=== PATIENT | female | born 1940 | race Caucasian/White ===

== ENCOUNTER 2016-12-14 18:16 | Inpatient (IN) | payer MEDICARE, MEDICAID ==
[~2016-12-14] VITALS: Ht 162.6 cm; Wt 110.4 kg
[~2016-12-14 18:16] MED LIST: ACET325 PO; ALDA50TA2 PO; AMLO5 PO; ASPI81TA82 PO; CYAN100017 PO; DIOV320T PO; DUONI NEB; FURO20 PO; PLAV75TA PO; PRED20 PO; RANI150 PO; SITA100 PO; VENL75 PO; ZOCO80TA PO; [UNRECOGNIZED DRUG - CODE] TOP
[2016-12-14 18:23] VITALS: PULSE 109; RESP 16; TEMP 98.8; O2SAT 86
[2016-12-14 18:38] VITALS: BP 137/74; PULSE 109; RESP 18; TEMP 98.8; O2SAT 90
[2016-12-14] MEDS ORDERED: VENL75TA PO (18:55)
[2016-12-14] MEDS ORDERED: AMLO10 PO (18:55)
[2016-12-14] MEDS ORDERED: ASPI81CH CHEW (18:55)
[2016-12-14] MEDS ORDERED: METO5TAB3 PO (18:55)
[2016-12-14] MEDS ORDERED: CYAN1TAB24 (18:55)
[2016-12-14] MEDS ORDERED: SIMV80TA PO (18:55)
[2016-12-14] MEDS ORDERED: PLAV75TA29 PO (18:55)
[2016-12-14] MEDS ORDERED: FURO1TAB60 PO (18:55)
[2016-12-14] MEDS ORDERED: MICRO K PO (18:55)
[2016-12-14] MEDS ORDERED: O2 (18:55)
[2016-12-14] MEDS ORDERED: ZANT150T2 PO (18:55)
[2016-12-14] MEDS ORDERED: SITA1TAB2 PO (18:55)
[2016-12-14] MEDS ORDERED: GLIP10TA6 PO (18:55)
[2016-12-14 19:01] LABS: AUTOMATED NEUTROPHIL # 6.9 TH/MM3 (1.8-7.7); BASOPHIL % 0.3 % (0.0-2.0); EOSINOPHIL # 0.4 TH/MM3 (0-0.4); EOSINOPHIL % 4.5 % (0.0-4.0); HEMATOCRIT 38.3 % (35.0-46.0); LYMPH % 10.7 % (9.0-44.0); LYMPHOCYTE # 0.9 TH/MM3 (1.0-4.8); MEAN CELL VOLUME 76.6 FL (80.0-100.0); MEAN CORPUSCULAR HEMOGLOBIN 24.5 PG (27.0-34.0); MEAN CORPUSCULAR HGB CONC 31.9 % (32.0-36.0); MONO % 4.7 % (0.0-8.0); NEUT % 79.8 % (16.0-70.0); PLATELET COUNT 211 TH/MM3 (150-450); RED BLOOD COUNT 4.99 MIL/MM3 (4.00-5.30); RED CELL DISTRIBUTION WIDTH 16.9 % (11.6-17.2); WHITE BLOOD COUNT 8.6 TH/MM3 (4.0-11.0)
[2016-12-14 19:10] LABS: HEMO FLAGS AUTO DIFF
[2016-12-14 19:25] LABS: ALKALINE PHOSPHATASE 93 U/L (45-117); ALT (GPT) 21 U/L (10-53); ANION GAP 7 MEQ/L (5-15); AST (GOT) 25 U/L (15-37); BICARBONATE 42.1 MEQ/L (21.0-32.0); BLOOD UREA NITROGEN 47 MG/DL (7-18); CHLORIDE 89 MEQ/L (98-107); GLOMERULAR FILTRATION RATE 34 ML/MIN (>89); SODIUM (NA) 138 MEQ/L (136-145); TOTAL BILIRUBIN ADULT 0.3 MG/DL (0.2-1.0)
[2016-12-14 19:26] LABS: POTASSIUM 2.7 MEQ/L (3.5-5.1)
--- NOTE | 2016-12-14 19:32 | PD ---
HPI Chief Complaint: Abnormal Results Time Seen by Provider: 19:22 Travel History International Travel<30 days: No Contact w/Intl Traveler<30days: No Traveled to known affect area: No History of Present Illness HPI 75-year-old female presents to the emergency department by private transportation in the Care of her health child day care center worker, Julio César Rowland, for evaluation of hypokalemia. According to the patient and to Ms Rowland patient was noted to have low potassium and her doctor's office on Sunday and a repeat potassium was performed today and [facility] to [facility] Patient sent to the emergency department for potassium replacement. The patient is under the care of primary provider Dr. Gardner, oxygen tank filler , and chili pepper grinder Dr. Flores. Patient has history of hypertension dyslipidemia diabetes CHF lymphedema chronic renal failure and COPD on continuous supplemental oxygen 2 L/m nasal cannula. Patient since October has been on high dose Lasix 80 mg daily and metolazone 5 mg daily as well as potassium 10 mEq daily since October when she was identified to have an exacerbation of volume overload. Patient has reportedly lost 20 pounds from October until now as well as is being managed to a lymphedema clinic with wrapping of the lower extremities. Patient has not been having any episodes of exacerbation of dyspnea or CHF. Patient has some small episodes of exacerbation of COPD that are managed symptomatically and have not been causing her any issues. Because of patient's low potassium as of yesterday her potassium dose was decreased to 40 mg of Lasix daily and her potassium is increased to 30 mEq daily. Patient's last creatinine was 1.3 on 11/23/16 according to health child day care center worker but does not know the results of the last 2 days renal function. The patient denies any fever or chills, nausea or vomiting, palpitations or shortness of breath, orthopnea or PND. Patient always has some mild dyspnea on exertion. There is been no increased no extremity edema or pain. Patient's had no chest pain or pleuritic chest pain. Patient's had no diarrheal illness. Patient's had good urine output. Blood sugars have been well controlled and at the maximum has been in the 200 range. Patient denies any other concerns or complaints. PFSH Past Medical History Narrative Medical Plavix/aspirin therapy, depression, CAD, intermittent atrial fibrillation, CHF, hypertension, dyslipidemia, diabetes, asthma/COPD, CVA, cataract surgery, dental extraction; no tobacco use, occasional alcohol use; nursing notes reviewed Hx Anticoagulant Therapy: Yes (PLAVIX AND BABY ASA) Asthma: Yes Autoimmune Disease: No Blood Disorders: No Depression: Yes Heart Rhythm Problems: No Cancer: No Cardiovascular Problems: Yes (HTN, CAD, CHOL) High Cholesterol: Yes Chest Pain: No Congestive Heart Failure: Yes Cerebrovascular Accident: Yes (CVA) Coronary Artery Disease: Yes Diabetes: Yes Patient Takes Glucophage: Yes Diminished Hearing: No Endocrine: Yes Gastrointestinal Disorders: Yes GERD: Yes Genitourinary: No Hypertension: Yes Immune Disorder: No Implanted Vascular Access Dvce: Yes Musculoskeletal: No Neurologic: No Psychiatric: No Reproductive: No Respiratory: Yes (RESPIRATORY FAILURE, ASTHMA, COPD) Sleep Apnea: No Thyroid Disease: No Triglycerides - High: Yes Tetanus Vaccination: < 5 Years ?: Not Past Surgical History Abdominal Surgery: No AICD: No Arteriovenous Shunt: No Cardiac Surgery: No Ear Surgery: No Endocrine Surgery: No Eye Surgery: Yes (CATARACTS BILATERAL ) Genitourinary Surgery: No Gynecologic Surgery: No Hysterectomy: No Insulin Pump: No Joint Replacement: No Neurologic Surgery: No Oral Surgery: Yes (TEETH EXTRACTIONS) Pacemaker: No Thoracic Surgery: No Other Surgery: Yes Social History Alcohol Use: Yes (ONE DRINK PER MONTH) Tobacco Use: No Substance Use: No Allergies-Medications (Allergen,Severity, Reaction): Coded Allergies: No Known Allergies (Verified , 12/14/16) Reported Meds & Prescriptions Reported Meds & Active Scripts Active Reported [O2] 2 Liter [Micro K] 10 Meq PO TID Plavix (Clopidogrel Bisulfate) 75 Mg Tab 75 Mg PO DAILY B12 (Cyanocobalamin) 1,000 Mcg Tab Lasix (Furosemide) 40 Mg Tab 40 Mg PO DAILY Januvia (Sitagliptin Phosphate) 100 Mg Tab 100 Mg PO DAILY Metolazone 5 Mg Tab 5 Mg PO DAILY Simvastatin 80 Mg Tab 80 Mg PO DAILY Aspirin 81 Mg Chew 81 Mg CHEW DAILY Effexor (Venlafaxine HCl) 75 Mg Tab 75 Mg PO DAILY Glipizide 10 Mg Tab 10 Mg PO DAILY Take 30 minutes before a meal Zantac (Ranitidine HCl) 150 Mg Tab 150 Mg PO DAILY Norvasc (Amlodipine Besylate) 10 Mg Tab 10 Mg PO DAILY Review of Systems Except as stated in HPI: all other systems reviewed are Neg General / Constitutional: No: Fever, Chills HENT: No: Congestion Cardiovascular: No: Chest Pain or Discomfort, Palpitations, Diaphoresis, Syncope, Edema Respiratory: No: Cough, Shortness of Breath, Wheezing, Orthopnea, Pleuritic Pain Gastrointestinal: No: Nausea, Vomiting, Diarrhea, Abdominal Pain Genitourinary: No: Dysuria, Decreased Urinary Output Musculoskeletal: No: Myalgias, Arthralgias Skin: No Rash Neurologic: No: Weakness, Dizziness Psychiatric: No: Anxiety Endocrine: No: Polyuria Hematologic/Lymphatic: No: Lymph Node Enlargement Physical Exam Narrative GENERAL: Well-developed well-nourished elderly obese female in no acute distress no respiratory distress resting supine with 2 L/m NC O2sat 93% SKIN: Warm and dry. HEAD: Normocephalic. EYES: No scleral icterus. No injection or drainage. NECK: Supple, trachea midline. No JVD or lymphadenopathy. CARDIOVASCULAR: Irregular rate and rhythm without murmurs, gallops, or rubs. RESPIRATORY: Breath sounds equal bilaterally. No accessory muscle use. GASTROINTESTINAL: Abdomen soft, non-tender, nondistended. MUSCULOSKELETAL: No cyanosis, or edema. BL LE lymphedema bandaging. BACK: Nontender without obvious deformity. No CVA tenderness. Data Data Last Documented VS Vital Signs Date Time Temp Pulse Resp B/P Pulse Ox O2 Delivery O2 Flow Rate FiO2 12/14/16 22:26 92 18 133/63 93 Nasal Cannula 2 12/14/16 18:38 98.8 Orders Complete Blood Count With Diff (12/14/16 18:48) Comprehensive Metabolic Panel (12/14/16 18:48) Potassium Chloride (Kcl) (12/14/16 19:45) Potassium Chlor 10 Meq Premix (Kcl 10 Me (12/14/16 19:45) Electrocardiogram (12/14/16 ) Magnesium (Mg) (12/14/16 18:53) Potassium, Serum (K) (12/14/16 21:37) Place In Observation (12/14/16 ) Code Status (12/14/16 22:41) Vital Signs (Adult) Q4H (12/14/16 22:41) Activity Oob Ad Maggi (12/14/16 22:41) Office Copy Selector / Telemetry .CONTINUOUS (12/14/16 22:41) Diet Renal (12/15/16 Breakfast) Sodium Chloride 0.9% Flush (Ns Flush) (12/14/16 22:45) Sodium Chloride 0.9% Flush (Ns Flush) (12/15/16 09:00) Ondansetron Inj (Zofran Inj) (12/14/16 22:45) Basic Metabolic Panel (Bmp) (12/15/16 06:00) Complete Blood Count With Diff (12/15/16 06:00) Heparin Inj (Heparin Inj) (12/14/16 22:45) Naloxone Inj (Narcan Inj) (12/14/16 22:45) Docusate Sodium-Senna (Ynes-Colace) (12/15/16 09:00) Magnesium Hydroxide Liq (Milk Of Magnesi (12/14/16 22:45) Sennosides (Senokot) (12/14/16 22:45) Bisacodyl Supp (Dulcolax Supp) (12/14/16 22:45) Lactulose Liq (Lactulose Liq) (12/14/16 22:45) Labs Laboratory Tests Test 12/14/16 12/14/16 18:53 22:00 White Blood Count 8.6 TH/MM3 Red Blood Count 4.99 MIL/MM3 Hemoglobin 12.2 GM/DL Hematocrit 38.3 % Mean Corpuscular Volume 76.6 FL Mean Corpuscular Hemoglobin 24.5 PG Mean Corpuscular Hemoglobin 31.9 % Concent Red Cell Distribution Width 16.9 % Platelet Count 211 TH/MM3 Mean Platelet Volume 8.1 FL Neutrophils (%) (Auto) 79.8 % Lymphocytes (%) (Auto) 10.7 % Monocytes (%) (Auto) 4.7 % Eosinophils (%) (Auto) 4.5 % Basophils (%) (Auto) 0.3 % Neutrophils # (Auto) 6.9 TH/MM3 Lymphocytes # (Auto) 0.9 TH/MM3 Monocytes # (Auto) 0.4 TH/MM3 Eosinophils # (Auto) 0.4 TH/MM3 Basophils # (Auto) 0.0 TH/MM3 CBC Comment AUTO DIFF Differential Comment AUTO DIFF CONFIRMED Sodium Level 138 MEQ/L Potassium Level 2.7 MEQ/L 2.8 MEQ/L Chloride Level 89 MEQ/L Carbon Dioxide Level 42.1 MEQ/L Anion Gap 7 MEQ/L Blood Urea Nitrogen 47 MG/DL Creatinine 1.50 MG/DL Estimat Glomerular Filtration 34 ML/MIN Rate Random Glucose 194 MG/DL Calcium Level 9.2 MG/DL Magnesium Level 1.7 MG/DL Total Bilirubin 0.3 MG/DL Aspartate Amino Transf 25 U/L (AST/SGOT) Alanine Aminotransferase 21 U/L (ALT/SGPT) Alkaline Phosphatase 93 U/L Total Protein 7.6 GM/DL Albumin 2.9 GM/DL MDM Medical Decision Making Medical Screen Exam Complete: Yes Emergency Medical Condition: Yes Medical Record Reviewed: Yes Interpretation(s) EKG: Atrial fibrillation with controlled ventricular rate of 93 left axis deviation no acute ST elevation or acute injury pattern change noted Vital Signs Date Time Temp Pulse Resp B/P Pulse Ox O2 Delivery O2 Flow Rate FiO2 12/14/16 18:38 98.8 109 18 137/74 90 12/14/16 18:35 16 86 Nasal Cannula 2 12/14/16 18:23 98.8 109 16 86 Nasal Cannula 2 CBC & BMP Diagram 12/14/16 18:53 Differential Diagnosis Electrolyte disturbance, hypokalemia, renal insufficiency, arrhythmia Narrative Course Patient placed on manager cardiac, continued on supplemental nasal cannula oxygen, IV access obtained, specimens collected and sent for resulting It is 7:30 PM and patient's potassium has been resulted as 2.7 Patient administered oral potassium and x 1 dose iv KCL patient resting comfortably --waiting on repeat potassium level repeat K:2.8; plan obs for correction of hypokalemia Physician Communication Physician Communication call placed to service --discussed with Danitza CENTENO--OBS Diagnosis Primary Impression: Hypokalemia Additional Impressions: History of COPD H/O CHF Atrial fibrillation Qualified Code: I48.0 - Paroxysmal atrial fibrillation H/O renal impairment Admitting Information Admitting Physician Requests: Observation Chacha Diallo MD Dec 14, 2016 19:32
[2016-12-14] MEDS ORDERED: POTASSIUM CHLORIDE 20 MEQ CONTROLLED RELEASE TAB PO ONE (19:45)
[2016-12-14] MEDS ORDERED: POTASSIUM CHLOR 10 MEQ PREMIX 100 ML IV ONE (19:45)
[2016-12-14 19:50] LABS: SCAN/DIFF AUTO DIFF CONFIRMED
[2016-12-14 20:00] LABS: MAGNESIUM 1.7 MG/DL (1.5-2.5)
[2016-12-14 21:04] VITALS: BP 124/70; PULSE 93; RESP 18; O2SAT 93
[2016-12-14 22:26] VITALS: BP 133/63; PULSE 92; RESP 18; O2SAT 93
[2016-12-14] MEDS ORDERED: ONDANSETRON HCL 4 MG/2 ML VIAL IVP PRN (22:45)
[2016-12-14] MEDS ORDERED: NALOXONE HCL 0.4 MG/ML AMP IV PRN (22:45)
[2016-12-14] MEDS ORDERED: SODIUM CHLORIDE 0.9% FLUSH 10 ML FLUSH IV FLUSH PRN (22:45)
[2016-12-14] MEDS ORDERED: SENNOSIDES 8.6 MG TAB PO PRN (22:45)
[2016-12-14] MEDS ORDERED: BISACODYL 10 MG SUPP RECTAL PRN (22:45)
[2016-12-14] MEDS ORDERED: MAGNESIUM HYDROXIDE SUSP 30 ML CUP PO PRN (22:45)
[2016-12-14] MEDS ORDERED: SODIUM CHLORIDE 0.9% FLUSH 10 ML FLUSH IVF PRN (22:45)
[2016-12-14] MEDS ORDERED: POTASSIUM CHLORIDE 10 MEQ CONTROLLED RELEASE TAB PO ONE (22:45)
[2016-12-14] MEDS ORDERED: LACTULOSE SYRUP 20 GM/30 ML CUP PO PRN (22:45)
[2016-12-14 22:49] VITALS: O2SAT 94
[2016-12-14] MEDS ORDERED: DEXTROSE 50% IN WATER 50 ML VIAL(D50) IV PRN (23:00)
[2016-12-14] MEDS ORDERED: GLUCAGON 1 MG/ML VIAL OTHER PRN (23:00)
[2016-12-14] MEDS ORDERED: PILL SPLITTER OTHER PRN (23:00)
[2016-12-14] MEDS: HEPARIN SODIUM - SQ 10,000 UNITS/ML VIAL SQ SCH (23:21)
[2016-12-14] MEDS: NS + KCL 20 MEQ INJ 1,000 ML IV SCH (23:21)
[2016-12-14 23:44] VITALS: BP 137/72; PULSE 90; RESP 18; O2SAT 94
[2016-12-15] VITALS (14 sets, daily range): BP systolic 145–190; BP diastolic 65–92; PULSE 63–101; RESP 17–20; TEMP 97–98; O2SAT 81–99
[2016-12-15] MEDS: INSULIN ASPART SUPPLEMENTAL SCALE SQ SCH ×4 (05:59→20:30)
[2016-12-15 06:35] LABS: AUTOMATED NEUTROPHIL # 5.8 TH/MM3 (1.8-7.7); BASOPHIL % 0.4 % (0.0-2.0); EOSINOPHIL # 0.4 TH/MM3 (0-0.4); EOSINOPHIL % 5.4 % (0.0-4.0); HEMATOCRIT 35.5 % (35.0-46.0); HEMO FLAGS DIFF FINAL; LYMPH % 14.2 % (9.0-44.0); LYMPHOCYTE # 1.1 TH/MM3 (1.0-4.8); MEAN CELL VOLUME 77.2 FL (80.0-100.0); MEAN CORPUSCULAR HEMOGLOBIN 25.1 PG (27.0-34.0); MEAN CORPUSCULAR HGB CONC 32.5 % (32.0-36.0); MONO % 5.3 % (0.0-8.0); NEUT % 74.7 % (16.0-70.0); PLATELET COUNT 198 TH/MM3 (150-450); WHITE BLOOD COUNT 7.7 TH/MM3 (4.0-11.0)
[2016-12-15 07:00] LABS: BICARBONATE 42.7 MEQ/L (21.0-32.0)
[2016-12-15 07:03] LABS: POTASSIUM 2.5 MEQ/L (3.5-5.1)
[2016-12-15] MEDS: DOCUSATE SODIUM 50 MG/SENNA 8.6 MG TAB PO SCH ×2 (08:23→20:28)
[2016-12-15] MEDS: CLOPIDOGREL 75 MG TAB PO SCH (08:23)
[2016-12-15] MEDS: ASPIRIN 81 MG CHEW TAB CHEW SCH (08:23)
[2016-12-15] MEDS: VENLAFAXINE HCL XR 75 MG CAP PO SCH (08:23)
[2016-12-15] MEDS: ATORVASTATIN 40 MG TAB PO SCH (08:23)
[2016-12-15] MEDS: HEPARIN SODIUM - SQ 10,000 UNITS/ML VIAL SQ SCH ×2 (08:35→23:25)
[2016-12-15] MEDS: FAMOTIDINE 20 MG TAB PO SCH ×2 (08:35→20:28)
[2016-12-15] MEDS ORDERED: POTASSIUM CHLORIDE 10 MEQ CONTROLLED RELEASE TAB PO ONE (09:00)
[2016-12-15] MEDS ORDERED: SODIUM CHLORIDE 0.9% FLUSH 10 ML FLUSH IV FLUSH SCH (09:00)
[2016-12-15] MEDS: SODIUM CHLORIDE 0.9% FLUSH 10 ML FLUSH IV FLUSH SCH ×2 (09:00→20:29)
--- NOTE | 2016-12-15 12:33 | PD.CONS ---
HPI Service Nephrology Consult Requested By Dr. Edgar Reason for Consult Hypokalemia Primary Care Physician Yoni Gardner MD History of Present Illness Patient is 75-year-old white female with history of diabetes, lymphedema, congestive heart failure, atrial fibrillation, on Lasix 80 mg daily and metolazone 5 mg daily with potassium supplementation she came in with increased weakness and found to have potassium 2.8 this gradually declined to 2.7 and then 2.5, magnesium was 1.7, she has metabolic alkalosis is feeling weak tired and lethargic inability to walk, she did got replacement of potassium supplementation. 80 mEq of potassium was given orally. Review of Systems Constitutional: COMPLAINS OF: Fatigue Respiratory: COMPLAINS OF: Shortness of breath Cardiovascular: COMPLAINS OF: Lower Extremity Edema Musculoskeletal: COMPLAINS OF: Joint Swelling Neurologic: COMPLAINS OF: Abnormal gait Psychiatric: COMPLAINS OF: Depression Past Family Social History Allergies: Coded Allergies: No Known Allergies (Verified , 12/14/16) Past Medical History depression CAD CKD follows with Dr. Gomez intermittent atrial fibrillation CHF hypertension, dyslipidemia diabetes asthma/COPD CVA, Past Surgical History Cataract surgery Dental extraction Reported Medications Reported Meds & Active Scripts Active Reported [O2] 2 Liter [Micro K] 10 Meq PO TID Plavix (Clopidogrel Bisulfate) 75 Mg Tab 75 Mg PO DAILY B12 (Cyanocobalamin) 1,000 Mcg Tab Lasix (Furosemide) 40 Mg Tab 40 Mg PO DAILY Januvia (Sitagliptin Phosphate) 100 Mg Tab 100 Mg PO DAILY Metolazone 5 Mg Tab 5 Mg PO DAILY Simvastatin 80 Mg Tab 80 Mg PO DAILY Aspirin 81 Mg Chew 81 Mg CHEW DAILY Effexor (Venlafaxine HCl) 75 Mg Tab 75 Mg PO DAILY Glipizide 10 Mg Tab 10 Mg PO DAILY Take 30 minutes before a meal Zantac (Ranitidine HCl) 150 Mg Tab 150 Mg PO DAILY Norvasc (Amlodipine Besylate) 10 Mg Tab 10 Mg PO DAILY Active Ordered Medications Current Medications Medications (Trade) Dose Ordered Sig/Jovon Route Start Time Stop Time Status Last Admin (NS Flush) 2 ml UNSCH PRN IV FLUSH 12/14/16 22:45 (NS Flush) 2 ml BID IV FLUSH 12/15/16 09:00 (Zofran Inj) 4 mg Q6H PRN IVP 12/14/16 22:45 (Heparin Inj) 5,000 units Q12H SQ 12/14/16 23:00 12/15/16 08:35 (Narcan Inj) 0.4 mg UNSCH PRN IV 12/14/16 22:45 (Ynes-Colace) 1 tab BID PO 12/15/16 09:00 12/15/16 08:23 (Milk Of Magnesia Liq) 30 ml Q12H PRN PO 12/14/16 22:45 (Senokot) 17.2 mg Q12H PRN PO 12/14/16 22:45 (Dulcolax Supp) 10 mg DAILY PRN RECTAL 12/14/16 22:45 Lactulose 30 ml 30 ml DAILY PRN PO 12/14/16 22:45 (NS + KCl 20 Meq Inj) 1,000 ml @ 42 mls/hr [id number] IV 12/14/16 22:45 12/14/16 23:21 (Norvasc) 10 mg DAILY PO 12/15/16 09:00 12/15/16 08:23 (Aspirin Chew) 81 mg DAILY CHEW 12/15/16 09:00 12/15/16 08:23 (Plavix) 75 mg DAILY PO 12/15/16 09:00 12/15/16 08:23 (Lipitor) 40 mg DAILY PO 12/15/16 09:00 12/15/16 08:23 (Effexor Xr) 75 mg DAILY PO 12/15/16 09:00 12/15/16 08:23 (Pepcid) 10 mg BID PO 12/15/16 09:00 12/15/16 08:35 (D50w (Vial) Inj) 50 ml UNSCH PRN IV 12/14/16 23:00 (Glucagon Inj) 1 mg UNSCH PRN OTHER 12/14/16 23:00 (Pill Splitter) 1 ea UNSCH PRN OTHER 12/14/16 23:00 Family History Noncontributory Social History Takes one drink a month Physical Exam Vital Signs Vital Signs Date Time Temp Pulse Resp B/P Pulse Ox O2 Delivery O2 Flow Rate FiO2 12/15/16 09:07 97.9 95 19 183/78 92 12/15/16 04:00 97.7 101 20 190/92 95 12/15/16 03:38 92 12/15/16 00:13 92 18 94 Nasal Cannula 2 12/15/16 00:00 97.4 95 20 162/80 92 12/14/16 23:44 90 18 137/72 94 Nasal Cannula 2 12/14/16 22:49 94 Nasal Cannula 2.00 12/14/16 22:26 92 18 133/63 93 Nasal Cannula 2 12/14/16 21:04 93 18 124/70 93 Nasal Cannula 2 12/14/16 20:25 102 18 94 Nasal Cannula 2 12/14/16 18:38 98.8 109 18 137/74 90 12/14/16 18:35 16 86 Nasal Cannula 2 12/14/16 18:23 98.8 109 16 86 Nasal Cannula 2 Physical Exam GENERAL: Well-nourished, well-developed patient. SKIN: Warm and dry. HEAD: Normocephalic. EYES: No scleral icterus. No injection or drainage. NECK: Supple, trachea midline. No JVD or lymphadenopathy. CARDIOVASCULAR: Irregular RESPIRATORY: Breath sounds equal bilaterally. No accessory muscle use. GASTROINTESTINAL: Abdomen soft, non-tender, nondistended. EXTREMITIES: No cyanosis, 1+/ 2 + edema. Wears stockings NEUROLOGICAL: Awake, alert, and oriented x 3. Non-focal. Laboratory Laboratory Tests Test 12/14/16 12/14/16 12/15/16 18:53 22:00 05:40 White Blood Count 8.6 7.7 Red Blood Count 4.99 4.60 Hemoglobin 12.2 11.5 Hematocrit 38.3 35.5 Mean Corpuscular Volume 76.6 77.2 Mean Corpuscular Hemoglobin 24.5 25.1 Mean Corpuscular Hemoglobin 31.9 32.5 Concent Red Cell Distribution Width 16.9 17.0 Platelet Count 211 198 Mean Platelet Volume 8.1 8.2 Neutrophils (%) (Auto) 79.8 74.7 Lymphocytes (%) (Auto) 10.7 14.2 Monocytes (%) (Auto) 4.7 5.3 Eosinophils (%) (Auto) 4.5 5.4 Basophils (%) (Auto) 0.3 0.4 Neutrophils # (Auto) 6.9 5.8 Lymphocytes # (Auto) 0.9 1.1 Monocytes # (Auto) 0.4 0.4 Eosinophils # (Auto) 0.4 0.4 Basophils # (Auto) 0.0 0.0 CBC Comment AUTO DIFF DIFF FINAL Differential Comment AUTO DIFF CONFIRMED Sodium Level 138 140 Potassium Level 2.7 2.8 2.5 Chloride Level 89 91 Carbon Dioxide Level 42.1 42.7 Anion Gap 7 6 Blood Urea Nitrogen 47 42 Creatinine 1.50 1.30 Estimat Glomerular Filtration 34 40 Rate Random Glucose 194 149 Calcium Level 9.2 9.1 Magnesium Level 1.7 Total Bilirubin 0.3 Aspartate Amino Transf 25 (AST/SGOT) Alanine Aminotransferase 21 (ALT/SGPT) Alkaline Phosphatase 93 Total Protein 7.6 Albumin 2.9 Result Diagram: 12/15/1653912/15/16539 Assessment and Plan Problem List: (1) Renal failure Plan: Patient will benefit from IV fluid and hydration I will increase the rate to 2 83 cc an hour with potassium replacement and recheck potassium Resume diuretic, once volume repletion is completed Lasix and restarted at 40 mg from tomorrow Continue to hold metolazone She came discharge from nephrology point of view once potassium is replaced and can be followed by Dr. Gomez (2) Hypokalemia Plan: I will replace magnesium as less than 2 And continue with potassium replacement (3) Atrial fibrillation Plan: Takes Plavix and aspirin (4) Diabetes mellitus Plan: Continue to monitor (5) Alkalemia Plan: Due to volume contraction From overdiuresis Problem Qualifiers (1) Renal failure: (2) Atrial fibrillation: Qualified Code: I48.0 - Paroxysmal atrial fibrillation (3) Diabetes mellitus: Bree Christy MD Dec 15, 2016 12:33
[2016-12-15] MEDS ORDERED: MAGNESIUM SULFATE 1 GM PREMIX 100 ML IV ONE (13:00)
[2016-12-15 16:54] LABS: BLOOD GAS BASE EXCESS 15.7 mmol/L (-2-2); BLOOD GAS CARBOXYHEMOGLOBIN 1.6 % (0-4); BLOOD GAS HCO3 42 mmol/L (22-26); BLOOD GAS METHEMOGLOBIN 1.5 % (0-2); BLOOD GAS O2 HGB SATURATION 95 % (90-100); BLOOD GAS OXYGEN CONTENT 16.2 Vol % (12.0-20.0); BLOOD GAS PCO2 81 mmHg (38-42); BLOOD GAS PO2 116 mmHg (61-120); CRITICAL VALUE YES; LITER FLOW 15 L/M; OXYGEN DEVICE NRB
[2016-12-15 16:55] LABS: DRAW SITE LT RADIAL; NUMBER OF ARTERIAL PUNCTURES 1; STAT YES; ULNAR PULSE PRESENT
--- NOTE | 2016-12-15 17:17 | RADRPT ---
EXAM DATE/TIME: 12/15/2016 17:03 [place] COMPARISON: CHEST SINGLE AP, September 15, 2015, 3:19. INDICATIONS : Shortness of breath. MEDICAL HISTORY : Cardiovascular disease. Hypertension. Renal failure, chronic SURGICAL HISTORY : None. ENCOUNTER: Initial ACUITY: 1 day PAIN SCORE: 0/10 LOCATION: Bilateral chest FINDINGS: There is slight cardiomegaly and perivascular pulmonary edema. Focal consolidation is not seen. CONCLUSION: Slight CHF. Abel oSto MD on December 15, 2016 at 17:15 Board Certified Radiologist. This report was verified electronically.
--- NOTE | 2016-12-15 17:31 | MH ---
cc: BLAIR VILLA MD DATE OF ADMISSION 12/14/2016 CHIEF COMPLAINT Abnormal lab. HISTORY OF PRESENT ILLNESS This is a 75-year female with past medical and surgical history significant for depression, coronary artery disease, intermittent atrial fibrillation, congestive heart failure, hypertension, dyslipidemia, diabetes, asthma, COPD, CVA, cataract surgery, dental extraction, history of respiratory failure, asthma, COPD, history of hypertriglyceridemia, cataract bilateral surgery in the past and teeth extraction who came to the ER at [facility] via private transportation in the care of health personal care aid, Ms. Julio César Rowland, for evaluation of hypokalemia according to the patient and Edda Kashif. The patient was noted to have a low potassium in the doctor's Office on Sunday and a repeated potassium was performed today and was 2.3 at [facility]. The patient was sent to the emergency department for potassium replacement. The patient is under the care of primary care, Dr. Gardner, and also conduit installer, Dr. Gomez, and finisher special stocks, Dr. Nation. The patient has a history of hypertension and dyslipidemia, diabetes mellitus, congestive heart failure, lymphedema, chronic renal failure and COPD. Continue supplement of oxy 2 liters via nasal cannula. The patient has been on high dose of Lasix and metolazone 5 mg as well as potassium 10 mEq daily. The patient was identified having exacerbation of volume overload. The patient has reportedly lost 20 pounds from October until now, has been managed at lymphedema clinic with wrapping of the lower extremities. The patient has not been having any episode of exacerbation of dyspnea or CHF. The patient had small episode of exacerbation of COPD that was managed medically and has not been causing her any issue. Because of the patient's low potassium as of yesterday potassium dose was decreased to 40 mg of Lasix daily and her potassium is increased to 30 mEq daily. The patient's last creatinine was 1.3 on 11/23/2016 according the health care provider/advocate, but does not know the results of the last two days. RENAL FUNCTION - The patient denies any fever or chills, nausea, vomiting, palpitation or shortness of breath, orthopnea, PND. The patient always has some mild dyspnea on exertion. There has been no increased orthopnea and PND. The patient always has some mild dyspnea on exertion. There has been no increase in the extremity edema. The patient denies any chest pain. Denies any diarrheal illness. The patient has difficulty in speaking, has no teeth. Sugar has been well-controlled, has been in the range within 200. Other than that, nothing significant PAST MEDICAL HISTORY/PAST SURGICAL HISTORY As dictated above. SOCIAL HISTORY She drinks once a month. denies any smoking or drug abuse. Lives at home alone. FAMILY HISTORY Nothing significant. ALLERGIES NO KNOWN DRUG ALLERGIES. MEDICATIONS 1. Plavix 75 mg p.o. daily, 2. B12 1000 mcg p.o. daily. 3. Lasix 40 mg p.o. daily. 4. Januvia 100 mg p.o. daily. 5. Metolazone 5 mg p.o. daily. 6. Simvastatin 80 mg p.o. daily. 7. Aspirin 81 mg p.o. daily 8. Zyprexa 75 mg p.o. daily. 9. Glipizide 10 mg p.o. daily. 10. Zantac 150 mg p.o. daily. 11. Norvasc 10 mg p.o. daily. REVIEW OF SYSTEMS All review of systems negative except for leg edema, feeling weak and tired. PHYSICAL EXAMINATION GENERAL: This is a 75-year old female laying on the bed not in acute distress. VITAL SIGNS: Temperature 97.9, heart rate 63, respiration 19, blood pressure 156/81, O2 saturation 99% 2 liters nasal cannula. HEENT: Normocephalic, atraumatic. EOMI. PERRL. Oral mucosa moist. NECK: Supple. No visible thyromegaly or neck mass. Trachea central. CVS: Regular rate and rhythm. LUNGS: Respirations clear to auscultation bilaterally. ABDOMEN: Soft, nontender. Bowel sounds audible. EXTREMITIES: +3 pitting edema in bilateral lower extremities. No joint swelling. NEUROLOGIC: Awake and alert, oriented x3 has difficulty speaking. Moving all extremities. SKIN: Warm and dry. PSYCHIATRIC: The patient is cooperative, mood and affect are normal. LABORATORY DATA CBC is totally unremarkable except for hemoglobin of 11.5 low, hematocrit was normal 35.5, MCV 77.2 low, MCH is 25.1 low, neutrophils 74.7 high. BMP totally unremarkable except for potassium 2.5 low, creatinine was 1.5, now it is 1.3. LFTs are normal. Albumin low 2.9, glucose 149 high, creatinine was 1.5, decreased down to 1.3, GFR was 34 now it is 40. ASSESSMENT/PLAN 1. This is 75-year female who came to the ER diagnosed with a severe hypokalemia. Nephrology consulted. Potassium replacement done. Dr. Christy has seen the patient. She is getting IV replacement potassium. Going start Lasix 40 mg from tomorrow. Continue to hold metolazone. Magnesium level is 1.7. Getting a magnesium replacement too. 2. Atrial fibrillation. Continue home medication, on aspirin and Plavix. 3. Diabetes mellitus ADA diet. NovoLog low-dose sliding scale. Check blood sugars a.c. and hs. Monitor blood sugar. 4. Hyperlipidemia. Continue simvastatin 80 mg p.o. daily. 5. Depression. Continue with Effexor 75 mg p.o. daily. 6. Gastroesophageal reflux disease. Protonix 40 mg p.o. daily. 7. GI prophylaxis. Pepcid 10 mg twice a day p.o. 8. DVT prophylaxis heparin 5000 units subcutaneous twice a day. 9. GI prophylaxis. Pepcid 10 mg twice a day. We are going to manage the patient on a daily basis and make recommendations on a daily basis. Blair Villa MD EA/ /4:52 PM /5:13 PM
[2016-12-15] MEDS: RESP: ALBUTEROL 2.5 MG/IPRATROPIUM 0.5 MG NEB (SCH) NEB (19:51)
[2016-12-15] MEDS ORDERED: RESP: ALBUTEROL 2.5 MG/IPRATROPIUM 0.5 MG NEB (SCH) NEB (20:00)
[2016-12-15] MEDS: NS + KCL 20 MEQ INJ 1,000 ML IV SCH (20:28)
[2016-12-15] MEDS: methylPREDNISolone SOD SUCC 40 MG/1 ML VIAL IV PUSH SCH (20:29)
[2016-12-15] MEDS: BUDESONIDE-FORMOTEROL 160/4.5 MCG INHALER INH SCH (20:29)
[2016-12-15] MEDS ORDERED: diphenhydrAMINE HCL 50 MG/ML VIAL ONE (21:59)
[2016-12-15] MEDS ORDERED: diphenhydrAMINE HCL 50 MG/ML VIAL IV ONE (22:30)
[2016-12-16] VITALS (25 sets, daily range): BP systolic 149–183; BP diastolic 69–100; PULSE 84–104; RESP 17–41; TEMP 97.8–98.7; O2SAT 81–100
[2016-12-16] MEDS: NS + KCL 20 MEQ INJ 1,000 ML IV SCH (05:34)
[2016-12-16 06:03] LABS: BASOPHIL % 0.2 % (0.0-2.0); EOSINOPHIL % 0.1 % (0.0-4.0); HEMATOCRIT 38.2 % (35.0-46.0); HEMO FLAGS DIFF FINAL; LYMPH % 5.9 % (9.0-44.0); LYMPHOCYTE # 0.6 TH/MM3 (1.0-4.8); MEAN CELL VOLUME 77.4 FL (80.0-100.0); MEAN CORPUSCULAR HEMOGLOBIN 25.3 PG (27.0-34.0); MEAN CORPUSCULAR HGB CONC 32.7 % (32.0-36.0); MONO % 1.1 % (0.0-8.0); NEUT % 92.7 % (16.0-70.0); PLATELET COUNT 222 TH/MM3 (150-450); RED BLOOD COUNT 4.94 MIL/MM3 (4.00-5.30); RED CELL DISTRIBUTION WIDTH 17.1 % (11.6-17.2); WHITE BLOOD COUNT 9.7 TH/MM3 (4.0-11.0)
[2016-12-16 06:08] LABS: CHLORIDE 94 MEQ/L (98-107); POTASSIUM 3.4 MEQ/L (3.5-5.1); SODIUM (NA) 139 MEQ/L (136-145)
[2016-12-16 06:14] LABS: ANION GAP 5 MEQ/L (5-15); BICARBONATE 40.4 MEQ/L (21.0-32.0)
[2016-12-16 06:25] LABS: ALKALINE PHOSPHATASE 94 U/L (45-117); ALT (GPT) 20 U/L (10-53); AST (GOT) 26 U/L (15-37); BLOOD UREA NITROGEN 31 MG/DL (7-18); GLOMERULAR FILTRATION RATE 49 ML/MIN (>89); TOTAL BILIRUBIN ADULT 0.4 MG/DL (0.2-1.0)
[2016-12-16 06:31] LABS: BLOOD GAS CARBOXYHEMOGLOBIN 1.8 % (0-4); BLOOD GAS HCO3 42 mmol/L (22-26); BLOOD GAS METHEMOGLOBIN 1.3 % (0-2); BLOOD GAS O2 HGB SATURATION 84 % (90-100); BLOOD GAS OXYGEN CONTENT 15.3 Vol % (12.0-20.0); BLOOD GAS PCO2 67 mmHg (38-42); BLOOD GAS PO2 53 mmHg (61-120)
[2016-12-16 06:33] LABS: CRITICAL VALUE YES; LITER FLOW 40 L/M; OXYGEN DEVICE HIGH FLOW NASAL CANN
[2016-12-16 06:34] LABS: DRAW SITE RT RADIAL; FIO2 60 %; NUMBER OF ARTERIAL PUNCTURES 1; STAT NO; ULNAR PULSE PRESENT
[2016-12-16] MEDS: RESP: ALBUTEROL 2.5 MG/IPRATROPIUM 0.5 MG NEB (SCH) NEB ×4 (07:33→19:47)
[2016-12-16] MEDS: INSULIN ASPART SUPPLEMENTAL SCALE SQ SCH ×3 (08:40→21:00)
[2016-12-16] MEDS: methylPREDNISolone SOD SUCC 40 MG/1 ML VIAL IV PUSH SCH ×2 (08:45→21:08)
[2016-12-16] MEDS: CLOPIDOGREL 75 MG TAB PO SCH (08:46)
[2016-12-16] MEDS: ASPIRIN 81 MG CHEW TAB CHEW SCH (08:46)
[2016-12-16] MEDS: VENLAFAXINE HCL XR 75 MG CAP PO SCH (08:46)
[2016-12-16] MEDS: SODIUM CHLORIDE 0.9% FLUSH 10 ML FLUSH IV FLUSH SCH ×2 (08:47→21:00)
[2016-12-16] MEDS: ATORVASTATIN 40 MG TAB PO SCH (08:47)
[2016-12-16] MEDS: FAMOTIDINE 20 MG TAB PO SCH ×2 (08:47→21:07)
--- NOTE | 2016-12-16 08:51 | HHI.PR ---
Vitals/Results Intake & Output 12/15/16 12/15/16 12/16/16 15:00 23:00 07:00 Intake Total 1310 ml 340 ml Output Total 1200 ml 1550 ml Balance 110 ml -1210 ml Intake Oral 1110 ml IV Total 200 ml 340 ml Output Urine Total 1200 ml 1550 ml # Voids 4 # Bowel Movements 1 Vital Signs Vital Signs Date Time Temp Pulse Resp B/P Pulse Ox O2 Delivery O2 Flow Rate FiO2 12/16/16 07:37 90 High Flow Nasal Cannula 40.00 70 12/16/16 04:00 98.1 104 19 159/74 91 12/16/16 04:00 104 12/16/16 00:10 92 High Flow Nasal Cannula 30.00 60 12/16/16 00:00 84 12/16/16 00:00 97.8 84 17 156/70 95 12/15/16 22:35 92 High Flow Nasal Cannula 30.00 55 12/15/16 21:35 92 Nasal Cannula 6.00 12/15/16 20:00 86 12/15/16 20:00 98.0 86 17 145/70 94 12/15/16 19:50 93 40 12/15/16 17:25 91 40 12/15/16 16:48 97.0 91 20 152/65 12/15/16 16:43 95 Non-Rebreather 15.00 12/15/16 16:40 81 Nasal Cannula 2.00 12/15/16 13:06 97.9 63 19 156/81 99 12/15/16 09:07 97.9 95 19 183/78 92 CBC/BMP: 12/16/16 0538 12/16/16 0538 Lab Results Laboratory Tests Test 12/15/16 12/15/16 12/16/16 12/16/16 16:48 22:37 05:38 06:22 Blood Gas Puncture Site LT RADIAL RT RADIAL Blood Gas Patient Temperature 37.0 37.0 Blood Gas HCO3 42 mmol/L 42 mmol/L Blood Gas Base Excess 15.7 mmol/L 16.0 mmol/L Blood Gas Oxygen Saturation 95 % 84 % Arterial Blood pH 7.34 7.41 Arterial Blood Partial 81 mmHg 67 mmHg Pressure CO2 Arterial Blood Partial 116 mmHg 53 mmHg Pressure O2 Arterial Blood Oxygen Content 16.2 Vol % 15.3 Vol % Arterial Blood 1.6 % 1.8 % Carboxyhemoglobin Arterial Blood Methemoglobin 1.5 % 1.3 % Blood Gas Hemoglobin 12.0 G/DL 13.0 G/DL Oxygen Delivery Device NRB HIGH FLOW NASAL AGNES Blood Gas Liter Flow 15 L/M 40 L/M Potassium Level 3.5 MEQ/L 3.4 MEQ/L White Blood Count 9.7 TH/MM3 Red Blood Count 4.94 MIL/MM3 Hemoglobin 12.5 GM/DL Hematocrit 38.2 % Mean Corpuscular Volume 77.4 FL Mean Corpuscular Hemoglobin 25.3 PG Mean Corpuscular Hemoglobin 32.7 % Concent Red Cell Distribution Width 17.1 % Platelet Count 222 TH/MM3 Mean Platelet Volume 8.0 FL Neutrophils (%) (Auto) 92.7 % Lymphocytes (%) (Auto) 5.9 % Monocytes (%) (Auto) 1.1 % Eosinophils (%) (Auto) 0.1 % Basophils (%) (Auto) 0.2 % Neutrophils # (Auto) 9.0 TH/MM3 Lymphocytes # (Auto) 0.6 TH/MM3 Monocytes # (Auto) 0.1 TH/MM3 Eosinophils # (Auto) 0.0 TH/MM3 Basophils # (Auto) 0.0 TH/MM3 CBC Comment DIFF FINAL Differential Comment Sodium Level 139 MEQ/L Chloride Level 94 MEQ/L Carbon Dioxide Level 40.4 MEQ/L Anion Gap 5 MEQ/L Blood Urea Nitrogen 31 MG/DL Creatinine 1.10 MG/DL Estimat Glomerular Filtration 49 ML/MIN Rate Random Glucose 251 MG/DL Calcium Level 9.2 MG/DL Total Bilirubin 0.4 MG/DL Aspartate Amino Transf 26 U/L (AST/SGOT) Alanine Aminotransferase 20 U/L (ALT/SGPT) Alkaline Phosphatase 94 U/L Total Protein 7.3 GM/DL Albumin 2.7 GM/DL Blood Gas Inspired Oxygen 60 % Assessment/Plan Assessment/Plan ASSESSMENT/PLAN 1. This is 75-year female who came to the ER diagnosed with a severe hypokalemia. Nephrology input noted. Potassium replacement done. She is getting IV replacement potassium. better.. Going start Lasix 40 mg from tomorrow. Continue to hold metolazone. Magnesium level is 1.7. Getting a magnesium replacement too. 2. Atrial fibrillation. Continue home medication, on aspirin and Plavix. 3. Diabetes mellitus ADA 1800 calories diet. NovoLog low-dose sliding scale. Check blood sugars a.c. and hs. Monitor blood sugar. 4. Hyperlipidemia. Continue simvastatin 80 mg p.o. daily. 5. Depression. Continue with Effexor 75 mg p.o. daily. 6. Gastroesophageal reflux disease. Protonix 40 mg p.o. daily. 7. DVT prophylaxis heparin 5000 units subcutaneous twice a day. 8. GI prophylaxis. Pepcid 10 mg twice a day. 9. Hypoxic respiratory failure on BIPAP at night Pulmonary following input noted We are going to manage the patient on a daily basis and make recommendations on a daily basis. Discussed Condition with: Patient Rafa Edgar MD Dec 16, 2016 08:51
[2016-12-16] MEDS: BUDESONIDE-FORMOTEROL 160/4.5 MCG INHALER INH SCH ×2 (08:53→21:00)
[2016-12-16] MEDS: DOCUSATE SODIUM 50 MG/SENNA 8.6 MG TAB PO SCH ×2 (09:00→21:08)
--- NOTE | 2016-12-16 11:02 | EKG ---
Date Performed: 12/14/2016 Time Performed: 19:56:49 PTAGE: 75 years EKG: ATRIAL FIBRILLATION MARKED LEFT AXIS DEVIATION PATTERN CONSISTENT WITH PULMONARY DISEASE MO DERATE INTRAVENTRICULAR CONDUCTION DELAY MINIMAL VOLTAGE CRITERIA FOR LVH, CONSIDER NORMAL VARIANT NO NSPECIFIC ST & T-WAVE ABNORMALITY ABNORMAL ECG PREVIOUS TRACING : 09/11/2015 12.32 DOCTOR: Foster Ratliff Interpretating Date/Time 12/16/2016 10:55:55
[2016-12-16] MEDS: HEPARIN SODIUM - SQ 10,000 UNITS/ML VIAL SQ SCH ×2 (12:03→23:00)
[2016-12-16] MEDS: cloNIDine HCL 0.1 MG TAB PO PRN ×2 (12:09→16:51)
--- NOTE | 2016-12-16 16:50 | MB ---
cc: ZABRINA GERBER DATE OF CONSULTATION 12/16/16 REASON FOR CONSULTATION Respiratory failure. HISTORY OF PRESENT ILLNESS Mrs. Michaels is a 75-year-old female with known history of COPD, congestive heart failure, diabetes mellitus, hypertension, admitted with severe hypokalemia. The patient did have severe hypoxemia as well as hypercarbia. She has been seen and followed by Dr. Nation in the past. The patient had declined C-PAP or BiPap therapy in an attempt to correct her hypoxemia and hypoventilation. She declined intubation, mechanical ventilation as well. She is lethargic but arousable. Has no fever or chills or cough. No expectoration. No hemoptysis. PAST MEDICAL HISTORY Her past medical history is that of COPD, coronary artery disease, atrial fibrillation, congestive heart failure, hypertension, hyperlipidemia, diabetes mellitus, previous cataract surgery. SOCIAL HISTORY Remote smoking history, does not smoke at present. Does not drink any alcohol. Does not use drugs. FAMILY HISTORY Noncontributory. REVIEW OF SYSTEMS 12-point review of systems as per HPI and past history, otherwise, negative. MEDICATIONS Medications at home include: 1. Plavix. 2. Lasix. 3. Januvia. 4. Metolazone. 5. Simvastatin. 6. Zyprexa. 7. Glipizide. 8. Zantac. 9. Norvasc. PHYSICAL EXAMINATION GENERAL: On exam the patient is lethargic but arousable. VITAL SIGNS: Temperature 98, pulse __, respirations 18, blood pressure 180/86, oxygen saturation 85% on oxygen via nasal cannula. HEENT: Exam unremarkable. Eyes without icterus. NECK: Without adenopathy, thyroid enlargement. Central trachea. CHEST: Few scattered rhonchi at bases. CARDIAC: Exam PMI distant. S1-S2 audible. No murmur or rub. ABDOMEN: Lax, audible bowel sounds. EXTREMITIES: 1+ edema. LABORATORY DATA White count 9.7, hemoglobin 12.5, platelets 222,000, sodium 139, potassium corrected now at 3.4, BUN 31, creatinine 1.1. ABG today pH 7.4, pCO2 67, pO2 53 on high-flow O2 via nasal cannula. IMPRESSION 1. Hypoxic hypercarbic respiratory failure. 2. COPD by history. 3. Morbid obesity, question obesity hypoventilation versus obstructive sleep apnea. 4. Diabetes mellitus. 5. Hypertension. 6. CHF. 7. Atrial fibrillation. 8. Mild renal insufficiency. PLAN The patient had declined intubation, mechanical ventilation or even BiPap therapy. Oxygen therapy will be administered via high-flow nasal cannula. Bronchodilator therapy will be maintained. The patient's chest x-ray upon presentation with mild CHF. Her prognosis is obviously poor with her multiple medical problems. I have spoken with her in detail about the need to utilize either BiPap therapy which she again absolutely declined, intubation and mechanical ventilation she absolutely refuses as well. I do thank you for asking me to partake in Mrs. Michaels's care. Zabrina Gerber MD WWW/EO /2:50 PM /4:32 PM
--- NOTE | 2016-12-16 18:45 | HHI.NPPN ---
Subjective History of Present Illness 75-year-old with the hypokalemia and renal insufficiency on diuretic Additional Remarks Transferred to ICU due to desaturate refuses Bipap / paroxysmal atrial fibrillation Review of Systems General Constitutional: Fatigue Objective Data Data 12/15/16 12/16/16 18:59 06:59 Intake Total 870 ml 780 ml Output Total 2750 ml Balance 870 ml -1970 ml Intake Oral 870 ml 240 ml IV Total 540 ml Output Urine Total 2750 ml # Voids 4 # Bowel Movements 1 Vital Signs Date Time Temp Pulse Resp B/P Pulse Ox O2 Delivery O2 Flow Rate FiO2 12/16/16 16:00 90 12/16/16 16:00 90 28 173/76 90 12/16/16 15:00 94 23 157/76 88 12/16/16 14:00 98 12/16/16 14:00 98 30 173/84 89 12/16/16 13:00 92 17 152/75 91 12/16/16 12:00 98.7 98 27 183/86 90 12/16/16 12:00 98 12/16/16 11:00 96 20 172/80 90 12/16/16 10:00 98 12/16/16 10:00 98 26 155/100 90 12/16/16 09:00 102 35 178/92 94 12/16/16 09:00 102 12/16/16 08:13 98 24 168/78 94 12/16/16 08:04 96 21 179/89 97 12/16/16 08:00 98 12/16/16 08:00 98 23 182/72 100 12/16/16 07:45 98 27 170/89 98 12/16/16 07:37 90 High Flow Nasal Cannula 40.00 70 12/16/16 07:00 104 23 174/73 91 12/16/16 04:00 98.1 104 19 159/74 91 12/16/16 04:00 104 12/16/16 00:10 92 High Flow Nasal Cannula 30.00 60 12/16/16 00:00 84 12/16/16 00:00 97.8 84 17 156/70 95 12/15/16 22:35 92 High Flow Nasal Cannula 30.00 55 12/15/16 21:35 92 Nasal Cannula 6.00 12/15/16 20:00 86 12/15/16 20:00 98.0 86 17 145/70 94 12/15/16 19:50 93 40 -: 12/16/16 0538 12/16/16 0538 Physical Exam General Appearance: Well Developed Eyes Eye Exam: Pupils Equal Neck Neck Exam: Neck Supple Pulmonary Resp Exam: Clear Bilaterally Cardiology CV Exam: Arrhythmia Gastrointestinal/Abdomen GI Exam: Soft, Non-Tender Extremeties Extremities Exam: Moderate Edema Assessment/Plan Problem List: (1) Renal failure Plan: Patient is feeling better creatinine declined and Lasix and resume today as short of breath potassium is being replaced orally and with IV fluid cut IVF to 42 cc/hr can be followed by Dr. Gomez (2) Hypokalemia Plan: I will replace magnesium as less than 2 And continue with potassium replacement (3) Atrial fibrillation Plan: Takes Plavix and aspirin (4) Diabetes mellitus Plan: Continue to monitor (5) Alkalemia Plan: Due to volume contraction From overdiuresis \Improved Problem Qualifiers (1) Renal failure: (2) Atrial fibrillation: Qualified Code: I48.0 - Paroxysmal atrial fibrillation (3) Diabetes mellitus: Bree Christy MD Dec 16, 2016 18:45
[2016-12-16] MEDS ORDERED: FUROSEMIDE 40 MG/4 ML VIAL IV PUSH ONE (19:00)
[2016-12-16] MEDS: POTASSIUM CHLORIDE 10 MEQ CONTROLLED RELEASE TAB PO SCH (21:08)
[2016-12-17] VITALS (24 sets, daily range): BP systolic 144–169; BP diastolic 67–110; PULSE 86–100; RESP 17–28; TEMP 97.8–98.3; O2SAT 84–97
[2016-12-17 06:34] LABS: AUTOMATED NEUTROPHIL # 13.9 TH/MM3 (1.8-7.7); BASOPHIL % 0.1 % (0.0-2.0); EOSINOPHIL # 0.1 TH/MM3 (0-0.4); EOSINOPHIL % 0.7 % (0.0-4.0); HEMATOCRIT 43.3 % (35.0-46.0); LYMPH % 4.1 % (9.0-44.0); LYMPHOCYTE # 0.6 TH/MM3 (1.0-4.8); MEAN CELL VOLUME 78.9 FL (80.0-100.0); MEAN CORPUSCULAR HEMOGLOBIN 24.1 PG (27.0-34.0); MEAN CORPUSCULAR HGB CONC 30.6 % (32.0-36.0); MONO % 1.7 % (0.0-8.0); NEUT % 93.4 % (16.0-70.0); PLATELET COUNT 246 TH/MM3 (150-450); RED BLOOD COUNT 5.49 MIL/MM3 (4.00-5.30); RED CELL DISTRIBUTION WIDTH 17.4 % (11.6-17.2); WHITE BLOOD COUNT 14.9 TH/MM3 (4.0-11.0)
[2016-12-17 06:40] LABS: HEMO FLAGS AUTO DIFF
[2016-12-17 06:42] LABS: CHLORIDE 93 MEQ/L (98-107); POTASSIUM 3.5 MEQ/L (3.5-5.1); SODIUM (NA) 139 MEQ/L (136-145)
[2016-12-17 06:47] LABS: ANION GAP 3 MEQ/L (5-15); BICARBONATE 43.3 MEQ/L (21.0-32.0); BLOOD UREA NITROGEN 34 MG/DL (7-18)
[2016-12-17 06:50] LABS: ALT (GPT) 21 U/L (10-53); AST (GOT) 20 U/L (15-37); GLOMERULAR FILTRATION RATE 49 ML/MIN (>89)
[2016-12-17 06:51] LABS: TOTAL BILIRUBIN ADULT 0.4 MG/DL (0.2-1.0)
[2016-12-17 06:53] LABS: ALKALINE PHOSPHATASE 99 U/L (45-117)
[2016-12-17 07:26] LABS: SCAN/DIFF AUTO DIFF CONFIRMED
[2016-12-17] MEDS: RESP: ALBUTEROL 2.5 MG/IPRATROPIUM 0.5 MG NEB (SCH) NEB ×4 (07:30→19:31)
[2016-12-17] MEDS: POTASSIUM CHLORIDE 10 MEQ CONTROLLED RELEASE TAB PO SCH ×2 (08:16→20:57)
[2016-12-17] MEDS: ASPIRIN 81 MG CHEW TAB CHEW SCH (08:16)
[2016-12-17] MEDS: FAMOTIDINE 20 MG TAB PO SCH ×2 (08:16→20:57)
[2016-12-17] MEDS: DOCUSATE SODIUM 50 MG/SENNA 8.6 MG TAB PO SCH ×2 (08:16→20:57)
[2016-12-17] MEDS: ATORVASTATIN 40 MG TAB PO SCH (08:17)
[2016-12-17] MEDS: CLOPIDOGREL 75 MG TAB PO SCH (08:17)
[2016-12-17] MEDS: FUROSEMIDE 40 MG/4 ML VIAL IV PUSH SCH (08:17)
[2016-12-17] MEDS: methylPREDNISolone SOD SUCC 40 MG/1 ML VIAL IV PUSH SCH ×2 (08:17→20:56)
[2016-12-17] MEDS: VENLAFAXINE HCL XR 75 MG CAP PO SCH (08:17)
[2016-12-17] MEDS: INSULIN ASPART SUPPLEMENTAL SCALE SQ SCH ×4 (08:30→20:54)
[2016-12-17] MEDS: SODIUM CHLORIDE 0.9% FLUSH 10 ML FLUSH IV FLUSH SCH ×2 (08:37→20:47)
[2016-12-17] MEDS: BUDESONIDE-FORMOTEROL 160/4.5 MCG INHALER INH SCH ×2 (09:00→21:33)
--- NOTE | 2016-12-17 09:40 | HHI.PR ---
Subjective History of Present Illness Patient have SOB and refusing BIPAP d/w RN JEET at bed side. Review of Systems Constitutional Constitutional: Fatigue, Weakness Pulmonary Respiratory: Coughing, Shortness of Breath, Wheezing Vitals/Results Intake & Output 12/16/16 12/16/16 12/17/16 15:00 23:00 07:00 Intake Total 939 ml 340 ml 325 ml Output Total 350 ml 775 ml 1350 ml Balance 589 ml -435 ml -1025 ml Intake Oral 600 ml IV Total 339 ml 340 ml 325 ml Output Urine Total 350 ml 775 ml 1350 ml # Bowel Movements 1 1 Vital Signs Vital Signs Date Time Temp Pulse Resp B/P Pulse Ox O2 Delivery O2 Flow Rate FiO2 12/17/16 07:30 96 High Flow Nasal Cannula 40.00 70 12/17/16 06:00 92 25 159/73 97 12/17/16 05:00 100 28 164/81 84 12/17/16 04:00 98.0 92 17 151/74 85 12/17/16 04:00 92 12/17/16 03:00 92 18 144/67 88 12/17/16 02:00 100 21 155/88 12/17/16 01:00 96 25 158/71 89 12/17/16 00:00 98.1 90 17 149/78 93 12/17/16 00:00 90 12/17/16 00:00 96 27 92 12/16/16 23:00 88 20 156/82 89 12/16/16 22:00 100 31 156/78 81 12/16/16 21:00 96 32 151/69 87 12/16/16 20:00 97.8 96 27 149/77 90 12/16/16 20:00 96 12/16/16 19:50 93 High Flow Nasal Cannula 40.00 70 12/16/16 19:00 94 23 152/72 89 12/16/16 18:00 96 41 179/78 91 12/16/16 17:00 92 19 177/72 91 12/16/16 16:00 90 12/16/16 16:00 98.2 90 28 173/76 90 12/16/16 15:00 94 23 157/76 88 12/16/16 14:00 98 12/16/16 14:00 98 30 173/84 89 12/16/16 13:00 92 17 152/75 91 12/16/16 12:00 98.7 98 27 183/86 90 12/16/16 12:00 98 12/16/16 11:00 96 20 172/80 90 12/16/16 10:00 98 12/16/16 10:00 98 26 155/100 90 CBC/BMP: 12/17/16 0541 12/17/16 0541 Lab Results Laboratory Tests Test 12/17/16 05:41 White Blood Count 14.9 TH/MM3 Red Blood Count 5.49 MIL/MM3 Hemoglobin 13.3 GM/DL Hematocrit 43.3 % Mean Corpuscular Volume 78.9 FL Mean Corpuscular Hemoglobin 24.1 PG Mean Corpuscular Hemoglobin 30.6 % Concent Red Cell Distribution Width 17.4 % Platelet Count 246 TH/MM3 Mean Platelet Volume 8.3 FL Neutrophils (%) (Auto) 93.4 % Lymphocytes (%) (Auto) 4.1 % Monocytes (%) (Auto) 1.7 % Eosinophils (%) (Auto) 0.7 % Basophils (%) (Auto) 0.1 % Neutrophils # (Auto) 13.9 TH/MM3 Lymphocytes # (Auto) 0.6 TH/MM3 Monocytes # (Auto) 0.3 TH/MM3 Eosinophils # (Auto) 0.1 TH/MM3 Basophils # (Auto) 0.0 TH/MM3 CBC Comment AUTO DIFF Differential Comment AUTO DIFF CONFIRMED Sodium Level 139 MEQ/L Potassium Level 3.5 MEQ/L Chloride Level 93 MEQ/L Carbon Dioxide Level 43.3 MEQ/L Anion Gap 3 MEQ/L Blood Urea Nitrogen 34 MG/DL Creatinine 1.10 MG/DL Estimat Glomerular Filtration 49 ML/MIN Rate Random Glucose 229 MG/DL Calcium Level 9.4 MG/DL Total Bilirubin 0.4 MG/DL Aspartate Amino Transf 20 U/L (AST/SGOT) Alanine Aminotransferase 21 U/L (ALT/SGPT) Alkaline Phosphatase 99 U/L Total Protein 8.0 GM/DL Albumin 3.1 GM/DL Physical Exam General General Appearance: Well Developed Eyes Eye Exam: Pupils Equal, Sclera White, Extraocular Movement Intact Neck Neck Exam: Neck Supple Pulmonary Resp Exam: Decreased Bases, Diminished Breath Sounds Resp Remarks mild wheezing Cardiology CV Exam: Arrhythmia Gastrointestinal/Abdomen GI Exam: Soft, Non-Tender, Bowel Sounds Present Musculoskeletal MS Exam: Normal Tone Integumentary Skin Exam: Warm, Dry Extremeties Extremities Exam: Moderate Edema Neurologic Neuro Exam: Alert, Awake, Oriented, Moving All Extremities VTE Prophylaxis VTE Prophylaxis Meds: Heparin PUD Prophylasis PUD Prophylaxis: Protonix Assessment/Plan Assessment/Plan ASSESSMENT/PLAN 1. This is 75-year female who came to the ER diagnosed with a severe hypokalemia. Nephrology input noted. Potassium replacement done. She is getting IV replacement potassium. resolved... on Lasix 40 mg daily. Continue to hold metolazone. Magnesium level is 1.7. Getting a magnesium replacement too. 2. Atrial fibrillation. Continue home medication, on aspirin and Plavix. 3. Diabetes mellitus ADA 1800 calories diet. NovoLog low-dose sliding scale. Check blood sugars a.c. and hs. Monitor blood sugar. 4. Hyperlipidemia. Continue simvastatin 80 mg p.o. daily. 5. Depression. Continue with Effexor 75 mg p.o. daily. 6. Gastroesophageal reflux disease. Protonix 40 mg p.o. daily. 7. DVT prophylaxis heparin 5000 units subcutaneous twice a day. 8. GI prophylaxis. Pepcid 10 mg twice a day. 9. Hypoxic respiratory failure refused BIPAP at night Pulmonary following input noted We are going to manage the patient on a daily basis and make recommendations on a daily basis. Check CBC with diff CMP in AM. Discussed Condition with: Patient Rafa Edgar MD Dec 17, 2016 09:40
[2016-12-17] MEDS: HEPARIN SODIUM - SQ 10,000 UNITS/ML VIAL SQ SCH (12:04)
--- NOTE | 2016-12-17 13:32 | HHI.PR ---
Subjective Remarks alert less sob on o2 via NC Objective Vital Signs Date Time Temp Pulse Resp B/P Pulse Ox O2 Delivery O2 Flow Rate FiO2 12/17/16 11:13 88 High Flow Nasal Cannula 40.00 60 12/17/16 07:30 96 High Flow Nasal Cannula 40.00 70 12/17/16 06:00 92 25 159/73 97 12/17/16 05:00 100 28 164/81 84 12/17/16 04:00 98.0 92 17 151/74 85 12/17/16 04:00 92 12/17/16 03:00 92 18 144/67 88 12/17/16 02:00 100 21 155/88 12/17/16 01:00 96 25 158/71 89 12/17/16 00:00 98.1 90 17 149/78 93 12/17/16 00:00 90 12/17/16 00:00 96 27 92 12/16/16 23:00 88 20 156/82 89 12/16/16 22:00 100 31 156/78 81 12/16/16 21:00 96 32 151/69 87 12/16/16 20:00 97.8 96 27 149/77 90 12/16/16 20:00 96 12/16/16 19:50 93 High Flow Nasal Cannula 40.00 70 12/16/16 19:00 94 23 152/72 89 12/16/16 18:00 96 41 179/78 91 12/16/16 17:00 92 19 177/72 91 12/16/16 16:00 90 12/16/16 16:00 98.2 90 28 173/76 90 12/16/16 15:00 94 23 157/76 88 12/16/16 14:00 98 12/16/16 14:00 98 30 173/84 89 I/O 12/16/16 12/16/16 12/16/16 12/17/16 12/17/16 12/17/16 06:59 14:59 22:59 06:59 14:59 22:59 Intake Total 340 ml 939 ml 340 ml 325 ml Output Total 1550 ml 350 ml 775 ml 1350 ml Balance -1210 ml 589 ml -435 ml -1025 ml Intake Oral 600 ml IV Total 340 ml 339 ml 340 ml 325 ml Output Urine Total 1550 ml 350 ml 775 ml 1350 ml # Bowel Movements 1 1 Result Diagram: 12/17/16 0541 12/17/16 0541 Objective Remarks GENERAL: SKIN: Warm and dry. HEAD: Atraumatic. Normocephalic. EYES: Pupils equal and round. No scleral icterus. No injection or drainage. ENT: No nasal bleeding or discharge. Mucous membranes pink and moist. NECK: Trachea midline. No JVD. CARDIOVASCULAR: Regular rate and rhythm. RESPIRATORY: No accessory muscle use. Clear to auscultation. Breath sounds equal bilaterally. GASTROINTESTINAL: Abdomen soft, non-tender, nondistended. Hepatic and splenic margins not palpable. MUSCULOSKELETAL: Extremities without clubbing, cyanosis, + edema. No obvious deformities. NEUROLOGICAL: Awake and alert. No obvious cranial nerve deficits. Motor grossly within normal limits. Five out of 5 muscle strength in the arms and legs. Normal speech. PSYCHIATRIC: Appropriate mood and affect; insight and judgment normal. Assessment and Plan Assessment and Plan ASS: RESPIRATORY FAILURE COPD CHF DM MORBID OBESITY PLAN O2 NEEDED BRONCHODILATORS DECLINES BIPAP , NO INTUBATION OR VENT SUPPORT PROGNOSIS [POOR Zabrina Gerber MD Dec 17, 2016 13:32
[2016-12-17] MEDS: NS + KCL 20 MEQ INJ 1,000 ML IV SCH (16:30)
[2016-12-17] MEDS: cloNIDine HCL 0.1 MG TAB PO PRN (17:23)
--- NOTE | 2016-12-17 18:01 | HHI.NPPN ---
Subjective History of Present Illness 75-year-old with the hypokalemia and renal insufficiency on diuretic Additional Remarks hx of paroxysmal atrial fibrillation Review of Systems General Constitutional: Fatigue Objective Data Data 12/16/16 12/17/16 19:00 07:00 Intake Total 939 ml 665 ml Output Total 350 ml 2125 ml Balance 589 ml -1460 ml Intake Oral 600 ml IV Total 339 ml 665 ml Output Urine Total 350 ml 2125 ml # Bowel Movements 1 1 Vital Signs Date Time Temp Pulse Resp B/P Pulse Ox O2 Delivery O2 Flow Rate FiO2 12/17/16 16:28 98.3 90 23 169/80 91 12/17/16 15:02 96 Aerosol Mask 40.00 65 12/17/16 12:00 97.8 86 20 157/82 91 12/17/16 11:13 88 High Flow Nasal Cannula 40.00 60 12/17/16 08:00 98.0 92 22 169/77 94 12/17/16 07:30 96 High Flow Nasal Cannula 40.00 70 12/17/16 06:00 92 25 159/73 97 12/17/16 05:00 100 28 164/81 84 12/17/16 04:00 98.0 92 17 151/74 85 12/17/16 04:00 92 12/17/16 03:00 92 18 144/67 88 12/17/16 02:00 100 21 155/88 12/17/16 01:00 96 25 158/71 89 12/17/16 00:00 98.1 90 17 149/78 93 12/17/16 00:00 90 12/17/16 00:00 96 27 92 12/16/16 23:00 88 20 156/82 89 12/16/16 22:00 100 31 156/78 81 12/16/16 21:00 96 32 151/69 87 12/16/16 20:00 97.8 96 27 149/77 90 12/16/16 20:00 96 12/16/16 19:50 93 High Flow Nasal Cannula 40.00 70 12/16/16 19:00 94 23 152/72 89 12/16/16 18:00 96 41 179/78 91 -: 12/17/16 0541 12/17/16 0541 Physical Exam General Appearance: Well Developed Eyes Eye Exam: Pupils Equal Neck Neck Exam: Neck Supple Pulmonary Resp Exam: Clear Bilaterally Cardiology CV Exam: Arrhythmia Gastrointestinal/Abdomen GI Exam: Soft, Non-Tender Extremeties Extremities Exam: Moderate Edema Assessment/Plan Problem List: (1) Renal failure Plan: Patient is feeling better creatinine stable and Lasix resumed ABG COPD with CO2 retention can be followed by Dr. Gomez (2) Hypokalemia Plan: I will replace magnesium as less than 2 And continue with potassium replacement (3) Atrial fibrillation Plan: Takes Plavix and aspirin (4) Diabetes mellitus Plan: Continue to monitor (5) Alkalemia Plan: Due to volume contraction From overdiuresis \Improved Problem Qualifiers (1) Renal failure: (2) Atrial fibrillation: Qualified Code: I48.0 - Paroxysmal atrial fibrillation (3) Diabetes mellitus: Bree Christy MD Dec 17, 2016 18:01
[2016-12-18] VITALS (31 sets, daily range): BP systolic 126–190; BP diastolic 74–103; PULSE 84–114; RESP 17–37; TEMP 98.2–98.8; O2SAT 70–93
[2016-12-18] MEDS: HEPARIN SODIUM - SQ 10,000 UNITS/ML VIAL SQ SCH ×3 (00:37→23:13)
[2016-12-18] MEDS: cloNIDine HCL 0.1 MG TAB PO PRN ×3 (01:05→23:13)
[2016-12-18 05:28] LABS: AUTOMATED NEUTROPHIL # 8.6 TH/MM3 (1.8-7.7); BASOPHIL % 0.1 % (0.0-2.0); EOSINOPHIL % 0.1 % (0.0-4.0); HEMATOCRIT 36.3 % (35.0-46.0); LYMPHOCYTE # 0.9 TH/MM3 (1.0-4.8); MEAN CELL VOLUME 77.5 FL (80.0-100.0); MEAN CORPUSCULAR HEMOGLOBIN 24.9 PG (27.0-34.0); MEAN CORPUSCULAR HGB CONC 32.1 % (32.0-36.0); MONO % 4.3 % (0.0-8.0); NEUT % 86.5 % (16.0-70.0); PLATELET COUNT 233 TH/MM3 (150-450); RED BLOOD COUNT 4.69 MIL/MM3 (4.00-5.30); WHITE BLOOD COUNT 9.9 TH/MM3 (4.0-11.0)
[2016-12-18 05:39] LABS: CHLORIDE 94 MEQ/L (98-107); POTASSIUM 3.7 MEQ/L (3.5-5.1); SODIUM (NA) 140 MEQ/L (136-145)
[2016-12-18 05:42] LABS: ANION GAP 4 MEQ/L (5-15); BICARBONATE 41.7 MEQ/L (21.0-32.0); BLOOD UREA NITROGEN 29 MG/DL (7-18)
[2016-12-18 05:45] LABS: ALT (GPT) 18 U/L (10-53)
[2016-12-18 05:46] LABS: AST (GOT) 15 U/L (15-37); GLOMERULAR FILTRATION RATE 61 ML/MIN (>89)
[2016-12-18 05:47] LABS: TOTAL BILIRUBIN ADULT 0.5 MG/DL (0.2-1.0)
[2016-12-18 05:48] LABS: ALKALINE PHOSPHATASE 83 U/L (45-117)
[2016-12-18] MEDS: INSULIN ASPART SUPPLEMENTAL SCALE SQ SCH ×4 (06:27→20:25)
[2016-12-18 06:32] LABS: HEMO FLAGS AUTO DIFF
[2016-12-18 07:28] LABS: SCAN/DIFF AUTO DIFF CONFIRMED
[2016-12-18] MEDS: RESP: ALBUTEROL 2.5 MG/IPRATROPIUM 0.5 MG NEB (SCH) NEB ×4 (07:34→20:19)
[2016-12-18] MEDS: SODIUM CHLORIDE 0.9% FLUSH 10 ML FLUSH IV FLUSH SCH ×2 (08:14→19:37)
[2016-12-18] MEDS: methylPREDNISolone SOD SUCC 40 MG/1 ML VIAL IV PUSH SCH ×2 (08:14→20:23)
[2016-12-18] MEDS: ASPIRIN 81 MG CHEW TAB CHEW SCH (08:14)
[2016-12-18] MEDS: FAMOTIDINE 20 MG TAB PO SCH ×2 (08:15→19:38)
[2016-12-18] MEDS: ATORVASTATIN 40 MG TAB PO SCH (08:15)
[2016-12-18] MEDS: POTASSIUM CHLORIDE 10 MEQ CONTROLLED RELEASE TAB PO SCH ×2 (08:15→19:35)
[2016-12-18] MEDS: VENLAFAXINE HCL XR 75 MG CAP PO SCH (08:15)
[2016-12-18] MEDS: FUROSEMIDE 40 MG/4 ML VIAL IV PUSH SCH (08:16)
[2016-12-18] MEDS: CLOPIDOGREL 75 MG TAB PO SCH (08:16)
[2016-12-18] MEDS: DOCUSATE SODIUM 50 MG/SENNA 8.6 MG TAB PO SCH ×2 (08:18→19:37)
--- NOTE | 2016-12-18 08:36 | PQ ---
Physician Query Response Document PATIENT: NORMA MIRZA : 1940 ADMIT DATE: 12/17/2016 9:40 AM DISCH DATE: RESPONDING PROVIDER #: EAhmed QUERY TEXT: Kidney Failure Acuity Kidney Failure is documented in the Medical Record. Please specify the acuity Such as: -- Acute -- Chronic -- Acute on chronic -- Other, please specify THE FOLLOWING CRITERIA FROM THE [facility] OUTLINE THE STAGES OF THE CHRONIC KIDNEY D ISEASE: CKD STAGE 1 (GFR >90) CKD STAGE 2 (GFR 60-89) CKD STAGE 3 (GFR 30-59) CKD STAGE 4 (GFR 15-29) CKD STAGE 5 (GFR <15) ESRD (NEED FOR DIALYSIS) Unable to determine (*please explain) Other (*please specify) The patient's Clinical Indicators include: PER NEPHROLOGY RENAL FAILURE CKD Query created by: Susan Christian on 12/18/2016 8:15 AM RESPONSE TEXT: Stage 3 CKD acute on chronic. Electronically signed by: Rafa Edgar MD 12/18/2016 8:32 AM
--- NOTE | 2016-12-18 14:25 | HHI.PR ---
Subjective Remarks alert less sob on o2 via NC Objective Vital Signs Date Time Temp Pulse Resp B/P Pulse Ox O2 Delivery O2 Flow Rate FiO2 12/18/16 12:00 90 Nasal Cannula 75 12/18/16 12:00 96 12/18/16 11:00 98.4 96 24 145/75 86 12/18/16 10:00 92 23 151/80 91 12/18/16 09:00 94 28 126/82 91 12/18/16 08:13 108 34 161/88 12/18/16 08:00 88 Nasal Cannula 70 12/18/16 08:00 110 37 184/103 70 12/18/16 08:00 114 12/18/16 07:37 91 High Flow Nasal Cannula 40.00 75 12/18/16 07:00 98.8 88 29 145/85 91 12/18/16 06:00 86 23 166/83 91 12/18/16 05:00 86 29 158/81 93 12/18/16 04:25 94 Nasal Cannula 75 12/18/16 04:10 87 Nasal Cannula 80 12/18/16 04:00 88 12/18/16 04:00 98.8 86 24 142/85 88 12/18/16 03:01 96 26 176/86 91 12/18/16 02:00 94 22 164/85 92 12/18/16 01:01 100 24 180/81 91 12/18/16 00:15 87 High Flow Nasal Cannula 40.00 75 12/18/16 00:15 87 Nasal Cannula 75 12/18/16 00:00 96 12/18/16 00:00 98.4 96 24 165/84 90 12/17/16 23:01 96 25 161/88 89 12/17/16 23:00 96 24 168/110 89 12/17/16 22:00 90 24 162/74 92 12/17/16 21:05 92 23 158/85 95 12/17/16 20:00 98.0 94 24 152/79 92 12/17/16 20:00 88 Nasal Cannula 70 12/17/16 20:00 92 12/17/16 19:31 92 High Flow Nasal Cannula 40.00 70 12/17/16 19:00 92 25 157/78 90 12/17/16 16:28 98.3 90 23 169/80 91 12/17/16 16:00 92 12/17/16 15:02 96 Aerosol Mask 40.00 65 I/O 12/17/16 12/17/16 12/17/16 12/18/16 12/18/16 12/18/16 06:59 14:59 22:59 06:59 14:59 22:59 Intake Total 325 ml 680 ml 600 ml 100 ml 1201 ml Output Total 1350 ml 1000 ml 500 ml 550 ml 1501 ml Balance -1025 ml -320 ml 100 ml -450 ml -300 ml Intake Oral 240 ml 400 ml 100 ml 560 ml IV Total 325 ml 440 ml 200 ml 641 ml Output Urine Total 1350 ml 1000 ml 500 ml 550 ml 1500 ml Stool Total 1 ml # Bowel Movements 1 0 0 0 Result Diagram: 12/18/1645412/18/16454 Objective Remarks GENERAL: SKIN: Warm and dry. HEAD: Atraumatic. Normocephalic. EYES: Pupils equal and round. No scleral icterus. No injection or drainage. ENT: No nasal bleeding or discharge. Mucous membranes pink and moist. NECK: Trachea midline. No JVD. CARDIOVASCULAR: Regular rate and rhythm. RESPIRATORY: No accessory muscle use. Clear to auscultation. Breath sounds equal bilaterally. GASTROINTESTINAL: Abdomen soft, non-tender, nondistended. Hepatic and splenic margins not palpable. MUSCULOSKELETAL: Extremities without clubbing, cyanosis, + edema. No obvious deformities. NEUROLOGICAL: Awake and alert. No obvious cranial nerve deficits. Motor grossly within normal limits. Five out of 5 muscle strength in the arms and legs. Normal speech. PSYCHIATRIC: Appropriate mood and affect; insight and judgment normal. Assessment and Plan Assessment and Plan ASS: RESPIRATORY FAILURE COPD CHF DM MORBID OBESITY PLAN O2 NEEDED BRONCHODILATORS DECLINES BIPAP , NO INTUBATION OR VENT SUPPORT PROGNOSIS [POOR Zabrina Gerber MD Dec 18, 2016 14:24
[2016-12-18] MEDS: MAGNESIUM SULFATE 1 GM PREMIX 100 ML IV SCH ×2 (16:08→17:00)
[2016-12-18] MEDS: NS + KCL 20 MEQ INJ 1,000 ML IV SCH (16:13)
[2016-12-18] MEDS: BUDESONIDE-FORMOTEROL 160/4.5 MCG INHALER INH SCH ×2 (19:35→19:36)
[2016-12-19] VITALS (29 sets, daily range): BP systolic 137–186; BP diastolic 66–100; PULSE 71–92; RESP 15–31; TEMP 98.2–98.6; O2SAT 80–94
[2016-12-19] MEDS: cloNIDine HCL 0.1 MG TAB PO PRN (05:09)
--- NOTE | 2016-12-19 06:41 | RADRPT ---
EXAM DATE/TIME: 12/19/2016 06:12 [facility] COMPARISON: CHEST SINGLE AP, December 15, 2016, 17:03. INDICATIONS : Shortness of breath MEDICAL HISTORY : Hypertension. Cardiovascular disease. Renal failure, chronic. SURGICAL HISTORY : None. ENCOUNTER: Subsequent ACUITY: 4 - 6 days PAIN SCORE: Non-responsive. LOCATION: Bilateral chest FINDINGS: There is hypoaeration both lung nieves. There are bilateral pulmonary infiltrates without significant change compared to the prior exam. The heart size appears to be enlarged but stable. The findings mckeon ggest pulmonary edema. The bony structures are stable. CONCLUSION: No significant interval change compared to the prior exam. Jean-Paul Chavez MD on December 19, 2016 at 6:39 Board Certified Radiologist. This report was verified electronically.
[2016-12-19] MEDS: INSULIN ASPART SUPPLEMENTAL SCALE SQ SCH ×4 (06:48→20:54)
--- NOTE | 2016-12-19 07:41 | MB ---
cc: ELISSA NATION DATE OF CONSULTATION 12/15/2016 REASON FOR CONSULTATION Respiratory failure. HISTORY OF PRESENT ILLNESS This is a 75-year-old white female who was previously known to me with a longstanding history of COPD, sleep apnea, diabetes, asthma and chronic bronchitis as well as atrial fibrillation and CHF. She was admitted with complaints of shortness of breath, fatigue and low potassium. The patient apparently has been receiving treatment for congestive heart failure and chronic kidney disease and has been on home oxygen at 2 liters by nasal cannula. She has been on Lasix and Zaroxolyn as an outpatient and apparently her potassium level was under 3 and had to come in for potassium replacement as well as respiratory care. Upon arrival in the hospital the patient was hypoxic and had to be placed on a BiPap mask. She was also hypercapnic and now her saturations have improved after being on the BiPAP. She was also given IV Solu-Medrol and nebulized DuoNeb solution and seems to be doing a little better. The patient had no fevers or chills, no hemoptysis but has had significant leg swelling and complaints of shortness of breath and orthopnea. PAST HISTORY 1. History of hypertension. 2. History of coronary artery disease. 3. History of atrial fibrillation. 4. Dyslipidemia. 5. Diabetes mellitus type 2. 6. COPD. 7. Asthma as well as CVA. 8. She has had previous pneumonia and respiratory failure. 9. History of cataract surgery with lens implants. HABITS The patient has no significant history of smoking. She drinks alcohol occasionally. FAMILY HISTORY Noncontributory. MEDICATIONS Med list includes - 1. Januvia 100 mg a day. 2. Lasix 40 mg daily. 3. Plavix 75 mg a day. 4. Metolazone 5 mg daily. 5. Aspirin one daily. 6. Simvastatin 80 mg a day. 7. Glipizide 10 mg daily. 8. Zyprexa 75 mg a day. 9. Norvasc 10 mg a day. SYSTEMS REVIEW The patient is unable to provide significant details and seems quite lethargic and on BiPap. ALLERGIES None listed. PHYSICAL EXAMINATION GENERAL: A moderately obese elderly lady on BiPap. She is awake and responds to questions. There is mild peripheral cyanosis. VITAL SIGNS: Blood pressure 155/80, pulse 70, respirations 22, temperature 97.5. HEENT: Head normocephalic. Pupils reactive. Sclerae were injected. Throat was injected. NECK: Supple with mild venous distension. No thyromegaly. CHEST: Distant breath sounds with occasional wheezes throughout both lung nieves. Diminished breath sounds at the bases. HEART SOUNDS: Irregular. S1-S2. No murmur. ABDOMEN: Obese, protuberant. No masses, no organomegaly. EXTREMITIES: Edema 2+ with diminished pulses. NEUROLOGIC: Reflexes are 1+ with no gross motor deficits. Cranial nerves grossly intact. RECTAL: Exam is deferred. SKIN: No lesions. IMPRESSION 1. Acute on chronic respiratory failure. 2. Hypokalemia. 3. CHF with atrial fibrillation. 4. Diabetes mellitus type 2. 5. Depression and anxiety. 6. Hypertension. PLAN 1. The patient has been placed on BiPap 12/5 and 40% FIO2, nebulized DuoNeb solution added and Lasix 40 mg IV daily, Solu-Medrol 40 mg b.i.d. and the patient will be placed on heparin prophylaxis 5000 units q. 12. 2. Sputum will be sent for Gram stain and culture. 3. Symbicort 160/4.5 two puffs twice daily will be added as well. 4. I will repeat a chest x-ray on Sunday. I will follow the case with you Dr. Rafa Edgar. Thank you for this consultation. Elissa Nation MD JVD/JAYDE /7:50 PM /7:31 AM
--- NOTE | 2016-12-19 07:56 | HHI.PR ---
Subjective History of Present Illness Patient have SOB and using BIPAP d/w RN JEET at bed side. Review of Systems Constitutional Constitutional: Fatigue, Weakness Pulmonary Respiratory: Coughing, Shortness of Breath, Wheezing Vitals/Results Intake & Output 12/18/16 12/18/16 12/19/16 15:00 23:00 07:00 Intake Total 1201 ml 900 ml 150 ml Output Total 1501 ml 750 ml 950 ml Balance -300 ml 150 ml -800 ml Intake Oral 560 ml 400 ml 150 ml IV Total 641 ml 500 ml 0 ml Output Urine Total 1500 ml 750 ml 950 ml Stool Total 1 ml # Bowel Movements 0 0 Vital Signs Vital Signs Date Time Temp Pulse Resp B/P Pulse Ox O2 Delivery O2 Flow Rate FiO2 12/19/16 06:00 82 18 159/66 90 12/19/16 05:06 88 22 178/86 91 12/19/16 05:00 84 28 186/95 93 12/19/16 04:01 94 Bi-Pap 50 12/19/16 04:00 88 12/19/16 04:00 98.3 90 18 159/94 94 12/19/16 03:40 91 Bi-Pap 55 12/19/16 03:40 93 50 12/19/16 03:09 90 Nasal Cannula 75 12/19/16 03:00 92 24 167/84 91 12/19/16 02:30 Nasal Cannula 75 12/19/16 02:30 93 High Flow Nasal Cannula 40.00 75 12/19/16 02:00 90 16 175/96 91 12/19/16 01:00 90 16 181/100 92 12/19/16 00:35 92 60 12/19/16 00:20 92 12/19/16 00:00 98.6 88 17 181/95 92 12/19/16 00:00 92 Bi-Pap 60 12/18/16 23:12 88 26 190/99 90 12/18/16 22:13 86 27 170/85 90 12/18/16 22:05 89 60 12/18/16 22:05 87 Bi-Pap 60 12/18/16 21:50 93 50 12/18/16 21:45 89 Bi-Pap 50 12/18/16 21:24 84 23 167/84 91 12/18/16 20:36 88 24 167/86 90 12/18/16 20:19 91 High Flow Nasal Cannula 40.00 75 12/18/16 20:00 86 12/18/16 20:00 90 Nasal Cannula 75 12/18/16 20:00 98.4 86 19 171/85 92 12/18/16 19:00 84 17 157/74 91 12/18/16 18:15 92 26 155/80 91 12/18/16 18:11 92 24 172/88 91 12/18/16 16:00 89 Nasal Cannula 75 12/18/16 16:00 91 12/18/16 15:58 92 High Flow Nasal Cannula 40.00 75 12/18/16 15:00 98.2 98 22 158/90 85 12/18/16 12:02 91 High Flow Nasal Cannula 40.00 75 12/18/16 12:00 90 Nasal Cannula 75 12/18/16 12:00 96 12/18/16 11:00 98.4 96 24 145/75 86 12/18/16 10:00 92 23 151/80 91 12/18/16 09:00 94 28 126/82 91 12/18/16 08:13 108 34 161/88 12/18/16 08:00 88 Nasal Cannula 70 12/18/16 08:00 110 37 184/103 70 12/18/16 08:00 114 CBC/BMP: 12/18/16 0455 12/18/16 0455 Lab Results Laboratory Tests Test 12/19/16 04:15 Magnesium Level 1.9 MG/DL Physical Exam General General Appearance: Well Developed Eyes Eye Exam: Sclera White, Extraocular Movement Intact Neck Neck Exam: Neck Supple, Trachea Midline Pulmonary Resp Exam: Decreased Bases, Diminished Breath Sounds Resp Remarks mild wheezing Cardiology CV Exam: Arrhythmia Gastrointestinal/Abdomen GI Exam: Soft, Non-Tender, Bowel Sounds Present Musculoskeletal MS Exam: Normal Tone Integumentary Skin Exam: Warm, Dry Extremeties Extremities Exam: Moderate Edema Neurologic Neuro Exam: Alert, Awake, Oriented, Moving All Extremities VTE Prophylaxis VTE Prophylaxis Meds: Heparin PUD Prophylasis PUD Prophylaxis: Protonix Assessment/Plan Assessment/Plan ASSESSMENT/PLAN 1. This is 75-year female who came to the ER diagnosed with a severe hypokalemia. Nephrology input noted. Potassium replacement done. She is getting IV replacement potassium. resolved... on Lasix 40 mg daily. Continue to hold metolazone. Magnesium level is 1.5 after replacement it was 1.9 2. Atrial fibrillation. Continue home medication, on aspirin and Plavix. 3. Diabetes mellitus ADA 1800 calories diet. NovoLog low-dose sliding scale. Check blood sugars a.c. and hs. Monitor blood sugar. 4. Hyperlipidemia. Continue simvastatin 80 mg p.o. daily. 5. Depression. Continue with Effexor 75 mg p.o. daily. 6. Gastroesophageal reflux disease. Protonix 40 mg p.o. daily. 7. DVT prophylaxis heparin 5000 units subcutaneous twice a day. 8. GI prophylaxis. Pepcid 10 mg twice a day. 9. Hypoxic respiratory failure refused BIPAP at night Pulmonary following input noted We are going to manage the patient on a daily basis and make recommendations on a daily basis. Check CBC with diff CMP in AM. Discussed Condition with: Patient Rafa Edgar MD Dec 19, 2016 07:56
[2016-12-19] MEDS: VENLAFAXINE HCL XR 75 MG CAP PO SCH (08:10)
[2016-12-19] MEDS: ASPIRIN 81 MG CHEW TAB CHEW SCH (08:10)
[2016-12-19] MEDS: CLOPIDOGREL 75 MG TAB PO SCH (08:10)
[2016-12-19] MEDS: POTASSIUM CHLORIDE 10 MEQ CONTROLLED RELEASE TAB PO SCH ×2 (08:10→20:47)
[2016-12-19] MEDS: FAMOTIDINE 20 MG TAB PO SCH ×2 (08:10→20:47)
[2016-12-19] MEDS: DOCUSATE SODIUM 50 MG/SENNA 8.6 MG TAB PO SCH ×2 (08:10→20:47)
[2016-12-19] MEDS: ATORVASTATIN 40 MG TAB PO SCH (08:10)
[2016-12-19] MEDS: SODIUM CHLORIDE 0.9% FLUSH 10 ML FLUSH IV FLUSH SCH ×2 (08:11→20:47)
[2016-12-19] MEDS: methylPREDNISolone SOD SUCC 40 MG/1 ML VIAL IV PUSH SCH ×2 (08:11→20:47)
[2016-12-19] MEDS: FUROSEMIDE 40 MG/4 ML VIAL IV PUSH SCH (08:11)
[2016-12-19] MEDS: RESP: ALBUTEROL 2.5 MG/IPRATROPIUM 0.5 MG NEB (SCH) NEB ×4 (08:30→19:56)
[2016-12-19] MEDS: HEPARIN SODIUM - SQ 10,000 UNITS/ML VIAL SQ SCH (11:38)
--- NOTE | 2016-12-19 15:02 | HHI.NPPN ---
Subjective History of Present Illness 75-year-old with the hypokalemia and renal insufficiency on diuretic Additional Remarks Patient is alert, seen in AM, mild SOB, feeling better. Review of Systems General Constitutional: Fatigue Objective Data Data 12/18/16 12/19/16 19:00 07:00 Intake Total 1201 ml 1050 ml Output Total 1501 ml 1700 ml Balance -300 ml -650 ml Intake Oral 560 ml 550 ml IV Total 641 ml 500 ml Output Urine Total 1500 ml 1700 ml Stool Total 1 ml # Bowel Movements 0 Vital Signs Date Time Temp Pulse Resp B/P Pulse Ox O2 Delivery O2 Flow Rate FiO2 12/19/16 12:00 92 25 80 12/19/16 12:00 92 12/19/16 12:00 90 Nasal Cannula 75 12/19/16 11:00 98.3 92 17 169/92 87 12/19/16 11:00 92 12/19/16 08:35 93 High Flow Nasal Cannula 40.00 75 12/19/16 08:00 91 Nasal Cannula 75 12/19/16 08:00 90 12/19/16 07:00 98.6 78 15 169/89 88 12/19/16 06:00 82 18 159/66 90 12/19/16 05:06 88 22 178/86 91 12/19/16 05:00 84 28 186/95 93 12/19/16 04:01 94 Bi-Pap 50 12/19/16 04:00 88 12/19/16 04:00 98.3 90 18 159/94 94 12/19/16 03:40 91 Bi-Pap 55 12/19/16 03:40 93 50 12/19/16 03:09 90 Nasal Cannula 75 12/19/16 03:00 92 24 167/84 91 12/19/16 02:30 Nasal Cannula 75 12/19/16 02:30 93 High Flow Nasal Cannula 40.00 75 12/19/16 02:00 90 16 175/96 91 12/19/16 01:00 90 16 181/100 92 12/19/16 00:35 92 60 12/19/16 00:20 92 12/19/16 00:00 98.6 88 17 181/95 92 12/19/16 00:00 92 Bi-Pap 60 12/18/16 23:12 88 26 190/99 90 12/18/16 22:13 86 27 170/85 90 12/18/16 22:05 89 60 12/18/16 22:05 87 Bi-Pap 60 12/18/16 21:50 93 50 12/18/16 21:45 89 Bi-Pap 50 12/18/16 21:24 84 23 167/84 91 12/18/16 20:36 88 24 167/86 90 12/18/16 20:19 91 High Flow Nasal Cannula 40.00 75 12/18/16 20:00 86 12/18/16 20:00 90 Nasal Cannula 75 12/18/16 20:00 98.4 86 19 171/85 92 12/18/16 19:00 84 17 157/74 91 12/18/16 18:15 92 26 155/80 91 12/18/16 18:11 92 24 172/88 91 12/18/16 16:00 89 Nasal Cannula 75 12/18/16 16:00 91 12/18/16 15:58 92 High Flow Nasal Cannula 40.00 75 -: 12/18/16 0455 12/18/16 0455 Physical Exam General Appearance: No Acute Distress, Comfortable Eyes Eye Exam: Pupils Equal, Sclera White, Extraocular Movement Intact Neck Neck Exam: Neck Supple, Trachea Midline Pulmonary Resp Exam: No Distress, Rhonchi, Decreased Bases, Diminished Breath Sounds Cardiology CV Exam: Arrhythmia Gastrointestinal/Abdomen GI Exam: Soft, Non-Tender, Bowel Sounds Present Musculoskeletal MS Exam: Normal Tone Integumentary Skin Exam: Warm, Dry Extremeties Extremities Exam: Moderate Edema, Pitting Edema Neurologic Neuro Exam: Alert, Awake, Oriented, Moving All Extremities PUD Prophylasis PUD Prophylaxis: Protonix Assessment/Plan Problem List: (1) Renal failure Plan: Creatinine was 0.9 yesterday. Urine out put is good and edema is better. Continue same Lasix. (2) Hypokalemia Plan: I will replace magnesium as less than 2 And continue with potassium replacement (3) Atrial fibrillation Plan: Takes Plavix and aspirin (4) Diabetes mellitus Plan: Continue to monitor (5) Alkalemia Plan: Due to volume contraction From overdiuresis \Improved Problem Qualifiers (1) Renal failure: (2) Atrial fibrillation: Qualified Code: I48.0 - Paroxysmal atrial fibrillation (3) Diabetes mellitus: Nilson Gomez MD Dec 19, 2016 15:02
--- NOTE | 2016-12-19 19:08 | HHI.PR ---
Subjective Remarks Has some SOB . Confusion. was on N/C 4 L. Used Bipap last nite. Objective Vital Signs Date Time Temp Pulse Resp B/P Pulse Ox O2 Delivery O2 Flow Rate FiO2 12/19/16 12:00 92 25 80 12/19/16 12:00 92 12/19/16 12:00 90 Nasal Cannula 75 12/19/16 11:00 98.3 92 17 169/92 87 12/19/16 11:00 92 12/19/16 08:35 93 High Flow Nasal Cannula 40.00 75 12/19/16 08:00 91 Nasal Cannula 75 12/19/16 08:00 90 12/19/16 07:00 98.6 78 15 169/89 88 12/19/16 06:00 82 18 159/66 90 12/19/16 05:06 88 22 178/86 91 12/19/16 05:00 84 28 186/95 93 12/19/16 04:01 94 Bi-Pap 50 12/19/16 04:00 88 12/19/16 04:00 98.3 90 18 159/94 94 12/19/16 03:40 91 Bi-Pap 55 12/19/16 03:40 93 50 12/19/16 03:09 90 Nasal Cannula 75 12/19/16 03:00 92 24 167/84 91 12/19/16 02:30 Nasal Cannula 75 12/19/16 02:30 93 High Flow Nasal Cannula 40.00 75 12/19/16 02:00 90 16 175/96 91 12/19/16 01:00 90 16 181/100 92 12/19/16 00:35 92 60 12/19/16 00:20 92 12/19/16 00:00 98.6 88 17 181/95 92 12/19/16 00:00 92 Bi-Pap 60 12/18/16 23:12 88 26 190/99 90 12/18/16 22:13 86 27 170/85 90 12/18/16 22:05 89 60 12/18/16 22:05 87 Bi-Pap 60 12/18/16 21:50 93 50 12/18/16 21:45 89 Bi-Pap 50 12/18/16 21:24 84 23 167/84 91 12/18/16 20:36 88 24 167/86 90 12/18/16 20:19 91 High Flow Nasal Cannula 40.00 75 12/18/16 20:00 86 12/18/16 20:00 90 Nasal Cannula 75 12/18/16 20:00 98.4 86 19 171/85 92 I/O 12/18/16 12/18/16 12/18/16 12/19/16 12/19/16 12/19/16 07:00 15:00 23:00 07:00 15:00 23:00 Intake Total 100 ml 1201 ml 900 ml 150 ml Output Total 550 ml 1501 ml 750 ml 950 ml Balance -450 ml -300 ml 150 ml -800 ml Intake Oral 100 ml 560 ml 400 ml 150 ml IV Total 641 ml 500 ml 0 ml Output Urine Total 550 ml 1500 ml 750 ml 950 ml Stool Total 1 ml # Bowel Movements 0 0 0 Result Diagram: 12/18/1645412/18/16454 Objective Remarks GENERAL: A moderately obese elderly lady on BiPap. She is awake and responds to questions. There is mild peripheral cyanosis. HEENT: Head normocephalic. Pupils reactive. Sclerae were injected. Throat was injected. NECK: Supple with mild venous distension. No thyromegaly. CHEST: Distant breath sounds with occasional wheezes throughout both lung nieves. Basal crackles. Diminished breath sounds at the bases. HEART SOUNDS: Irregular. S1-S2. No murmur. ABDOMEN: Obese, protuberant. No masses, no organomegaly. EXTREMITIES: Edema 2+ with diminished pulses. NEUROLOGIC: Reflexes are 1+ with no gross motor deficits. Cranial nerves grossly intact. RECTAL: Exam is deferred. SKIN: No lesions. Assessment and Plan Assessment and Plan IMPRESSION 1. Acute on chronic respiratory failure. 2. Hypokalemia. 3. CHF with atrial fibrillation. 4. Diabetes mellitus type 2. 5. Depression and anxiety. 6. Hypertension. Plan : 1. Place on BiPAP 12/5, FIo2 50 % tonite 2. Continue Nebs qid Duoneb 3. Continue diuretic daily. 4. Solumedrol 40 mg bid 5. IS at bedside q3h 6. Add antibiotics, Zithromax 500 mg po daily Alvaro Nation MD Dec 19, 2016 19:08
[2016-12-19] MEDS: BUDESONIDE-FORMOTEROL 160/4.5 MCG INHALER INH SCH ×2 (20:46→20:56)
[2016-12-20] VITALS (35 sets, daily range): BP systolic 119–191; BP diastolic 65–95; PULSE 71–96; RESP 13–35; TEMP 97.9–98.7; O2SAT 90–96
[2016-12-20] MEDS: HEPARIN SODIUM - SQ 10,000 UNITS/ML VIAL SQ SCH ×3 (00:54→23:18)
[2016-12-20] MEDS: cloNIDine HCL 0.1 MG TAB PO PRN (01:29)
[2016-12-20 05:09] LABS: AUTOMATED NEUTROPHIL # 7.3 TH/MM3 (1.8-7.7); BASOPHIL % 0.1 % (0.0-2.0); EOSINOPHIL % 0.1 % (0.0-4.0); HEMATOCRIT 37.1 % (35.0-46.0); HEMO FLAGS DIFF FINAL; LYMPH % 9.6 % (9.0-44.0); LYMPHOCYTE # 0.8 TH/MM3 (1.0-4.8); MEAN CELL VOLUME 78.5 FL (80.0-100.0); MEAN CORPUSCULAR HEMOGLOBIN 25.1 PG (27.0-34.0); MONO % 2.6 % (0.0-8.0); NEUT % 87.6 % (16.0-70.0); PLATELET COUNT 241 TH/MM3 (150-450); RED BLOOD COUNT 4.73 MIL/MM3 (4.00-5.30); RED CELL DISTRIBUTION WIDTH 17.2 % (11.6-17.2); WHITE BLOOD COUNT 8.3 TH/MM3 (4.0-11.0)
[2016-12-20 05:18] LABS: CHLORIDE 97 MEQ/L (98-107); POTASSIUM 4.1 MEQ/L (3.5-5.1); SODIUM (NA) 142 MEQ/L (136-145)
[2016-12-20 06:05] LABS: ALKALINE PHOSPHATASE 77 U/L (45-117); ALT (GPT) 19 U/L (10-53); ANION GAP 2 MEQ/L (5-15); AST (GOT) 10 U/L (15-37); BICARBONATE 43.4 MEQ/L (21.0-32.0); BLOOD UREA NITROGEN 32 MG/DL (7-18); GLOMERULAR FILTRATION RATE 55 ML/MIN (>89); TOTAL BILIRUBIN ADULT 0.3 MG/DL (0.2-1.0)
--- NOTE | 2016-12-20 08:16 | HHI.PR ---
Subjective History of Present Illness Patient have SOB and using BIPAP d/w RN Ella at bed side. using BIPAP at night. Review of Systems Constitutional Constitutional: Fatigue, Weakness Pulmonary Respiratory: Coughing, Shortness of Breath, Wheezing Vitals/Results Intake & Output 12/19/16 12/19/16 12/20/16 15:00 23:00 07:00 Intake Total 360 ml 400 ml 100 ml Output Total 550 ml 500 ml 1000 ml Balance -190 ml -100 ml -900 ml Intake Oral 360 ml 400 ml 100 ml IV Total 0 ml 0 ml Output Urine Total 550 ml 500 ml 1000 ml # Bowel Movements 1 0 0 Vital Signs Vital Signs Date Time Temp Pulse Resp B/P Pulse Ox O2 Delivery O2 Flow Rate FiO2 12/20/16 07:01 74 20 162/82 96 12/20/16 06:20 92 High Flow Nasal Cannula 40.00 75 12/20/16 06:20 93 Nasal Cannula 75 12/20/16 06:01 74 13 164/94 94 12/20/16 05:20 95 50 12/20/16 05:01 74 18 164/73 93 12/20/16 05:00 95 Bi-Pap 50 12/20/16 04:05 92 55 12/20/16 04:01 98.5 76 15 157/79 91 12/20/16 04:00 74 12/20/16 04:00 92 Bi-Pap 55 12/20/16 03:01 80 16 157/79 93 12/20/16 02:20 92 55 12/20/16 02:20 87 Bi-Pap 55 12/20/16 02:00 84 12/20/16 02:00 84 18 165/73 92 12/20/16 01:15 88 Nasal Cannula 75 12/20/16 01:15 90 High Flow Nasal Cannula 40.00 75 12/20/16 01:00 94 21 186/94 92 12/20/16 00:00 90 Bi-Pap 55 12/20/16 00:00 98.3 92 31 180/87 91 12/20/16 00:00 90 12/19/16 23:00 90 24 167/77 93 12/19/16 22:42 87 Bi-Pap 55 12/19/16 22:01 90 50 12/19/16 22:00 91 Bi-Pap 50 12/19/16 22:00 84 25 150/77 91 12/19/16 21:00 84 26 137/69 90 12/19/16 20:30 71 12/19/16 20:00 93 Nasal Cannula 75 12/19/16 20:00 78 12/19/16 20:00 78 20 94 12/19/16 19:56 93 High Flow Nasal Cannula 40.00 75 12/19/16 19:23 98.2 84 25 137/76 93 12/19/16 19:00 90 24 92 12/19/16 18:00 80 12/19/16 18:00 80 21 142/77 90 12/19/16 16:00 86 12/19/16 16:00 89 Nasal Cannula 75 12/19/16 16:00 86 31 147/86 86 12/19/16 15:00 86 19 91 12/19/16 15:00 86 12/19/16 12:00 92 25 80 12/19/16 12:00 92 12/19/16 12:00 90 Nasal Cannula 75 12/19/16 11:00 98.3 92 17 169/92 87 12/19/16 11:00 92 12/19/16 08:35 93 High Flow Nasal Cannula 40.00 75 CBC/BMP: 12/20/16 0430 12/20/16 0430 Lab Results Laboratory Tests Test 12/20/16 04:30 White Blood Count 8.3 TH/MM3 Red Blood Count 4.73 MIL/MM3 Hemoglobin 11.9 GM/DL Hematocrit 37.1 % Mean Corpuscular Volume 78.5 FL Mean Corpuscular Hemoglobin 25.1 PG Mean Corpuscular Hemoglobin 32.0 % Concent Red Cell Distribution Width 17.2 % Platelet Count 241 TH/MM3 Mean Platelet Volume 8.6 FL Neutrophils (%) (Auto) 87.6 % Lymphocytes (%) (Auto) 9.6 % Monocytes (%) (Auto) 2.6 % Eosinophils (%) (Auto) 0.1 % Basophils (%) (Auto) 0.1 % Neutrophils # (Auto) 7.3 TH/MM3 Lymphocytes # (Auto) 0.8 TH/MM3 Monocytes # (Auto) 0.2 TH/MM3 Eosinophils # (Auto) 0.0 TH/MM3 Basophils # (Auto) 0.0 TH/MM3 CBC Comment DIFF FINAL Differential Comment Sodium Level 142 MEQ/L Potassium Level 4.1 MEQ/L Chloride Level 97 MEQ/L Carbon Dioxide Level 43.4 MEQ/L Anion Gap 2 MEQ/L Blood Urea Nitrogen 32 MG/DL Creatinine 0.98 MG/DL Estimat Glomerular Filtration 55 ML/MIN Rate Random Glucose 289 MG/DL Calcium Level 8.4 MG/DL Total Bilirubin 0.3 MG/DL Aspartate Amino Transf 10 U/L (AST/SGOT) Alanine Aminotransferase 19 U/L (ALT/SGPT) Alkaline Phosphatase 77 U/L Total Protein 6.6 GM/DL Albumin 2.5 GM/DL Physical Exam General General Appearance: No Acute Distress, Comfortable Eyes Eye Exam: Pupils Equal, Sclera White, Extraocular Movement Intact Neck Neck Exam: Neck Supple, Trachea Midline Pulmonary Resp Exam: No Distress, Rhonchi, Decreased Bases, Diminished Breath Sounds Resp Remarks mild wheezing Cardiology CV Exam: Arrhythmia Gastrointestinal/Abdomen GI Exam: Soft, Non-Tender, Bowel Sounds Present Musculoskeletal MS Exam: Normal Tone Integumentary Skin Exam: Warm, Dry Extremeties Extremities Exam: Moderate Edema, Pitting Edema Neurologic Neuro Exam: Alert, Awake, Oriented, Moving All Extremities VTE Prophylaxis VTE Prophylaxis Meds: Heparin PUD Prophylasis PUD Prophylaxis: Protonix Assessment/Plan Assessment/Plan ASSESSMENT/PLAN 1. This is 75-year female who came to the ER diagnosed with a severe hypokalemia. Nephrology input noted. Potassium replacement done. She is getting IV replacement potassium. resolved... on Lasix 40 mg daily. Continue to hold metolazone. Magnesium level is 1.5 after replacement it was 1.9 2. Atrial fibrillation. Continue home medication, on aspirin and Plavix. 3. Diabetes mellitus ADA 1800 calories diet. NovoLog high-dose sliding scale. Check blood sugars a.c. and hs. Monitor blood sugar. start Levemir 10 units subcut HS. 4. Hyperlipidemia. Continue simvastatin 80 mg p.o. daily. 5. Depression. Continue with Effexor 75 mg p.o. daily. 6. Gastroesophageal reflux disease. Protonix 40 mg p.o. daily. 7. DVT prophylaxis heparin 5000 units subcutaneous twice a day. 8. GI prophylaxis. Pepcid 10 mg twice a day. 9. Hypoxic respiratory failure refused BIPAP at night Pulmonary following input noted We are going to manage the patient on a daily basis and make recommendations on a daily basis. Check CBC with diff CMP in AM. Discussed Condition with: Patient Rafa Edgar MD Dec 20, 2016 08:16
[2016-12-20] MEDS ORDERED: GLUCAGON 1 MG/ML VIAL OTHER PRN (08:30)
[2016-12-20] MEDS ORDERED: DEXTROSE 50% IN WATER 50 ML VIAL(D50) IV PRN (08:30)
[2016-12-20] MEDS ORDERED: AZITHROMYCIN 250 MG TAB PO SCH (09:00)
[2016-12-20] MEDS: POTASSIUM CHLORIDE 10 MEQ CONTROLLED RELEASE TAB PO SCH ×2 (09:18→20:05)
[2016-12-20] MEDS: CLOPIDOGREL 75 MG TAB PO SCH (09:18)
[2016-12-20] MEDS: SODIUM CHLORIDE 0.9% FLUSH 10 ML FLUSH IV FLUSH SCH ×2 (09:18→20:04)
[2016-12-20] MEDS: BUDESONIDE-FORMOTEROL 160/4.5 MCG INHALER INH SCH ×2 (09:18→20:04)
[2016-12-20] MEDS: ATORVASTATIN 40 MG TAB PO SCH (09:18)
[2016-12-20] MEDS: ASPIRIN 81 MG CHEW TAB CHEW SCH (09:19)
[2016-12-20] MEDS: methylPREDNISolone SOD SUCC 40 MG/1 ML VIAL IV PUSH SCH (09:19)
[2016-12-20] MEDS: FAMOTIDINE 20 MG TAB PO SCH ×2 (09:19→20:05)
[2016-12-20] MEDS: FUROSEMIDE 40 MG/4 ML VIAL IV PUSH SCH (09:20)
[2016-12-20] MEDS: DOCUSATE SODIUM 50 MG/SENNA 8.6 MG TAB PO SCH ×2 (09:20→20:05)
[2016-12-20] MEDS: AZITHROMYCIN 250 MG TAB PO SCH (09:20)
[2016-12-20] MEDS: VENLAFAXINE HCL XR 75 MG CAP PO SCH (09:20)
[2016-12-20] MEDS: INSULIN ASPART SUPPLEMENTAL SCALE SQ SCH ×3 (12:47→20:09)
--- NOTE | 2016-12-20 16:08 | HHI.NPPN ---
Subjective History of Present Illness 75-year-old with the hypokalemia and renal insufficiency on diuretic Additional Remarks Patient is alert, seen in AM, off and on has SOB, now with nasal cannula. Review of Systems General Constitutional: Fatigue Objective Data Data 12/19/16 12/20/16 19:00 07:00 Intake Total 360 ml 500 ml Output Total 550 ml 1500 ml Balance -190 ml -1000 ml Intake Oral 360 ml 500 ml IV Total 0 ml 0 ml Output Urine Total 550 ml 1500 ml # Bowel Movements 1 0 Vital Signs Date Time Temp Pulse Resp B/P Pulse Ox O2 Delivery O2 Flow Rate FiO2 12/20/16 14:01 84 20 127/67 95 12/20/16 13:01 96 23 119/92 92 12/20/16 12:13 93 Nasal Cannula 75 12/20/16 12:01 97.9 88 19 90 12/20/16 11:01 78 21 146/70 94 12/20/16 10:01 76 25 149/76 91 12/20/16 09:01 84 35 170/82 91 12/20/16 08:01 98.7 74 23 158/88 95 12/20/16 08:00 94 High Flow Nasal Cannula 40.00 75 12/20/16 08:00 93 Nasal Cannula 75 12/20/16 07:01 74 20 162/82 96 12/20/16 06:20 92 High Flow Nasal Cannula 40.00 75 12/20/16 06:20 93 Nasal Cannula 75 12/20/16 06:01 74 13 164/94 94 12/20/16 05:20 95 50 12/20/16 05:01 74 18 164/73 93 12/20/16 05:00 95 Bi-Pap 50 12/20/16 04:05 92 55 12/20/16 04:01 98.5 76 15 157/79 91 12/20/16 04:00 74 12/20/16 04:00 92 Bi-Pap 55 12/20/16 03:01 80 16 157/79 93 12/20/16 02:20 92 55 12/20/16 02:20 87 Bi-Pap 55 12/20/16 02:00 84 12/20/16 02:00 84 18 165/73 92 12/20/16 01:15 88 Nasal Cannula 75 12/20/16 01:15 90 High Flow Nasal Cannula 40.00 75 12/20/16 01:00 94 21 186/94 92 12/20/16 00:00 90 Bi-Pap 55 12/20/16 00:00 98.3 92 31 180/87 91 12/20/16 00:00 90 12/19/16 23:00 90 24 167/77 93 12/19/16 22:42 87 Bi-Pap 55 12/19/16 22:01 90 50 12/19/16 22:00 91 Bi-Pap 50 12/19/16 22:00 84 25 150/77 91 12/19/16 21:00 84 26 137/69 90 12/19/16 20:30 71 12/19/16 20:00 93 Nasal Cannula 75 12/19/16 20:00 78 12/19/16 20:00 78 20 94 12/19/16 19:56 93 High Flow Nasal Cannula 40.00 75 12/19/16 19:23 98.2 84 25 137/76 93 12/19/16 19:00 90 24 92 12/19/16 18:00 80 12/19/16 18:00 80 21 142/77 90 -: 12/20/16 0430 12/20/16 0430 Physical Exam General Appearance: No Acute Distress, Comfortable Eyes Eye Exam: Pupils Equal, Sclera White, Extraocular Movement Intact Neck Neck Exam: Neck Supple, Trachea Midline Pulmonary Resp Exam: No Distress, Rhonchi, Decreased Bases, Diminished Breath Sounds Cardiology CV Exam: Arrhythmia Gastrointestinal/Abdomen GI Exam: Soft, Non-Tender, Bowel Sounds Present Musculoskeletal MS Exam: Normal Tone Integumentary Skin Exam: Warm, Dry Extremeties Extremities Exam: Moderate Edema, Pitting Edema Neurologic Neuro Exam: Alert, Awake, Oriented, Moving All Extremities PUD Prophylasis PUD Prophylaxis: Protonix Assessment/Plan Problem List: (1) Renal failure Plan: Creatinine remain stable. Urine out put is good and edema is better. Continue same Lasix, 40 mg daily. Edema is improving. Hco3 increasing due to COPD and diuretics. (2) Hypokalemia Plan: I will replace magnesium as less than 2 And continue with potassium replacement (3) Atrial fibrillation Plan: Takes Plavix and aspirin (4) Diabetes mellitus Plan: Continue to monitor (5) Alkalemia Plan: Due to volume contraction From overdiuresis \Improved Problem Qualifiers (1) Renal failure: Qualified Code: N18.3 - Stage 3 chronic kidney disease (2) Atrial fibrillation: Qualified Code: I48.0 - Paroxysmal atrial fibrillation (3) Diabetes mellitus: Nilson Gomez MD Dec 20, 2016 16:08
--- NOTE | 2016-12-20 17:44 | HHI.PR ---
Subjective Remarks Feels better .. Confusion. On High Flow O2 at 60 % Used Bipap last nite. Good output. Objective Vital Signs Date Time Temp Pulse Resp B/P Pulse Ox O2 Delivery O2 Flow Rate FiO2 12/20/16 14:01 84 20 127/67 95 12/20/16 13:01 96 23 119/92 92 12/20/16 12:13 93 Nasal Cannula 75 12/20/16 12:01 97.9 88 19 90 12/20/16 11:01 78 21 146/70 94 12/20/16 10:01 76 25 149/76 91 12/20/16 09:01 84 35 170/82 91 12/20/16 08:01 98.7 74 23 158/88 95 12/20/16 08:00 94 High Flow Nasal Cannula 40.00 75 12/20/16 08:00 93 Nasal Cannula 75 12/20/16 07:01 74 20 162/82 96 12/20/16 06:20 92 High Flow Nasal Cannula 40.00 75 12/20/16 06:20 93 Nasal Cannula 75 12/20/16 06:01 74 13 164/94 94 12/20/16 05:20 95 50 12/20/16 05:01 74 18 164/73 93 12/20/16 05:00 95 Bi-Pap 50 12/20/16 04:05 92 55 12/20/16 04:01 98.5 76 15 157/79 91 12/20/16 04:00 74 12/20/16 04:00 92 Bi-Pap 55 12/20/16 03:01 80 16 157/79 93 12/20/16 02:20 92 55 12/20/16 02:20 87 Bi-Pap 55 12/20/16 02:00 84 12/20/16 02:00 84 18 165/73 92 12/20/16 01:15 88 Nasal Cannula 75 12/20/16 01:15 90 High Flow Nasal Cannula 40.00 75 12/20/16 01:00 94 21 186/94 92 12/20/16 00:00 90 Bi-Pap 55 12/20/16 00:00 98.3 92 31 180/87 91 12/20/16 00:00 90 12/19/16 23:00 90 24 167/77 93 12/19/16 22:42 87 Bi-Pap 55 12/19/16 22:01 90 50 12/19/16 22:00 91 Bi-Pap 50 12/19/16 22:00 84 25 150/77 91 12/19/16 21:00 84 26 137/69 90 12/19/16 20:30 71 12/19/16 20:00 93 Nasal Cannula 75 12/19/16 20:00 78 12/19/16 20:00 78 20 94 12/19/16 19:56 93 High Flow Nasal Cannula 40.00 75 12/19/16 19:23 98.2 84 25 137/76 93 12/19/16 19:00 90 24 92 12/19/16 18:00 80 12/19/16 18:00 80 21 142/77 90 I/O 12/19/16 12/19/16 12/19/16 12/20/16 12/20/16 12/20/16 07:00 15:00 23:00 07:00 15:00 23:00 Intake Total 150 ml 360 ml 400 ml 100 ml 600 ml Output Total 950 ml 550 ml 500 ml 1000 ml 1550 ml Balance -800 ml -190 ml -100 ml -900 ml -950 ml Intake Oral 150 ml 360 ml 400 ml 100 ml 600 ml IV Total 0 ml 0 ml 0 ml Output Urine Total 950 ml 550 ml 500 ml 1000 ml 1550 ml # Bowel Movements 0 1 0 0 1 Result Diagram: 12/20/1642912/20/16429 Objective Remarks GENERAL: A moderately obese elderly lady on O2 N/C . She is awake and responds to questions. There is mild peripheral cyanosis. HEENT: Head normocephalic. Pupils reactive. Sclerae were injected. Throat was injected. NECK: Supple with mild venous distension. No thyromegaly. CHEST: Distant breath sounds with occasional wheezes throughout both lung nieves. Basal crackles. Diminished breath sounds at the bases. HEART SOUNDS: Irregular. S1-S2. No murmur. ABDOMEN: Obese, protuberant. No masses, no organomegaly. EXTREMITIES: Edema 1+ with diminished pulses. NEUROLOGIC: Reflexes are 1+ with no gross motor deficits. Cranial nerves grossly intact. RECTAL: Exam is deferred. SKIN: No lesions. Assessment and Plan Assessment and Plan IMPRESSION 1. Acute on chronic respiratory failure. 2. Hypokalemia. 3. CHF with atrial fibrillation. 4. Diabetes mellitus type 2. 5. Depression and anxiety. 6. Hypertension. Plan : 1. Place on BiPAP 12/, FIo2 50 % at HS. 2. Continue Nebs qid Duoneb 3. Continue diuretic daily. 4. D/C Solumedrol 5. IS at bedside q3h 6. Zithromax 500 mg po daily X5 7. O 2 to N/C high flow and wean to keep sat >90 Alvaro Nation MD Dec 20, 2016 17:44
[2016-12-20] MEDS: predniSONE 10 MG TAB PO SCH (20:04)
[2016-12-20] MEDS: INSULIN DETEMIR 100 UNITS/ML VIAL SQ SCH (20:09)
[2016-12-21] VITALS (34 sets, daily range): BP systolic 135–198; BP diastolic 67–103; PULSE 62–92; RESP 15–25; TEMP 97.8–98.5; O2SAT 90–97
[2016-12-21] MEDS: cloNIDine HCL 0.1 MG TAB PO PRN (02:10)
--- NOTE | 2016-12-21 04:24 | RADRPT ---
EXAM DATE/TIME: 12/21/2016 03:48 [place] COMPARISON: CHEST SINGLE AP, December 19, 2016, 6:12. INDICATIONS : Shortness of breath MEDICAL HISTORY : Hypertension. Cardiovascular disease. Renal failure, chronic SURGICAL HISTORY : None. ENCOUNTER: Subsequent ACUITY: 1 week PAIN SCORE: Non-responsive. LOCATION: Bilateral chest FINDINGS: There is improved aeration of the lung nieves compared to the prior study. The heart size is enlarged but stable. There appears to be an infiltrate in the left lung base. There is no evidence of pneumot horax. No definite pleural effusions. The bony structures are stable. CONCLUSION: 1. Mild Improved aeration of the lungs compared to the prior exam. 2. Left lower lung infiltrate. Jean-Paul Chavez MD on December 21, 2016 at 4:21 Board Certified Radiologist. This report was verified electronically.
[2016-12-21 05:18] LABS: AUTOMATED NEUTROPHIL # 7.1 TH/MM3 (1.8-7.7); BASOPHIL % 0.1 % (0.0-2.0); EOSINOPHIL % 0.3 % (0.0-4.0); HEMATOCRIT 37.2 % (35.0-46.0); HEMO FLAGS DIFF FINAL; LYMPH % 11.2 % (9.0-44.0); LYMPHOCYTE # 0.9 TH/MM3 (1.0-4.8); MEAN CELL VOLUME 78.3 FL (80.0-100.0); MEAN CORPUSCULAR HEMOGLOBIN 25.4 PG (27.0-34.0); MEAN CORPUSCULAR HGB CONC 32.5 % (32.0-36.0); NEUT % 83.4 % (16.0-70.0); PLATELET COUNT 220 TH/MM3 (150-450); RED BLOOD COUNT 4.75 MIL/MM3 (4.00-5.30); RED CELL DISTRIBUTION WIDTH 16.6 % (11.6-17.2); WHITE BLOOD COUNT 8.4 TH/MM3 (4.0-11.0)
[2016-12-21 05:27] LABS: CHLORIDE 96 MEQ/L (98-107); POTASSIUM 4.3 MEQ/L (3.5-5.1); SODIUM (NA) 138 MEQ/L (136-145)
[2016-12-21 05:32] LABS: ANION GAP 1 MEQ/L (5-15); BLOOD UREA NITROGEN 35 MG/DL (7-18)
[2016-12-21 05:35] LABS: ALT (GPT) 18 U/L (10-53); AST (GOT) 18 U/L (15-37); GLOMERULAR FILTRATION RATE 49 ML/MIN (>89)
[2016-12-21 05:37] LABS: TOTAL BILIRUBIN ADULT 0.3 MG/DL (0.2-1.0)
[2016-12-21 05:38] LABS: ALKALINE PHOSPHATASE 71 U/L (45-117)
[2016-12-21] MEDS: INSULIN ASPART SUPPLEMENTAL SCALE SQ SCH ×4 (06:38→23:40)
--- NOTE | 2016-12-21 07:57 | HHI.PR ---
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 using BIPAP at night. on PO Steroids now. Review of Systems Constitutional Constitutional: Fatigue, Weakness Pulmonary Respiratory: Coughing, Shortness of Breath, Wheezing Vitals/Results Intake & Output 12/20/16 12/20/16 12/21/16 14:59 22:59 06:59 Intake Total 600 ml 600 ml 120 ml Output Total 1550 ml 700 ml 1000 ml Balance -950 ml -100 ml -880 ml Intake Oral 600 ml 600 ml 120 ml IV Total 0 ml Output Urine Total 1550 ml 700 ml 1000 ml # Bowel Movements 1 0 0 Vital Signs Vital Signs Date Time Temp Pulse Resp B/P Pulse Ox O2 Delivery O2 Flow Rate FiO2 12/21/16 07:40 93 High Flow Nasal Cannula 40.00 65 12/21/16 06:01 82 16 169/95 93 12/21/16 05:13 74 24 164/73 96 12/21/16 04:15 93 50 12/21/16 04:01 98.2 74 15 152/90 92 12/21/16 04:00 74 12/21/16 04:00 94 Nasal Cannula 65 12/21/16 03:01 84 18 178/90 92 12/21/16 02:04 86 17 189/99 94 12/21/16 01:45 93 50 12/21/16 01:07 80 19 182/88 95 12/21/16 00:01 98.4 77 18 177/93 93 12/21/16 00:00 95 Nasal Cannula 65 12/21/16 00:00 78 12/20/16 23:20 93 50 12/20/16 22:01 78 20 167/95 94 12/20/16 21:01 80 18 191/84 92 12/20/16 20:01 98.1 86 23 148/70 92 12/20/16 20:00 92 High Flow Nasal Cannula 40.00 65 12/20/16 20:00 88 12/20/16 20:00 93 Nasal Cannula 65 12/20/16 19:20 88 25 125/65 96 12/20/16 18:01 92 21 162/83 90 12/20/16 17:01 82 22 167/81 94 12/20/16 16:01 98.1 86 28 165/83 92 12/20/16 16:00 86 12/20/16 16:00 95 Nasal Cannula 65 12/20/16 15:01 84 23 144/70 93 12/20/16 14:15 95 High Flow Nasal Cannula 40.00 65 12/20/16 14:01 84 20 127/67 95 12/20/16 13:01 96 23 119/92 92 12/20/16 12:13 93 Nasal Cannula 75 12/20/16 12:01 97.9 88 19 90 12/20/16 12:00 94 12/20/16 11:01 78 21 146/70 94 12/20/16 10:01 76 25 149/76 91 12/20/16 09:01 84 35 170/82 91 12/20/16 08:01 98.7 74 23 158/88 95 12/20/16 08:00 94 High Flow Nasal Cannula 40.00 75 12/20/16 08:00 71 12/20/16 08:00 93 Nasal Cannula 75 CBC/BMP: 12/21/16 0425 12/21/16 0425 Lab Results Laboratory Tests Test 12/21/16 04:25 White Blood Count 8.4 TH/MM3 Red Blood Count 4.75 MIL/MM3 Hemoglobin 12.1 GM/DL Hematocrit 37.2 % Mean Corpuscular Volume 78.3 FL Mean Corpuscular Hemoglobin 25.4 PG Mean Corpuscular Hemoglobin 32.5 % Concent Red Cell Distribution Width 16.6 % Platelet Count 220 TH/MM3 Mean Platelet Volume 8.4 FL Neutrophils (%) (Auto) 83.4 % Lymphocytes (%) (Auto) 11.2 % Monocytes (%) (Auto) 5.0 % Eosinophils (%) (Auto) 0.3 % Basophils (%) (Auto) 0.1 % Neutrophils # (Auto) 7.1 TH/MM3 Lymphocytes # (Auto) 0.9 TH/MM3 Monocytes # (Auto) 0.4 TH/MM3 Eosinophils # (Auto) 0.0 TH/MM3 Basophils # (Auto) 0.0 TH/MM3 CBC Comment DIFF FINAL Differential Comment Sodium Level 138 MEQ/L Potassium Level 4.3 MEQ/L Chloride Level 96 MEQ/L Carbon Dioxide Level 41.0 MEQ/L Anion Gap 1 MEQ/L Blood Urea Nitrogen 35 MG/DL Creatinine 1.10 MG/DL Estimat Glomerular Filtration 49 ML/MIN Rate Random Glucose 213 MG/DL Calcium Level 8.3 MG/DL Total Bilirubin 0.3 MG/DL Aspartate Amino Transf 18 U/L (AST/SGOT) Alanine Aminotransferase 18 U/L (ALT/SGPT) Alkaline Phosphatase 71 U/L Total Protein 6.5 GM/DL Albumin 2.4 GM/DL Physical Exam General General Appearance: Well Developed, Well Nourished, Comfortable Eyes Eye Exam: Pupils Equal, Sclera White, Extraocular Movement Intact Neck Neck Exam: Neck Supple, Trachea Midline Pulmonary Resp Exam: No Distress, Rhonchi, Decreased Bases, Diminished Breath Sounds Resp Remarks mild wheezing Cardiology CV Exam: Arrhythmia Gastrointestinal/Abdomen GI Exam: Soft, Non-Tender, Bowel Sounds Present Musculoskeletal MS Exam: Normal Tone Integumentary Skin Exam: Warm, Dry Extremeties Extremities Exam: Moderate Edema, Pitting Edema Neurologic Neuro Exam: Alert, Awake, Oriented, Moving All Extremities VTE Prophylaxis VTE Prophylaxis Meds: Heparin PUD Prophylasis PUD Prophylaxis: Protonix Assessment/Plan Assessment/Plan ASSESSMENT/PLAN 1. This is 75-year female who came to the ER diagnosed with a severe hypokalemia. Nephrology input noted. Potassium replacement done. . resolved... on Lasix 40 mg daily. Continue to hold metolazone. Magnesium level is 1.5 after replacement it was 1.9 2. Atrial fibrillation. Continue home medication, on aspirin and Plavix. 3. Diabetes mellitus ADA 1800 calories diet. NovoLog high-dose sliding scale. Check blood sugars a.c. and hs. Monitor blood sugar. start Levemir 10 units subcut HS. 4. Hyperlipidemia. Continue simvastatin 80 mg p.o. daily. 5. Depression. Continue with Effexor 75 mg p.o. daily. 6. Gastroesophageal reflux disease. Protonix 40 mg p.o. daily. 7. DVT prophylaxis heparin 5000 units subcutaneous twice a day. 8. GI prophylaxis. Pepcid 10 mg twice a day. 9. Hypoxic respiratory failure refused BIPAP at night Pulmonary following input noted We are going to manage the patient on a daily basis and make recommendations on a daily basis. Check CBC with diff CMP in AM. Discussed Condition with: Patient Rafa Edgar MD Dec 21, 2016 07:57
[2016-12-21] MEDS: predniSONE 10 MG TAB PO SCH ×2 (09:17→20:23)
[2016-12-21] MEDS: FUROSEMIDE 40 MG/4 ML VIAL IV PUSH SCH (09:17)
[2016-12-21] MEDS: SODIUM CHLORIDE 0.9% FLUSH 10 ML FLUSH IV FLUSH SCH ×2 (09:17→20:26)
[2016-12-21] MEDS: ASPIRIN 81 MG CHEW TAB CHEW SCH (09:17)
[2016-12-21] MEDS: AZITHROMYCIN 250 MG TAB PO SCH (09:18)
[2016-12-21] MEDS: FAMOTIDINE 20 MG TAB PO SCH ×2 (09:18→20:23)
[2016-12-21] MEDS: POTASSIUM CHLORIDE 10 MEQ CONTROLLED RELEASE TAB PO SCH ×2 (09:18→20:22)
[2016-12-21] MEDS: DOCUSATE SODIUM 50 MG/SENNA 8.6 MG TAB PO SCH ×2 (09:18→20:24)
[2016-12-21] MEDS: VENLAFAXINE HCL XR 75 MG CAP PO SCH (09:19)
[2016-12-21] MEDS: CLOPIDOGREL 75 MG TAB PO SCH (09:19)
[2016-12-21] MEDS: ATORVASTATIN 40 MG TAB PO SCH (09:19)
[2016-12-21] MEDS: BUDESONIDE-FORMOTEROL 160/4.5 MCG INHALER INH SCH ×2 (09:20→20:22)
--- NOTE | 2016-12-21 12:19 | HHI.NPPN ---
Subjective History of Present Illness 75-year-old with the hypokalemia and renal insufficiency on diuretic Additional Remarks Patient is alert, sitting on chair, feeling better. Review of Systems General Constitutional: Fatigue Objective Data Data 12/20/16 12/21/16 19:00 07:00 Intake Total 600 ml 720 ml Output Total 1550 ml 1700 ml Balance -950 ml -980 ml Intake Oral 600 ml 720 ml IV Total 0 ml Output Urine Total 1550 ml 1700 ml # Bowel Movements 1 0 Vital Signs Date Time Temp Pulse Resp B/P Pulse Ox O2 Delivery O2 Flow Rate FiO2 12/21/16 07:40 93 High Flow Nasal Cannula 40.00 65 12/21/16 06:01 82 16 169/95 93 12/21/16 05:13 74 24 164/73 96 12/21/16 04:15 93 50 12/21/16 04:01 98.2 74 15 152/90 92 12/21/16 04:00 74 12/21/16 04:00 94 Nasal Cannula 65 12/21/16 03:01 84 18 178/90 92 12/21/16 02:04 86 17 189/99 94 12/21/16 01:45 93 50 12/21/16 01:07 80 19 182/88 95 12/21/16 00:01 98.4 77 18 177/93 93 12/21/16 00:00 95 Nasal Cannula 65 12/21/16 00:00 78 12/20/16 23:20 93 50 12/20/16 22:01 78 20 167/95 94 12/20/16 21:01 80 18 191/84 92 12/20/16 20:01 98.1 86 23 148/70 92 12/20/16 20:00 92 High Flow Nasal Cannula 40.00 65 12/20/16 20:00 88 12/20/16 20:00 93 Nasal Cannula 65 12/20/16 19:20 88 25 125/65 96 12/20/16 18:01 92 21 162/83 90 12/20/16 17:01 82 22 167/81 94 12/20/16 16:01 98.1 86 28 165/83 92 12/20/16 16:00 86 12/20/16 16:00 95 Nasal Cannula 65 12/20/16 15:01 84 23 144/70 93 7/19/17 14:15 95 High Flow Nasal Cannula 40.00 65 12/20/16 14:01 84 20 127/67 95 12/20/16 13:01 96 23 119/92 92 -: 12/21/16 0425 12/21/16 0425 Physical Exam General Appearance: Well Developed, Well Nourished, Comfortable Eyes Eye Exam: Pupils Equal, Sclera White, Extraocular Movement Intact Neck Neck Exam: Neck Supple, Trachea Midline Pulmonary Resp Exam: No Distress, Rhonchi, Decreased Bases, Diminished Breath Sounds Cardiology CV Exam: Arrhythmia Gastrointestinal/Abdomen GI Exam: Soft, Non-Tender, Bowel Sounds Present Musculoskeletal MS Exam: Normal Tone Integumentary Skin Exam: Warm, Dry Extremeties Extremities Exam: Moderate Edema, Pitting Edema Neurologic Neuro Exam: Alert, Awake, Oriented, Moving All Extremities PUD Prophylasis PUD Prophylaxis: Protonix Assessment/Plan Problem List: (1) Renal failure Plan: Creatinine is now 1.1, close to her baseline. Urine out put is good and edema is better. Hco3 increasing due to COPD and diuretics. Continue same Lasix, 40 mg daily. (2) Hypokalemia Plan: I will replace magnesium as less than 2 And continue with potassium replacement (3) Atrial fibrillation Plan: Takes Plavix and aspirin (4) Diabetes mellitus Plan: Continue to monitor (5) Alkalemia Plan: Due to volume contraction From overdiuresis \Improved Problem Qualifiers (1) Renal failure: Qualified Code: N18.3 - Stage 3 chronic kidney disease (2) Atrial fibrillation: Qualified Code: I48.0 - Paroxysmal atrial fibrillation (3) Diabetes mellitus: Nilson Gomez MD Dec 21, 2016 12:19
[2016-12-21] MEDS: HEPARIN SODIUM - SQ 10,000 UNITS/ML VIAL SQ SCH ×2 (12:26→23:06)
--- NOTE | 2016-12-21 17:19 | HHI.PR ---
Subjective Remarks Feels better. Breathing better.. On High Flow O2 at 60 % Used Bipap last nite. Good output. Objective Vital Signs Date Time Temp Pulse Resp B/P Pulse Ox O2 Delivery O2 Flow Rate FiO2 12/21/16 15:01 76 18 135/77 95 12/21/16 14:01 86 20 147/76 96 12/21/16 13:01 98.5 90 22 147/76 90 12/21/16 12:01 70 18 158/69 94 12/21/16 12:00 95 Nasal Cannula 65 12/21/16 11:01 70 19 150/68 94 12/21/16 10:01 70 24 136/67 97 12/21/16 09:01 74 22 141/92 92 12/21/16 08:01 97.9 62 18 152/78 95 12/21/16 08:00 95 Nasal Cannula 65 12/21/16 07:40 93 High Flow Nasal Cannula 40.00 65 12/21/16 07:01 72 18 92 12/21/16 06:01 82 16 169/95 93 12/21/16 05:13 74 24 164/73 96 12/21/16 04:15 93 50 12/21/16 04:01 98.2 74 15 152/90 92 12/21/16 04:00 74 12/21/16 04:00 94 Nasal Cannula 65 12/21/16 03:01 84 18 178/90 92 12/21/16 02:04 86 17 189/99 94 12/21/16 01:45 93 50 12/21/16 01:07 80 19 182/88 95 12/21/16 00:01 98.4 77 18 177/93 93 12/21/16 00:00 95 Nasal Cannula 65 12/21/16 00:00 78 12/20/16 23:20 93 50 12/20/16 22:01 78 20 167/95 94 12/20/16 21:01 80 18 191/84 92 12/20/16 20:01 98.1 86 23 148/70 92 12/20/16 20:00 92 High Flow Nasal Cannula 40.00 65 12/20/16 20:00 88 12/20/16 20:00 93 Nasal Cannula 65 12/20/16 19:20 88 25 125/65 96 12/20/16 18:01 92 21 162/83 90 I/O 12/20/16 12/20/16 12/20/16 12/21/16 12/21/16 12/21/16 07:00 15:00 23:00 07:00 15:00 23:00 Intake Total 100 ml 600 ml 600 ml 120 ml 600 ml Output Total 1000 ml 1550 ml 700 ml 1000 ml 1125 ml Balance -900 ml -950 ml -100 ml -880 ml -525 ml Intake Oral 100 ml 600 ml 600 ml 120 ml 600 ml IV Total 0 ml Output Urine Total 1000 ml 1550 ml 700 ml 1000 ml 1125 ml # Bowel Movements 0 1 0 0 1 Result Diagram: 12/21/1642412/21/16424 Objective Remarks GENERAL: A moderately obese elderly lady . She is awake and responds to questions. There is no cyanosis. HEENT: Head normocephalic. Pupils reactive. Sclerae were clear. Throat was clear. NECK: Supple with mild venous distension. No thyromegaly. CHEST: Distant breath sounds with occasional wheezes throughout both lung nieves. Few Basal crackles. Diminished breath sounds at the bases. HEART SOUNDS: Irregular. S1-S2. No murmur. ABDOMEN: Obese, protuberant. No masses, no organomegaly. EXTREMITIES: Edema 1+ with diminished pulses. NEUROLOGIC: Reflexes are 1+ with no gross motor deficits. RECTAL: Exam is deferred. SKIN: No lesions. Assessment and Plan Assessment and Plan IMPRESSION 1. Acute on chronic respiratory failure. 2. Hypokalemia. 3. CHF with atrial fibrillation. 4. Diabetes mellitus type 2. 5. Depression and anxiety. 6. Hypertension. Plan : 1. Place on BiPAP 12/5, FIo2 40 % at HS. 2. Continue Nebs qid Duoneb 3. Add PO lasix 40 mg daily 4. D/C IV Lasix 5. IS at bedside q3h 6. Zithromax 500 mg po daily X5 7. O 2 to N/C high flow and wean to keep sat >90 Alvaro Nation MD Dec 21, 2016 17:19
[2016-12-21] MEDS: INSULIN DETEMIR 100 UNITS/ML VIAL SQ SCH (20:22)
[2016-12-22] VITALS (40 sets, daily range): BP systolic 118–189; BP diastolic 58–93; PULSE 70–102; RESP 15–36; TEMP 97.7–98.7; O2SAT 87–97
[2016-12-22] MEDS: cloNIDine HCL 0.1 MG TAB PO PRN ×2 (05:05→23:13)
[2016-12-22 05:07] LABS: HEMATOCRIT 38.5 % (35.0-46.0); MEAN CELL VOLUME 78.1 FL (80.0-100.0); MEAN CORPUSCULAR HEMOGLOBIN 25.1 PG (27.0-34.0); MEAN CORPUSCULAR HGB CONC 32.1 % (32.0-36.0); PLATELET COUNT 230 TH/MM3 (150-450); RED BLOOD COUNT 4.93 MIL/MM3 (4.00-5.30)
[2016-12-22 05:12] LABS: HEMO FLAGS AUTO DIFF
[2016-12-22 05:19] LABS: CHLORIDE 98 MEQ/L (98-107); POTASSIUM 4.1 MEQ/L (3.5-5.1); SODIUM (NA) 140 MEQ/L (136-145)
[2016-12-22 05:23] LABS: ANION GAP 2 MEQ/L (5-15); BICARBONATE 40.2 MEQ/L (21.0-32.0); BLOOD UREA NITROGEN 34 MG/DL (7-18)
[2016-12-22 05:26] LABS: ALT (GPT) 21 U/L (10-53); AST (GOT) 12 U/L (15-37)
[2016-12-22 05:27] LABS: GLOMERULAR FILTRATION RATE 49 ML/MIN (>89)
[2016-12-22 05:28] LABS: BASOPHILS 1 % (0-2); EOSINOPHILS 1 % (0-4); NEUTROPHIL # MANUAL DIFF 6.5 TH/MM3 (1.8-7.7); PLATELET ESTIMATE SMEAR NORMAL (NORMAL); PLATELET MORPHOLOGY NORMAL (NORMAL); POLYS (SEG NEUTROPHILS) 72 % (16-70); SCAN/DIFF FINAL DIFF MANUAL; TOTAL BILIRUBIN ADULT 0.3 MG/DL (0.2-1.0); WBC DIFF SAMPLE 100
[2016-12-22 05:29] LABS: ALKALINE PHOSPHATASE 73 U/L (45-117)
[2016-12-22] MEDS: INSULIN ASPART SUPPLEMENTAL SCALE SQ SCH ×4 (06:46→21:11)
--- NOTE | 2016-12-22 08:35 | HHI.PR ---
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 using BIPAP at night. Review of Systems Constitutional Constitutional: Fatigue, Weakness Pulmonary Respiratory: Coughing, Shortness of Breath, Wheezing Vitals/Results Intake & Output 12/21/16 12/21/16 12/22/16 14:59 22:59 06:59 Intake Total 600 ml 300 ml 200 ml Output Total 1125 ml 600 ml 700 ml Balance -525 ml -300 ml -500 ml Intake Oral 600 ml 300 ml 200 ml Output Urine Total 1125 ml 600 ml 700 ml # Bowel Movements 1 Vital Signs Vital Signs Date Time Temp Pulse Resp B/P Pulse Ox O2 Delivery O2 Flow Rate FiO2 12/22/16 06:25 93 Nasal Cannula 35 12/22/16 06:01 70 15 162/78 94 12/22/16 05:15 92 Nasal Cannula 45 12/22/16 05:01 82 18 177/80 91 12/22/16 04:15 92 40 12/22/16 04:01 98.7 70 15 152/66 91 12/22/16 04:00 74 12/22/16 04:00 91 Bi-Pap 40 12/22/16 03:01 82 16 159/83 94 12/22/16 02:01 86 17 182/76 96 12/22/16 01:20 96 40 12/22/16 01:13 96 Bi-Pap 40 12/22/16 01:01 80 17 189/93 97 12/22/16 00:01 97.7 82 15 161/81 96 12/22/16 00:01 82 12/21/16 23:40 95 45 12/21/16 23:40 96 Bi-Pap 45 12/21/16 23:05 84 12/21/16 23:05 84 17 198/98 96 12/21/16 22:01 76 12/21/16 22:01 76 15 178/98 95 12/21/16 21:01 78 12/21/16 21:01 78 18 177/89 97 12/21/16 20:01 97.8 90 19 142/82 95 12/21/16 20:01 90 12/21/16 19:55 95 High Flow Nasal Cannula 40.00 65 12/21/16 19:45 95 Nasal Cannula 60 12/21/16 19:01 92 19 164/103 97 12/21/16 18:01 80 22 151/87 97 12/21/16 17:01 97.9 86 23 149/85 96 12/21/16 16:01 80 25 145/82 96 12/21/16 16:00 72 12/21/16 16:00 96 Nasal Cannula 65 12/21/16 15:01 76 18 135/77 95 12/21/16 14:01 86 20 147/76 96 12/21/16 13:01 98.5 90 22 147/76 90 12/21/16 12:01 70 18 158/69 94 12/21/16 12:00 80 12/21/16 12:00 95 Nasal Cannula 65 12/21/16 11:01 70 19 150/68 94 12/21/16 10:01 70 24 136/67 97 12/21/16 09:01 74 22 141/92 92 CBC/BMP: 12/22/16 0440 12/22/16 0440 Lab Results Laboratory Tests Test 12/22/16 04:40 White Blood Count 9.0 TH/MM3 Red Blood Count 4.93 MIL/MM3 Hemoglobin 12.4 GM/DL Hematocrit 38.5 % Mean Corpuscular Volume 78.1 FL Mean Corpuscular Hemoglobin 25.1 PG Mean Corpuscular Hemoglobin 32.1 % Concent Red Cell Distribution Width 17.0 % Platelet Count 230 TH/MM3 Mean Platelet Volume 8.1 FL Neutrophils (%) (Auto) % CBC Comment AUTO DIFF Differential Total Cells 100 Counted Neutrophils % (Manual) 72 % Lymphocytes % 20 % Monocytes % 6 % Eosinophils % 1 % Basophils % 1 % Neutrophils # (Manual) 6.5 TH/MM3 Differential Comment FINAL DIFF MANUAL Platelet Estimate NORMAL Platelet Morphology Comment NORMAL Sodium Level 140 MEQ/L Potassium Level 4.1 MEQ/L Chloride Level 98 MEQ/L Carbon Dioxide Level 40.2 MEQ/L Anion Gap 2 MEQ/L Blood Urea Nitrogen 34 MG/DL Creatinine 1.10 MG/DL Estimat Glomerular Filtration 49 ML/MIN Rate Random Glucose 221 MG/DL Calcium Level 8.2 MG/DL Total Bilirubin 0.3 MG/DL Aspartate Amino Transf 12 U/L (AST/SGOT) Alanine Aminotransferase 21 U/L (ALT/SGPT) Alkaline Phosphatase 73 U/L Total Protein 6.4 GM/DL Albumin 2.6 GM/DL Physical Exam General General Appearance: Well Developed, Well Nourished, Comfortable Eyes Eye Exam: Pupils Equal, Sclera White, Extraocular Movement Intact Neck Neck Exam: Neck Supple, Trachea Midline Pulmonary Resp Exam: No Distress, Rhonchi, Decreased Bases, Diminished Breath Sounds Resp Remarks mild wheezing Cardiology CV Exam: Arrhythmia Gastrointestinal/Abdomen GI Exam: Soft, Non-Tender, Bowel Sounds Present Musculoskeletal MS Exam: Normal Tone Integumentary Skin Exam: Warm, Dry Extremeties Extremities Exam: Moderate Edema, Pitting Edema Neurologic Neuro Exam: Alert, Awake, Oriented, Moving All Extremities VTE Prophylaxis VTE Prophylaxis Meds: Heparin PUD Prophylasis PUD Prophylaxis: Protonix Assessment/Plan Assessment/Plan ASSESSMENT/PLAN This is 75-year female who came to the ER diagnosed with a 1. Severe hypokalemia. Nephrology input noted. Potassium replacement done. . resolved... on Lasix 40 mg daily. Continue to hold metolazone. Magnesium level was 1.5 after replacement it was 1.9 2. Atrial fibrillation. Continue home medication, on aspirin and Plavix. 3. Diabetes mellitus ADA 1800 calories diet. NovoLog high-dose sliding scale. Check blood sugars a.c. and hs. Monitor blood sugar. blood sugar still high Increase Levemir to 20 units daily 4. Hyperlipidemia. Continue simvastatin 80 mg p.o. daily. 5. Depression. Continue with Effexor 75 mg p.o. daily. 6. Gastroesophageal reflux disease. Protonix 40 mg p.o. daily. 7. DVT prophylaxis heparin 5000 units subcutaneous twice a day. 8. GI prophylaxis. Pepcid 10 mg twice a day. 9. Hypoxic respiratory failure refused BIPAP at night Pulmonary following input noted We are going to manage the patient on a daily basis and make recommendations on a daily basis. Check CBC with diff CMP in AM. Discussed Condition with: Patient Rafa Edgar MD Dec 22, 2016 08:35
[2016-12-22] MEDS: ASPIRIN 81 MG CHEW TAB CHEW SCH (08:48)
[2016-12-22] MEDS: BUDESONIDE-FORMOTEROL 160/4.5 MCG INHALER INH SCH ×2 (08:48→21:09)
[2016-12-22] MEDS: SODIUM CHLORIDE 0.9% FLUSH 10 ML FLUSH IV FLUSH SCH ×2 (08:48→21:20)
[2016-12-22] MEDS: AZITHROMYCIN 250 MG TAB PO SCH (08:49)
[2016-12-22] MEDS: ATORVASTATIN 40 MG TAB PO SCH (08:49)
[2016-12-22] MEDS: FAMOTIDINE 20 MG TAB PO SCH ×2 (08:49→21:00)
[2016-12-22] MEDS: DOCUSATE SODIUM 50 MG/SENNA 8.6 MG TAB PO SCH ×2 (08:49→21:00)
[2016-12-22] MEDS: FUROSEMIDE 40 MG TAB PO SCH (08:49)
[2016-12-22] MEDS: VENLAFAXINE HCL XR 75 MG CAP PO SCH (08:50)
[2016-12-22] MEDS: POTASSIUM CHLORIDE 10 MEQ CONTROLLED RELEASE TAB PO SCH ×2 (08:50→21:09)
[2016-12-22] MEDS: CLOPIDOGREL 75 MG TAB PO SCH (08:50)
[2016-12-22] MEDS: predniSONE 10 MG TAB PO SCH (08:50)
[2016-12-22] MEDS ORDERED: POTASSIUM CHLORIDE 20 MEQ CONTROLLED RELEASE TAB PO SCH (09:00)
--- NOTE | 2016-12-22 10:57 | HHI.NPPN ---
Subjective History of Present Illness 75-year-old with the hypokalemia and renal insufficiency on diuretic Additional Remarks Patient is alert, breathing is better, still with nasal cannula. Review of Systems General Constitutional: Fatigue Objective Data Data 12/21/16 12/22/16 18:59 06:59 Intake Total 600 ml 500 ml Output Total 1125 ml 1300 ml Balance -525 ml -800 ml Intake Oral 600 ml 500 ml Output Urine Total 1125 ml 1300 ml # Bowel Movements 1 Vital Signs Date Time Temp Pulse Resp B/P Pulse Ox O2 Delivery O2 Flow Rate FiO2 12/22/16 08:00 90 High Flow Nasal Cannula 30.00 40 12/22/16 07:45 93 High Flow Nasal Cannula 35.00 45 12/22/16 06:25 93 Nasal Cannula 35 12/22/16 06:01 70 15 162/78 94 12/22/16 05:15 92 Nasal Cannula 45 12/22/16 05:01 82 18 177/80 91 12/22/16 04:15 92 40 12/22/16 04:01 98.7 70 15 152/66 91 12/22/16 04:00 74 12/22/16 04:00 91 Bi-Pap 40 12/22/16 03:01 82 16 159/83 94 12/22/16 02:01 86 17 182/76 96 12/22/16 01:20 96 40 12/22/16 01:13 96 Bi-Pap 40 12/22/16 01:01 80 17 189/93 97 12/22/16 00:01 97.7 82 15 161/81 96 12/22/16 00:01 82 12/21/16 23:40 95 45 12/21/16 23:40 96 Bi-Pap 45 12/21/16 23:05 84 12/21/16 23:05 84 17 198/98 96 12/21/16 22:01 76 12/21/16 22:01 76 15 178/98 95 12/21/16 21:01 78 12/21/16 21:01 78 18 177/89 97 12/21/16 20:01 97.8 90 19 142/82 95 12/21/16 20:01 90 12/21/16 19:55 95 High Flow Nasal Cannula 40.00 65 12/21/16 19:45 95 Nasal Cannula 60 12/21/16 19:01 92 19 164/103 97 12/21/16 18:01 80 22 151/87 97 12/21/16 17:01 97.9 86 23 149/85 96 12/21/16 16:01 80 25 145/82 96 12/21/16 16:00 72 12/21/16 16:00 96 Nasal Cannula 65 12/21/16 15:01 76 18 135/77 95 12/21/16 14:01 86 20 147/76 96 12/21/16 13:01 98.5 90 22 147/76 90 12/21/16 12:01 70 18 158/69 94 12/21/16 12:00 80 12/21/16 12:00 95 Nasal Cannula 65 12/21/16 11:01 70 19 150/68 94 -: 12/22/16 0440 12/22/16 0440 Physical Exam General Appearance: Well Developed, Well Nourished, Comfortable Eyes Eye Exam: Pupils Equal, Sclera White, Extraocular Movement Intact Neck Neck Exam: Neck Supple, Trachea Midline Pulmonary Resp Exam: No Distress, Rhonchi, Decreased Bases, Diminished Breath Sounds Cardiology CV Exam: Arrhythmia Gastrointestinal/Abdomen GI Exam: Soft, Non-Tender, Bowel Sounds Present Musculoskeletal MS Exam: Normal Tone Integumentary Skin Exam: Warm, Dry Extremeties Extremities Exam: Moderate Edema, Pitting Edema Neurologic Neuro Exam: Alert, Awake, Oriented, Moving All Extremities PUD Prophylasis PUD Prophylaxis: Protonix Assessment/Plan Problem List: (1) Renal failure Plan: Creatinine is now 1.1, close to her baseline. Urine out put is good and edema is better. Hco3 increasing due to COPD and diuretics. Lasix changed to PO. The edema is better. (2) Hypokalemia Plan: I will replace magnesium as less than 2 And continue with potassium replacement (3) Atrial fibrillation Plan: Takes Plavix and aspirin (4) Diabetes mellitus Plan: Continue to monitor (5) Alkalemia Plan: Due to volume contraction From overdiuresis \Improved Problem Qualifiers (1) Renal failure: Qualified Code: N18.3 - Stage 3 chronic kidney disease (2) Atrial fibrillation: Qualified Code: I48.0 - Paroxysmal atrial fibrillation (3) Diabetes mellitus: Nilson Gomez MD Dec 22, 2016 10:57
[2016-12-22] MEDS: HEPARIN SODIUM - SQ 10,000 UNITS/ML VIAL SQ SCH ×2 (11:36→22:08)
--- NOTE | 2016-12-22 17:55 | HHI.PR ---
Subjective Remarks Feels better. Breathing better.. On O2 at 4L Used Bipap last nite. Good output.On PO lasix Objective Vital Signs Date Time Temp Pulse Resp B/P Pulse Ox O2 Delivery O2 Flow Rate FiO2 12/22/16 16:00 92 Nasal Cannula 6.00 12/22/16 15:01 80 21 139/68 92 12/22/16 14:01 82 21 138/71 93 12/22/16 14:00 82 12/22/16 13:30 91 Nasal Cannula 6.00 12/22/16 13:15 92 Nasal Cannula 6.00 12/22/16 13:01 84 23 118/60 90 12/22/16 12:33 102 29 128/63 90 12/22/16 12:01 98.5 102 27 139/58 87 12/22/16 12:00 92 Nasal Cannula 40 12/22/16 12:00 102 12/22/16 11:01 78 20 135/59 88 12/22/16 10:01 76 21 136/62 90 12/22/16 10:00 76 12/22/16 09:01 80 23 155/64 91 12/22/16 08:01 98.3 72 18 156/67 89 12/22/16 08:00 73 12/22/16 08:00 90 High Flow Nasal Cannula 30.00 40 12/22/16 08:00 91 Nasal Cannula 40 12/22/16 07:45 93 High Flow Nasal Cannula 35.00 45 12/22/16 07:01 76 34 163/88 88 12/22/16 06:25 93 Nasal Cannula 35 12/22/16 06:01 70 15 162/78 94 12/22/16 05:15 92 Nasal Cannula 45 12/22/16 05:01 82 18 177/80 91 12/22/16 04:15 92 40 12/22/16 04:01 98.7 70 15 152/66 91 12/22/16 04:00 74 12/22/16 04:00 91 Bi-Pap 40 12/22/16 03:01 82 16 159/83 94 12/22/16 02:01 86 17 182/76 96 12/22/16 01:20 96 40 12/22/16 01:13 96 Bi-Pap 40 12/22/16 01:01 80 17 189/93 97 12/22/16 00:01 97.7 82 15 161/81 96 12/22/16 00:01 82 12/21/16 23:40 95 45 12/21/16 23:40 96 Bi-Pap 45 12/21/16 23:05 84 12/21/16 23:05 84 17 198/98 96 12/21/16 22:01 76 12/21/16 22:01 76 15 178/98 95 12/21/16 21:01 78 12/21/16 21:01 78 18 177/89 97 12/21/16 20:01 97.8 90 19 142/82 95 12/21/16 20:01 90 12/21/16 19:55 95 High Flow Nasal Cannula 40.00 65 12/21/16 19:45 95 Nasal Cannula 60 12/21/16 19:01 92 19 164/103 97 12/21/16 18:01 80 22 151/87 97 I/O 12/21/16 12/21/16 12/21/16 12/22/16 12/22/16 12/22/16 06:59 14:59 22:59 06:59 14:59 22:59 Intake Total 120 ml 600 ml 300 ml 200 ml 480 ml Output Total 1000 ml 1125 ml 600 ml 700 ml Balance -880 ml -525 ml -300 ml -500 ml 480 ml Intake Oral 120 ml 600 ml 300 ml 200 ml 480 ml Output Urine Total 1000 ml 1125 ml 600 ml 700 ml # Voids 2 # Bowel Movements 0 1 0 Result Diagram: 12/22/1643912/22/16439 Objective Remarks GENERAL: A moderately obese elderly lady . She is awake and responds to questions. There is no cyanosis. 1 + edema of legs. HEENT: Head normocephalic. Pupils reactive. Sclerae were clear. Throat was clear. NECK: Supple with mild venous distension. No thyromegaly. CHEST: Distant breath sounds with occasional wheezes throughout both lung nieves. Few Basal crackles. Diminished breath sounds at the bases. HEART SOUNDS: Irregular. S1-S2. No murmur. ABDOMEN: Obese, protuberant. No masses, no organomegaly. EXTREMITIES: Edema 1+ with diminished pulses. NEUROLOGIC: Reflexes are 1+ with no gross motor deficits. RECTAL: Exam is deferred. SKIN: No lesions. Assessment and Plan Assessment and Plan IMPRESSION 1. Acute on chronic respiratory failure. 2. Hypokalemia. 3. CHF with atrial fibrillation. 4. Diabetes mellitus type 2. 5. Depression and anxiety. 6. Hypertension. Plan : 1. Place on BiPAP 12/, FIo2 40 % at HS. 2. Continue Nebs qid Duoneb 3. Add PO lasix 40 mg daily 4. OK to tele transfer 5. IS at bedside q3h 6. Zithromax 500 mg po daily X5 7. O 2 to N/C 5 L and wean. 8. Prednisone 10 mg daily Alvaro Nation MD Dec 22, 2016 17:55
[2016-12-22] MEDS ORDERED: INSULIN DETEMIR 100 UNITS/ML VIAL SQ SCH (21:00)
[2016-12-23] VITALS (34 sets, daily range): BP systolic 134–190; BP diastolic 62–90; PULSE 60–92; RESP 15–35; TEMP 96.9–98.4; O2SAT 90–95
[2016-12-23 05:45] LABS: AUTOMATED NEUTROPHIL # 6.1 TH/MM3 (1.8-7.7); BASOPHIL % 0.2 % (0.0-2.0); EOSINOPHIL # 0.1 TH/MM3 (0-0.4); EOSINOPHIL % 1.4 % (0.0-4.0); HEMATOCRIT 40.6 % (35.0-46.0); LYMPH % 17.5 % (9.0-44.0); LYMPHOCYTE # 1.4 TH/MM3 (1.0-4.8); MEAN CELL VOLUME 77.9 FL (80.0-100.0); MEAN CORPUSCULAR HEMOGLOBIN 24.6 PG (27.0-34.0); MEAN CORPUSCULAR HGB CONC 31.6 % (32.0-36.0); MONO % 6.5 % (0.0-8.0); NEUT % 74.4 % (16.0-70.0); PLATELET COUNT 232 TH/MM3 (150-450); RED BLOOD COUNT 5.21 MIL/MM3 (4.00-5.30); RED CELL DISTRIBUTION WIDTH 17.2 % (11.6-17.2); WHITE BLOOD COUNT 8.1 TH/MM3 (4.0-11.0)
[2016-12-23 05:51] LABS: HEMO FLAGS AUTO DIFF
[2016-12-23 05:59] LABS: CHLORIDE 100 MEQ/L (98-107); POTASSIUM 3.8 MEQ/L (3.5-5.1); SODIUM (NA) 142 MEQ/L (136-145)
[2016-12-23 06:06] LABS: ANION GAP 3 MEQ/L (5-15); BICARBONATE 38.7 MEQ/L (21.0-32.0); BLOOD UREA NITROGEN 32 MG/DL (7-18); OVALOCYTES 1+ (NORMAL); PLATELET ESTIMATE SMEAR NORMAL (NORMAL); PLATELET MORPHOLOGY NORMAL (NORMAL); SCAN/DIFF AUTO DIFF CONFIRMED
[2016-12-23 06:09] LABS: ALT (GPT) 23 U/L (10-53); AST (GOT) 17 U/L (15-37); GLOMERULAR FILTRATION RATE 55 ML/MIN (>89)
[2016-12-23 06:10] LABS: TOTAL BILIRUBIN ADULT 0.3 MG/DL (0.2-1.0)
[2016-12-23 06:12] LABS: ALKALINE PHOSPHATASE 76 U/L (45-117)
[2016-12-23] MEDS: INSULIN ASPART SUPPLEMENTAL SCALE SQ SCH ×4 (07:00→20:03)
[2016-12-23] MEDS: AZITHROMYCIN 250 MG TAB PO SCH (08:06)
[2016-12-23] MEDS: VENLAFAXINE HCL XR 75 MG CAP PO SCH (08:06)
[2016-12-23] MEDS: ATORVASTATIN 40 MG TAB PO SCH (08:06)
[2016-12-23] MEDS: DOCUSATE SODIUM 50 MG/SENNA 8.6 MG TAB PO SCH ×2 (08:06→19:59)
[2016-12-23] MEDS: predniSONE 10 MG TAB PO SCH (08:06)
[2016-12-23] MEDS: SODIUM CHLORIDE 0.9% FLUSH 10 ML FLUSH IV FLUSH SCH ×2 (08:06→19:59)
[2016-12-23] MEDS: FUROSEMIDE 40 MG TAB PO SCH (08:06)
[2016-12-23] MEDS: BUDESONIDE-FORMOTEROL 160/4.5 MCG INHALER INH SCH ×2 (08:07→19:59)
[2016-12-23] MEDS: CLOPIDOGREL 75 MG TAB PO SCH (08:07)
[2016-12-23] MEDS: ASPIRIN 81 MG CHEW TAB CHEW SCH (08:07)
[2016-12-23] MEDS: POTASSIUM CHLORIDE 10 MEQ CONTROLLED RELEASE TAB PO SCH ×2 (08:07→19:59)
[2016-12-23] MEDS: FAMOTIDINE 20 MG TAB PO SCH ×2 (08:07→19:59)
--- NOTE | 2016-12-23 09:24 | HHI.PR ---
Subjective History of Present Illness Patient have SOB and refusing BIPAP d/w [employer] saeed catheter out have urinary incontinence. still hypoxic. Review of Systems Constitutional Constitutional: Fatigue, Weakness Pulmonary Respiratory: Coughing, Shortness of Breath, Wheezing Vitals/Results Intake & Output 12/22/16 12/22/16 12/23/16 15:00 23:00 07:00 Intake Total 480 ml 240 ml 0 ml Balance 480 ml 240 ml 0 ml Intake Oral 480 ml 240 ml 0 ml # Voids 2 7 0 # Bowel Movements 0 0 Vital Signs Vital Signs Date Time Temp Pulse Resp B/P Pulse Ox O2 Delivery O2 Flow Rate FiO2 12/23/16 08:55 92 Nasal Cannula 4.00 12/23/16 08:13 94 Nasal Cannula 5.00 Humidified 12/23/16 08:04 98.3 90 35 190/82 92 12/23/16 07:01 86 22 161/78 95 12/23/16 06:01 80 16 158/71 91 12/23/16 06:00 92 Nasal Cannula 4.50 Humidified 12/23/16 06:00 60 12/23/16 05:01 82 17 172/74 92 12/23/16 04:01 98.2 82 17 163/82 93 12/23/16 04:00 84 12/23/16 04:00 92 Nasal Cannula 4.50 Humidified 12/23/16 03:01 88 18 185/79 91 12/23/16 03:00 92 Nasal Cannula 4.50 Humidified 12/23/16 02:01 82 19 153/67 91 12/23/16 02:00 80 12/23/16 02:00 90 Nasal Cannula 4.50 Humidified 12/23/16 01:30 90 Nasal Cannula 4.50 Humidified 12/23/16 01:01 78 17 161/80 91 12/23/16 01:00 89 12/23/16 00:01 96.9 84 23 160/68 92 12/23/16 00:00 84 12/22/16 23:35 95 35 12/22/16 23:35 94 Bi-Pap 35 12/22/16 23:01 86 20 185/74 92 12/22/16 22:01 86 21 170/69 91 12/22/16 22:00 88 12/22/16 21:01 78 20 156/75 96 12/22/16 20:01 98.4 76 19 137/67 93 12/22/16 20:00 74 12/22/16 20:00 93 Nasal Cannula 4.00 Humidified 12/22/16 19:55 93 Nasal Cannula 6.00 12/22/16 19:24 82 18 133/78 93 12/22/16 19:01 84 20 119/65 93 12/22/16 18:00 90 12/22/16 18:00 90 36 166/73 94 12/22/16 17:01 76 22 167/84 93 12/22/16 16:01 74 20 150/77 92 12/22/16 16:00 98.7 76 22 89 12/22/16 16:00 93 Nasal Cannula 6.00 12/22/16 16:00 92 Nasal Cannula 6.00 12/22/16 16:00 76 12/22/16 15:01 80 21 139/68 92 12/22/16 14:01 82 21 138/71 93 12/22/16 14:00 82 12/22/16 13:30 91 Nasal Cannula 6.00 12/22/16 13:15 92 Nasal Cannula 6.00 12/22/16 13:01 84 23 118/60 90 12/22/16 12:33 102 29 128/63 90 12/22/16 12:01 98.5 102 27 139/58 87 12/22/16 12:00 92 Nasal Cannula 40 12/22/16 12:00 102 12/22/16 11:01 78 20 135/59 88 12/22/16 10:01 76 21 136/62 90 12/22/16 10:00 76 CBC/BMP: 12/23/16 0519 12/23/16 0519 Lab Results Laboratory Tests Test 12/23/16 05:19 White Blood Count 8.1 TH/MM3 Red Blood Count 5.21 MIL/MM3 Hemoglobin 12.8 GM/DL Hematocrit 40.6 % Mean Corpuscular Volume 77.9 FL Mean Corpuscular Hemoglobin 24.6 PG Mean Corpuscular Hemoglobin 31.6 % Concent Red Cell Distribution Width 17.2 % Platelet Count 232 TH/MM3 Mean Platelet Volume 8.1 FL Neutrophils (%) (Auto) 74.4 % Lymphocytes (%) (Auto) 17.5 % Monocytes (%) (Auto) 6.5 % Eosinophils (%) (Auto) 1.4 % Basophils (%) (Auto) 0.2 % Neutrophils # (Auto) 6.1 TH/MM3 Lymphocytes # (Auto) 1.4 TH/MM3 Monocytes # (Auto) 0.5 TH/MM3 Eosinophils # (Auto) 0.1 TH/MM3 Basophils # (Auto) 0.0 TH/MM3 CBC Comment AUTO DIFF Differential Comment AUTO DIFF CONFIRMED Platelet Estimate NORMAL Platelet Morphology Comment NORMAL Ovalocytes 1+ Sodium Level 142 MEQ/L Potassium Level 3.8 MEQ/L Chloride Level 100 MEQ/L Carbon Dioxide Level 38.7 MEQ/L Anion Gap 3 MEQ/L Blood Urea Nitrogen 32 MG/DL Creatinine 0.99 MG/DL Estimat Glomerular Filtration 55 ML/MIN Rate Random Glucose 182 MG/DL Calcium Level 8.3 MG/DL Total Bilirubin 0.3 MG/DL Aspartate Amino Transf 17 U/L (AST/SGOT) Alanine Aminotransferase 23 U/L (ALT/SGPT) Alkaline Phosphatase 76 U/L Total Protein 6.6 GM/DL Albumin 2.7 GM/DL Physical Exam General General Appearance: Well Developed, Well Nourished, Comfortable Eyes Eye Exam: Pupils Equal, Sclera White, Extraocular Movement Intact Neck Neck Exam: Neck Supple, Trachea Midline Pulmonary Resp Exam: No Distress, Rhonchi, Decreased Bases, Diminished Breath Sounds Resp Remarks mild wheezing Cardiology CV Exam: Arrhythmia Gastrointestinal/Abdomen GI Exam: Soft, Non-Tender, Bowel Sounds Present Musculoskeletal MS Exam: Normal Tone Integumentary Skin Exam: Warm, Dry Extremeties Extremities Exam: Moderate Edema, Pitting Edema Neurologic Neuro Exam: Alert, Awake, Oriented, Moving All Extremities VTE Prophylaxis VTE Prophylaxis Meds: Heparin PUD Prophylasis PUD Prophylaxis: Protonix Assessment/Plan Assessment/Plan ASSESSMENT/PLAN This is 75-year female who came to the ER diagnosed with a 1. Severe hypokalemia. Nephrology input noted. Potassium replacement done. . resolved... on Lasix 40 mg daily. Continue to hold metolazone. Magnesium level was 1.5 after replacement it was 1.9 2. Atrial fibrillation. Continue home medication, on aspirin and Plavix. 3. Diabetes mellitus ADA 1800 calories diet. NovoLog high-dose sliding scale. Check blood sugars a.c. and hs. Monitor blood sugar. blood sugar still high Increase Levemir to 25 units daily 4. Hyperlipidemia. Continue simvastatin 80 mg p.o. daily. 5. Depression. Continue with Effexor 75 mg p.o. daily. 6. Gastroesophageal reflux disease. Protonix 40 mg p.o. daily. 7. DVT prophylaxis heparin 5000 units subcutaneous twice a day. 8. GI prophylaxis. Pepcid 10 mg twice a day. 9. Hypoxic respiratory failure refused BIPAP at night Pulmonary following input noted We are going to manage the patient on a daily basis and make recommendations on a daily basis. Check CBC with diff CMP in AM. Discussed Condition with: Patient Rafa Edgar MD Dec 23, 2016 09:24
[2016-12-23] MEDS: HEPARIN SODIUM - SQ 10,000 UNITS/ML VIAL SQ SCH ×2 (12:09→22:28)
--- NOTE | 2016-12-23 14:51 | HHI.NPPN ---
Subjective History of Present Illness 75-year-old with the hypokalemia and renal insufficiency on diuretic Additional Remarks Patient is alert, feeling better, mild SOB. Review of Systems General Constitutional: Fatigue Objective Data Data 12/22/16 12/23/16 18:59 06:59 Intake Total 720 ml 0 ml Balance 720 ml 0 ml Intake Oral 720 ml 0 ml # Voids 4 5 # Bowel Movements 0 0 Vital Signs Date Time Temp Pulse Resp B/P Pulse Ox O2 Delivery O2 Flow Rate FiO2 12/23/16 11:01 80 21 159/68 92 12/23/16 10:01 78 20 159/75 91 12/23/16 10:00 94 Nasal Cannula 4.00 Humidified 12/23/16 10:00 78 12/23/16 09:01 84 23 146/67 91 12/23/16 08:55 92 Nasal Cannula 4.00 12/23/16 08:13 94 Nasal Cannula 5.00 Humidified 12/23/16 08:04 98.3 90 35 190/82 92 12/23/16 08:00 82 12/23/16 07:01 86 22 161/78 95 12/23/16 06:01 80 16 158/71 91 12/23/16 06:00 92 Nasal Cannula 4.50 Humidified 12/23/16 06:00 60 12/23/16 05:01 82 17 172/74 92 12/23/16 04:01 98.2 82 17 163/82 93 12/23/16 04:00 84 12/23/16 04:00 92 Nasal Cannula 4.50 Humidified 12/23/16 03:01 88 18 185/79 91 12/23/16 03:00 92 Nasal Cannula 4.50 Humidified 12/23/16 02:01 82 19 153/67 91 12/23/16 02:00 80 12/23/16 02:00 90 Nasal Cannula 4.50 Humidified 12/23/16 01:30 90 Nasal Cannula 4.50 Humidified 12/23/16 01:01 78 17 161/80 91 12/23/16 01:00 89 12/23/16 00:01 96.9 84 23 160/68 92 12/23/16 00:00 84 12/22/16 23:35 95 35 12/22/16 23:35 94 Bi-Pap 35 12/22/16 23:01 86 20 185/74 92 12/22/16 22:01 86 21 170/69 91 12/22/16 22:00 88 12/22/16 21:01 78 20 156/75 96 12/22/16 20:01 98.4 76 19 137/67 93 12/22/16 20:00 74 12/22/16 20:00 93 Nasal Cannula 4.00 Humidified 12/22/16 19:55 93 Nasal Cannula 6.00 12/22/16 19:24 82 18 133/78 93 12/22/16 19:01 84 20 119/65 93 12/22/16 18:00 90 12/22/16 18:00 90 36 166/73 94 12/22/16 17:01 76 22 167/84 93 12/22/16 16:01 74 20 150/77 92 12/22/16 16:00 98.7 76 22 89 12/22/16 16:00 93 Nasal Cannula 6.00 12/22/16 16:00 92 Nasal Cannula 6.00 12/22/16 16:00 76 12/22/16 15:01 80 21 139/68 92 -: 12/23/16 0519 12/23/16 0519 Physical Exam General Appearance: Well Developed, Well Nourished, Comfortable Eyes Eye Exam: Pupils Equal, Sclera White, Extraocular Movement Intact Neck Neck Exam: Neck Supple, Trachea Midline Pulmonary Resp Exam: No Distress, Rhonchi, Decreased Bases, Diminished Breath Sounds Cardiology CV Exam: Arrhythmia Gastrointestinal/Abdomen GI Exam: Soft, Non-Tender, Bowel Sounds Present Musculoskeletal MS Exam: Normal Tone Integumentary Skin Exam: Warm, Dry Extremeties Extremities Exam: Moderate Edema, Pitting Edema Neurologic Neuro Exam: Alert, Awake, Oriented, Moving All Extremities PUD Prophylasis PUD Prophylaxis: Protonix Assessment/Plan Problem List: (1) Renal failure Plan: Creatinine is stable, close to her baseline. Urine out put is good and edema is better. Hco3 increasing due to COPD and diuretics. Lasix changed to PO. The edema is better. Continue same diuretic. (2) Hypokalemia Plan: I will replace magnesium as less than 2 And continue with potassium replacement (3) Atrial fibrillation Plan: Takes Plavix and aspirin (4) Diabetes mellitus Plan: Continue to monitor (5) Alkalemia Plan: Due to volume contraction From overdiuresis \Improved Problem Qualifiers (1) Renal failure: Qualified Code: N18.3 - Stage 3 chronic kidney disease (2) Atrial fibrillation: Qualified Code: I48.0 - Paroxysmal atrial fibrillation (3) Diabetes mellitus: Nilson Gomez MD Dec 23, 2016 14:50
[2016-12-23] MEDS: cloNIDine HCL 0.1 MG TAB PO PRN (18:43)
[2016-12-23] MEDS: INSULIN DETEMIR 100 UNITS/ML VIAL SQ SCH (20:02)
[2016-12-24] VITALS (30 sets, daily range): BP systolic 107–179; BP diastolic 56–99; PULSE 62–90; RESP 15–38; TEMP 97–98.2; O2SAT 88–95
[2016-12-24] MEDS: cloNIDine HCL 0.1 MG TAB PO PRN (00:04)
[2016-12-24 05:40] LABS: AUTOMATED NEUTROPHIL # 6.3 TH/MM3 (1.8-7.7); BASOPHIL % 0.2 % (0.0-2.0); EOSINOPHIL # 0.1 TH/MM3 (0-0.4); EOSINOPHIL % 1.8 % (0.0-4.0); HEMATOCRIT 40.3 % (35.0-46.0); LYMPH % 16.1 % (9.0-44.0); LYMPHOCYTE # 1.3 TH/MM3 (1.0-4.8); MEAN CELL VOLUME 78.3 FL (80.0-100.0); MEAN CORPUSCULAR HEMOGLOBIN 24.9 PG (27.0-34.0); MEAN CORPUSCULAR HGB CONC 31.8 % (32.0-36.0); MONO % 5.8 % (0.0-8.0); NEUT % 76.1 % (16.0-70.0); PLATELET COUNT 224 TH/MM3 (150-450); RED BLOOD COUNT 5.14 MIL/MM3 (4.00-5.30); RED CELL DISTRIBUTION WIDTH 17.5 % (11.6-17.2); WHITE BLOOD COUNT 8.2 TH/MM3 (4.0-11.0)
[2016-12-24 05:44] LABS: HEMO FLAGS AUTO DIFF
[2016-12-24 05:51] LABS: CHLORIDE 101 MEQ/L (98-107); POTASSIUM 4.1 MEQ/L (3.5-5.1); SODIUM (NA) 141 MEQ/L (136-145)
[2016-12-24 05:54] LABS: ANION GAP 3 MEQ/L (5-15); BICARBONATE 37.4 MEQ/L (21.0-32.0); BLOOD UREA NITROGEN 31 MG/DL (7-18)
[2016-12-24 05:57] LABS: ALT (GPT) 22 U/L (10-53); AST (GOT) 16 U/L (15-37); GLOMERULAR FILTRATION RATE 60 ML/MIN (>89)
[2016-12-24 05:59] LABS: OVALOCYTES 1+ (NORMAL); PLATELET ESTIMATE SMEAR NORMAL (NORMAL); PLATELET MORPHOLOGY NORMAL (NORMAL); SCAN/DIFF AUTO DIFF CONFIRMED; TOTAL BILIRUBIN ADULT 0.2 MG/DL (0.2-1.0)
[2016-12-24 06:00] LABS: ALKALINE PHOSPHATASE 74 U/L (45-117)
[2016-12-24] MEDS: INSULIN ASPART SUPPLEMENTAL SCALE SQ SCH ×4 (06:50→21:33)
[2016-12-24] MEDS: SODIUM CHLORIDE 0.9% FLUSH 10 ML FLUSH IV FLUSH SCH ×2 (08:48→21:25)
[2016-12-24] MEDS: ATORVASTATIN 40 MG TAB PO SCH (08:49)
[2016-12-24] MEDS: ASPIRIN 81 MG CHEW TAB CHEW SCH (08:49)
[2016-12-24] MEDS: POTASSIUM CHLORIDE 10 MEQ CONTROLLED RELEASE TAB PO SCH ×2 (08:49→21:23)
[2016-12-24] MEDS: AZITHROMYCIN 250 MG TAB PO SCH (08:49)
[2016-12-24] MEDS: BUDESONIDE-FORMOTEROL 160/4.5 MCG INHALER INH SCH ×2 (08:49→21:00)
[2016-12-24] MEDS: predniSONE 10 MG TAB PO SCH (08:49)
[2016-12-24] MEDS: DOCUSATE SODIUM 50 MG/SENNA 8.6 MG TAB PO SCH ×2 (08:49→21:23)
[2016-12-24] MEDS: CLOPIDOGREL 75 MG TAB PO SCH (08:49)
[2016-12-24] MEDS: FUROSEMIDE 40 MG TAB PO SCH (08:49)
[2016-12-24] MEDS: VENLAFAXINE HCL XR 75 MG CAP PO SCH (08:49)
[2016-12-24] MEDS: FAMOTIDINE 20 MG TAB PO SCH ×2 (08:50→21:23)
--- NOTE | 2016-12-24 10:46 | HHI.PR ---
Subjective History of Present Illness Patient SOB much better on 2 Liter oxygen by nasal cannula. 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 Review of Systems Constitutional Constitutional: Fatigue, Weakness Pulmonary Respiratory: Coughing, Shortness of Breath, Wheezing Vitals/Results Intake & Output 12/23/16 12/23/16 12/24/16 15:00 23:00 07:00 Intake Total 360 ml 480 ml 360 ml Balance 360 ml 480 ml 360 ml Intake Oral 360 ml 480 ml 360 ml # Voids 3 3 4 # Bowel Movements 1 Vital Signs Vital Signs Date Time Temp Pulse Resp B/P Pulse Ox O2 Delivery O2 Flow Rate FiO2 12/24/16 08:47 94 Nasal Cannula 4.00 12/24/16 08:01 98.2 82 29 178/77 94 12/24/16 08:00 94 Nasal Cannula Humidified 12/24/16 07:01 66 20 146/67 94 12/24/16 06:01 76 20 165/68 93 12/24/16 06:00 76 12/24/16 05:01 76 23 152/71 94 12/24/16 04:01 97.4 62 16 141/80 94 12/24/16 04:00 62 12/24/16 04:00 94 Nasal Cannula Humidified 12/24/16 03:01 74 21 156/86 88 12/24/16 02:01 66 12/24/16 02:01 66 20 146/79 91 12/24/16 01:01 66 12/24/16 01:01 66 15 170/95 95 12/24/16 00:01 74 12/24/16 00:01 97.5 74 19 174/80 95 12/24/16 00:00 95 Nasal Cannula Humidified 12/23/16 23:01 70 12/23/16 23:01 70 15 147/62 94 12/23/16 22:01 76 12/23/16 22:01 76 18 160/81 94 12/23/16 21:01 84 29 150/72 92 12/23/16 21:01 84 12/23/16 20:15 95 Nasal Cannula 4.00 12/23/16 20:01 97.5 76 20 134/68 94 12/23/16 20:01 76 12/23/16 20:00 94 Nasal Cannula Humidified 12/23/16 18:01 90 24 184/89 93 12/23/16 18:00 90 24 184/89 93 12/23/16 18:00 92 12/23/16 17:01 82 20 175/83 92 12/23/16 16:00 92 Nasal Cannula 4.00 Humidified 12/23/16 16:00 86 12/23/16 16:00 98.2 86 22 166/90 91 12/23/16 15:00 78 25 145/65 92 12/23/16 14:01 84 34 165/69 90 12/23/16 14:00 80 12/23/16 13:01 80 21 136/72 92 12/23/16 12:01 98.4 84 21 160/72 92 12/23/16 12:00 80 12/23/16 12:00 93 Nasal Cannula 4.00 Humidified 12/23/16 11:01 80 21 159/68 92 CBC/BMP: 12/24/16 0521 12/24/16 0521 Lab Results Laboratory Tests Test 12/24/16 05:21 White Blood Count 8.2 TH/MM3 Red Blood Count 5.14 MIL/MM3 Hemoglobin 12.8 GM/DL Hematocrit 40.3 % Mean Corpuscular Volume 78.3 FL Mean Corpuscular Hemoglobin 24.9 PG Mean Corpuscular Hemoglobin 31.8 % Concent Red Cell Distribution Width 17.5 % Platelet Count 224 TH/MM3 Mean Platelet Volume 8.1 FL Neutrophils (%) (Auto) 76.1 % Lymphocytes (%) (Auto) 16.1 % Monocytes (%) (Auto) 5.8 % Eosinophils (%) (Auto) 1.8 % Basophils (%) (Auto) 0.2 % Neutrophils # (Auto) 6.3 TH/MM3 Lymphocytes # (Auto) 1.3 TH/MM3 Monocytes # (Auto) 0.5 TH/MM3 Eosinophils # (Auto) 0.1 TH/MM3 Basophils # (Auto) 0.0 TH/MM3 CBC Comment AUTO DIFF Differential Comment AUTO DIFF CONFIRMED Platelet Estimate NORMAL Platelet Morphology Comment NORMAL Ovalocytes 1+ Sodium Level 141 MEQ/L Potassium Level 4.1 MEQ/L Chloride Level 101 MEQ/L Carbon Dioxide Level 37.4 MEQ/L Anion Gap 3 MEQ/L Blood Urea Nitrogen 31 MG/DL Creatinine 0.91 MG/DL Estimat Glomerular Filtration 60 ML/MIN Rate Random Glucose 145 MG/DL Calcium Level 8.6 MG/DL Total Bilirubin 0.2 MG/DL Aspartate Amino Transf 16 U/L (AST/SGOT) Alanine Aminotransferase 22 U/L (ALT/SGPT) Alkaline Phosphatase 74 U/L Total Protein 6.3 GM/DL Albumin 2.6 GM/DL Physical Exam General General Appearance: Well Developed, Well Nourished, Comfortable Eyes Eye Exam: Pupils Equal, Sclera White, Extraocular Movement Intact Neck Neck Exam: Neck Supple, Trachea Midline Pulmonary Resp Exam: No Distress, Rhonchi, Decreased Bases, Diminished Breath Sounds Resp Remarks mild wheezing Cardiology CV Exam: Arrhythmia Gastrointestinal/Abdomen GI Exam: Soft, Non-Tender, Bowel Sounds Present Musculoskeletal MS Exam: Normal Tone Integumentary Skin Exam: Warm, Dry Extremeties Extremities Exam: Moderate Edema, Pitting Edema Neurologic Neuro Exam: Alert, Awake, Oriented, Moving All Extremities VTE Prophylaxis VTE Prophylaxis Meds: Heparin PUD Prophylasis PUD Prophylaxis: Protonix Assessment/Plan Assessment/Plan ASSESSMENT/PLAN This is 75-year female who came to the ER diagnosed with a 1. Severe hypokalemia. Nephrology input noted. Potassium replacement done. . resolved... on Lasix 40 mg daily. Continue to hold metolazone. Magnesium level was 1.5 after replacement it was 1.9 2. Atrial fibrillation. Continue home medication, on aspirin and Plavix. 3. Diabetes mellitus ADA 1800 calories diet. NovoLog high-dose sliding scale. Check blood sugars a.c. and hs. Monitor blood sugar. blood sugar still high Increase Levemir to 25 units daily 4. Hyperlipidemia. Continue simvastatin 80 mg p.o. daily. 5. Depression. Continue with Effexor 75 mg p.o. daily. 6. Gastroesophageal reflux disease. Protonix 40 mg p.o. daily. 7. DVT prophylaxis heparin 5000 units subcutaneous twice a day. 8. GI prophylaxis. Pepcid 10 mg twice a day. 9. Hypoxic respiratory failure refused BIPAP at night Pulmonary following input noted ok to Discharge to SNF today if ok with Pulmonary. f/u with PCP/ Pulmonary 1 week. Discussed Condition with: Patient Rafa Edgar MD Dec 24, 2016 10:46
[2016-12-24] MEDS ORDERED: SYMB160A INH (11:41)
[2016-12-24] MEDS ORDERED: PRED10 PO (11:41)
[2016-12-24] MEDS ORDERED: AZIT250T3 PO (11:41)
[2016-12-24] MEDS: HEPARIN SODIUM - SQ 10,000 UNITS/ML VIAL SQ SCH ×2 (12:15→23:50)
[2016-12-24] MEDS: INSULIN DETEMIR 100 UNITS/ML VIAL SQ SCH (21:32)
[2016-12-25] VITALS: BP 155/91; PULSE 80; RESP 20; TEMP 96; O2SAT 97
[2016-12-25 04:00] VITALS: BP 104/57; PULSE 67; RESP 20; TEMP 97.5; O2SAT 98
[2016-12-25] MEDS: INSULIN ASPART SUPPLEMENTAL SCALE SQ SCH (07:00)
[2016-12-25 08:00] VITALS: BP 184/85; PULSE 65; RESP 19; TEMP 98.5; O2SAT 95
[2016-12-25] MEDS: ATORVASTATIN 40 MG TAB PO SCH (08:14)
[2016-12-25] MEDS: predniSONE 10 MG TAB PO SCH (08:14)
[2016-12-25] MEDS: FAMOTIDINE 20 MG TAB PO SCH (08:14)
[2016-12-25] MEDS: ASPIRIN 81 MG CHEW TAB CHEW SCH (08:14)
[2016-12-25] MEDS: VENLAFAXINE HCL XR 75 MG CAP PO SCH (08:14)
[2016-12-25 08:15] VITALS: PULSE 83
[2016-12-25] MEDS: DOCUSATE SODIUM 50 MG/SENNA 8.6 MG TAB PO SCH (08:15)
[2016-12-25] MEDS: POTASSIUM CHLORIDE 10 MEQ CONTROLLED RELEASE TAB PO SCH (08:15)
[2016-12-25] MEDS: CLOPIDOGREL 75 MG TAB PO SCH (08:15)
[2016-12-25] MEDS: FUROSEMIDE 40 MG TAB PO SCH (08:15)
[2016-12-25] MEDS: BUDESONIDE-FORMOTEROL 160/4.5 MCG INHALER INH SCH (08:16)
[2016-12-25] MEDS: SODIUM CHLORIDE 0.9% FLUSH 10 ML FLUSH IV FLUSH SCH (08:16)
--- NOTE | 2016-12-25 08:27 | HHI.PR ---
Subjective History of Present Illness Patient SOB much better on 2 Liter oxygen by nasal cannula. 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 Review of Systems Constitutional Constitutional: Fatigue, Weakness Pulmonary Respiratory: Coughing, Shortness of Breath, Wheezing Vitals/Results Intake & Output 12/24/16 12/24/16 12/25/16 14:59 22:59 06:59 Intake Total 720 ml 480 ml Balance 720 ml 480 ml Intake Oral 720 ml 480 ml # Voids 4 0 1 # Bowel Movements 1 0 Vital Signs Vital Signs Date Time Temp Pulse Resp B/P Pulse Ox O2 Delivery O2 Flow Rate FiO2 12/25/16 04:00 97.5 67 20 104/57 98 12/25/16 00:00 96.0 80 20 155/91 97 12/24/16 20:05 94 Nasal Cannula 4.00 12/24/16 20:00 97.0 86 20 179/84 93 12/24/16 20:00 Nasal Cannula 3.00 12/24/16 18:00 82 12/24/16 18:00 82 38 137/56 90 12/24/16 17:01 78 17 148/99 93 12/24/16 16:30 80 20 150/79 92 12/24/16 16:01 97.9 74 18 151/87 93 12/24/16 16:00 82 12/24/16 16:00 94 Nasal Cannula 3.00 Humidified 12/24/16 15:01 72 19 143/81 92 12/24/16 14:01 80 20 151/70 90 12/24/16 14:00 82 12/24/16 13:01 72 21 107/65 92 12/24/16 12:01 98.1 90 18 150/86 91 12/24/16 12:00 80 12/24/16 12:00 94 Nasal Cannula 3.00 Humidified 12/24/16 11:01 72 15 155/81 91 12/24/16 10:01 66 18 136/60 90 12/24/16 10:00 64 12/24/16 09:00 84 26 166/80 92 12/24/16 08:47 94 Nasal Cannula 4.00 CBC/BMP: 12/24/16 0521 12/24/16 0521 Physical Exam General General Appearance: Well Developed, Well Nourished, Comfortable Eyes Eye Exam: Pupils Equal, Sclera White, Extraocular Movement Intact Neck Neck Exam: Neck Supple, Trachea Midline Pulmonary Resp Exam: No Distress, Rhonchi, Decreased Bases, Diminished Breath Sounds Resp Remarks mild wheezing Cardiology CV Exam: Arrhythmia Gastrointestinal/Abdomen GI Exam: Soft, Non-Tender, Bowel Sounds Present Musculoskeletal MS Exam: Normal Tone Integumentary Skin Exam: Warm, Dry Extremeties Extremities Exam: Moderate Edema, Pitting Edema Neurologic Neuro Exam: Alert, Awake, Oriented, Moving All Extremities VTE Prophylaxis VTE Prophylaxis Meds: Heparin PUD Prophylasis PUD Prophylaxis: Protonix Assessment/Plan Assessment/Plan ASSESSMENT/PLAN This is 75-year female who came to the ER diagnosed with a 1. Severe hypokalemia. Nephrology input noted. Potassium replacement done. . resolved... on Lasix 40 mg daily. Continue to hold metolazone. Magnesium level was 1.5 after replacement it was 1.9 2. Atrial fibrillation. Continue home medication, on aspirin and Plavix. 3. Diabetes mellitus ADA 1800 calories diet. NovoLog high-dose sliding scale. Check blood sugars a.c. and hs. Monitor blood sugar. blood sugar still high Increase Levemir to 25 units daily 4. Hyperlipidemia. Continue simvastatin 80 mg p.o. daily. 5. Depression. Continue with Effexor 75 mg p.o. daily. 6. Gastroesophageal reflux disease. Protonix 40 mg p.o. daily. 7. DVT prophylaxis heparin 5000 units subcutaneous twice a day. 8. GI prophylaxis. Pepcid 10 mg twice a day. 9. Hypoxic respiratory failure refused BIPAP at night Pulmonary following input noted ok to Discharge to SNF today pulmonary ok for discharge. f/u with PCP/ Pulmonary 1 week. Discussed Condition with: Patient Rafa Edgar MD Dec 25, 2016 08:27
--- NOTE | 2016-12-25 09:14 | RADRPT ---
EXAM DATE/TIME: 12/25/2016 08:47 [facility] COMPARISON: CHEST SINGLE AP, December 21, 2016, 3:48. INDICATIONS : Short of breath MEDICAL HISTORY : Hypertension. Cardiovascular disease. Renal failure, chronic. SURGICAL HISTORY : None. ENCOUNTER: Subsequent ACUITY: 2 weeks PAIN SCORE: 0/10 LOCATION: Bilateral chest FINDINGS: The lungs are under aerated with moderate elevation of the right hemidiaphragm. Minimal bibasilar pa renchymal changes are noted. The heart is enlarged. Mild interstitial edema is present. CONCLUSION: Underated with probable mild congestive failure. Ad Banks MD FACR on December 25, 2016 at 9:12 Board Certified Radiologist. This report was verified electronically.
[2016-12-25 10:00] VITALS: O2SAT 93
== END 2016-12-25 11:25 | DRG 189 ==
LOC: PHED 18:16 → PHEDA 22:47 → PH3B 12-15 → PHICU 12-15 17:18 → OBSVTOIN 12-17 09:40 → PH3A 12-24 18:49
PROVIDERS: ADMIT Family Medicine; ATTEND Family Medicine
PROC: 5A09357 Assistance with Respiratory Ventilation, Less than 24 Consecutive Hours, Continuous Positive Airway Pressure (ICD-10-PCS; principal; 2016-12-15)
PROC: 5A09557 Assistance with Respiratory Ventilation, Greater than 96 Consecutive Hours, Continuous Positive Airway Pressure (ICD-10-PCS; 2016-12-18)
DX: J96.21 Acute and chronic respiratory failure with hypoxia (principal); E11.22 Type 2 diabetes mellitus with diabetic chronic kidney disease; E87.4 Mixed disorder of acid-base balance; E87.3 Alkalosis; I13.0 Hypertensive heart and chronic kidney disease with heart failure and stage 1 through stage 4 chronic kidney disease, or unspecified chronic kidney disease; I50.9 Heart failure, unspecified; Z68.41 Body mass index [BMI] 40.0-44.9, adult; J96.22 Acute and chronic respiratory failure with hypercapnia; E87.6 Hypokalemia; E66.01 Morbid (severe) obesity due to excess calories; E78.5 Hyperlipidemia, unspecified; I25.10 Atherosclerotic heart disease of native coronary artery without angina pectoris; I48.0 Paroxysmal atrial fibrillation; K21.9 Gastro-esophageal reflux disease without esophagitis; I89.0 Lymphedema, not elsewhere classified; J44.9 Chronic obstructive pulmonary disease, unspecified; T50.2X5A Adverse effect of carbonic-anhydrase inhibitors, benzothiadiazides and other diuretics, initial encounter; N18.3 Chronic kidney disease, stage 3 (moderate); G47.33 Obstructive sleep apnea (adult) (pediatric); F41.9 Anxiety disorder, unspecified; R32 Unspecified urinary incontinence; F32.9 Major depressive disorder, single episode, unspecified; Z79.84 Long term (current) use of oral hypoglycemic drugs; Z86.73 Personal history of transient ischemic attack (TIA), and cerebral infarction without residual deficits; Z87.891 Personal history of nicotine dependence; Z99.81 Dependence on supplemental oxygen
CPT/HCPCS: 36600; 71010; 80048; 80053; 82805; 82948; 83735; 84132; 85007; 85025; 85027; 93005; 94002; 94003; 94640; 94664; J1200; J1644; J1815; J1940; J2920; J3475; J3480; J7512

== ENCOUNTER 2017-01-26 17:21 | Inpatient (IN) | payer MEDICARE, MEDICAID ==
[~2017-01-26] VITALS: Ht 162.6 cm; Wt 110.4 kg
[2017-01-26] VITALS (10 sets, daily range): BP systolic 103–176; BP diastolic 62–86; PULSE 69–96; RESP 15–24; TEMP 98.2–98.4; O2SAT 89–97
[~2017-01-26 17:21] MED LIST changes: -ACET325 PO; -ALDA50TA2 PO; +AMLO10 PO; -AMLO5 PO; +ASPI81CH CHEW; -ASPI81TA82 PO; +AZIT250T3 PO; -CYAN100017 PO; +CYAN1TAB24; -DIOV320T PO; -DUONI NEB; +FURO1TAB60 PO; -FURO20 PO; +GLIP10TA6 PO; +METO5TAB3 PO; +MICRO K PO; +O2; -PLAV75TA PO; +PLAV75TA29 PO; +PRED10 PO; -PRED20 PO; -RANI150 PO; +SIMV80TA PO; -SITA100 PO; +SITA1TAB2 PO; +SYMB160A INH; -VENL75 PO; +VENL75TA PO; +ZANT150T2 PO; -ZOCO80TA PO; -[UNRECOGNIZED DRUG - CODE] TOP
[2017-01-26 17:44] LABS: BLOOD GAS BASE EXCESS 16.6 mmol/L (-2-2); BLOOD GAS CARBOXYHEMOGLOBIN 1.5 % (0-4); BLOOD GAS HCO3 44 mmol/L (22-26); BLOOD GAS METHEMOGLOBIN 0.8 % (0-2); BLOOD GAS O2 HGB SATURATION 93 % (90-100); BLOOD GAS OXYGEN CONTENT 18.1 Vol % (12.0-20.0); BLOOD GAS PCO2 107 mmHg (38-42); BLOOD GAS PO2 87 mmHG (61-120); BLOOD GAS TOTAL HGB 13.8 G/DL (12.0-16.0); TEMP CORR TO 98.6
[2017-01-26 17:45] LABS: CRITICAL VALUE YES; DRAW SITE RT RADIAL; FIO2 100 %; LITER FLOW 15 L/M; NUMBER OF ARTERIAL PUNCTURES 1; OXYGEN DEVICE NRB MASK; STAT YES; ULNAR PULSE PRESENT
[2017-01-26] MEDS ORDERED: FUROSEMIDE 100 MG/10 ML VIAL IVP ONE (17:45)
[2017-01-26] MEDS ORDERED: SODIUM CHLORIDE 0.9% FLUSH 10 ML FLUSH IVF PRN (17:45)
--- NOTE | 2017-01-26 18:21 | RADRPT ---
EXAM DATE/TIME: 01/26/2017 17:50 [facility] COMPARISON: No previous studies available for comparison. INDICATIONS : Shortness of breath. MEDICAL HISTORY : Hypertension. Cardiovascular disease. Renal failure, chronic. SURGICAL HISTORY : None. ENCOUNTER: Initial ACUITY: 4 - 6 days PAIN SCORE: Non-responsive. LOCATION: Bilateral chest FINDINGS: Lung volumes are small and there is mild bibasilar atelectasis. No large effusion seen. No pneumothor ax. Mild cardiomegaly is stable. CONCLUSION: Mild bibasilar atelectasis and mild compensated cardiomegaly. Stephan Jeffries MD on January 26, 2017 at 18:19 Board Certified Radiologist. This report was verified electronically.
[2017-01-26 18:27] LABS: BACTERIA, URINE MANY /hpf; BLOOD, URINE TRACE (NEG); COMMENT (UR) CULTURE INDICATED; CULTURE IF INDICATED CULTURE INDICATED; GLUCOSE,URINE NEG (NEG); HYALINE CAST, URINE 2 /lpf (RARE); KETONE, URINE NEG (NEG); NITRITE,URINE NEG (NEG); PH, URINE 5.5 (5.0-8.5); SQUAMOUS EPITHELIAL CELL URINE <1 /hpf (0-5); URINE COLOR LIGHT-YELLOW (YELLW/STRAW)
[2017-01-26 18:33] LABS: AUTOMATED NEUTROPHIL # 9.9 TH/MM3 (1.8-7.7); EOSINOPHIL % 0.1 % (0.0-4.0); HEMATOCRIT 42.5 % (35.0-46.0); HEMO FLAGS DIFF FINAL; LYMPH % 7.9 % (9.0-44.0); LYMPHOCYTE # 0.9 TH/MM3 (1.0-4.8); MEAN CELL VOLUME 83.2 FL (80.0-100.0); MEAN CORPUSCULAR HEMOGLOBIN 26.2 PG (27.0-34.0); MEAN CORPUSCULAR HGB CONC 31.5 % (32.0-36.0); MONO % 3.2 % (0.0-8.0); NEUT % 88.8 % (16.0-70.0); PLATELET COUNT 212 TH/MM3 (150-450); RED BLOOD COUNT 5.11 MIL/MM3 (4.00-5.30); WHITE BLOOD COUNT 11.1 TH/MM3 (4.0-11.0)
[2017-01-26 18:36] LABS: PROTHROMBIN TIME - PATIENT 10.5 SEC (9.8-11.6)
[2017-01-26 18:41] LABS: CREATINE KINASE 105 U/L (26-192)
--- NOTE | 2017-01-26 18:44 | PD ---
HPI Chief Complaint: Respiratory Distress Time Seen by Provider: 17:36 Travel History International Travel<30 days: No Contact w/Intl Traveler<30days: No Traveled to known affect area: No History of Present Illness HPI 76-year-old female came to the emergency room brought by EMS with history of respiratory distress. Patient is a [facility] resident with history of COPD and CHF. When EMS arrived patient was saturating 75% on room air. She normally requires 2 L of oxygen via nasal cannula. She appeared tired and lethargic. They could hear wheeze and started her on albuterol 2. After putting her on nonrebreather oxygen saturation went up to 93%. Patient upon arrival was awake but in moderate distress. [facility] Past Medical History Narrative Medical List of her past medical, surgical, social and family history reviewed from the nursing note. Hx Anticoagulant Therapy: Yes (PLAVIX AND BABY ASA) Asthma: Yes Autoimmune Disease: No Blood Disorders: No Depression: Yes Heart Rhythm Problems: No Cancer: No Cardiovascular Problems: Yes (HTN, CAD, CHOL) High Cholesterol: Yes Chest Pain: No Congestive Heart Failure: Yes COPD: Yes Cerebrovascular Accident: Yes (CVA) Coronary Artery Disease: Yes Diabetes: Yes Diminished Hearing: No Endocrine: Yes Gastrointestinal Disorders: Yes GERD: Yes Genitourinary: No Hypertension: Yes Immune Disorder: No Implanted Vascular Access Dvce: Yes Musculoskeletal: No Neurologic: Yes (CVA) Psychiatric: No Reproductive: No Respiratory: Yes (RESPIRATORY FAILURE, ASTHMA, COPD) Sleep Apnea: No Thyroid Disease: No Triglycerides - High: Yes ?: Unknown Past Surgical History Abdominal Surgery: No AICD: No Arteriovenous Shunt: No Cardiac Surgery: No Ear Surgery: No Endocrine Surgery: No Eye Surgery: Yes (CATARACTS BILATERAL ) Genitourinary Surgery: No Gynecologic Surgery: No Hysterectomy: No Insulin Pump: No Joint Replacement: No Neurologic Surgery: No Oral Surgery: Yes (TEETH EXTRACTIONS) Pacemaker: No Thoracic Surgery: No Other Surgery: Yes Social History Alcohol Use: Yes (ONE DRINK PER MONTH) Tobacco Use: No Substance Use: No Allergies-Medications (Allergen,Severity, Reaction): Coded Allergies: No Known Allergies (Verified , 12/14/16) Comments No known drug allergies. Reported Meds & Prescriptions Reported Meds & Active Scripts Active Prednisone 10 Mg Tab 10 Mg PO DAILY Symbicort Inh (Budesonide/Formoterol Fumarate) 160-4.5 Mcg/Act Aero 1 Puff INH Q12HR Reported Potassium Chloride ER (Potassium Chloride) 20 Meq Tab 20 Meq PO Q6HR Humalog Inj (Insulin Human Lispro) 1,000 Unit/10 Ml Vial 2-12 Units SQ ACHS Max dose at bedtime:( )units; sugars < 70,(0)units; sugars 150-199,(2)units; sugars 200-249,(4)units; sugars 250-299,(7)units; sugars 300-349,(10)units; sugars more than 349,(12)units. Duoneb (Ipratropium-Albuterol Neb) 0.5-2.5 Mg/3 Ml Neb 1 Nebule INH Q6HR NEB Metoprolol Tartrate 50 Mg Tab 50 Mg PO BID Tradjenta (Linagliptin) 5 Mg Tab 5 Mg PO DAILY [O2] 2 Liter Plavix (Clopidogrel Bisulfate) 75 Mg Tab 75 Mg PO DAILY B12 (Cyanocobalamin) 1,000 Mcg Tab Lasix (Furosemide) 40 Mg Tab 40 Mg PO DAILY Januvia (Sitagliptin Phosphate) 100 Mg Tab 100 Mg PO DAILY Metolazone 5 Mg Tab 5 Mg PO DAILY Simvastatin 80 Mg Tab 80 Mg PO DAILY Aspirin 81 Mg Chew 81 Mg CHEW DAILY Effexor (Venlafaxine HCl) 75 Mg Tab 75 Mg PO DAILY Glipizide 10 Mg Tab 10 Mg PO DAILY Take 30 minutes before a meal Zantac (Ranitidine HCl) 150 Mg Tab 75 Mg PO DAILY Norvasc (Amlodipine Besylate) 10 Mg Tab 10 Mg PO DAILY Narrative Medication List of her home medications reviewed from the nursing note. Review of Systems Except as stated in HPI: all other systems reviewed are Neg Physical Exam Narrative GENERAL: Awake, morbidly obese, moderate distress SKIN: Focused skin assessment warm/dry. HEAD: Atraumatic. Normocephalic. EYES: Pupils equal and round. No scleral icterus. No injection or drainage. ENT: No nasal bleeding or discharge. Mucous membranes pink and moist. NECK: Trachea midline. No JVD. CARDIOVASCULAR: Regular rate and rhythm. No murmur appreciated. RESPIRATORY: Moderate respiratory distress, decreased air entry, end expiratory wheeze GASTROINTESTINAL: Abdomen soft, non-tender, nondistended. Hepatic and splenic margins not palpable. MUSCULOSKELETAL: No obvious deformities. No clubbing. No cyanosis. Bilateral pedal edema NEUROLOGICAL: Awake and alert. No obvious cranial nerve deficits. Motor grossly within normal limits. Normal speech. PSYCHIATRIC: Appropriate mood and affect; insight and judgment normal. Data Data Last Documented VS Vital Signs Date Time Temp Pulse Resp B/P (MAP) Pulse Ox O2 Delivery O2 Flow Rate FiO2 01/26/17 18:30 79 18 103/62 (76) 92 BiPAP 40 01/26/17 17:50 98.2 01/26/17 17:50 15.00 Orders Orders Complete Blood Count With Diff (01/26/17 17:36) Basic Metabolic Panel (Bmp) (01/26/17 17:36) B-Type Natriuretic Peptide (01/26/17 17:36) Prothrombin Time / Inr (Pt) (01/26/17 17:36) Magnesium (Mg) (01/26/17 17:36) Ckmb (Isoenzyme) Profile (01/26/17 17:36) Troponin I (01/26/17 17:36) Arterial Blood Gas (Abg) (01/26/17 17:36) Urinalysis - C+S If Indicated (01/26/17 17:36) Blood Culture (01/26/17 17:36) Iv Access Insert/Monitor (01/26/17 17:36) Electrocardiogram (01/26/17 17:36) Ecg Monitoring (01/26/17 17:36) Oximetry (01/26/17 17:36) Oxygen Administration (01/26/17 17:36) Chest, Single Ap (01/26/17 17:36) Sodium Chloride 0.9% Flush (Ns Flush) (01/26/17 17:45) Furosemide Inj (Lasix Inj) (01/26/17 17:45) Urinary Catheter Insert/Apply (01/26/17 17:36) Lactic Acid (01/26/17 17:36) Resp Bipap / Cpap Non Invas Vt (01/26/17 ) Arterial Blood Gas (Abg) (01/26/17 ) Urine Culture (01/26/17 17:55) CKMB (01/26/17 17:55) CKMB% (01/26/17 17:55) Ceftriaxone Inj (Rocephin Inj) (01/26/17 18:45) Admit Order (Ed Use Only) (01/26/17 19:01) Labs Laboratory Tests Test 01/26/17 17:29 01/26/17 17:55 01/26/17 18:55 Blood Gas Puncture Site RT RADIAL RT RADIAL Blood Gas Patient Temperature 98.6 98.6 Blood Gas HCO3 44 mmol/L 42 mmol/L Blood Gas Base Excess 16.6 mmol/L 15.4 mmol/L Blood Gas Oxygen Saturation 93 % 83 % Arterial Blood pH 7.24 7.33 Arterial Blood Partial Pressure CO2 107 mmHg 82 mmHg Arterial Blood Partial Pressure O2 87 mmHG 53 mmHG Arterial Blood Oxygen Content 18.1 Vol % 15.1 Vol % Arterial Blood Carboxyhemoglobin 1.5 % 1.7 % Arterial Blood Methemoglobin 0.8 % 0.7 % Blood Gas Hemoglobin 13.8 G/DL 13.0 G/DL Oxygen Delivery Device NRB MASK BIPAP Blood Gas Liter Flow 15 L/M Blood Gas Inspired Oxygen 100 % 40 % White Blood Count 11.1 TH/MM3 Red Blood Count 5.11 MIL/MM3 Hemoglobin 13.4 GM/DL Hematocrit 42.5 % Mean Corpuscular Volume 83.2 FL Mean Corpuscular Hemoglobin 26.2 PG Mean Corpuscular Hemoglobin Concent 31.5 % Red Cell Distribution Width 19.0 % Platelet Count 212 TH/MM3 Mean Platelet Volume 8.5 FL Neutrophils (%) (Auto) 88.8 % Lymphocytes (%) (Auto) 7.9 % Monocytes (%) (Auto) 3.2 % Eosinophils (%) (Auto) 0.1 % Basophils (%) (Auto) 0.0 % Neutrophils # (Auto) 9.9 TH/MM3 Lymphocytes # (Auto) 0.9 TH/MM3 Monocytes # (Auto) 0.4 TH/MM3 Eosinophils # (Auto) 0.0 TH/MM3 Basophils # (Auto) 0.0 TH/MM3 CBC Comment DIFF FINAL Differential Comment Prothrombin Time 10.5 SEC Prothromb Time International Ratio 1.0 RATIO Urine Color LIGHT-YELLOW Urine Turbidity HAZY Urine pH 5.5 Urine Specific [place] 1.011 Urine Protein 100 mg/dL Urine Glucose (UA) NEG mg/dL Urine Ketones NEG mg/dL Urine Occult Blood TRACE Urine Nitrite NEG Urine Bilirubin NEG Urine Urobilinogen LESS THAN 2.0 MG/DL Urine Leukocyte Esterase LARGE Urine RBC 10 /hpf Urine WBC 75 /hpf Urine WBC Clumps FEW Urine Squamous Epithelial Cells <1 /hpf Urine Amorphous Sediment OCC Urine Bacteria MANY /hpf Urine Hyaline Casts 2 /lpf Microscopic Urinalysis Comment CULTURE INDICATED Blood Urea Nitrogen 35 MG/DL Creatinine 1.45 MG/DL Random Glucose 135 MG/DL Calcium Level 8.5 MG/DL Magnesium Level 1.9 MG/DL Sodium Level 139 MEQ/L Potassium Level 3.9 MEQ/L Chloride Level 92 MEQ/L Carbon Dioxide Level 40.1 MEQ/L Anion Gap 7 MEQ/L Estimat Glomerular Filtration Rate 35 ML/MIN Lactic Acid Level 0.6 mmol/L Phosphorus Level 3.6 MG/DL Total Creatine Kinase 105 U/L Creatine Kinase MB 15.1 NG/ML Troponin I 0.20 NG/ML B-Type Natriuretic Peptide 222 PG/ML Blood Gas Ventilator Setting 8 Medical Decision Making Medical Screen Exam Complete: Yes Emergency Medical Condition: Yes Medical Record Reviewed: Yes Interpretation(s) Twelve-lead EKG was reviewed by me. Normal sinus rhythm, left axis deviation, poor R-wave progression, nonspecific ST-T wave changes. Heart rate of 87 bpm. Differential Diagnosis COPD exacerbation, CHF, pneumonia, pleural effusion Narrative Course 7 PM case was discussed with Dr. Rogers given the fact that patient has significant respiratory acidosis. I started her on a BiPAP and repeat blood gas is pending. Critical Care Narrative Aggregate critical care time was 30 minutes. Time to perform other separately billable procedures was not included in the critical care time. My time did not include minutes spent treating any other patients simultaneously or on activities that did not directly contribute to the patient's treatment. The services I provided to this patient were to treat and/or prevent clinically significant deterioration that could result in: Respiratory distress, respiratory acidosis I provided critical care services requiring my management, as noted below: Chart data review, documentation time, medication orders and management, vital sign assessments/reviewing monitor data, ordering and reviewing lab tests, ordering and interpreting/reviewing x-rays and diagnostic studies, care of the patient and discussion of the patient with the admitting physicians. Procedures EKG Prior to Arrival: No Physician Communication Physician Communication Dr. Rogers Diagnosis Primary Impression: Respiratory distress Additional Impressions: Respiratory acidosis Acute exacerbation of chronic obstructive pulmonary disease (COPD) Admitting Information Admitting Physician Requests: Admit Valeria Thurston MD Jan 26, 2017 18:44
[2017-01-26] MEDS ORDERED: cefTRIAXone INJ 1,000 MG in SODIUM CHLORIDE 0.9% INJ 100 ML IV ONE (18:45)
[2017-01-26 18:53] LABS: CKMB 15.1 NG/ML (0.5-3.6)
[2017-01-26 18:55] LABS: ANION GAP 7 MEQ/L (5-15); BICARBONATE 40.1 MEQ/L (21.0-32.0); BLOOD UREA NITROGEN 35 MG/DL (7-18); CHLORIDE 92 MEQ/L (98-107); GLOMERULAR FILTRATION RATE 35 ML/MIN (>89); MAGNESIUM 1.9 MG/DL (1.5-2.5); POTASSIUM 3.9 MEQ/L (3.5-5.1); SODIUM (NA) 139 MEQ/L (136-145)
[2017-01-26 19:07] LABS: BLOOD GAS BASE EXCESS 15.4 mmol/L (-2-2); BLOOD GAS CARBOXYHEMOGLOBIN 1.7 % (0-4); BLOOD GAS HCO3 42 mmol/L (22-26); BLOOD GAS METHEMOGLOBIN 0.7 % (0-2); BLOOD GAS O2 HGB SATURATION 83 % (90-100); BLOOD GAS OXYGEN CONTENT 15.1 Vol % (12.0-20.0); BLOOD GAS PCO2 82 mmHg (38-42); BLOOD GAS PO2 53 mmHG (61-120); CRITICAL VALUE YES; OXYGEN DEVICE BIPAP; TEMP CORR TO 98.6
[2017-01-26 19:08] LABS: DRAW SITE RT RADIAL; FIO2 40 %; NUMBER OF ARTERIAL PUNCTURES 1; STAT YES; ULNAR PULSE PRESENT; VENT SETTINGS 16/+8/
[2017-01-26] MEDS ORDERED: TRAD5TAB PO (19:40)
[2017-01-26] MEDS ORDERED: METO50TA PO (19:40)
[2017-01-26] MEDS ORDERED: HUMALOG SQ (19:40)
[2017-01-26] MEDS ORDERED: POTA-163 PO (19:40)
[2017-01-26] MEDS ORDERED: IPRASOL INH (19:40)
[2017-01-26] MEDS ORDERED: ACETAMINOPHEN 325 MG TAB PO PRN (20:30)
[2017-01-26] MEDS ORDERED: MISCELLANEOUS NURSING INFORMATION XX SCH (20:30)
[2017-01-26] MEDS ORDERED: ZOLPIDEM TARTRATE 5 MG TAB PO PRN (20:30)
[2017-01-26] MEDS ORDERED: LACTULOSE SYRUP 20 GM/30 ML CUP PO PRN (20:30)
[2017-01-26] MEDS ORDERED: SENNOSIDES 8.6 MG TAB PO PRN (20:30)
[2017-01-26] MEDS ORDERED: MAGNESIUM HYDROXIDE SUSP 30 ML CUP PO PRN (20:30)
[2017-01-26] MEDS ORDERED: ONDANSETRON HCL 4 MG/2 ML VIAL IV PRN (20:30)
[2017-01-26] MEDS ORDERED: CHLORHEXIDINE GLUCONATE 2 % 1 PACK (2 CLOTHS) TOP PRN (20:30)
[2017-01-26] MEDS ORDERED: GLUCAGON 1 MG/ML VIAL OTHER PRN (20:30)
[2017-01-26] MEDS ORDERED: DEXTROSE 50% IN WATER 50 ML VIAL(D50) IV PRN (20:30)
[2017-01-26] MEDS ORDERED: MORPHINE SULFATE 4 MG/ML INJ IV PRN (20:30)
[2017-01-26] MEDS ORDERED: SODIUM CHLORIDE 0.9% FLUSH 10 ML FLUSH PRN (20:30)
[2017-01-26] MEDS ORDERED: BISACODYL 10 MG SUPP RECTAL PRN (20:30)
[2017-01-26] MEDS ORDERED: MAGNESIUM SULFATE INJ 4 GM in SODIUM CHLORIDE 0.9% INJ 92 ML IV PRN (20:45)
[2017-01-26] MEDS ORDERED: SODIUM PHOSPHATE INJ 30 MMOL in SODIUM CHLOR 0.9% 250 ML INJ 240 ML IV PRN (20:45)
[2017-01-26] MEDS ORDERED: POTASSIUM PHOSPHATE MONOBASIC 500 MG TAB PO PRN (20:45)
[2017-01-26] MEDS ORDERED: MAGNESIUM SULFATE INJ 2 GM in SODIUM CHLORIDE 0.9% INJ 96 ML IV PRN (20:45)
[2017-01-26] MEDS ORDERED: MAGNESIUM OXIDE 400 MG TAB PO PRN (20:45)
[2017-01-26] MEDS ORDERED: POTASSIUM PHOSPHATE MONOBASIC 500 MG TAB PO/TUBE PRN (20:45)
[2017-01-26] MEDS ORDERED: POTASSIUM PHOSPHATE INJ 30 MMOL in SODIUM CHLOR 0.9% 250 ML INJ 250 ML IV PRN (20:45)
[2017-01-26] MEDS ORDERED: POTASSIUM CHLORIDE 25 MEQ EFFERVESCENT TAB PO PRN (20:45)
[2017-01-26] MEDS ORDERED: POTASSIUM CHLOR 40 MEQ PREMIX 100 ML IV PRN ×2 (20:45)
[2017-01-26] MEDS ORDERED: POTASSIUM CHLOR 20 MEQ PREMIX 100 ML IV PRN (20:45)
[2017-01-26] MEDS: METOPROLOL TARTRATE 50 MG TAB PO SCH (21:00)
[2017-01-26] MEDS: DOCUSATE SODIUM 50 MG/SENNA 8.6 MG TAB PO SCH (21:00)
--- NOTE | 2017-01-26 21:41 | HHI.HP ---
HPI Service Critical Care Medicine Primary Care Physician Ryan Agudelo MD Admission Diagnosis respiratory distress, respiratory acidosis, acute COPD exacerbation Diagnosis: Travel History International Travel<30 Days: No Contact w/Intl Traveler <30 Da: No Traveled to Known Affected Are: No History of Present Illness 76-year-old female presents being brought by EMS with history of respiratory distress. Patient is a [facility] resident with history of COPD and CHF. When EMS arrived patient was saturating 75% on room air. She normally requires 2 L of oxygen via nasal cannula. She appeared tired and lethargic. They could hear wheeze and started her on albuterol 2. After putting her on nonrebreather oxygen saturation went up to 93%. In the emergency department she was placed on the BiPAP machine with improvement of her symptoms and ABG. She is now admitted to ICU as a COPD exacerbation. Review of Systems ROS Unable to obtain patient is on facemask BiPAP Past Family Social History Allergies: Coded Allergies: No Known Allergies (Verified , 12/14/16) Past Medical History Depressions Coronary artery disease Paroxysmal atrial fibrillation Congestive heart failure Hypertension Dyslipidemia Diabetes mellitus Asthma COPD History of CVA Respiratory failure Past Surgical History Dental extractions Cataract surgery Reported Medications Reported Meds & Active Scripts Active Prednisone 10 Mg Tab 10 Mg PO DAILY Symbicort Inh (Budesonide/Formoterol Fumarate) 160-4.5 Mcg/Act Aero 1 Puff INH Q12HR Reported Potassium Chloride ER (Potassium Chloride) 20 Meq Tab 20 Meq PO Q6HR Humalog Inj (Insulin Human Lispro) 1,000 Unit/10 Ml Vial 2-12 Units SQ ACHS Max dose at bedtime:( )units; sugars < 70,(0)units; sugars 150-199,(2)units; sugars 200-249,(4)units; sugars 250-299,(7)units; sugars 300-349,(10)units; sugars more than 349,(12)units. Duoneb (Ipratropium-Albuterol Neb) 0.5-2.5 Mg/3 Ml Neb 1 Nebule INH Q6HR NEB Metoprolol Tartrate 50 Mg Tab 50 Mg PO BID Tradjenta (Linagliptin) 5 Mg Tab 5 Mg PO DAILY [O2] 2 Liter Plavix (Clopidogrel Bisulfate) 75 Mg Tab 75 Mg PO DAILY B12 (Cyanocobalamin) 1,000 Mcg Tab Lasix (Furosemide) 40 Mg Tab 40 Mg PO DAILY Januvia (Sitagliptin Phosphate) 100 Mg Tab 100 Mg PO DAILY Metolazone 5 Mg Tab 5 Mg PO DAILY Simvastatin 80 Mg Tab 80 Mg PO DAILY Aspirin 81 Mg Chew 81 Mg CHEW DAILY Effexor (Venlafaxine HCl) 75 Mg Tab 75 Mg PO DAILY Glipizide 10 Mg Tab 10 Mg PO DAILY Take 30 minutes before a meal Zantac (Ranitidine HCl) 150 Mg Tab 75 Mg PO DAILY Norvasc (Amlodipine Besylate) 10 Mg Tab 10 Mg PO DAILY Active Ordered Medications Current Medications Medications (Trade) Dose Ordered Sig/Jovon Route PRN Reason Start Time Stop Time Status Last Admin Dose Admin Amlodipine Besylate (Norvasc) 10 mg DAILY PO 01/27/17 09:00 Aspirin (Aspirin Chew) 81 mg DAILY CHEW 01/27/17 09:00 Budesonide/ Formoterol Fumarate (Symbicort 160-4.5 Inh) 1 puff Q12HR INH 01/26/17 21:00 Clopidogrel Bisulfate (Plavix) 75 mg DAILY PO 01/27/17 09:00 Furosemide (Lasix) 40 mg DAILY PO 01/27/17 09:00 Glipizide (Glucotrol) 10 mg DAILY PO 01/27/17 09:00 Metolazone (Zaroxolyn) 5 mg DAILY PO 01/27/17 09:00 Metoprolol Tartrate (Lopressor) 50 mg BID PO 01/26/17 21:00 Potassium Chloride (KCl) 20 meq Q6HR PO 01/27/17 00:00 Sitagliptin Phosphate (Januvia) 100 mg DAILY PO 01/27/17 09:00 Patient Own Medication PT OWN MED: Linaglip... DAILY PO 01/27/17 09:00 Future Hold Famotidine (Pepcid) 20 mg DAILY PO 01/27/17 09:00 Pravastatin Sodium (Pravachol) 80 mg DAILY PO 01/27/17 09:00 Venlafaxine HCl (Effexor Xr) 75 mg DAILY PO 01/27/17 09:00 Methylprednisolone Sodium Succinate (SoluMEDROL INJ) 40 mg Q8HR IV PUSH 01/26/17 22:00 Dextrose (D50w (Vial) Inj) 50 ml UNSCH PRN IV HYPOGLYCEMIA-SEE COMMENTS 01/26/17 20:30 Glucagon (Glucagon Inj) 1 mg UNSCH PRN OTHER HYPOGLYCEMIA-SEE COMMENTS 01/26/17 20:30 Insulin Aspart (NovoLOG SUPPLEMENTAL SCALE) 1 ACHS SLIDING SCALE SQ 01/26/17 21:00 Piperacillin Sod/ Tazobactam Sod 50 ml @ 200 mls/hr Q6H IV 01/26/17 23:00 Azithromycin 500 mg/Sodium Chloride 250 ml @ 250 mls/hr Q24H IV 01/26/17 22:00 Sodium Chloride (NS Flush) 2 ml UNSCH PRN .XX FLUSH AFTER USING IV ACCESS 01/26/17 20:30 Sodium Chloride (NS Flush) 2 ml BID .XX 01/26/17 21:00 Acetaminophen (Tylenol) 650 mg Q6H PRN PO PAIN 1-10 AND/OR FEVER >101F 01/26/17 20:30 Morphine Sulfate (Morphine Inj) 2 mg Q2H PRN IV PAIN SCALE 6 TO 10 01/26/17 20:30 Ondansetron HCl (Zofran Inj) 4 mg Q6H PRN IV NAUSEA OR VOMITING 01/26/17 20:30 Zolpidem Tartrate (Ambien) 5 mg HS PRN PO INSOMNIA 01/26/17 20:30 Heparin Sodium (Porcine) (Heparin Inj) 5,000 units Q8HR SQ 01/26/17 22:00 Miscellaneous Information 1 Q361D XX 01/26/17 20:30 Chlorhexidine Gluconate (Chlorhexidine 2% Cloth) 3 pack Taper DAILY@04 TOP 01/27/17 04:00 01/23/18 03:59 Chlorhexidine Gluconate (Chlorhexidine 2% Cloth) 3 pack UNSCH PRN TOP HYGIENIC CARE 01/26/17 20:30 Senna/Docusate Sodium (Ynes-Colace) 1 tab BID PO 01/26/17 21:00 Magnesium Hydroxide (Milk Of Magnesia Liq) 30 ml Q12H PRN PO MILD - MODERATE CONSTIPATION 01/26/17 20:30 Sennosides (Senokot) 17.2 mg Q12H PRN PO MODERATE - SEVERE CONSTIPATION 01/26/17 20:30 Bisacodyl (Dulcolax Supp) 10 mg DAILY PRN RECTAL SEVERE CONSITIPATION 01/26/17 20:30 Lactulose (Lactulose Liq) 30 ml DAILY PRN PO SEVERE CONSITIPATION 01/26/17 20:30 Potassium Chloride 100 ml @ 50 mls/hr Q2H PRN IV For Potassium 2.8 - 3.2 mEq/L 01/26/17 20:45 Potassium Chloride 100 ml @ 50 mls/hr Q2H PRN IV For Potassium 2.8 - 3.2 mEq/L 01/26/17 20:45 Potassium Bicarb/ Potassium Chloride (K-Lyte Cl Eff) 50 meq UNSCH PRN PO For Potassium 3.3 - 3.5 mEq/L 01/26/17 20:45 Potassium Chloride 100 ml @ 25 mls/hr UNSCH PRN IV For Potassium 3.3 - 3.5 mEq/L 01/26/17 20:45 Potassium Chloride 100 ml @ 50 mls/hr Q2H PRN IV For Potassium 3.3 - 3.5 mEq/L 01/26/17 20:45 Magnesium Sulfate 4 gm/Sodium Chloride 100 ml @ 50 mls/hr UNSCH PRN IV For Magnesium 0.9 - 1.1 mg/dL 01/26/17 20:45 Magnesium Oxide (Mag-Ox) 800 mg UNSCH PRN PO For Magnesium 1.2 - 1.6 mg/dL 01/26/17 20:45 Magnesium Sulfate 2 gm/Sodium Chloride 100 ml @ 50 mls/hr UNSCH PRN IV For Magnesium 1.2 - 1.6 mg/dL 01/26/17 20:45 Potassium Phosphate (K-Phos) 2,000 mg Q4H PRN PO For Phosphorus < 2.5 mg/dL 01/26/17 20:45 Sodium Phosphate 30 mmol/Sodium Chloride 250 ml @ 42 mls/hr UNSCH PRN IV For Phosphorus < 2.5 mg/dL 01/26/17 20:45 Potassium Phosphate (K-Phos) 2,000 mg UNSCH PRN PO/TUBE SEE LABEL COMMENTS 01/26/17 20:45 Potassium Phosphate 30 mmol/ Sodium Chloride 260 ml @ 42 mls/hr UNSCH PRN IV SEE LABEL COMMENTS 01/26/17 20:45 Family History No family history of early coronary artery disease or malignancy Social History She used to drink one or 2 drinks per months denies any smoking or illicit drug abuse Physical Exam Vital Signs Vital Signs Date Time Temp Pulse Resp B/P (MAP) Pulse Ox O2 Delivery O2 Flow Rate FiO2 01/26/17 19:55 90 18 136/63 (87) 97 BiPAP 50 01/26/17 19:20 94 50 01/26/17 18:30 79 18 103/62 (76) 92 BiPAP 40 01/26/17 17:55 94 40 01/26/17 17:50 98.2 94 18 143/63 (89) 93 BiPAP 40 01/26/17 17:50 94 BiPAP 01/26/17 17:50 94 BiPAP 01/26/17 17:50 94 15 98 Non-Rebreather 15.00 01/26/17 17:32 94 15 143/63 (89) 96 Physical Exam GENERAL: Elderly, obese female on facemask BiPAP in moderate distress SKIN: Warm and dry. HEAD: Normocephalic. EYES: No scleral icterus. No injection or drainage. NECK: Supple, trachea midline. No JVD or lymphadenopathy. CARDIOVASCULAR: Regular rate and rhythm without murmurs, gallops, or rubs. RESPIRATORY: Breath sounds equal bilaterally. No accessory muscle use. GASTROINTESTINAL: Abdomen soft, non-tender, nondistended. MUSCULOSKELETAL: No cyanosis, or edema. BACK: Nontender without obvious deformity. NEURO EXAM: GCS: M6 Vt E3 Mental Status: The patient is lethargic however arousable, on facemask BiPAP Cranial Nerves: Pupils are round, reactive to light. Reflexes: Biceps, patellar, and Achilles are 2/4 bilaterally. No clonus. Motor: Good muscle tone. Strength is 5/5 bilaterally. Laboratory Laboratory Tests Test 01/26/17 17:29 01/26/17 17:55 01/26/17 18:55 Blood Gas Puncture Site RT RADIAL RT RADIAL Blood Gas Patient Temperature 98.6 98.6 Blood Gas HCO3 44 42 Blood Gas Base Excess 16.6 15.4 Blood Gas Oxygen Saturation 93 83 Arterial Blood pH 7.24 7.33 Arterial Blood Partial Pressure CO2 107 82 Arterial Blood Partial Pressure O2 87 53 Arterial Blood Oxygen Content 18.1 15.1 Arterial Blood Carboxyhemoglobin 1.5 1.7 Arterial Blood Methemoglobin 0.8 0.7 Blood Gas Hemoglobin 13.8 13.0 Oxygen Delivery Device NRB MASK BIPAP Blood Gas Liter Flow 15 Blood Gas Inspired Oxygen 100 40 White Blood Count 11.1 Red Blood Count 5.11 Hemoglobin 13.4 Hematocrit 42.5 Mean Corpuscular Volume 83.2 Mean Corpuscular Hemoglobin 26.2 Mean Corpuscular Hemoglobin Concent 31.5 Red Cell Distribution Width 19.0 Platelet Count 212 Mean Platelet Volume 8.5 Neutrophils (%) (Auto) 88.8 Lymphocytes (%) (Auto) 7.9 Monocytes (%) (Auto) 3.2 Eosinophils (%) (Auto) 0.1 Basophils (%) (Auto) 0.0 Neutrophils # (Auto) 9.9 Lymphocytes # (Auto) 0.9 Monocytes # (Auto) 0.4 Eosinophils # (Auto) 0.0 Basophils # (Auto) 0.0 CBC Comment DIFF FINAL Differential Comment Prothrombin Time 10.5 Prothromb Time International Ratio 1.0 Urine Color LIGHT-YELLOW Urine Turbidity HAZY Urine pH 5.5 Urine Specific [place] 1.011 Urine Protein 100 Urine Glucose (UA) NEG Urine Ketones NEG Urine Occult Blood TRACE Urine Nitrite NEG Urine Bilirubin NEG Urine Urobilinogen LESS THAN 2.0 Urine Leukocyte Esterase LARGE Urine RBC 10 Urine WBC 75 Urine WBC Clumps FEW Urine Squamous Epithelial Cells <1 Urine Amorphous Sediment OCC Urine Bacteria MANY Urine Hyaline Casts 2 Microscopic Urinalysis Comment CULTURE INDICATED Blood Urea Nitrogen 35 Creatinine 1.45 Random Glucose 135 Calcium Level 8.5 Magnesium Level 1.9 Sodium Level 139 Potassium Level 3.9 Chloride Level 92 Carbon Dioxide Level 40.1 Anion Gap 7 Estimat Glomerular Filtration Rate 35 Lactic Acid Level 0.6 Phosphorus Level 3.6 Total Creatine Kinase 105 Creatine Kinase MB 15.1 Troponin I 0.20 B-Type Natriuretic Peptide 222 Blood Gas Ventilator Setting 16/+8/ Date/Time Source Procedure Growth Status 01/26/17 18:00 Blood Peripheral Aerobic Blood Culture Pending Received 01/26/17 18:00 Blood Peripheral Anaerobic Blood Culture Pending Received 01/26/17 17:55 Urine Clean Catch Urine Culture Pending Received Result Diagram: 01/26/17 1755 01/26/17 175 Imaging Last 24 hours Impressions Chest X-Ray 01/26/17 1736 Signed Impressions: Service Date/Time: Thursday, January 26, 2017 17:50 - CONCLUSION: Mild bibasilar atelectasis and mild compensated cardiomegaly. MD Jan Bar VTE Risk Assessment Caprini VTE Risk Assessment: Mod/High Risk (score >= 2) Caprini Risk Assessment Model Point Value = 1 Point Value = 2 Point Value = 3 Point Value = 5 Age 41-60 Minor surgery BMI > 25 kg/m2 Swollen legs Varicose veins or History of unexplained or recurrent spontaneous Oral contraceptives or hormone replacement Sepsis (< 1 month) Serious lung disease, including pneumonia (< 1 month) Abnormal pulmonary function Acute myocardial infarction Congestive heart failure (< 1 month) History of inflammatory bowel disease Medical patient at bed rest Age 61-74 Arthroscopic surgery Major open surgery (> 45 min) Laparoscopic surgery (> 45 min) Malignancy Confined to bed (> 72 hours) Immobilizing plaster cast Central venous access Age >= 75 History of VTE Family history of VTE Factor V Leiden Prothrombin [id number] Lupus anticoagulant Anticardiolipin antibodies Elevated serum homocysteine Heparin-induced thrombocytopenia Other congenital or acquired thrombophilia Stroke (< 1 month) Elective arthroplasty Hip, pelvis, or leg fracture Acute spinal cord injury (< 1 month) Prophylaxis Regimen Total Risk Factor Score Risk Level Prophylaxis Regimen 0-1 Low Early ambulation 2 Moderate Order ONE of the following: *Sequential Compression Device (SCD) *Heparin 5000 units SQ BID 3-4 Higher Order ONE of the following medications: *Heparin 5000 units SQ TID *Enoxaparin/Lovenox 40 mg SQ daily (WT < 150 kg, CrCl > 30 mL/min) *Enoxaparin/Lovenox 30 mg SQ daily (WT < 150 kg, CrCl > 10-29 mL/min) *Enoxaparin/Lovenox 30 mg SQ BID (WT < 150 kg, CrCl > 30 mL/min) AND/OR *Sequential Compression Device (SCD) 5 or more Highest Order ONE of the following medications: *Heparin 5000 units SQ TID (Preferred with Epidurals) *Enoxaparin/Lovenox 40 mg SQ daily (WT < 150 kg, CrCl > 30 mL/min) *Enoxaparin/Lovenox 30 mg SQ daily (WT < 150 kg, CrCl > 10-29 mL/min) *Enoxaparin/Lovenox 30 mg SQ BID (WT < 150 kg, CrCl > 30 mL/min) AND *Sequential Compression Device (SCD) Assessment and Plan Assessment and Plan Respiratory failure - COPD exacerbation - IV steroid - Face mask BiPAP - DuoNeb scheduled and when necessary - Empiric antibiotics - Pulmonary consult was transferred out of the unit - Repeat CXR and ABG a.m. CHF - Questionable exacerbation - Continue gentle diuresis Depressions -Venlafaxine Coronary artery disease - Aspirin - Plavix - Atorvastatin Paroxysmal atrial fibrillation - Metoprolol Hypertension - Metoprolol - Norvasc Dyslipidemia - Atorvastatin Diabetes mellitus - Glipizide - Januvia - Insulin sliding scale Asthma - DuoNeb - Due to an outside DVT GI prophylaxis - Teds SCDs - Subcutaneous heparin - Omeprazole Critical Care: The total critical care time was 35 minutes. Time to perform other separately billable procedures was not included in the critical care time. Abdulkadir Rogers MD Jan 26, 2017 9:40 pm
[2017-01-26] MEDS ORDERED: RESP: ALBUTEROL 2.5 MG/IPRATROPIUM 0.5 MG NEB (PRN) NEB (23:15)
[2017-01-26] MEDS: RESP: ALBUTEROL 2.5 MG/IPRATROPIUM 0.5 MG NEB (SCH) NEB (23:15)
[2017-01-27] VITALS (19 sets, daily range): BP systolic 143–184; BP diastolic 65–81; PULSE 70–90; RESP 21–37; TEMP 97.7–99.1; O2SAT 81–99
[2017-01-27] MEDS: AZITHROMYCIN INJ 500 MG in SODIUM CHLOR 0.9% 250 ML INJ 250 ML IV SCH ×2 (01:56→21:39)
[2017-01-27] MEDS: PIPERACIL-TAZO 3.375 GM PREMIX 50 ML IV SCH ×5 (01:56→23:13)
[2017-01-27] MEDS: methylPREDNISolone SOD SUCC 40 MG/1 ML VIAL IV PUSH SCH ×4 (01:56→21:39)
[2017-01-27] MEDS: HEPARIN SODIUM - SQ 10,000 UNITS/ML VIAL SQ SCH ×4 (02:01→21:40)
[2017-01-27] MEDS: RESP: ALBUTEROL 2.5 MG/IPRATROPIUM 0.5 MG NEB (SCH) NEB ×4 (02:28→21:04)
[2017-01-27] MEDS: CHLORHEXIDINE GLUCONATE 2 % 1 PACK (2 CLOTHS) TOP SCH (04:00)
--- NOTE | 2017-01-27 04:47 | RADRPT ---
EXAM DATE/TIME: 01/27/2017 03:49 [place] COMPARISON: CHEST SINGLE AP, January 26, 2017, 17:50. INDICATIONS : Shortness of breath, possible pulmonary disease. MEDICAL HISTORY : Hypertension. Cardiovascular disease. Renal failure, chronic. SURGICAL HISTORY : None. ENCOUNTER: Subsequent ACUITY: 4 - 6 days PAIN SCORE: Non-responsive. LOCATION: Bilateral chest FINDINGS: A single view of the chest demonstrates the lungs to be symmetrically aerated without evidence of mas s, infiltrate or effusion. The cardiomediastinal contours are unremarkable. Osseous structures are intact. CONCLUSION: Normal examination with borderline cardiomegaly. Foster Hutchins MD on January 27, 2017 at 4:45 Board Certified Radiologist. This report was verified electronically.
[2017-01-27 05:20] LABS: BLOOD GAS BASE EXCESS 15.4 mmol/L (-2-2); BLOOD GAS CARBOXYHEMOGLOBIN 1.8 % (0-4); BLOOD GAS HCO3 42 mmol/L (22-26); BLOOD GAS METHEMOGLOBIN 1.1 % (0-2); BLOOD GAS O2 HGB SATURATION 91 % (90-100); BLOOD GAS OXYGEN CONTENT 15.6 Vol % (12.0-20.0); BLOOD GAS PCO2 87 mmHg (38-42); BLOOD GAS PO2 73 mmHg (61-120); BLOOD GAS TOTAL HGB 12.2 G/DL (12.0-16.0); TEMP CORR TO 98.6
[2017-01-27 05:21] LABS: CRITICAL VALUE YES; FIO2 50 %; OXYGEN DEVICE NPPV; VENT SETTINGS EPAP5/IPAP15
[2017-01-27 05:22] LABS: DRAW SITE LT RADIAL; NUMBER OF ARTERIAL PUNCTURES 1; STAT NO; ULNAR PULSE PRESENT
[2017-01-27] MEDS: POTASSIUM CHLORIDE 20 MEQ CONTROLLED RELEASE TAB PO SCH ×4 (06:00→16:07)
[2017-01-27 06:13] LABS: BASOPHIL % 0.1 % (0.0-2.0); HEMATOCRIT 40.5 % (35.0-46.0); HEMO FLAGS DIFF FINAL; LYMPH % 4.8 % (9.0-44.0); LYMPHOCYTE # 0.4 TH/MM3 (1.0-4.8); MEAN CELL VOLUME 82.4 FL (80.0-100.0); MEAN CORPUSCULAR HEMOGLOBIN 25.6 PG (27.0-34.0); MEAN CORPUSCULAR HGB CONC 31.1 % (32.0-36.0); MONO % 2.1 % (0.0-8.0); PLATELET COUNT 193 TH/MM3 (150-450); RED BLOOD COUNT 4.92 MIL/MM3 (4.00-5.30); WHITE BLOOD COUNT 8.6 TH/MM3 (4.0-11.0)
[2017-01-27 06:30] LABS: ALT (GPT) 24 U/L (10-53)
[2017-01-27 06:31] LABS: ALKALINE PHOSPHATASE 89 U/L (45-117); TOTAL BILIRUBIN ADULT 0.2 MG/DL (0.2-1.0)
[2017-01-27 06:37] LABS: ANION GAP 8 MEQ/L (5-15); AST (GOT) 15 U/L (15-37); BICARBONATE 41.2 MEQ/L (21.0-32.0); BLOOD UREA NITROGEN 38 MG/DL (7-18); CHLORIDE 91 MEQ/L (98-107); GLOMERULAR FILTRATION RATE 35 ML/MIN (>89); MAGNESIUM 1.8 MG/DL (1.5-2.5); POTASSIUM 3.7 MEQ/L (3.5-5.1); SODIUM (NA) 140 MEQ/L (136-145)
[2017-01-27] MEDS: FUROSEMIDE 40 MG TAB PO SCH (09:00)
[2017-01-27] MEDS: VENLAFAXINE HCL XR 75 MG CAP PO SCH (09:00)
[2017-01-27] MEDS: glipiZIDE 10 MG TAB PO SCH (09:00)
[2017-01-27] MEDS: INSULIN ASPART SUPPLEMENTAL SCALE SQ SCH ×4 (09:00→21:00)
[2017-01-27] MEDS: METOLAZONE 5 MG TAB PO SCH (09:00)
[2017-01-27] MEDS: BUDESONIDE-FORMOTEROL 160/4.5 MCG INHALER INH SCH ×2 (09:00→20:18)
[2017-01-27] MEDS: SODIUM CHLORIDE 0.9% FLUSH 10 ML FLUSH SCH ×3 (09:00→20:19)
[2017-01-27] MEDS: METOPROLOL TARTRATE 50 MG TAB PO SCH ×2 (09:00→20:18)
[2017-01-27] MEDS: PRAVASTATIN SOD 80 MG TAB PO SCH (09:00)
[2017-01-27] MEDS: DOCUSATE SODIUM 50 MG/SENNA 8.6 MG TAB PO SCH ×2 (09:00→20:18)
[2017-01-27] MEDS: ASPIRIN 81 MG CHEW TAB CHEW SCH (09:00)
[2017-01-27] MEDS: FAMOTIDINE 20 MG TAB PO SCH (09:00)
[2017-01-27] MEDS: CLOPIDOGREL 75 MG TAB PO SCH (09:00)
--- NOTE | 2017-01-27 09:08 | HHI.PR ---
Subjective Remarks Follow up respiratory failure. Patient is lethargic. On BiPAP. Does briefly respond to verbal stimuli, but does not answer questions. Objective Vitals Vital Signs Date Time Temp Pulse Resp B/P (MAP) Pulse Ox O2 Delivery O2 Flow Rate FiO2 01/27/17 07:45 94 40 01/27/17 06:00 82 01/27/17 04:18 94 40 01/27/17 04:00 98.4 82 22 149/66 (93) 96 01/27/17 04:00 89 01/27/17 02:00 82 01/27/17 00:00 97.8 84 24 144/65 (91) 95 01/27/17 00:00 79 01/26/17 23:54 96 50 01/26/17 22:00 98.4 96 24 176/86 (116) 96 01/26/17 22:00 69 01/26/17 21:41 97 50 01/26/17 21:25 89 50 01/26/17 19:55 90 18 136/63 (87) 97 BiPAP 50 01/26/17 19:20 94 50 01/26/17 18:30 79 18 103/62 (76) 92 BiPAP 40 01/26/17 17:55 94 40 01/26/17 17:50 98.2 94 18 143/63 (89) 93 BiPAP 40 01/26/17 17:50 94 BiPAP 01/26/17 17:50 94 BiPAP 01/26/17 17:50 94 15 98 Non-Rebreather 15.00 01/26/17 17:32 94 15 143/63 (89) 96 I/O 01/26/17 01/26/17 01/26/17 01/27/17 01/27/17 01/27/17 07:00 15:00 23:00 07:00 15:00 23:00 Intake Total 100 ml 300 ml Output Total 450 ml 750 ml Balance -350 ml -450 ml Intake IV Total 100 ml 300 ml Output Urine Total 450 ml 750 ml Result Diagram: 01/27/17 0501 01/27/17 0501 Imaging Last Impressions Chest X-Ray 01/27/17 0600 Signed Impressions: Service Date/Time: Friday, January 27, 2017 03:49 - CONCLUSION: Normal examination with borderline cardiomegaly. Foster Hutchins MD Objective Remarks General: Elderly female on BiPAP. Heart: Regular rate and rhythm. No murmur. Lungs: Coarse breath sounds. Abdomen: Soft, nontender, nondistended. Extremities: No lower extremity edema. Psych: Lethargic. Procedures None Urinary Catheter: Yes Assessment to: Continue [place] insert reason: Measure Accurate Output Date of Insertion: Jan 26, 2017 Vascular Central Line Catheter: No A/P Problem List: (1) Acute respiratory failure ICD Code: J96.00 - Acute respiratory failure, unspecified whether with hypoxia or hypercapnia (2) Acute exacerbation of chronic obstructive pulmonary disease (COPD) ICD Code: J44.1 - Chronic obstructive pulmonary disease with (acute) exacerbation Status: Acute (3) Encephalopathy ICD Code: G93.40 - Encephalopathy, unspecified (4) Hypertension ICD Code: I10 - Essential (primary) hypertension (5) Chronic diastolic CHF (congestive heart failure) ICD Code: I50.32 - Chronic diastolic (congestive) heart failure (6) Hyperlipidemia ICD Code: E78.5 - Hyperlipidemia, unspecified (7) Atrial fibrillation ICD Code: I48.91 - Atrial fibrillation Status: Acute (8) Diabetes mellitus ICD Code: E11.9 - Diabetes mellitus Status: Acute Assessment and Plan 1. Acute respiratory failure: Secondary to COPD exacerbation. Continue BiPAP. Pulmonology consult is pending. Duonebs, antibiotics, steroids. 2. Chronic diastolic CHF: ?exacerbation. BNP elevated. Continue diuresis. 3. Depression: Continue Effexor. 4. CAD: Continue aspirin, Plavix, statin. 5. Paroxysmal A-fib: Continue metoprolol. 6. Hypertension: Continue metoprolol, Norvasc. 7. Hyperlipidemia: Continue statin. 8. Diabetes mellitus: Continue glipizide, Januvia. Monitor accu-checks and cover with sliding scale insulin. 9. GI prophylaxis: PPI. 10. Elevated troponin: Follow serial cardiac enzymes. Consult cardiology. 11. DVT prophylaxis: SCDs, INÉS hose, heparin. Ethan Callaway MD Jan 27, 2017 09:08
[2017-01-27 09:59] LABS: BLOOD GAS BASE EXCESS 17.2 mmol/L (-2-2); BLOOD GAS CARBOXYHEMOGLOBIN 1.8 % (0-4); BLOOD GAS HCO3 43 mmol/L (22-26); BLOOD GAS METHEMOGLOBIN 1.2 % (0-2); BLOOD GAS O2 HGB SATURATION 82 % (90-100); BLOOD GAS OXYGEN CONTENT 14.7 Vol % (12.0-20.0); BLOOD GAS PCO2 78 mmHg (38-42); BLOOD GAS PO2 52 mmHg (61-120); BLOOD GAS TOTAL HGB 12.7 G/DL (12.0-16.0); CRITICAL VALUE YES; DRAW SITE LT RADIAL; FIO2 60 %; OXYGEN DEVICE BIPAP; TEMP CORR TO 98.6; VENT SETTINGS IPAP16/EPAP8
[2017-01-27 10:00] LABS: NUMBER OF ARTERIAL PUNCTURES 1; STAT NO; ULNAR PULSE PRESENT
[2017-01-27] MEDS ORDERED: FUROSEMIDE 40 MG/4 ML VIAL IV PUSH ONE (10:30)
--- NOTE | 2017-01-27 13:05 | MB ---
cc: Eugenio PIERRE M.D. DATE OF CONSULTATION: 01/27/2017 REASON FOR CONSULTATION: Pulmonary consult. HISTORY Ms Michaels is a 75-year-old white female with a known history of severe COPD and several prior admissions here. She was admitted in December for chronic obstructive pulmonary disease exacerbation and congestive heart failure and she is readmitted now from a nursing facility for increasing shortness of breath. On presentation she was quite dyspneic pO2 was 87 on a non-rebreather mask with a pH 7.24, pCO2 of 107. She was placed on BiPap in the ER and follow up blood gases earlier this morning pO2 was 73 with a pH of 7.31 and a pCO2 that had dropped to 87. On follow up several hours later, pH 7.37, pCO2 78, pO2 52 FIO2 is being adjusted to maintain a saturation above 90. The patient is responsive, follows commands correctly is currently on BiPap and this history is taken from the chart. She is followed as an outpatient by Dr. Nation in the past for chronic obstructive pulmonary disease, she has also had a previous bypass. She has had chronic atrial fibrillation episodes of congestive heart failure, diabetes and morbid obesity. SOCIAL HISTORY She lives in a nursing facility at present distant smoking history. No longer smokes and does not use alcohol. FAMILY HISTORY Unknown to me. MEDICATIONS: Medications reviewed in the EMR. ALLERGIES None known. REVIEW OF SYSTEMS Review of systems is really not obtainable at present time as the patient is on BiPap. PHYSICAL EXAMINATION IN GENERAL: Very obese white female no distress at rest. VITAL SIGNS: Pulse is 78. She is afebrile. Her blood pressure is 140/65 and respirations are 22, sat is 94%. HEAD, EYES, EARS, NOSE, AND THROAT: Sclerae anicteric. This veins are not obviously distended although she has a very large neck. LUNGS: Breath sounds are very distant. No audible wheezing or congestion. HEART: Regular rhythm with no harsh murmur. No audible S3. ABDOMEN: Abdomen is extremely obese. EXTREMITIES: Some chronic edema in the legs but not significant. No obvious calf tenderness. RADIOLOGIC: His chest x-ray is clear, cardiomegaly. LABORATORY FINDINGS: Blood cultures have been negative. White blood cell count 8600, INR 1, BUN 38, creatinine 1.46. B-type natriuretic peptide 222, MRSA nasal screen negative. DISCUSSION/PLAN: Ms. Michaels presents with acute exacerbation of COPD. No obvious heart failure. No obvious pneumonia although made there may be an underlying infectious process precipitating this. She has been placed on antibiotics, aerosolized bronchodilators and BiPap. We will try her on high-flow nasal cannula to see if she is stable on that. Continue antibiotics pending further culture reports. Continue Solu-Medrol. She is on prophylactic heparin. Further diagnostic and/or therapeutic range will depend on her ongoing clinical course. R. MD RAMÓN Mcgovern/susan /12:31 PM /12:47 PM
[2017-01-27 14:40] LABS: BLOOD GAS BASE EXCESS 19.5 mmol/L (-2-2); BLOOD GAS CARBOXYHEMOGLOBIN 1.5 % (0-4); BLOOD GAS HCO3 45 mmol/L (22-26); BLOOD GAS O2 HGB SATURATION 85 % (90-100); BLOOD GAS OXYGEN CONTENT 15.3 Vol % (12.0-20.0); BLOOD GAS PCO2 67 mmHg (38-42); BLOOD GAS PO2 52 mmHg (61-120); BLOOD GAS TOTAL HGB 12.8 G/DL (12.0-16.0); DRAW SITE LT RADIAL; FIO2 60 %; NUMBER OF ARTERIAL PUNCTURES 1; OXYGEN DEVICE BIPAP; STAT NO; TEMP CORR TO 98.6; ULNAR PULSE PRESENT; VENT SETTINGS IPAP16/EPAP8
[2017-01-27 14:42] LABS: CRITICAL VALUE YES
--- NOTE | 2017-01-27 18:29 | EKG ---
Date Performed: 01/26/2017 Time Performed: 18:22:30 PTAGE: 76 years EKG: Sinus rhythm WITH OCCASIONAL SUPRAVENTRICULAR PREMATURE COMPLEXES BORDERLINE LEFT AXIS DEVIATION BORDERLINE ECG PREVIOUS TRACING : 12/14/2016 19.56 Compared to the previous tracing SR now present DOCTOR: Nathan Hills Interpretating Date/Time 01/27/2017 18:28:08
--- NOTE | 2017-01-27 19:17 | MB ---
cc: JHONY CRAIG MD DATE OF CONSULTATION 01/27/17 HISTORY OF PRESENT ILLNESS Kristi is a 76-year old lady who resides in a fci, was found to be short of breath today with sats in the mid 70s. She is currently on BiPAP. Per the nursing staff, the patient appears to have some degree of dementia and she has been uncooperative today with taking medications. The patient is not forthcoming in answering simple questions like "are you having chest pain or shortness of breath?. She appears to be upset, but I cannot tell about what. Therefore, review of systems is limited. PAST MEDICAL HISTORY Per history of present illness. Also 1. History of COPD, 2. CHF, 3. Hypertension, 4. Coronary artery disease, 5. Hyperlipidemia, 6. History of CVA, 7. Asthma, 8. COPD. 9. Bilateral cataract surgery. SOCIAL HISTORY Drinks one drink per month. denies tobacco use. ALLERGIES None. MEDICATIONS Prior to admission, 1. Cardizem 10 mg daily 2. Symbicort 3. Azithromycin 4. 2 liters oxygen. 5. Plavix. 6. Lasix 7. B 12 8. Januvia 9. Metolazone 5 mg daily 10. Simvastatin 80 at bedtime 11. Aspirin 81 mg daily 12. Effexor 13. Glipizide 14. Zanaflex 15. Norvasc In the hospital, 1. Amlodipine 10 mg daily. 2. Aspirin 81 mg daily 3. Clopidigrel 75 daily 4. Furosemide 40 mg p.o. daily 5. Glipizide 10 mg daily, 6. Metolazone 5 mg daily. 7. Januvia 100 mg daily, 8. Famotidine 20 mg daily 9. Pravastatin 80 mg daily. 10. Venlafaxine 11. Potassium supplementation. 12. Piperacillin/tazobactam. 13. Methylprednisolone 14. Azithromycin. 15. Heparin 5000 subcu q. 8 hours. 16. Metoprolol 50 mg b.i.d. PHYSICAL EXAMINATION VITAL SIGNS: Blood pressure 184/74, respiratory rate 28, temperature 99.1, sats 90% on 60% oxygen. GENERAL: She is alert and appears to be oriented times possibly zero to one, somewhat uncooperative in mild distress NECK: Supple. No JVD, no bruit CARDIOVASCULAR: S1, S2. No murmurs, rubs or gallops. LUNGS: Clear to auscultation bilaterally. ABDOMEN: Soft, nontender, nondistended, positive bowel sounds. EXTREMITIES: No lower extremity edema. LABORATORY DATA White count 11.1, hemoglobin 13.4, hematocrit 42.5, platelet count 212. Her initial blood gas - pH 7.24, pCO2 of 107, pO2 87. Her blood gas from this afternoon pH 7.45, pCO2 67, pO2 52 on 60%, Sodium 140, potassium 3.7, chloride 91, BUN 38, creatinine 1.46, troponin is 0.11 and 0.12. BNP on admission was 222. Initial troponin was 0.20, INR 1.0. IMAGING STUDIES Chest x-ray - normal examination with borderline cardiomegaly. CARDIOLOGY STUDIES EKG is sinus rhythm at 87 beats per minute, late R-wave transition, nonspecific ST-T wave changes. DIAGNOSES 1. Non STEMI 2. Acute hypercapneic respiratory failure 3. COPD. 4. Diabetes 5. Coronary artery disease 6. Chronic renal insufficiency. 7. Acute renal failure. 8. Dementia. 9. Noncompliance. 10. Hyperglycemia 11. Decompensated congestive heart failure 12. Elevated white count. DISCUSSION At this point in time, I do not think the patient has a primary obstructive etiology to her elevated troponin, however, I cannot completely rule this out particularly given the patient's multiple cardiac risk factors including prior history of coronary artery disease, diabetes, age greater than 55, postmenopausal, hypertension and hyperlipidemia. Therefore, we will continue aspirin, Norvasc, Pravastatin. She is currently not having any chest pain and her respiratory status has improved. I suspect her decompensated congestive heart rate is probably again related to global hypoxia from systemic hypoxia due to respiratory failure. The patient is currently refusing to take her p.o. medications. I do not think she is consentable at this point in time to any potential cardiac procedures. If the patient becomes more lucid or there is a surrogate decision-maker available, can discuss risk and benefits of various approaches to evaluation for ischemia and significant coronary artery disease such as catheter, stress test or medical management only again based on the patient and/or the surrogate's preferences. Jhony Craig MD Jeremy/ /6:02 PM /6:48 PM
[2017-01-28] VITALS (19 sets, daily range): BP systolic 134–186; BP diastolic 65–98; PULSE 60–92; RESP 21–26; TEMP 97.2–98.8; O2SAT 91–97
[2017-01-28] MEDS: hydrALAZINE HCL 20 MG/ML VIAL IV PUSH PRN ×2 (02:10→08:07)
[2017-01-28] MEDS: CHLORHEXIDINE GLUCONATE 2 % 1 PACK (2 CLOTHS) TOP SCH (04:00)
[2017-01-28] MEDS: RESP: ALBUTEROL 2.5 MG/IPRATROPIUM 0.5 MG NEB (SCH) NEB ×4 (04:41→21:13)
[2017-01-28] MEDS: methylPREDNISolone SOD SUCC 40 MG/1 ML VIAL IV PUSH SCH ×3 (05:19→22:43)
[2017-01-28] MEDS: POTASSIUM CHLORIDE 20 MEQ CONTROLLED RELEASE TAB PO SCH ×5 (05:20→22:44)
[2017-01-28] MEDS: PIPERACIL-TAZO 3.375 GM PREMIX 50 ML IV SCH ×4 (05:20→22:43)
[2017-01-28] MEDS: HEPARIN SODIUM - SQ 10,000 UNITS/ML VIAL SQ SCH ×3 (05:20→22:44)
[2017-01-28 05:21] LABS: BLOOD GAS CARBOXYHEMOGLOBIN 1.7 % (0-4); BLOOD GAS HCO3 44 mmol/L (22-26); BLOOD GAS METHEMOGLOBIN 1.1 % (0-2); BLOOD GAS O2 HGB SATURATION 91 % (90-100); BLOOD GAS OXYGEN CONTENT 16.7 Vol % (12.0-20.0); BLOOD GAS PCO2 58 mmHg (38-42); BLOOD GAS PO2 66 mmHg (61-120); BLOOD GAS TOTAL HGB 13.1 G/DL (12.0-16.0); CRITICAL VALUE YES; DRAW SITE LT RADIAL; FIO2 60 %; NUMBER OF ARTERIAL PUNCTURES 1; OXYGEN DEVICE BIPAP; STAT NO; TEMP CORR TO 98.6; ULNAR PULSE PRESENT; VENT SETTINGS IPAP16/EPAP8
[2017-01-28 05:46] LABS: AUTOMATED NEUTROPHIL # 8.3 TH/MM3 (1.8-7.7); BASOPHIL % 0.1 % (0.0-2.0); HEMO FLAGS DIFF FINAL; LYMPH % 7.6 % (9.0-44.0); LYMPHOCYTE # 0.7 TH/MM3 (1.0-4.8); MEAN CELL VOLUME 81.8 FL (80.0-100.0); MEAN CORPUSCULAR HGB CONC 31.8 % (32.0-36.0); MONO % 4.8 % (0.0-8.0); NEUT % 87.5 % (16.0-70.0); PLATELET COUNT 220 TH/MM3 (150-450); RED BLOOD COUNT 5.01 MIL/MM3 (4.00-5.30); RED CELL DISTRIBUTION WIDTH 19.1 % (11.6-17.2); WHITE BLOOD COUNT 9.5 TH/MM3 (4.0-11.0)
[2017-01-28] MEDS: INSULIN ASPART SUPPLEMENTAL SCALE SQ SCH ×4 (06:49→19:40)
[2017-01-28 07:01] LABS: BICARBONATE 42.9 MEQ/L (21.0-32.0); POTASSIUM 3.2 MEQ/L (3.5-5.1)
[2017-01-28] MEDS: SODIUM CHLORIDE 0.9% FLUSH 10 ML FLUSH SCH ×2 (08:09→19:39)
[2017-01-28] MEDS: BUDESONIDE-FORMOTEROL 160/4.5 MCG INHALER INH SCH ×2 (08:09→19:38)
[2017-01-28] MEDS: DOCUSATE SODIUM 50 MG/SENNA 8.6 MG TAB PO SCH ×2 (09:00→19:38)
[2017-01-28] MEDS: VENLAFAXINE HCL XR 75 MG CAP PO SCH (09:00)
[2017-01-28] MEDS: CLOPIDOGREL 75 MG TAB PO SCH (10:57)
[2017-01-28] MEDS: FUROSEMIDE 40 MG TAB PO SCH (10:58)
[2017-01-28] MEDS: FAMOTIDINE 20 MG TAB PO SCH (10:58)
[2017-01-28] MEDS: METOPROLOL TARTRATE 50 MG TAB PO SCH ×2 (10:58→19:38)
[2017-01-28] MEDS: glipiZIDE 10 MG TAB PO SCH (10:58)
[2017-01-28] MEDS: METOLAZONE 5 MG TAB PO SCH (10:58)
[2017-01-28] MEDS: ASPIRIN 81 MG CHEW TAB CHEW SCH (10:58)
[2017-01-28] MEDS: POTASSIUM CHLOR 20 MEQ PREMIX 100 ML IV PRN ×2 (11:03→12:59)
--- NOTE | 2017-01-28 11:51 | PD.CARD.PN ---
Subjective Subjective Remarks alert in nad, denies chest pain Objective Vital Signs / I&O Vital Signs Date Time Temp Pulse Resp B/P (MAP) Pulse Ox O2 Delivery O2 Flow Rate FiO2 01/28/17 10:45 97 High Flow Nasal Cannula 40.00 85 01/28/17 10:45 90 Nasal Cannula 85 01/28/17 10:06 96 60 01/28/17 08:00 92 Bi-Pap 60 01/28/17 07:32 92 60 01/28/17 06:00 63 01/28/17 04:41 93 60 01/28/17 04:00 94 Bi-Pap 60 01/28/17 04:00 74 01/28/17 04:00 97.5 74 26 163/78 (106) 92 01/28/17 02:00 78 01/28/17 00:00 94 Bi-Pap 60 01/28/17 00:00 66 01/28/17 00:00 97.2 66 25 182/78 (112) 94 01/27/17 22:00 70 01/27/17 21:05 89 BiPAP 60 01/27/17 21:04 89 60 01/27/17 20:00 87 01/27/17 20:00 86 Bi-Pap 60 01/27/17 20:00 98.5 87 21 157/72 (100) 81 01/27/17 18:00 89 01/27/17 17:17 90 60 01/27/17 16:00 86 01/27/17 16:00 99.1 86 28 184/74 (110) 89 01/27/17 14:00 90 01/27/17 13:16 90 60 01/27/17 12:00 88 01/27/17 12:00 98.6 88 31 143/80 (101) 90 I/O 01/27/17 01/27/17 01/27/17 01/28/17 01/28/17 01/28/17 07:00 15:00 23:00 07:00 15:00 23:00 Intake Total 300 ml 50 ml 57 ml 350 ml Output Total 750 ml 1700 ml 900 ml Balance -450 ml 50 ml -1643 ml -550 ml Intake IV Total 300 ml 50 ml 57 ml 350 ml Output Urine Total 750 ml 1700 ml 900 ml Stool Total 0 ml # Bowel Movements 0 Laboratory GENERAL: SKIN: Warm and dry. HEAD: Normocephalic. EYES: No scleral icterus. No injection or drainage. NECK: Supple, trachea midline. No JVD or lymphadenopathy. CARDIOVASCULAR: Regular rate and rhythm without murmurs, gallops, or rubs. RESPIRATORY: Breath sounds equal bilaterally. No accessory muscle use. GASTROINTESTINAL: Abdomen soft, non-tender, nondistended. MUSCULOSKELETAL: No cyanosis, or edema. BACK: Nontender without obvious deformity. No CVA tenderness. Laboratory Tests Test 01/27/17 14:33 01/27/17 16:26 01/28/17 04:43 01/28/17 05:03 Blood Gas Puncture Site LT RADIAL LT RADIAL Blood Gas Patient Temperature 98.6 98.6 Blood Gas HCO3 45 mmol/L 44 mmol/L Blood Gas Base Excess 19.5 mmol/L 19.0 mmol/L Blood Gas Oxygen Saturation 85 % 91 % Arterial Blood pH 7.45 7.50 Arterial Blood Partial Pressure CO2 67 mmHg 58 mmHg Arterial Blood Partial Pressure O2 52 mmHg 66 mmHg Arterial Blood Oxygen Content 15.3 Vol % 16.7 Vol % Arterial Blood Carboxyhemoglobin 1.5 % 1.7 % Arterial Blood Methemoglobin 1.0 % 1.1 % Blood Gas Hemoglobin 12.8 G/DL 13.1 G/DL Oxygen Delivery Device BIPAP BIPAP Blood Gas Ventilator Setting IPAP16/EPAP8 IPAP16/EPAP8 Blood Gas Inspired Oxygen 60 % 60 % Total Creatine Kinase 58 U/L Troponin I 0.12 NG/ML White Blood Count 9.5 TH/MM3 Red Blood Count 5.01 MIL/MM3 Hemoglobin 13.0 GM/DL Hematocrit 41.0 % Mean Corpuscular Volume 81.8 FL Mean Corpuscular Hemoglobin 26.0 PG Mean Corpuscular Hemoglobin Concent 31.8 % Red Cell Distribution Width 19.1 % Platelet Count 220 TH/MM3 Mean Platelet Volume 8.3 FL Neutrophils (%) (Auto) 87.5 % Lymphocytes (%) (Auto) 7.6 % Monocytes (%) (Auto) 4.8 % Eosinophils (%) (Auto) 0.0 % Basophils (%) (Auto) 0.1 % Neutrophils # (Auto) 8.3 TH/MM3 Lymphocytes # (Auto) 0.7 TH/MM3 Monocytes # (Auto) 0.5 TH/MM3 Eosinophils # (Auto) 0.0 TH/MM3 Basophils # (Auto) 0.0 TH/MM3 CBC Comment DIFF FINAL Differential Comment Blood Urea Nitrogen 50 MG/DL Creatinine 1.70 MG/DL Random Glucose 186 MG/DL Calcium Level 9.1 MG/DL Sodium Level 143 MEQ/L Potassium Level 3.2 MEQ/L Chloride Level 90 MEQ/L Carbon Dioxide Level 42.9 MEQ/L Anion Gap 10 MEQ/L Estimat Glomerular Filtration Rate 29 ML/MIN Assessment and Plan Problem List: (1) NSTEMI (non-ST elevated myocardial infarction) ICD Codes: I21.4 - Non-ST elevation (NSTEMI) myocardial infarction (2) Respiratory failure ICD Codes: J96.90 - Respiratory failure, unspecified, unspecified whether with hypoxia or hypercapnia Status: Acute (3) Hypoxia ICD Codes: R09.02 - Hypoxemia Status: Acute (4) Diabetes 1.5, managed as type 2 ICD Codes: E13.9 - Other specified diabetes mellitus without complications Status: Acute (5) Diastolic CHF ICD Codes: I50.30 - Unspecified diastolic (congestive) heart failure Status: Acute (6) COPD exacerbation ICD Codes: J44.1 - Chronic obstructive pulmonary disease with (acute) exacerbation Status: Acute (7) Respiratory acidosis ICD Codes: E87.2 - Acidosis Status: Acute Assessment and Plan 1.) NSTEMI - clinically improving, suspect trop elevation due to global hypoxia due to respiratory failure, continue dapt, lopressor, pravastatin, norvasc, consider meseret based on trends in renal function Jhony Goldman MD Jan 28, 2017 11:51
[2017-01-28] MEDS: PRAVASTATIN SOD 80 MG TAB PO SCH (12:00)
--- NOTE | 2017-01-28 14:37 | HHI.PR ---
Subjective History of Present Illness Pt is seen & examined chart reviewed on Bipap breathing isok less cough No fever or chills No CP NO N/V , hungry wants to eat No abd pain offers no other c/o Vitals/Results Intake & Output 01/28/17 01/28/17 01/29/17 14:59 22:59 06:59 Intake Total 100 ml Balance 100 ml Intake IV Total 100 ml Vital Signs Vital Signs Date Time Temp Pulse Resp B/P (MAP) Pulse Ox O2 Delivery O2 Flow Rate FiO2 01/28/17 14:00 65 01/28/17 12:50 91 60 01/28/17 12:00 98.8 66 22 165/75 (105) 93 01/28/17 12:00 66 01/28/17 12:00 91 Nasal Cannula 85 01/28/17 10:45 97 High Flow Nasal Cannula 40.00 85 01/28/17 10:45 90 Nasal Cannula 85 01/28/17 10:06 96 60 01/28/17 10:00 92 01/28/17 08:00 97.3 69 26 186/80 (115) 92 01/28/17 08:00 69 01/28/17 08:00 92 Bi-Pap 60 01/28/17 07:32 92 60 01/28/17 06:00 63 01/28/17 04:41 93 60 01/28/17 04:00 94 Bi-Pap 60 01/28/17 04:00 74 01/28/17 04:00 97.5 74 26 163/78 (106) 92 01/28/17 02:00 78 01/28/17 00:00 94 Bi-Pap 60 01/28/17 00:00 66 01/28/17 00:00 97.2 66 25 182/78 (112) 94 01/27/17 22:00 70 01/27/17 21:05 89 BiPAP 60 01/27/17 21:04 89 60 01/27/17 20:00 87 01/27/17 20:00 86 Bi-Pap 60 01/27/17 20:00 98.5 87 21 157/72 (100) 81 01/27/17 18:00 89 01/27/17 17:17 90 60 01/27/17 16:00 86 01/27/17 16:00 99.1 86 28 184/74 (110) 89 CBC/BMP: 01/28/17 0443 01/28/17 0443 Lab Results Laboratory Tests Test 01/27/17 16:26 01/28/17 04:43 01/28/17 05:03 Total Creatine Kinase 58 U/L Troponin I 0.12 NG/ML White Blood Count 9.5 TH/MM3 Red Blood Count 5.01 MIL/MM3 Hemoglobin 13.0 GM/DL Hematocrit 41.0 % Mean Corpuscular Volume 81.8 FL Mean Corpuscular Hemoglobin 26.0 PG Mean Corpuscular Hemoglobin Concent 31.8 % Red Cell Distribution Width 19.1 % Platelet Count 220 TH/MM3 Mean Platelet Volume 8.3 FL Neutrophils (%) (Auto) 87.5 % Lymphocytes (%) (Auto) 7.6 % Monocytes (%) (Auto) 4.8 % Eosinophils (%) (Auto) 0.0 % Basophils (%) (Auto) 0.1 % Neutrophils # (Auto) 8.3 TH/MM3 Lymphocytes # (Auto) 0.7 TH/MM3 Monocytes # (Auto) 0.5 TH/MM3 Eosinophils # (Auto) 0.0 TH/MM3 Basophils # (Auto) 0.0 TH/MM3 CBC Comment DIFF FINAL Differential Comment Blood Urea Nitrogen 50 MG/DL Creatinine 1.70 MG/DL Random Glucose 186 MG/DL Calcium Level 9.1 MG/DL Sodium Level 143 MEQ/L Potassium Level 3.2 MEQ/L Chloride Level 90 MEQ/L Carbon Dioxide Level 42.9 MEQ/L Anion Gap 10 MEQ/L Estimat Glomerular Filtration Rate 29 ML/MIN Blood Gas Puncture Site LT RADIAL Blood Gas Patient Temperature 98.6 Blood Gas HCO3 44 mmol/L Blood Gas Base Excess 19.0 mmol/L Blood Gas Oxygen Saturation 91 % Arterial Blood pH 7.50 Arterial Blood Partial Pressure CO2 58 mmHg Arterial Blood Partial Pressure O2 66 mmHg Arterial Blood Oxygen Content 16.7 Vol % Arterial Blood Carboxyhemoglobin 1.7 % Arterial Blood Methemoglobin 1.1 % Blood Gas Hemoglobin 13.1 G/DL Oxygen Delivery Device BIPAP Blood Gas Ventilator Setting IPAP16/EPAP8 Blood Gas Inspired Oxygen 60 % Physical Exam General General Appearance: Well Developed, Well Nourished, Anxious, Obese Eyes Eye Exam: Pupils Equal, Sclera White Ears & Nose Ears & Nose Exam: Nasal Mucosa [place] Throat Throat Exam: Oral Mucosa [place] & Moist Neck Neck Exam: Neck Supple, Trachea Midline Pulmonary Resp Exam: Decreased Bases, Diminished Breath Sounds Resp Remarks on BiPAP Cardiology CV Exam: Irregular Gastrointestinal/Abdomen GI Exam: Soft, Non-Tender, Bowel Sounds Present Extremeties Extremities Exam: Moderate Edema Neurologic Neuro Exam: Alert, Awake, Moving All Extremities VTE Prophylaxis VTE Prophylaxis Meds: Heparin PUD Prophylasis PUD Prophylaxis: Zantac Assessment/Plan Problem List: (1) Acute respiratory failure ICD Codes: J96.00 - Acute respiratory failure, unspecified whether with hypoxia or hypercapnia (2) Acute exacerbation of chronic obstructive pulmonary disease (COPD) ICD Codes: J44.1 - Chronic obstructive pulmonary disease with (acute) exacerbation Status: Acute (3) Encephalopathy ICD Codes: G93.40 - Encephalopathy, unspecified (4) Hypertension ICD Codes: I10 - Essential (primary) hypertension (5) Chronic diastolic CHF (congestive heart failure) ICD Codes: I50.32 - Chronic diastolic (congestive) heart failure (6) Hyperlipidemia ICD Codes: E78.5 - Hyperlipidemia, unspecified (7) Atrial fibrillation ICD Codes: I48.91 - Atrial fibrillation Status: Acute (8) Diabetes mellitus ICD Codes: E11.9 - Diabetes mellitus Status: Acute Assessment/Plan . Acute respiratory failure: Secondary to COPD exacerbation. Continue BiPAP. Pulmonology following cont Duonebs, Empiric abx , Zosyn/zithromax , blood c/s are negative urine c/s +ve klebsiella will try to de escalate abx soon CXR negative cont steroids cont aerosol tx . Chronic diastolic CHF: ?exacerbation. BNP elevated. fluid restriction Continue diuresis/kcl f/u electrolytes . Depression: Continue Effexor. . CAD: Continue aspirin, Plavix, cont statin. . Paroxysmal A-fib: Continue metoprolol. . Hypertension: Continue metoprolol, Norvasc. . Hyperlipidemia: Continue statin. . Diabetes mellitus: consult speech therapy for swallow eval Continue glipizide, Januvia. Monitor accu-checks and cover with sliding scale insulin. . GI prophylaxis: cont pepcid . DVT prophylaxis: SCDs, INÉS hose, sq heparin. d/w PT d/w RN am labs will f/u Paul Edmonds MD Jan 28, 2017 14:37
[2017-01-28] MEDS ORDERED: POTASSIUM CHLORIDE 25 MEQ EFFERVESCENT TAB PO ONE (22:30)
[2017-01-28] MEDS: AZITHROMYCIN INJ 500 MG in SODIUM CHLOR 0.9% 250 ML INJ 250 ML IV SCH (22:44)
[2017-01-29] VITALS (15 sets, daily range): BP systolic 119–164; BP diastolic 63–115; PULSE 51–97; RESP 22–29; TEMP 98–98.8; O2SAT 87–94
[2017-01-29] MEDS: POTASSIUM CHLORIDE 20 MEQ CONTROLLED RELEASE TAB PO SCH ×3 (03:42→10:14)
[2017-01-29] MEDS: PIPERACIL-TAZO 3.375 GM PREMIX 50 ML IV SCH ×3 (03:42→16:11)
[2017-01-29] MEDS: methylPREDNISolone SOD SUCC 40 MG/1 ML VIAL IV PUSH SCH ×3 (03:42→21:30)
[2017-01-29] MEDS: CHLORHEXIDINE GLUCONATE 2 % 1 PACK (2 CLOTHS) TOP SCH (03:42)
[2017-01-29] MEDS: RESP: ALBUTEROL 2.5 MG/IPRATROPIUM 0.5 MG NEB (SCH) NEB ×4 (04:39→20:30)
[2017-01-29] MEDS: HEPARIN SODIUM - SQ 10,000 UNITS/ML VIAL SQ SCH ×3 (05:47→21:30)
[2017-01-29] MEDS: INSULIN ASPART SUPPLEMENTAL SCALE SQ SCH ×4 (05:49→21:00)
[2017-01-29] MEDS: FAMOTIDINE 20 MG TAB PO SCH (09:00)
[2017-01-29] MEDS: METOPROLOL TARTRATE 50 MG TAB PO SCH ×2 (09:00→21:30)
[2017-01-29] MEDS: ASPIRIN 81 MG CHEW TAB CHEW SCH (09:00)
[2017-01-29] MEDS: glipiZIDE 10 MG TAB PO SCH (09:00)
[2017-01-29] MEDS: DOCUSATE SODIUM 50 MG/SENNA 8.6 MG TAB PO SCH ×2 (09:00→21:00)
[2017-01-29] MEDS: METOLAZONE 5 MG TAB PO SCH (09:00)
[2017-01-29] MEDS: VENLAFAXINE HCL XR 75 MG CAP PO SCH (09:00)
[2017-01-29] MEDS: SODIUM CHLORIDE 0.9% FLUSH 10 ML FLUSH SCH ×2 (09:00→21:31)
[2017-01-29] MEDS: FUROSEMIDE 40 MG TAB PO SCH (09:00)
[2017-01-29] MEDS: PRAVASTATIN SOD 80 MG TAB PO SCH (09:00)
[2017-01-29] MEDS: CLOPIDOGREL 75 MG TAB PO SCH (09:00)
[2017-01-29] MEDS: BUDESONIDE-FORMOTEROL 160/4.5 MCG INHALER INH SCH ×2 (10:22→21:31)
[2017-01-29] MEDS ORDERED: POTASSIUM CHLORIDE 10 MEQ CONTROLLED RELEASE TAB PO ONE (13:00)
--- NOTE | 2017-01-29 13:20 | PD.CARD.PN ---
Subjective Subjective Remarks alert in nad, denies chest pain Objective Vital Signs / I&O Vital Signs Date Time Temp Pulse Resp B/P (MAP) Pulse Ox O2 Delivery O2 Flow Rate FiO2 01/29/17 10:00 60 01/29/17 08:48 94 High Flow Nasal Cannula 25.00 80 01/29/17 08:00 91 Nasal Cannula 80 01/29/17 08:00 64 01/29/17 08:00 98.8 64 25 147/70 (95) 94 01/29/17 06:00 55 01/29/17 04:39 92 High Flow Nasal Cannula 35.00 80 01/29/17 04:00 57 01/29/17 04:00 98.0 57 26 140/63 (88) 87 01/29/17 04:00 92 Nasal Cannula 85 01/29/17 02:00 59 01/29/17 00:00 51 01/29/17 00:00 98.1 51 22 119/66 (83) 93 01/29/17 00:00 93 Bi-Pap 60 01/28/17 22:00 60 01/28/17 21:52 93 Bi-Pap 60 01/28/17 21:14 93 60 01/28/17 21:14 93 High Flow Nasal Cannula 40.00 85 01/28/17 20:00 Nasal Cannula 85 01/28/17 20:00 97.9 66 25 141/65 (90) 92 01/28/17 20:00 66 01/28/17 18:00 61 01/28/17 16:05 93 High Flow Nasal Cannula 40.00 85 01/28/17 16:00 91 Nasal Cannula 85 01/28/17 16:00 72 01/28/17 16:00 98.0 72 21 134/98 (110) 95 01/28/17 14:00 65 I/O 01/28/17 01/28/17 01/28/17 01/29/17 01/29/17 01/29/17 07:00 15:00 23:00 07:00 15:00 23:00 Intake Total 350 ml 250 ml 780 ml Output Total 900 ml 1100 ml 675 ml Balance -550 ml 250 ml -1100 ml 105 ml Intake Oral 480 ml IV Total 350 ml 250 ml 300 ml Output Urine Total 900 ml 1100 ml 675 ml Stool Total 0 ml # Bowel Movements 1 Laboratory GENERAL: SKIN: Warm and dry. HEAD: Normocephalic. EYES: No scleral icterus. No injection or drainage. NECK: Supple, trachea midline. No JVD or lymphadenopathy. CARDIOVASCULAR: Regular rate and rhythm without murmurs, gallops, or rubs. RESPIRATORY: Breath sounds equal bilaterally. No accessory muscle use. GASTROINTESTINAL: Abdomen soft, non-tender, nondistended. MUSCULOSKELETAL: No cyanosis, or edema. BACK: Nontender without obvious deformity. No CVA tenderness. Laboratory Tests Test 01/28/17 19:08 01/29/17 04:24 01/29/17 12:30 Potassium Level 3.1 MEQ/L 3.2 MEQ/L Assessment and Plan Problem List: (1) NSTEMI (non-ST elevated myocardial infarction) ICD Codes: I21.4 - Non-ST elevation (NSTEMI) myocardial infarction (2) Respiratory failure ICD Codes: J96.90 - Respiratory failure, unspecified, unspecified whether with hypoxia or hypercapnia Status: Acute (3) Hypoxia ICD Codes: R09.02 - Hypoxemia Status: Acute (4) Diabetes 1.5, managed as type 2 ICD Codes: E13.9 - Other specified diabetes mellitus without complications Status: Acute (5) Diastolic CHF ICD Codes: I50.30 - Unspecified diastolic (congestive) heart failure Status: Acute (6) COPD exacerbation ICD Codes: J44.1 - Chronic obstructive pulmonary disease with (acute) exacerbation Status: Acute (7) Respiratory acidosis ICD Codes: E87.2 - Acidosis Status: Acute Assessment and Plan 1.) NSTEMI - clinically improving, suspect trop elevation due to global hypoxia due to respiratory failure, continue dapt, lopressor, pravastatin, norvasc, consider meseret based on trends in renal function, f/u bnp/bmp in am Jhony Goldman MD Jan 29, 2017 13:20
--- NOTE | 2017-01-29 14:41 | HHI.PR ---
Subjective Subjective Remarks Resting in bed with elevated 70 Currently on oxygen per nasal cannula at 6 L, tolerating fairly well, BiPAP machine at her bedside Still be and monitored intensively for her respiratory status Awake responsive (Analy Sharp) Review of Systems Constitutional Constitutional: Fatigue, Weakness Constitutional Remarks 10 point limited (Analy Sharp) Pulmonary Respiratory: Shortness of Breath (Analy Sharp) Genitourinary Remarks Cordoba catheter with clear yellow urine (Analy Sharp) Musculoskeletal MS Remarks Morbid obesity (Analy Sharp) Psychiatric Psychiatric: Normal Mood (Analy Sharp) Vitals/Results Vital Signs Vital Signs Date Time Temp Pulse Resp B/P (MAP) Pulse Ox O2 Delivery O2 Flow Rate FiO2 01/29/17 10:00 60 01/29/17 08:48 94 High Flow Nasal Cannula 25.00 80 01/29/17 08:00 91 Nasal Cannula 80 01/29/17 08:00 64 01/29/17 08:00 98.8 64 25 147/70 (95) 94 01/29/17 06:00 55 01/29/17 04:39 92 High Flow Nasal Cannula 35.00 80 01/29/17 04:00 57 01/29/17 04:00 98.0 57 26 140/63 (88) 87 01/29/17 04:00 92 Nasal Cannula 85 01/29/17 02:00 59 01/29/17 00:00 51 01/29/17 00:00 98.1 51 22 119/66 (83) 93 01/29/17 00:00 93 Bi-Pap 60 01/28/17 22:00 60 01/28/17 21:52 93 Bi-Pap 60 01/28/17 21:14 93 60 01/28/17 21:14 93 High Flow Nasal Cannula 40.00 85 01/28/17 20:00 Nasal Cannula 85 01/28/17 20:00 97.9 66 25 141/65 (90) 92 01/28/17 20:00 66 01/28/17 18:00 61 01/28/17 16:05 93 High Flow Nasal Cannula 40.00 85 01/28/17 16:00 91 Nasal Cannula 85 01/28/17 16:00 72 01/28/17 16:00 98.0 72 21 134/98 (110) 95 (Ciarra Sharpan M. RUBBER CUTTER AND SHAPE CARVER) CBC/BMP: 01/28/17 0443 01/29/17 1230 Lab Results Laboratory Tests Test 01/28/17 19:08 01/29/17 04:24 01/29/17 12:30 Potassium Level 3.1 MEQ/L 3.2 MEQ/L 3.7 MEQ/L B-Type Natriuretic Peptide 52 PG/ML Imaging Remarks Last Impressions Chest X-Ray 01/27/17 0600 Signed Impressions: Service Date/Time: Sunday, January 27, 2017 03:49 - CONCLUSION: Normal examination with borderline cardiomegaly. Foster Hutchins MD (AronAnaly M. RU[employer] C[employer] AND SHAPE [employer]VER) Physical Exam General General Appearance: Well Developed, Well Nourished, Anxious, Obese (Aron,Analy M. RUBB[employer] C[employer]) Eyes Eye Exam: Pupils Equal, Sclera White (AronAnaly M. RUBB[employer] C[employer]TER AND SHAPE [employer]VER) Ears & Nose Ears & Nose Exam: Nasal Mucosa [place] (AronAnaly M. RU[employer] C[employer] SH[employer]VER) Throat Throat Exam: Oral Mucosa [place] & Moist (Aron,Analy M. RUBB[employer] C[employer]TER [employer] SHAPE [employer]VER) Neck Neck Exam: Neck Supple, Trachea Midline ([place] M. RUBB[employer] C[employer]TER AND SHAPE [employer]VER) Pulmonary Resp Exam: Decreased Bases, Diminished Breath Sounds (Aron,Analy M. RUBB[employer] C[employer] SHAPE [employer]VER) Cardiology CV Exam: Irregular (AronAnaly M. RU[employer] C[employer] SHAPE [employer]) Gastrointestinal/Abdomen GI Exam: Soft, Non-Tender, Bowel Sounds Present (Aron,Analy M. RU[employer] C[employer] SHAPE [employer]) Extremeties Extremities Exam: Moderate Edema (AronAnaly M. RU[employer] C[employer] SH[employer]) Neurologic Neuro Exam: Alert, Awake, Moving All Extremities (Aron,Analy M. RUBB[employer] CUT[employer] SHAPE [employer]) VTE Prophylaxis VTE Prophylaxis Meds: Heparin ([place] M. [employer] C[employer]) PUD Prophylasis PUD Prophylaxis: Zantac (AronAnaly M. RU[employer] C[employer]) Assessment/Plan Problem List: (1) Acute respiratory failure ICD Codes: J96.00 - Acute respiratory failure, unspecified whether with hypoxia or hypercapnia (2) Acute exacerbation of chronic obstructive pulmonary disease (COPD) ICD Codes: J44.1 - Chronic obstructive pulmonary disease with (acute) exacerbation Status: Acute (3) Encephalopathy ICD Codes: G93.40 - Encephalopathy, unspecified (4) Hypertension ICD Codes: I10 - Essential (primary) hypertension (5) Chronic diastolic CHF (congestive heart failure) ICD Codes: I50.32 - Chronic diastolic (congestive) heart failure (6) Hyperlipidemia ICD Codes: E78.5 - Hyperlipidemia, unspecified (7) Atrial fibrillation ICD Codes: I48.91 - Atrial fibrillation Status: Acute (8) Diabetes mellitus ICD Codes: E11.9 - Diabetes mellitus Status: Acute Assessment/Plan Vital signs reviewed, heart rate 55-57 lowest counts seen, respiratory rate low volumes 26/m or less, compensated Labs reviewed, hypokalemia treated with 40 mEq of potassium 1, recheck potassium in the morning Acute respiratory failure: Secondary to COPD exacerbation. Patient is on weaning trials, O2 per nasal cannula at 6 L, BiPAP alternating for hypoxia, weakness Appreciate pulmonary input, duo, steroid therapy, nebs, antibiotic therapy, so far blood cultures are negative, morbid obesity contributed to her pulmonary failure UTI Antibiotic therapy, Cordoba catheter still intact, we will look at discontinuing Cordoba tomorrow or very soon, when stable from respiratory status Positive Klebsiella Chronic diastolic CHF, appreciate cardiology input, patient had global hypoxia , non-STEMI, continue diuresis Depression Effexor, medical management CAD, history of paroxysmal atrial fibrillation Continue aspirin, Plavix, statin, beta diana Hypertension Stable trends for now Hyperlipidemia Medical managed statin. Diabetes mellitus: Accu-Cheks before meals and at bedtime, currently nothing by mouth, continue by mouth meds Januvia and glipizide consult speech therapy for swallow eval PPI prophylaxis with Pepcid DVT prophylaxisis Discussed with PT Discussed with Dr. edmonds, seen on his behalf (Analy Sharp) Assessment/Plan PT IS SEEN & EXAMINED D/W pT [facility] BETTER ,ON HIGH FLOW O2 VIA NC 25LPM/FIO2 80% CONT ABX AEROSOL TC CONT CURRENT TX WILL F/U (Paul Edmonds MD) Analy Sharp Jan 29, 2017 14:41 Paul Edmonds MD Jan 29, 2017 17:08
[2017-01-29] MEDS: hydrALAZINE HCL 20 MG/ML VIAL IV PUSH PRN (16:11)
--- NOTE | 2017-01-29 18:55 | HHI.PR ---
Subjective Remarks Pt is alert and seems better today.0n o2 with high flow at 80 % Leg swelling is less.Used Bipap at HS Objective Vital Signs Date Time Temp Pulse Resp B/P (MAP) Pulse Ox O2 Delivery O2 Flow Rate FiO2 01/29/17 18:00 97 01/29/17 16:00 91 Nasal Cannula 80 01/29/17 16:00 98.2 77 29 159/82 (107) 88 01/29/17 16:00 77 01/29/17 14:00 67 01/29/17 12:00 92 Nasal Cannula 80 01/29/17 12:00 98.3 64 29 143/63 (89) 94 01/29/17 12:00 64 01/29/17 10:00 60 01/29/17 08:48 94 High Flow Nasal Cannula 25.00 80 01/29/17 08:00 91 Nasal Cannula 80 01/29/17 08:00 64 01/29/17 08:00 98.8 64 25 147/70 (95) 94 01/29/17 06:00 55 01/29/17 04:39 92 High Flow Nasal Cannula 35.00 80 01/29/17 04:00 57 01/29/17 04:00 98.0 57 26 140/63 (88) 87 01/29/17 04:00 92 Nasal Cannula 85 01/29/17 02:00 59 01/29/17 00:00 51 01/29/17 00:00 98.1 51 22 119/66 (83) 93 01/29/17 00:00 93 Bi-Pap 60 01/28/17 22:00 60 01/28/17 21:52 93 Bi-Pap 60 01/28/17 21:14 93 60 01/28/17 21:14 93 High Flow Nasal Cannula 40.00 85 01/28/17 20:00 Nasal Cannula 85 01/28/17 20:00 97.9 66 25 141/65 (90) 92 01/28/17 20:00 66 I/O 01/28/17 01/28/17 01/28/17 01/29/17 01/29/17 01/29/17 07:00 15:00 23:00 07:00 15:00 23:00 Intake Total 350 ml 250 ml 780 ml 50 ml 400 ml Output Total 900 ml 1100 ml 675 ml 700 ml Balance -550 ml 250 ml -1100 ml 105 ml 50 ml -300 ml Intake Oral 480 ml 150 ml Oral Supplement 200 ml IV Total 350 ml 250 ml 300 ml 50 ml 50 ml Output Urine Total 900 ml 1100 ml 675 ml 700 ml Stool Total 0 ml # Bowel Movements 1 2 Result Diagram: 01/28/17 0443 01/29/17 1230 Objective Remarks GENERAL: This is a well-nourished, well-developed patient, in no apparent distress. CARDIOVASCULAR: Irregular rate and rhythm without murmurs, gallops, or rubs. RESPIRATORY: Diffuse expiratory wheezes, diminish breath sounds bilaterally.Occ basal Crackles. GASTROINTESTINAL: Abdomen soft, non-tender,nondistended. Normal active bowel sounds MUSCULOSKELETAL: Extremities without clubbing, cyanosis, but has 1 + edema. NEURO: Alert & Oriented x4 to person, place, time, situation. Moves all ext x4 Assessment and Plan Assessment and Plan Respiratory failure - COPD exacerbation - IV Solumedrol 40 mg bid - Face mask BiPAP 12/6 , FIO2 40 % - DuoNeb qid and PRN - Cont Empiric antibiotics - Symbicort 160/4.5 mcg , 2puffs bid CHF - Continue gentle diuresis Depression -Venlafaxine Coronary artery disease - Aspirin - Plavix Paroxysmal atrial fibrillation - Metoprolol Hypertension - Metoprolol - Norvasc Dyslipidemia - Atorvastatin Diabetes mellitus - Glipizide - Januvia - Insulin sliding scale Alvaro Nation MD Jan 29, 2017 18:55
[2017-01-29] MEDS: AZITHROMYCIN INJ 500 MG in SODIUM CHLOR 0.9% 250 ML INJ 250 ML IV SCH (21:29)
[2017-01-30] VITALS (17 sets, daily range): BP systolic 151–181; BP diastolic 76–105; PULSE 50–76; RESP 22–31; TEMP 98–98.4; O2SAT 86–93
[2017-01-30] MEDS: PIPERACIL-TAZO 3.375 GM PREMIX 50 ML IV SCH ×4 (00:52→16:12)
[2017-01-30] MEDS: RESP: ALBUTEROL 2.5 MG/IPRATROPIUM 0.5 MG NEB (SCH) NEB ×4 (03:18→21:28)
[2017-01-30] MEDS: CHLORHEXIDINE GLUCONATE 2 % 1 PACK (2 CLOTHS) TOP SCH (04:00)
--- NOTE | 2017-01-30 04:31 | RADRPT ---
EXAM DATE/TIME: 01/30/2017 03:30 [facility] COMPARISON: CHEST SINGLE AP, January 27, 2017, 3:49. INDICATIONS : Short of breath. MEDICAL HISTORY : Hypertension. Cardiovascular disease. Renal failure, chronic. SURGICAL HISTORY : None. ENCOUNTER: Subsequent ACUITY: 4 - 6 days PAIN SCORE: 0/10 LOCATION: Bilateral chest FINDINGS: Portable AP view of the chest demonstrates a normal-sized cardiac silhouette. There is left basilar p leural-parenchymal opacity, increased from the prior study. No pneumothorax is visualized. There is m ild atelectasis at the right base. CONCLUSION: Increased left basilar opacity likely representing either atelectasis, consolidation, and/or pleural effusion. Stephan Manzo MD on January 30, 2017 at 4:29 Board Certified Radiologist. This report was verified electronically.
[2017-01-30] MEDS: methylPREDNISolone SOD SUCC 40 MG/1 ML VIAL IV PUSH SCH ×3 (05:05→20:21)
[2017-01-30] MEDS: HEPARIN SODIUM - SQ 10,000 UNITS/ML VIAL SQ SCH ×3 (05:06→20:21)
[2017-01-30] MEDS: POTASSIUM CHLORIDE 20 MEQ CONTROLLED RELEASE TAB PO SCH ×4 (05:06→16:12)
[2017-01-30] MEDS: INSULIN ASPART SUPPLEMENTAL SCALE SQ SCH ×4 (06:46→20:22)
[2017-01-30 07:46] LABS: BICARBONATE 36.7 MEQ/L (21.0-32.0)
[2017-01-30 08:01] LABS: POTASSIUM 3.2 MEQ/L (3.5-5.1)
[2017-01-30] MEDS: PRAVASTATIN SOD 80 MG TAB PO SCH (08:29)
[2017-01-30] MEDS: METOPROLOL TARTRATE 50 MG TAB PO SCH ×2 (08:29→20:21)
[2017-01-30] MEDS: METOLAZONE 5 MG TAB PO SCH (08:29)
[2017-01-30] MEDS: ASPIRIN 81 MG CHEW TAB CHEW SCH (08:29)
[2017-01-30] MEDS: FAMOTIDINE 20 MG TAB PO SCH (08:29)
[2017-01-30] MEDS: VENLAFAXINE HCL XR 75 MG CAP PO SCH (08:29)
[2017-01-30] MEDS: FUROSEMIDE 40 MG TAB PO SCH (08:30)
[2017-01-30] MEDS: CLOPIDOGREL 75 MG TAB PO SCH (08:30)
[2017-01-30] MEDS: BUDESONIDE-FORMOTEROL 160/4.5 MCG INHALER INH SCH ×2 (08:30→20:21)
[2017-01-30] MEDS: SODIUM CHLORIDE 0.9% FLUSH 10 ML FLUSH SCH ×2 (08:30→20:21)
[2017-01-30] MEDS: DOCUSATE SODIUM 50 MG/SENNA 8.6 MG TAB PO SCH ×2 (08:30→20:22)
[2017-01-30] MEDS: glipiZIDE 10 MG TAB PO SCH (08:30)
[2017-01-30] MEDS: POTASSIUM CHLOR 20 MEQ PREMIX 100 ML IV PRN ×4 (08:42→17:13)
--- NOTE | 2017-01-30 13:07 | PD.CARD.PN ---
Subjective Subjective Remarks alert in nad Objective Vital Signs / I&O Vital Signs Date Time Temp Pulse Resp B/P (MAP) Pulse Ox O2 Delivery O2 Flow Rate FiO2 01/30/17 12:00 98.0 51 27 170/78 (108) 87 01/30/17 12:00 89 Nasal Cannula 70 01/30/17 12:00 52 01/30/17 10:00 50 01/30/17 08:00 76 01/30/17 08:00 98.1 76 22 167/86 (113) 88 01/30/17 08:00 88 Nasal Cannula 70 01/30/17 07:57 88 High Flow Nasal Cannula 30.00 70 01/30/17 06:49 91 High Flow Nasal Cannula 30.00 65 01/30/17 06:00 63 01/30/17 04:00 98.3 64 22 151/76 (101) 90 01/30/17 04:00 64 01/30/17 04:00 90 Nasal Cannula 70 01/30/17 03:30 91 High Flow Nasal Cannula 30.00 70 01/30/17 02:00 66 01/30/17 00:00 98.2 76 24 181/105 (130) 89 01/30/17 00:00 89 Nasal Cannula 80 01/30/17 00:00 76 01/29/17 22:00 66 01/29/17 20:29 91 High Flow Nasal Cannula 30.00 80 01/29/17 20:00 92 01/29/17 20:00 88 Nasal Cannula 80 01/29/17 20:00 98.3 92 27 164/115 (131) 88 01/29/17 18:00 97 01/29/17 16:00 91 Nasal Cannula 80 01/29/17 16:00 98.2 77 29 159/82 (107) 88 01/29/17 16:00 77 01/29/17 14:00 67 I/O 01/29/17 01/29/17 01/29/17 01/30/17 01/30/17 01/30/17 06:59 14:59 22:59 06:59 14:59 22:59 Intake Total 780 ml 50 ml 650 ml 50 ml 150 ml Output Total 675 ml 700 ml 550 ml Balance 105 ml 50 ml -50 ml -500 ml 150 ml Intake Oral 480 ml 150 ml Oral Supplement 200 ml IV Total 300 ml 50 ml 300 ml 50 ml 150 ml Output Urine Total 675 ml 700 ml 550 ml # Bowel Movements 1 2 Laboratory GENERAL: SKIN: Warm and dry. HEAD: Normocephalic. EYES: No scleral icterus. No injection or drainage. NECK: Supple, trachea midline. No JVD or lymphadenopathy. CARDIOVASCULAR: Regular rate and rhythm without murmurs, gallops, or rubs. RESPIRATORY: Breath sounds equal bilaterally. No accessory muscle use. GASTROINTESTINAL: Abdomen soft, non-tender, nondistended. MUSCULOSKELETAL: No cyanosis, or edema. BACK: Nontender without obvious deformity. No CVA tenderness. Laboratory Tests Test 01/30/17 05:41 Blood Urea Nitrogen 62 MG/DL Creatinine 1.79 MG/DL Random Glucose 181 MG/DL Calcium Level 9.2 MG/DL Magnesium Level 2.0 MG/DL Sodium Level 145 MEQ/L Potassium Level 3.2 MEQ/L Chloride Level 95 MEQ/L Carbon Dioxide Level 36.7 MEQ/L Anion Gap 13 MEQ/L Estimat Glomerular Filtration Rate 28 ML/MIN B-Type Natriuretic Peptide 60 PG/ML Assessment and Plan Problem List: (1) NSTEMI (non-ST elevated myocardial infarction) ICD Codes: I21.4 - Non-ST elevation (NSTEMI) myocardial infarction (2) Respiratory failure ICD Codes: J96.90 - Respiratory failure, unspecified, unspecified whether with hypoxia or hypercapnia Status: Acute (3) Hypoxia ICD Codes: R09.02 - Hypoxemia Status: Acute (4) Diabetes 1.5, managed as type 2 ICD Codes: E13.9 - Other specified diabetes mellitus without complications Status: Acute (5) Diastolic CHF ICD Codes: I50.30 - Unspecified diastolic (congestive) heart failure Status: Acute (6) COPD exacerbation ICD Codes: J44.1 - Chronic obstructive pulmonary disease with (acute) exacerbation Status: Acute (7) Respiratory acidosis ICD Codes: E87.2 - Acidosis Status: Acute Assessment and Plan 1.) NSTEMI - clinically improving, suspect trop elevation due to global hypoxia due to respiratory failure, continue dapt, lopressor, pravastatin, norvasc, consider meseret based on trends in renal function, bnp =50, euvolemic Jhony Goldman MD Jan 30, 2017 13:07
--- NOTE | 2017-01-30 14:10 | HHI.PR ---
Subjective Subjective Remarks Patient awake Attempting to eat pured food and thickened liquids, still has active cough noted Working with speech therapy with swallow and precautions O2 high flow, tolerating well (Analy Sharp) Review of Systems Constitutional Constitutional: Fatigue, Weakness Constitutional Remarks 10 point limited (Analy Sharp) Throat Throat Remarks Some upper airway congestion (Analy Sharp) Pulmonary Respiratory: Shortness of Breath (Analy Sharp) GI/Abdomen GI/Abdomen Remarks Morbid obesity (Analy Sharp) Genitourinary Remarks Cordoba catheter with clear yellow urine (Analy Sharp) Musculoskeletal MS: Weakness MS Remarks Morbid obesity (Analy Sharp) Psychiatric Psychiatric: Normal Mood (Analy Sharp) Vitals/Results Intake & Output 01/30/17 01/30/17 01/31/17 15:00 23:00 07:00 Intake Total 150 ml Balance 150 ml IV Total 150 ml Vital Signs Vital Signs Date Time Temp Pulse Resp B/P (MAP) Pulse Ox O2 Delivery O2 Flow Rate FiO2 01/30/17 12:00 98.0 51 27 170/78 (108) 87 01/30/17 12:00 89 Nasal Cannula 70 01/30/17 12:00 52 01/30/17 10:00 50 01/30/17 08:00 76 01/30/17 08:00 98.1 76 22 167/86 (113) 88 01/30/17 08:00 88 Nasal Cannula 70 01/30/17 07:57 88 High Flow Nasal Cannula 30.00 70 01/30/17 06:49 91 High Flow Nasal Cannula 30.00 65 01/30/17 06:00 63 01/30/17 04:00 98.3 64 22 151/76 (101) 90 01/30/17 04:00 64 01/30/17 04:00 90 Nasal Cannula 70 01/30/17 03:30 91 High Flow Nasal Cannula 30.00 70 01/30/17 02:00 66 01/30/17 00:00 98.2 76 24 181/105 (130) 89 01/30/17 00:00 89 Nasal Cannula 80 01/30/17 00:00 76 01/29/17 22:00 66 01/29/17 20:29 91 High Flow Nasal Cannula 30.00 80 01/29/17 20:00 92 01/29/17 20:00 88 Nasal Cannula 80 01/29/17 20:00 98.3 92 27 164/115 (131) 88 01/29/17 18:00 97 01/29/17 16:00 91 Nasal Cannula 80 01/29/17 16:00 98.2 77 29 159/82 (107) 88 01/29/17 16:00 77 (Analy Sharp) CBC/BMP: 01/28/17 0443 01/30/17 0541 Lab Results Laboratory Tests Test 01/30/17 05:41 Blood Urea Nitrogen 62 MG/DL Creatinine 1.79 MG/DL Random Glucose 181 MG/DL Calcium Level 9.2 MG/DL Magnesium Level 2.0 MG/DL Sodium Level 145 MEQ/L Potassium Level 3.2 MEQ/L Chloride Level 95 MEQ/L Carbon Dioxide Level 36.7 MEQ/L Anion Gap 13 MEQ/L Estimat Glomerular Filtration Rate 28 ML/MIN B-Type Natriuretic Peptide 60 PG/ML Imaging Remarks Last Impressions Chest X-Ray 01/30/17 0600 Signed Impressions: Service Date/Time: Monday, January 30, 2017 03:30 - CONCLUSION: Increased left basilar opacity likely representing either atelectasis, consolidation, and/or pleural effusion. Stephan Manzo MD (Analy Sharp) Physical Exam General General Appearance: Well Developed, Well Nourished, Anxious, Obese (morbid) (Analy Sharp) Eyes Eye Exam: Pupils Equal, Pupils Reactive, Sclera White (Analy Sharp) Ears & Nose Ears & Nose Exam: Nasal Mucosa [place] (Analy Sharp) Throat Throat Exam: Oral Mucosa [place] & Moist (pale pale) (Analy Sharp) Neck Neck Exam: Neck Supple, Trachea Midline (Analy Sharp) Pulmonary Resp Exam: Rhonchi (noted with cough), Decreased Bases, Diminished Breath Sounds, Poor Inspiratory Effort (volumes low to mid range requiring high flow O2 ) (Aron,Analy M. DIE CASTING MACHINE SETTER) Cardiology CV Exam: Irregular CV Remarks Heart rate controlled ([place]iar[place] M. DIE CASTING MACHINE SETTER) Gastrointestinal/Abdomen GI Exam: Soft, Non-Tender, Bowel Sounds Present GI Remarks Morbidly obese abdomen ([place],Analy M. DIE CASTING MACHINE SETTER) Genitourinary Remarks Cordoba catheter (Aron,Analy M. DIE CASTING MACHINE SETTER) Musculoskeletal MS Remarks Trunk and abdomen morbidly obese, some muscular wasting in extremities ([place],Susan M. DIE CASTING MACHINE SETTER) Integumentary Skin Exam: Warm, Dry ([place] M. DIE CASTING MACHINE SETTER) Extremeties Extremities Exam: Moderate Edema Extremeties Remarks Generalized and lower extremity (Aron,Analy M. DIE CASTING MACHINE SETTER) Neurologic Neuro Exam: Alert, Awake, Moving All Extremities (Aron,Analy M. DIE CASTING MACHINE SETTER) VTE Prophylaxis VTE Prophylaxis Meds: Heparin ([place],Analy M. DIE CASTING MACHINE SETTER) PUD Prophylasis PUD Prophylaxis: Zantac (AronAnaly M. DIE CASTING MACHINE SETTER) Assessment/Plan Problem List: (1) Acute respiratory failure ICD Codes: J96.00 - Acute respiratory failure, unspecified whether with hypoxia or hypercapnia (2) Acute exacerbation of chronic obstructive pulmonary disease (COPD) ICD Codes: J44.1 - Chronic obstructive pulmonary disease with (acute) exacerbation Status: Acute (3) Encephalopathy ICD Codes: G93.40 - Encephalopathy, unspecified (4) Hypertension ICD Codes: I10 - Essential (primary) hypertension (5) Chronic diastolic CHF (congestive heart failure) ICD Codes: I50.32 - Chronic diastolic (congestive) heart failure (6) Hyperlipidemia ICD Codes: E78.5 - Hyperlipidemia, unspecified (7) Atrial fibrillation ICD Codes: I48.91 - Atrial fibrillation Status: Acute (8) Diabetes mellitus ICD Codes: E11.9 - Diabetes mellitus Status: Acute Assessment/Plan Acute respiratory failure: Secondary to COPD exacerbation. Probable secondary to aspiration Patient now tolerating nasal cannula all day at 70%, patient is attempting to eat. Sitting up in bed head elevated 90. Working with speech therapy this a.m. Appreciate pulmonary input, duo, steroid therapy, nebs, antibiotic therapy, so far blood cultures are negative, Hypokalemia, received potassium supplements, will recheck labs in the morning UTI Antibiotic therapy, Cord[place] catheter bedside drainage, consider DC tomorrow when activity can be increased, and oxygen can be weaned Positive Klebsiella Chronic diastolic CHF, appreciate cardiology input, patient had global hypoxia , non-STEMI, continue diuresis Depression Effexor, medical management CAD, history of paroxysmal atrial fibrillation Medical management, heart rate controlled Hypertension Stable trends for now Hyperlipidemia Medical managed with statin. Diabetes mellitus: Accu-Cheks before meals and at hs time, currently nothing by mouth, continue by mouth meds Januvia and glipizide consult speech therapy for swallow therapy, eval and treat PPI prophylaxis with Pepcid DVT prophylaxisis slow gradual improvement, but still concerned with her cough and high risk for aspiration. May need a palliative care consult in the future if she continues to return with aspiration. Discussed with nurse, Discussed with patient Discussed with Dr. edmonds, seen on his behalf, pulmonary status much more stable may transition out of unit soon (Analy Sharp) Assessment/Plan pt is seen & examined d/w PT & her friend at bedside IV abx steroids HFNC , fio2 70%,30 LPM ELECTRIC OPERATOR input noted , puree diet/necter thick liquid cont current tx will f/u (Paul Edmonds MD) Analy Sharp Jan 30, 2017 14:10 Paul Edmonds MD Jan 30, 2017 17:13
[2017-01-30] MEDS: AZITHROMYCIN INJ 500 MG in SODIUM CHLOR 0.9% 250 ML INJ 250 ML IV SCH (20:21)
[2017-01-31] VITALS (15 sets, daily range): BP systolic 147–168; BP diastolic 63–79; PULSE 47–64; RESP 20–31; TEMP 98.1–98.4; O2SAT 87–96
[2017-01-31] MEDS: POTASSIUM CHLORIDE 20 MEQ CONTROLLED RELEASE TAB PO SCH ×2 (00:50→05:21)
[2017-01-31] MEDS: PIPERACIL-TAZO 3.375 GM PREMIX 50 ML IV SCH ×3 (00:50→10:46)
[2017-01-31] MEDS: CHLORHEXIDINE GLUCONATE 2 % 1 PACK (2 CLOTHS) TOP SCH (04:00)
[2017-01-31] MEDS: HEPARIN SODIUM - SQ 10,000 UNITS/ML VIAL SQ SCH ×3 (05:21→20:32)
[2017-01-31] MEDS: methylPREDNISolone SOD SUCC 40 MG/1 ML VIAL IV PUSH SCH ×2 (05:21→14:47)
[2017-01-31] MEDS: INSULIN ASPART SUPPLEMENTAL SCALE SQ SCH ×4 (05:22→20:33)
[2017-01-31 07:26] LABS: HEMATOCRIT 45.3 % (35.0-46.0); MEAN CELL VOLUME 82.2 FL (80.0-100.0); MEAN CORPUSCULAR HEMOGLOBIN 25.7 PG (27.0-34.0); MEAN CORPUSCULAR HGB CONC 31.3 % (32.0-36.0); PLATELET COUNT 200 TH/MM3 (150-450); RED BLOOD COUNT 5.51 MIL/MM3 (4.00-5.30); RED CELL DISTRIBUTION WIDTH 19.7 % (11.6-17.2); REVIEW FLAG FINAL; WHITE BLOOD COUNT 11.2 TH/MM3 (4.0-11.0)
[2017-01-31 07:40] LABS: POTASSIUM 3.8 MEQ/L (3.5-5.1)
[2017-01-31] MEDS: DOCUSATE SODIUM 50 MG/SENNA 8.6 MG TAB PO SCH ×2 (09:00→20:33)
[2017-01-31] MEDS: CLOPIDOGREL 75 MG TAB PO SCH (09:24)
[2017-01-31] MEDS: METOLAZONE 5 MG TAB PO SCH (09:24)
[2017-01-31] MEDS: PRAVASTATIN SOD 80 MG TAB PO SCH (09:24)
[2017-01-31] MEDS: glipiZIDE 10 MG TAB PO SCH (09:24)
[2017-01-31] MEDS: FUROSEMIDE 40 MG TAB PO SCH (09:24)
[2017-01-31] MEDS: ASPIRIN 81 MG CHEW TAB CHEW SCH (09:24)
[2017-01-31] MEDS: VENLAFAXINE HCL XR 75 MG CAP PO SCH (09:24)
[2017-01-31] MEDS: FAMOTIDINE 20 MG TAB PO SCH (09:24)
[2017-01-31] MEDS: METOPROLOL TARTRATE 50 MG TAB PO SCH ×2 (09:25→20:32)
[2017-01-31] MEDS: BUDESONIDE-FORMOTEROL 160/4.5 MCG INHALER INH SCH ×2 (09:25→20:33)
[2017-01-31] MEDS: SODIUM CHLORIDE 0.9% FLUSH 10 ML FLUSH SCH ×2 (09:25→20:32)
--- NOTE | 2017-01-31 12:41 | PD.CARD.PN ---
Subjective Subjective Remarks asleep in nad Objective Vital Signs / I&O Vital Signs Date Time Temp Pulse Resp B/P (MAP) Pulse Ox O2 Delivery O2 Flow Rate FiO2 01/31/17 08:55 96 Nasal Cannula 6.00 01/31/17 08:00 98.1 62 21 162/74 (103) 94 01/31/17 08:00 62 01/31/17 08:00 95 Nasal Cannula 6.00 01/31/17 07:38 94 Nasal Cannula 6.00 01/31/17 06:00 54 01/31/17 05:43 87 Nasal Cannula 40 01/31/17 05:37 92 High Flow Nasal Cannula 20.00 40 01/31/17 04:00 87 Nasal Cannula 60 01/31/17 04:00 98.4 62 31 168/73 (104) 87 01/31/17 04:00 62 01/31/17 02:00 58 01/31/17 00:00 92 Nasal Cannula 60 01/31/17 00:00 56 01/31/17 00:00 98.2 56 20 151/79 (103) 87 01/30/17 22:00 91 Nasal Cannula 60 01/30/17 22:00 61 01/30/17 21:27 93 High Flow Nasal Cannula 25.00 65 01/30/17 20:00 74 01/30/17 20:00 90 Nasal Cannula 65 01/30/17 20:00 98.4 74 31 180/88 (118) 90 01/30/17 18:00 69 01/30/17 16:27 93 High Flow Nasal Cannula 25.00 65 01/30/17 16:00 71 01/30/17 16:00 86 Nasal Cannula 70 01/30/17 16:00 98.0 51 27 170/78 (108) 87 01/30/17 16:00 98.1 71 28 164/82 (109) 86 01/30/17 16:00 89 Nasal Cannula 70 01/30/17 14:00 69 I/O 01/30/17 01/30/17 01/30/17 01/31/17 01/31/17 01/31/17 07:00 15:00 23:00 07:00 15:00 23:00 Intake Total 50 ml 150 ml 1200 ml 50 ml Output Total 550 ml 675 ml 700 ml Balance -500 ml 150 ml 525 ml -650 ml Intake Oral 600 ml IV Total 50 ml 150 ml 600 ml 50 ml Output Urine Total 550 ml 675 ml 700 ml # Bowel Movements 1 2 Laboratory Laboratory Tests Test 01/31/17 00:48 01/31/17 06:53 Potassium Level 3.8 MEQ/L 3.8 MEQ/L White Blood Count 11.2 TH/MM3 Red Blood Count 5.51 MIL/MM3 Hemoglobin 14.2 GM/DL Hematocrit 45.3 % Mean Corpuscular Volume 82.2 FL Mean Corpuscular Hemoglobin 25.7 PG Mean Corpuscular Hemoglobin Concent 31.3 % Red Cell Distribution Width 19.7 % Platelet Count 200 TH/MM3 Mean Platelet Volume 8.1 FL Blood Urea Nitrogen 60 MG/DL Creatinine 1.90 MG/DL Random Glucose 173 MG/DL Calcium Level 9.0 MG/DL Sodium Level 140 MEQ/L Chloride Level 98 MEQ/L Carbon Dioxide Level 33.0 MEQ/L Anion Gap 9 MEQ/L Estimat Glomerular Filtration Rate 26 ML/MIN Assessment and Plan Problem List: (1) NSTEMI (non-ST elevated myocardial infarction) ICD Codes: I21.4 - Non-ST elevation (NSTEMI) myocardial infarction (2) Respiratory failure ICD Codes: J96.90 - Respiratory failure, unspecified, unspecified whether with hypoxia or hypercapnia Status: Acute (3) Hypoxia ICD Codes: R09.02 - Hypoxemia Status: Acute (4) Diabetes 1.5, managed as type 2 ICD Codes: E13.9 - Other specified diabetes mellitus without complications Status: Acute (5) Diastolic CHF ICD Codes: I50.30 - Unspecified diastolic (congestive) heart failure Status: Acute (6) COPD exacerbation ICD Codes: J44.1 - Chronic obstructive pulmonary disease with (acute) exacerbation Status: Acute (7) Respiratory acidosis ICD Codes: E87.2 - Acidosis Status: Acute Assessment and Plan 1.) NSTEMI - clinically improving, suspect trop elevation due to global hypoxia due to respiratory failure, continue dapt, lopressor, pravastatin, norvasc, consider meseret based on trends in renal function, bnp =50, euvolemic, rec decrease diuretics due to arf Jhony Goldman MD Jan 31, 2017 12:41
--- NOTE | 2017-01-31 14:47 | HHI.PR ---
Subjective Subjective Remarks Patient awake Attempting to eat pured food and thickened liquids, still has active cough noted Working with speech therapy with swallow and precautions Currently on oxygen at 3 L nasal cannula ([facility]) Review of Systems Constitutional Constitutional: Fatigue, Weakness Constitutional Remarks 10 point limited (Analy [facility]) Throat Throat Remarks Some upper airway congestion (Analy Sharp) Pulmonary Respiratory: Shortness of Breath (Analy [facility]) GI/Abdomen GI/Abdomen Remarks Morbid obesity (Analy [facility]) Genitourinary Remarks Cordoba catheter with clear yellow urine (Analy Sharp) Musculoskeletal MS: Weakness MS Remarks Morbid obesity (Analy [facility]) Psychiatric Psychiatric: Normal Mood (Analy Sharp) Vitals/Results Vital Signs Vital Signs Date Time Temp Pulse Resp B/P (MAP) Pulse Ox O2 Delivery O2 Flow Rate FiO2 01/31/17 14:00 56 01/31/17 12:00 93 Nasal Cannula 3.00 01/31/17 12:00 98.4 57 22 155/63 (93) 93 01/31/17 12:00 57 01/31/17 10:00 64 01/31/17 08:55 96 Nasal Cannula 6.00 01/31/17 08:00 98.1 62 21 162/74 (103) 94 01/31/17 08:00 62 01/31/17 08:00 95 Nasal Cannula 6.00 01/31/17 07:38 94 Nasal Cannula 6.00 01/31/17 06:00 54 01/31/17 05:43 87 Nasal Cannula 40 01/31/17 05:37 92 High Flow Nasal Cannula 20.00 40 01/31/17 04:00 87 Nasal Cannula 60 01/31/17 04:00 98.4 62 31 168/73 (104) 87 01/31/17 04:00 62 01/31/17 02:00 58 01/31/17 00:00 92 Nasal Cannula 60 01/31/17 00:00 56 01/31/17 00:00 98.2 56 20 151/79 (103) 87 01/30/17 22:00 91 Nasal Cannula 60 01/30/17 22:00 61 01/30/17 21:27 93 High Flow Nasal Cannula 25.00 65 01/30/17 20:00 74 01/30/17 20:00 90 Nasal Cannula 65 01/30/17 20:00 98.4 74 31 180/88 (118) 90 01/30/17 18:00 69 01/30/17 16:27 93 High Flow Nasal Cannula 25.00 65 01/30/17 16:00 71 01/30/17 16:00 86 Nasal Cannula 70 01/30/17 16:00 98.0 51 27 170/78 (108) 87 01/30/17 16:00 98.1 71 28 164/82 (109) 86 01/30/17 16:00 89 Nasal Cannula 70 (Analy Sharp) CBC/BMP: 01/31/17 0653 01/31/17 0653 Lab Results Laboratory Tests Test 01/31/17 00:48 01/31/17 06:53 Potassium Level 3.8 MEQ/L 3.8 MEQ/L White Blood Count 11.2 TH/MM3 Red Blood Count 5.51 MIL/MM3 Hemoglobin 14.2 GM/DL Hematocrit 45.3 % Mean Corpuscular Volume 82.2 FL Mean Corpuscular Hemoglobin 25.7 PG Mean Corpuscular Hemoglobin Concent 31.3 % Red Cell Distribution Width 19.7 % Platelet Count 200 TH/MM3 Mean Platelet Volume 8.1 FL Blood Urea Nitrogen 60 MG/DL Creatinine 1.90 MG/DL Random Glucose 173 MG/DL Calcium Level 9.0 MG/DL Sodium Level 140 MEQ/L Chloride Level 98 MEQ/L Carbon Dioxide Level 33.0 MEQ/L Anion Gap 9 MEQ/L Estimat Glomerular Filtration Rate 26 ML/MIN (Analy Sharp) Physical Exam General General Appearance: Well Developed, Well Nourished, Anxious, Obese (morbid) (Analy Sharp) Eyes Eye Exam: Pupils Equal, Pupils Reactive, Sclera White (Analy Sharp) Ears & Nose Ears & Nose Exam: Nasal Mucosa Slick (Analy Sharp) Throat Throat Exam: Oral Mucosa Slick & Moist (pale pale) (Analy Sharp) Neck Neck Exam: Neck Supple, Trachea Midline ([place] M[employer]ERSONALIZED LIVING MANAGER NURSE) Pulmonary Resp Exam: Rhonchi (noted with cough), Decreased Bases, Diminished Breath Sounds, Poor Inspiratory Effort (volumes low to mid range requiring high flow O2 ) ([place] [employer]ERSON[employer]IZED LIVING MANAGER NURSE) Cardiology CV Exam: Irregular CV Remarks Heart rate controlled ([place] [employer]ERSONALIZED LIVING MANAGER NURSE) Gastrointestinal/Abdomen GI Exam: Soft, Non-Tender, Bowel Sounds Present GI Remarks Morbidly obese abdomen ([place] [employer]ERSONALIZED LIVING MANAGER NURSE) Genitourinary Remarks Cordoba catheter ([place] [employer]ERSONALIZED LIVING MANAGER NURSE) Musculoskeletal MS Remarks Trunk and abdomen morbidly obese, some muscular wasting in extremities ([place] M[employer] PERSONALIZED LIVING MANAGER NURSE) Integumentary Skin Exam: Warm, Dry ([facility] [employer]ERSONALIZED LIVING MANAGER NURSE) Extremeties Extremities Exam: Moderate Edema Extremeties Remarks Generalized and lower extremity ([place] [employer]ERSONALIZED LIVING MANAGER NURSE) Neurologic Neuro Exam: Alert, Awake, Moving All Extremities ([facility] M[employer] PERSONALIZED LIVING MANAGER NURSE) VTE Prophylaxis VTE Prophylaxis Meds: Heparin ([place]ERSONALIZED LIVING MANAGER NURSE) PUD Prophylasis PUD Prophylaxis: Zantac ([place] M[employer] PERSONALIZED LIVING MANAGER NURSE) Assessment/Plan Problem List: (1) Acute respiratory failure ICD Codes: J96.00 - Acute respiratory failure, unspecified whether with hypoxia or hypercapnia (2) Acute exacerbation of chronic obstructive pulmonary disease (COPD) ICD Codes: J44.1 - Chronic obstructive pulmonary disease with (acute) exacerbation Status: Acute (3) Encephalopathy ICD Codes: G93.40 - Encephalopathy, unspecified (4) Hypertension ICD Codes: I10 - Essential (primary) hypertension (5) Chronic diastolic CHF (congestive heart failure) ICD Codes: I50.32 - Chronic diastolic (congestive) heart failure (6) Hyperlipidemia ICD Codes: E78.5 - Hyperlipidemia, unspecified (7) Atrial fibrillation ICD Codes: I48.91 - Atrial fibrillation Status: Acute (8) Diabetes mellitus ICD Codes: E11.9 - Diabetes mellitus Status: Acute Assessment/Plan Vital signs reviewed, normal trends for now Acute respiratory failure: Secondary to COPD exacerbation. Probable secondary to aspiration Patient now tolerating nasal cannula all day at 3 L, patient is attempting to eat. Food and thickened liquids, but still actively coughs with her swallow. Working with speech therapy this a.m. Appreciate pulmonary input, duo, steroid therapy, nebs, antibiotic therapy, so far blood cultures are negative, Hypokalemia, received potassium supplements, potassium now 3.8, continue to monitor UTI Antibiotic therapy, Cordoba catheter DC'd today, patient now tolerating 3 L nasal cannula, will work on increase in activity Positive Klebsiella Chronic diastolic CHF, appreciate cardiology input, patient had global hypoxia , non-STEMI, continue diuresis Depression Effexor, medical management CAD, history of paroxysmal atrial fibrillation Medical management, heart rate controlled Hypertension Stable trends for now Hyperlipidemia Medical managed with statin. Diabetes mellitus: Accu-Cheks before meals and at bedtime, currently nothing by mouth, continue by mouth meds Januvia and glipizide consult speech therapy for swallow therapy, patient has had continued issues with aspiration PPI prophylaxis with Pepcid DVT prophylaxisis slow gradual improvement, but still concerned with her cough and high risk for aspiration. May need a palliative care consult in the future if she continues to return with aspiration. Discussed with nurse, Discussed with patient Discussed with Dr. edmonds, seen on his behalf, pulmonary status much more stable may transition out of unit soon (Analy Sharp) Assessment/Plan pt was seen yesterday afternoon/late entry clinically better/ok to transfer out of [facility] life support issues were d/w pt , she is requesting No life support , R/B were explained , she verbalized , understanding d/w Analy d/w RN see orders will f/u (Paul Edmonds MD) Analy Sharp Jan 31, 2017 14:47 Paul Edmonds MD Feb 01, 2017 10:19
--- NOTE | 2017-01-31 18:14 | HHI.PR ---
Subjective Remarks Pt is alert and seems better today.0n o2 at 3 L. .Used Bipap at HS. Good output. Objective Vital Signs Date Time Temp Pulse Resp B/P (MAP) Pulse Ox O2 Delivery O2 Flow Rate FiO2 01/31/17 16:00 98.1 51 22 147/63 (91) 92 01/31/17 16:00 92 Nasal Cannula 3.00 01/31/17 16:00 51 01/31/17 14:00 56 01/31/17 12:00 93 Nasal Cannula 3.00 01/31/17 12:00 98.4 57 22 155/63 (93) 93 01/31/17 12:00 57 01/31/17 10:00 64 01/31/17 08:55 96 Nasal Cannula 6.00 01/31/17 08:00 98.1 62 21 162/74 (103) 94 01/31/17 08:00 62 01/31/17 08:00 95 Nasal Cannula 6.00 01/31/17 07:38 94 Nasal Cannula 6.00 01/31/17 06:00 54 01/31/17 05:43 87 Nasal Cannula 40 01/31/17 05:37 92 High Flow Nasal Cannula 20.00 40 01/31/17 04:00 87 Nasal Cannula 60 01/31/17 04:00 98.4 62 31 168/73 (104) 87 01/31/17 04:00 62 01/31/17 02:00 58 01/31/17 00:00 92 Nasal Cannula 60 01/31/17 00:00 56 01/31/17 00:00 98.2 56 20 151/79 (103) 87 01/30/17 22:00 91 Nasal Cannula 60 01/30/17 22:00 61 01/30/17 21:27 93 High Flow Nasal Cannula 25.00 65 01/30/17 20:00 74 01/30/17 20:00 90 Nasal Cannula 65 01/30/17 20:00 98.4 74 31 180/88 (118) 90 I/O 01/30/17 01/30/17 01/30/17 01/31/17 01/31/17 01/31/17 07:00 15:00 23:00 07:00 15:00 23:00 Intake Total 50 ml 150 ml 1200 ml 50 ml 50 ml 750 ml Output Total 550 ml 675 ml 700 ml 750 ml Balance -500 ml 150 ml 525 ml -650 ml 50 ml 0 ml Intake Oral 600 ml 750 ml IV Total 50 ml 150 ml 600 ml 50 ml 50 ml Output Urine Total 550 ml 675 ml 700 ml 750 ml # Bowel Movements 1 2 Result Diagram: 01/31/1753 01/31/1753 Objective Remarks GENERAL: This is a well-nourished, well-developed patient, in no apparent distress. CARDIOVASCULAR: Irregular rate and rhythm without murmurs, gallops, or rubs. RESPIRATORY: Diffuse expiratory wheezes, diminished breath sounds bilaterally.Occ basal Crackles. GASTROINTESTINAL: Abdomen soft, non-tender,nondistended. Normal active bowel sounds MUSCULOSKELETAL: Extremities without clubbing, cyanosis, but has 1 + edema. NEURO: Alert & Oriented x4 to person, place, time, situation. Moves all ext x4 Assessment and Plan Assessment and Plan Respiratory failure - COPD exacerbation - IV solumedrol 40 mg bid - Face mask BiPAP at HS - DuoNeb qid and PRN - Cont Empiric antibiotics CHF - Continue gentle diuresis Depression -Venlafaxine Coronary artery disease - Aspirin - Plavix Paroxysmal atrial fibrillation - Metoprolol Hypertension - Metoprolol - Norvasc Dyslipidemia - Atorvastatin Diabetes mellitus - Glipizide - Januvia - Insulin sliding scale Transfer to [facility]. Alvaro Nation MD Jan 31, 2017 18:13
[2017-01-31] MEDS: AMOXICILLIN/CLAVULANATE K 500 MG TAB PO SCH (20:32)
[2017-01-31] MEDS ORDERED: methylPREDNISolone SOD SUCC 40 MG/1 ML VIAL IV PUSH SCH (21:00)
[2017-02-01] VITALS (12 sets, daily range): BP systolic 132–151; BP diastolic 62–75; PULSE 48–55; RESP 17–26; TEMP 97.7–98.9; O2SAT 89–94
[2017-02-01] MEDS: CHLORHEXIDINE GLUCONATE 2 % 1 PACK (2 CLOTHS) TOP SCH (04:00)
[2017-02-01] MEDS: INSULIN ASPART SUPPLEMENTAL SCALE SQ SCH ×4 (05:27→21:00)
[2017-02-01] MEDS: HEPARIN SODIUM - SQ 10,000 UNITS/ML VIAL SQ SCH ×3 (05:27→22:34)
[2017-02-01 06:44] LABS: BICARBONATE 37.4 MEQ/L (21.0-32.0); POTASSIUM 3.8 MEQ/L (3.5-5.1)
--- NOTE | 2017-02-01 09:38 | PD.CARD.PN ---
Subjective Subjective Remarks alert in nad Objective Vital Signs / I&O Vital Signs Date Time Temp Pulse Resp B/P (MAP) Pulse Ox O2 Delivery O2 Flow Rate FiO2 02/01/17 09:20 94 Nasal Cannula 2.00 02/01/17 06:00 52 02/01/17 04:00 93 Nasal Cannula 4.00 02/01/17 04:00 49 02/01/17 04:00 97.9 49 20 143/65 (91) 93 02/01/17 02:00 55 02/01/17 00:00 97 Nasal Cannula 4.00 02/01/17 00:00 97.9 50 17 136/65 (88) 89 02/01/17 00:00 50 01/31/17 22:00 47 01/31/17 20:00 91 Nasal Cannula 4.00 01/31/17 20:00 98.4 54 22 151/63 (92) 91 01/31/17 20:00 54 01/31/17 19:15 93 Nasal Cannula 4.00 01/31/17 18:00 59 01/31/17 16:00 98.1 51 22 147/63 (91) 92 01/31/17 16:00 92 Nasal Cannula 3.00 01/31/17 16:00 51 01/31/17 14:00 56 01/31/17 12:00 93 Nasal Cannula 3.00 01/31/17 12:00 98.4 57 22 155/63 (93) 93 01/31/17 12:00 57 01/31/17 10:00 64 I/O 01/31/17 01/31/17 01/31/17 02/01/17 02/01/17 02/01/17 06:59 14:59 22:59 06:59 14:59 22:59 Intake Total 50 ml 50 ml 750 ml 480 ml Output Total 700 ml 750 ml 350 ml Balance -650 ml 50 ml 0 ml 130 ml Intake Oral 750 ml 480 ml IV Total 50 ml 50 ml Output Urine Total 700 ml 750 ml 350 ml # Voids 1 # Bowel Movements 2 1 Laboratory GENERAL: SKIN: Warm and dry. HEAD: Normocephalic. EYES: No scleral icterus. No injection or drainage. NECK: Supple, trachea midline. No JVD or lymphadenopathy. CARDIOVASCULAR: Regular rate and rhythm without murmurs, gallops, or rubs. RESPIRATORY: Breath sounds equal bilaterally. No accessory muscle use. GASTROINTESTINAL: Abdomen soft, non-tender, nondistended. MUSCULOSKELETAL: No cyanosis, or edema. BACK: Nontender without obvious deformity. No CVA tenderness. Laboratory Tests Test 02/01/17 05:48 Blood Urea Nitrogen 68 MG/DL Creatinine 2.06 MG/DL Random Glucose 196 MG/DL Calcium Level 8.8 MG/DL Sodium Level 140 MEQ/L Potassium Level 3.8 MEQ/L Chloride Level 95 MEQ/L Carbon Dioxide Level 37.4 MEQ/L Anion Gap 8 MEQ/L Estimat Glomerular Filtration Rate 23 ML/MIN Assessment and Plan Problem List: (1) NSTEMI (non-ST elevated myocardial infarction) ICD Codes: I21.4 - Non-ST elevation (NSTEMI) myocardial infarction (2) Respiratory failure ICD Codes: J96.90 - Respiratory failure, unspecified, unspecified whether with hypoxia or hypercapnia Status: Acute (3) Hypoxia ICD Codes: R09.02 - Hypoxemia Status: Acute (4) Diabetes 1.5, managed as type 2 ICD Codes: E13.9 - Other specified diabetes mellitus without complications Status: Acute (5) Diastolic CHF ICD Codes: I50.30 - Unspecified diastolic (congestive) heart failure Status: Acute (6) COPD exacerbation ICD Codes: J44.1 - Chronic obstructive pulmonary disease with (acute) exacerbation Status: Acute (7) Respiratory acidosis ICD Codes: E87.2 - Acidosis Status: Acute Assessment and Plan 1.) NSTEMI - clinically improving, suspect trop elevation due to global hypoxia due to respiratory failure, continue dapt, lopressor, pravastatin, norvasc, consider meseret based on trends in renal function, bnp =50, euvolemic, lasix held due to arf f/u bmp, bnp, mag 2.) Bradycardia - hemodynamically stable assymptomatic, continue lopressor, d/w nurse, continue telemetry Jhony Goldman MD Feb 01, 2017 09:38
[2017-02-01] MEDS: AMOXICILLIN/CLAVULANATE K 500 MG TAB PO SCH ×2 (11:34→21:00)
[2017-02-01] MEDS: FAMOTIDINE 20 MG TAB PO SCH (11:34)
[2017-02-01] MEDS: VENLAFAXINE HCL XR 75 MG CAP PO SCH (11:34)
[2017-02-01] MEDS: DOCUSATE SODIUM 50 MG/SENNA 8.6 MG TAB PO SCH ×2 (11:34→20:59)
[2017-02-01] MEDS: CLOPIDOGREL 75 MG TAB PO SCH (11:34)
[2017-02-01] MEDS: glipiZIDE 10 MG TAB PO SCH (11:34)
[2017-02-01] MEDS: METOPROLOL TARTRATE 50 MG TAB PO SCH (11:34)
[2017-02-01] MEDS: ASPIRIN 81 MG CHEW TAB CHEW SCH (11:35)
[2017-02-01] MEDS: SODIUM CHLORIDE 0.9% FLUSH 10 ML FLUSH SCH ×2 (11:35→14:12)
[2017-02-01] MEDS: BUDESONIDE-FORMOTEROL 160/4.5 MCG INHALER INH SCH ×2 (11:35→21:00)
--- NOTE | 2017-02-01 13:49 | HHI.PR ---
Subjective Subjective Remarks awakes to voice, oriented x 2 eating okay denies cp, sob no fever no acute changes overnight tele reviewed, SB Review of Systems Constitutional Constitutional Remarks 12 point ros completed, negative except as noted above, unreliable Vitals/Results Vital Signs Vital Signs Date Time Temp Pulse Resp B/P (MAP) Pulse Ox O2 Delivery O2 Flow Rate FiO2 02/01/17 09:20 94 Nasal Cannula 2.00 02/01/17 06:00 52 02/01/17 04:00 93 Nasal Cannula 4.00 02/01/17 04:00 49 02/01/17 04:00 97.9 49 20 143/65 (91) 93 02/01/17 02:00 55 02/01/17 00:00 97 Nasal Cannula 4.00 02/01/17 00:00 97.9 50 17 136/65 (88) 89 02/01/17 00:00 50 01/31/17 22:00 47 01/31/17 20:00 91 Nasal Cannula 4.00 01/31/17 20:00 98.4 54 22 151/63 (92) 91 01/31/17 20:00 54 01/31/17 19:15 93 Nasal Cannula 4.00 01/31/17 18:00 59 01/31/17 16:00 98.1 51 22 147/63 (91) 92 01/31/17 16:00 92 Nasal Cannula 3.00 01/31/17 16:00 51 01/31/17 14:00 56 CBC/BMP: 01/31/17 0653 02/01/17 0548 Lab Results Laboratory Tests Test 02/01/17 05:48 Blood Urea Nitrogen 68 MG/DL Creatinine 2.06 MG/DL Random Glucose 196 MG/DL Calcium Level 8.8 MG/DL Sodium Level 140 MEQ/L Potassium Level 3.8 MEQ/L Chloride Level 95 MEQ/L Carbon Dioxide Level 37.4 MEQ/L Anion Gap 8 MEQ/L Estimat Glomerular Filtration Rate 23 ML/MIN Physical Exam General General Appearance: Well Developed, Well Nourished, No Acute Distress, Comfortable, Sleeping, Obese Eyes Eye Exam: Pupils Equal, Pupils Reactive, Sclera White Ears & Nose Ears & Nose Exam: Nasal Mucosa [place] Throat Throat Exam: Oral Mucosa [place] & Moist Neck Neck Exam: Neck Supple, Trachea Midline Pulmonary Resp Exam: Rhonchi (scattered fine ronchi upper lobes, mild exp. wheezing), Decreased Bases, Diminished Breath Sounds, Poor Inspiratory Effort Cardiology CV Exam: Irregular Gastrointestinal/Abdomen GI Exam: Soft, Non-Tender, Bowel Sounds Present, Non-Distended Musculoskeletal MS Exam: Joints Intact Integumentary Skin Exam: Warm, Dry Extremeties Extremities Exam: No Edema, Moderate Edema Neurologic Neuro Exam: Awake, Speech Clear, Moving All Extremities, No Focal Deficits Psychiatric Psych Exam: Appropriate Responses VTE Prophylaxis VTE Prophylaxis Meds: Heparin PUD Prophylasis PUD Remarks PEPCID Assessment/Plan Problem List: (1) Acute respiratory failure ICD Codes: J96.00 - Acute respiratory failure, unspecified whether with hypoxia or hypercapnia Status: Resolved (2) Acute exacerbation of chronic obstructive pulmonary disease (COPD) ICD Codes: J44.1 - Chronic obstructive pulmonary disease with (acute) exacerbation Status: Resolved (3) Encephalopathy ICD Codes: G93.40 - Encephalopathy, unspecified Status: Resolved (4) Hypertension ICD Codes: I10 - Essential (primary) hypertension Status: Chronic (5) Chronic diastolic CHF (congestive heart failure) ICD Codes: I50.32 - Chronic diastolic (congestive) heart failure Status: Chronic (6) Hyperlipidemia ICD Codes: E78.5 - Hyperlipidemia, unspecified Status: Chronic (7) Atrial fibrillation ICD Codes: I48.91 - Atrial fibrillation Status: Chronic (8) Diabetes mellitus ICD Codes: E11.9 - Diabetes mellitus Status: Chronic (9) Renal insufficiency ICD Codes: N28.9 - Disorder of kidney and ureter, unspecified Status: Acute (10) Obesity ICD Codes: E66.9 - Obesity, unspecified Status: Chronic (11) GERD (gastroesophageal reflux disease) ICD Codes: K21.9 - Gastro-esophageal reflux disease without esophagitis Status: Chronic Assessment/Plan s/p resp. failure, COPD improving continue supplemental oxygen, duonebs, PO abx off steroids now continue speech therapy appreciate pulm input UTI-Positive Klebsiella Continue by mouth antibiotics Cordoba catheter has been discontinued Chronic diastolic CHF, Global hypoxia, non-STEMI Continue with medical management Appreciate cardiology input Depression Effexor, medical management CAD, history of paroxysmal atrial fibrillation Sinus bradycardia on the monitor Continue with medical management Decrease Lopressor to 25 mg by mouth twice a day Hypertension Blood pressure stable Continue with medical managed Hyperlipidemia Continue with medical management, by mouth stat Diabetes mellitus Continue with Accu-Cheks before meals and at bedtime, continue by mouth meds Januvia and glipizide Acute renal injury Diuretics have been stopped Continue with cautious hydration Repeat BMP in the morning Avoid nephrotoxic agents Continue with Pepcid for GI prophylaxis Heparin and SCDs for DVT prophylaxis Physical therapy for evaluation and treatment Okay to transfer out of ICU Case management for discharge planning, will be going back to rehabilitation facility Follow BMP in the morning Possible discharge in 1-2 days as renal function improves. Discussed with nurse, Discussed with patient Discussed with Dr. Edmonds Discussed with case management This patient was seen by myself and Dr. Edmonds, this note is written on his behalf Problem Qualifiers (1) Acute respiratory failure: Qualified Codes: J96.01 - Acute respiratory failure with hypoxia; J96.02 - Acute respiratory failure with hypercapnia (2) Hypertension: Qualified Codes: I10 - Essential (primary) hypertension (3) Hyperlipidemia: Qualified Codes: E78.5 - Hyperlipidemia, unspecified (4) Diabetes mellitus: (5) Obesity: (6) GERD (gastroesophageal reflux disease): Qualified Codes: K21.9 - Gastro-esophageal reflux disease without esophagitis Simran Santoro [facility] Feb 01, 2017 13:49
[2017-02-01] MEDS: PRAVASTATIN SOD 80 MG TAB PO SCH (14:11)
[2017-02-01] MEDS: SODIUM CHLOR 0.9% 1000 ML INJ 1,000 ML IV SCH ×2 (14:13→21:00)
--- NOTE | 2017-02-01 17:37 | HHI.PR ---
Subjective Remarks Pt is alert and Oriented.0n o2 at 3 L. Off Bipap at HS. Good output. No complaints. Objective Vital Signs Date Time Temp Pulse Resp B/P (MAP) Pulse Ox O2 Delivery O2 Flow Rate FiO2 02/01/17 15:44 Nasal Cannula 4.00 02/01/17 12:00 Nasal Cannula 4.00 02/01/17 12:00 97.7 54 23 151/67 (95) 92 02/01/17 10:00 55 26 132/62 (85) 89 02/01/17 09:20 94 Nasal Cannula 2.00 02/01/17 08:00 98.0 48 24 145/62 (89) 91 02/01/17 08:00 Nasal Cannula 4.00 02/01/17 06:00 52 02/01/17 04:00 93 Nasal Cannula 4.00 02/01/17 04:00 49 02/01/17 04:00 97.9 49 20 143/65 (91) 93 02/01/17 02:00 55 02/01/17 00:00 97 Nasal Cannula 4.00 02/01/17 00:00 97.9 50 17 136/65 (88) 89 02/01/17 00:00 50 01/31/17 22:00 47 01/31/17 20:00 91 Nasal Cannula 4.00 01/31/17 20:00 98.4 54 22 151/63 (92) 91 01/31/17 20:00 54 01/31/17 19:15 93 Nasal Cannula 4.00 01/31/17 18:00 59 I/O 01/31/17 01/31/17 01/31/17 02/01/17 02/01/17 02/01/17 06:59 14:59 22:59 06:59 14:59 22:59 Intake Total 50 ml 50 ml 750 ml 480 ml Output Total 700 ml 750 ml 350 ml Balance -650 ml 50 ml 0 ml 130 ml Intake Oral 750 ml 480 ml IV Total 50 ml 50 ml Output Urine Total 700 ml 750 ml 350 ml # Voids 1 # Bowel Movements 2 1 Result Diagram: 01/31/17 0653 02/01/17 0548 Objective Remarks GENERAL: This is a Elderly Obese W/F patient, in no apparent distress. CARDIOVASCULAR: Irregular rate and rhythm without murmurs, gallops, or rubs. RESPIRATORY: Diffuse expiratory wheezes, diminished breath sounds bilaterally.Occ basal Crackles. GASTROINTESTINAL: Abdomen soft, non-tender,nondistended. Normal active bowel sounds MUSCULOSKELETAL: Extremities without clubbing, cyanosis, but has 1 + edema. NEURO: Alert & Oriented x4 to person, place, time, situation. Moves all ext x4 Assessment and Plan Assessment and Plan Respiratory failure - COPD exacerbation - D/C IV solumedrol. - D/C BiPAP at HS. Refused. - DuoNeb qid and PRN D/C IV antibiotics Add Ceftin 500 mg bid X 5 days. O2 at 3 L. CHF Observe off Diuretic Depression -Venlafaxine Coronary artery disease - Aspirin - Plavix Paroxysmal atrial fibrillation - Metoprolol Hypertension - Metoprolol - Norvasc Dyslipidemia - Atorvastatin Diabetes mellitus - Glipizide - Januvia - Insulin sliding scale Transfer to [facility]. Alvaro Nation MD Feb 01, 2017 17:37
[2017-02-01] MEDS: METOPROLOL TARTRATE 25 MG TAB PO SCH (20:59)
--- NOTE | 2017-02-01 21:44 | RADRPT ---
EXAM DATE/TIME: 02/01/2017 20:20 [place] COMPARISON: CHEST SINGLE AP, January 30, 2017, 3:30. POC ULTRASOUND VASCULAR ACCESS TEAM, January 29, 2017, 9:55. INDICATIONS : Respiratory status. MEDICAL HISTORY: Hypertension. Cardiovascular disease. Renal failure, chronic SURGICAL HISTORY : None. ENCOUNTER: Initial ACUITY: 1 month PAIN SCORE: 3/10 LOCATION: Bilateral upper chest FINDINGS: The heart size is enlarged. There is increased density seen at the left lower lobe with silhouetting of the left hemidiaphragm and the left heart border. The right lung is grossly clear. Significant e ffusions are not seen. CONCLUSION: Left lower lobe consolidation or atelectasis which appears to be improving when bruno red to the prior exam. Stephan Langston MD on February 01, 2017 at 21:30 Board Certified Radiologist. This report was verified electronically.
[2017-02-02] VITALS (7 sets, daily range): BP systolic 130–145; BP diastolic 58–72; PULSE 51–87; RESP 17–19; TEMP 95.4–98.4; O2SAT 94–98
[2017-02-02] MEDS: SODIUM CHLOR 0.9% 1000 ML INJ 1,000 ML IV SCH (00:06)
[2017-02-02] MEDS: CHLORHEXIDINE GLUCONATE 2 % 1 PACK (2 CLOTHS) TOP SCH (00:06)
[2017-02-02] MEDS: HEPARIN SODIUM - SQ 10,000 UNITS/ML VIAL SQ SCH ×3 (06:29→23:00)
[2017-02-02] MEDS: INSULIN ASPART SUPPLEMENTAL SCALE SQ SCH ×3 (06:34→20:59)
[2017-02-02] MEDS: DOCUSATE SODIUM 50 MG/SENNA 8.6 MG TAB PO SCH ×2 (09:00→20:56)
[2017-02-02] MEDS: SODIUM CHLORIDE 0.9% FLUSH 10 ML FLUSH SCH ×2 (09:00→20:56)
[2017-02-02] MEDS: AMOXICILLIN/CLAVULANATE K 500 MG TAB PO SCH ×2 (09:00→20:56)
[2017-02-02] MEDS: ASPIRIN 81 MG CHEW TAB CHEW SCH (09:43)
[2017-02-02] MEDS: FAMOTIDINE 20 MG TAB PO SCH (09:43)
[2017-02-02] MEDS: METOPROLOL TARTRATE 25 MG TAB PO SCH ×2 (09:43→20:56)
[2017-02-02] MEDS: glipiZIDE 10 MG TAB PO SCH (09:43)
[2017-02-02] MEDS: VENLAFAXINE HCL XR 75 MG CAP PO SCH (09:44)
[2017-02-02] MEDS: CLOPIDOGREL 75 MG TAB PO SCH (09:44)
[2017-02-02] MEDS: PRAVASTATIN SOD 80 MG TAB PO SCH (09:44)
[2017-02-02] MEDS: BUDESONIDE-FORMOTEROL 160/4.5 MCG INHALER INH SCH ×2 (09:48→21:04)
--- NOTE | 2017-02-02 11:51 | HHI.PR ---
Subjective Subjective Remarks sitting up in chair awakes to voice, oriented x 2 eating okay, ST working with her denies cp, sob no fever no acute changes overnight has no complaints Review of Systems Constitutional Constitutional Remarks 12 point ros completed, negative except as noted above, unreliable Vitals/Results Vital Signs Vital Signs Date Time Temp Pulse Resp B/P (MAP) Pulse Ox O2 Delivery O2 Flow Rate FiO2 02/02/17 08:00 95.4 73 17 141/58 (85) 94 02/02/17 04:00 97.5 60 19 145/68 (93) 96 02/02/17 02:29 Nasal Cannula 4.00 02/02/17 00:00 98.4 51 17 141/72 (95) 95 02/01/17 20:00 98.5 53 24 133/63 (86) 90 02/01/17 20:00 53 02/01/17 20:00 95 Nasal Cannula 4.00 02/01/17 19:27 93 Nasal Cannula 2.00 02/01/17 16:00 Nasal Cannula 4.00 02/01/17 16:00 98.9 50 24 147/75 (99) 90 02/01/17 15:44 Nasal Cannula 4.00 02/01/17 14:00 54 22 148/67 (94) 93 02/01/17 12:00 Nasal Cannula 4.00 02/01/17 12:00 97.7 54 23 151/67 (95) 92 CBC/BMP: 01/31/17 0653 02/01/17 0548 Physical Exam General General Appearance: Well Developed, Well Nourished, No Acute Distress, Comfortable, Sleeping, Obese Eyes Eye Exam: Pupils Equal, Pupils Reactive, Sclera White E[place] & Nose Ears & Nose Exam: Nasal Mucosa [place] Throat Throat Exam: Oral Mucosa [place] & Moist Neck Neck Exam: Neck Supple, Trachea Midline Pulmonary Resp Exam: Decreased Bases, Diminished Breath Sounds, Poor Inspiratory Effort Cardiology CV Exam: Irregular Gastrointestinal/Abdomen GI Exam: Soft, Non-Tender, Bowel Sounds Present, Non-Distended Musculoskeletal MS Exam: Joints Intact Integumentary Skin Exam: Warm, Dry Extremeties Extremities Exam: No Edema, Moderate Edema Neurologic Neuro Exam: Awake, Speech Clear, Moving All Extremities, No Focal Deficits Psychiatric Psych Exam: Appropriate Responses VTE Prophylaxis VTE Prophylaxis Meds: Heparin PUD Prophylasis PUD Remarks PEPCID Assessment/Plan Problem List: (1) Acute respiratory failure ICD Codes: J96.00 - Acute respiratory failure, unspecified whether with hypoxia or hypercapnia Status: Resolved (2) Acute exacerbation of chronic obstructive pulmonary disease (COPD) ICD Codes: J44.1 - Chronic obstructive pulmonary disease with (acute) exacerbation Status: Resolved (3) Encephalopathy ICD Codes: G93.40 - Encephalopathy, unspecified Status: Resolved (4) Hypertension ICD Codes: I10 - Essential (primary) hypertension Status: Chronic (5) Chronic diastolic CHF (congestive heart failure) ICD Codes: I50.32 - Chronic diastolic (congestive) heart failure Status: Chronic (6) Hyperlipidemia ICD Codes: E78.5 - Hyperlipidemia, unspecified Status: Chronic (7) Atrial fibrillation ICD Codes: I48.91 - Atrial fibrillation Status: Chronic (8) Diabetes mellitus ICD Codes: E11.9 - Diabetes mellitus Status: Chronic (9) Renal insufficiency ICD Codes: N28.9 - Disorder of kidney and ureter, unspecified Status: Acute (10) Obesity ICD Codes: E66.9 - Obesity, unspecified Status: Chronic (11) GERD (gastroesophageal reflux disease) ICD Codes: K21.9 - Gastro-esophageal reflux disease without esophagitis Status: Chronic Assessment/Plan s/p resp. failure, COPD improving continue supplemental oxygen, duonebs, PO abx off steroids now continue speech therapy appreciate pulm input repeat CXR 02/01, improving UTI-Positive Klebsiella Continue by mouth antibiotics Cordoba catheter has been discontinued Chronic diastolic CHF, Global hypoxia, non-STEMI Continue with medical management Appreciate cardiology input Depression Effexor, medical management CAD, history of paroxysmal atrial fibrillation Sinus bradycardia on the monitor Continue with medical management Decreased Lopressor to 25 mg by mouth twice a day Hypertension Blood pressure stable Continue with medical managed Hyperlipidemia Continue with medical management, by mouth stat Diabetes mellitus Continue with Accu-Cheks before meals and at bedtime, continue by mouth meds Januvia and glipizide Acute renal injury Diuretics have been stopped Continue with cautious hydration Avoid nephrotoxic agents BMP pending Continue with Pepcid for GI prophylaxis Heparin and SCDs for DVT prophylaxis Physical therapy for evaluation and treatment Okay to transfer out of ICU Case management for discharge planning, will be going back to rehabilitation facility waiting for BMP results poss dc today if renal function improving Discussed with nurse, Discussed with patient Discussed with Dr. Edmonds This patient was seen by myself and Dr. Edmonds, this note is written on his behalf Problem Qualifiers (1) Acute respiratory failure: Qualified Codes: J96.01 - Acute respiratory failure with hypoxia; J96.02 - Acute respiratory failure with hypercapnia (2) Hypertension: Qualified Codes: I10 - Essential (primary) hypertension (3) Hyperlipidemia: Qualified Codes: E78.5 - Hyperlipidemia, unspecified (4) Diabetes mellitus: (5) Obesity: (6) GERD (gastroesophageal reflux disease): Qualified Codes: K21.9 - Gastro-esophageal reflux disease without esophagitis Simran Santoro Feb 02, 2017 11:51
--- NOTE | 2017-02-02 11:55 | PD.CARD.PN ---
Subjective Subjective Remarks asleep in nad Objective Vital Signs / I&O Vital Signs Date Time Temp Pulse Resp B/P (MAP) Pulse Ox O2 Delivery O2 Flow Rate FiO2 02/02/17 08:00 95.4 73 17 141/58 (85) 94 02/02/17 04:00 97.5 60 19 145/68 (93) 96 02/02/17 02:29 Nasal Cannula 4.00 02/02/17 00:00 98.4 51 17 141/72 (95) 95 02/01/17 20:00 98.5 53 24 133/63 (86) 90 02/01/17 20:00 53 02/01/17 20:00 95 Nasal Cannula 4.00 02/01/17 19:27 93 Nasal Cannula 2.00 02/01/17 16:00 Nasal Cannula 4.00 02/01/17 16:00 98.9 50 24 147/75 (99) 90 02/01/17 15:44 Nasal Cannula 4.00 02/01/17 14:00 54 22 148/67 (94) 93 02/01/17 12:00 Nasal Cannula 4.00 02/01/17 12:00 97.7 54 23 151/67 (95) 92 I/O 02/01/17 02/01/17 02/01/17 02/02/17 02/02/17 02/02/17 07:00 15:00 23:00 07:00 15:00 23:00 Intake Total 480 ml 480 ml 480 ml Output Total 350 ml Balance 130 ml 480 ml 480 ml Intake Oral 480 ml 480 ml 480 ml Output Urine Total 350 ml # Voids 1 2 2 # Bowel Movements 1 0 1 Laboratory GENERAL: SKIN: Warm and dry. HEAD: Normocephalic. EYES: No scleral icterus. No injection or drainage. NECK: Supple, trachea midline. No JVD or lymphadenopathy. CARDIOVASCULAR: Regular rate and rhythm without murmurs, gallops, or rubs. RESPIRATORY: Breath sounds equal bilaterally. No accessory muscle use. GASTROINTESTINAL: Abdomen soft, non-tender, nondistended. MUSCULOSKELETAL: No cyanosis, or edema. BACK: Nontender without obvious deformity. No CVA tenderness. Assessment and Plan Problem List: (1) NSTEMI (non-ST elevated myocardial infarction) ICD Codes: I21.4 - Non-ST elevation (NSTEMI) myocardial infarction (2) Respiratory failure ICD Codes: J96.90 - Respiratory failure, unspecified, unspecified whether with hypoxia or hypercapnia Status: Acute (3) Hypoxia ICD Codes: R09.02 - Hypoxemia Status: Acute (4) Diabetes 1.5, managed as type 2 ICD Codes: E13.9 - Other specified diabetes mellitus without complications Status: Acute (5) Diastolic CHF ICD Codes: I50.30 - Unspecified diastolic (congestive) heart failure Status: Acute (6) COPD exacerbation ICD Codes: J44.1 - Chronic obstructive pulmonary disease with (acute) exacerbation Status: Acute (7) Respiratory acidosis ICD Codes: E87.2 - Acidosis Status: Acute Assessment and Plan 1.) NSTEMI - clinically improving, suspect trop elevation due to global hypoxia due to respiratory failure, continue dapt, lopressor, pravastatin, norvasc, consider meseret based on trends in renal function, bnp =50, euvolemic, lasix held due to arf f/u bmp, bnp, mag, ordered, not resulted yet, f/u in am 2.) Bradycardia - hemodynamically stable assymptomatic, continue lopressor, d/w nurse, continue telemetry Jhony Goldman MD Feb 02, 2017 11:55
[2017-02-02 15:11] LABS: HEMATOCRIT 43.4 % (35.0-46.0); MEAN CELL VOLUME 82.2 FL (80.0-100.0); MEAN CORPUSCULAR HEMOGLOBIN 25.9 PG (27.0-34.0); MEAN CORPUSCULAR HGB CONC 31.5 % (32.0-36.0); PLATELET COUNT 168 TH/MM3 (150-450); RED BLOOD COUNT 5.27 MIL/MM3 (4.00-5.30); RED CELL DISTRIBUTION WIDTH 18.8 % (11.6-17.2); REVIEW FLAG FINAL; WHITE BLOOD COUNT 10.4 TH/MM3 (4.0-11.0)
[2017-02-02 15:39] LABS: BICARBONATE 35.6 MEQ/L (21.0-32.0); MAGNESIUM 1.9 MG/DL (1.5-2.5); POTASSIUM 3.4 MEQ/L (3.5-5.1)
[2017-02-03 00:16] VITALS: BP 162/73; PULSE 68; RESP 19; TEMP 97.5; O2SAT 96
[2017-02-03] MEDS: CHLORHEXIDINE GLUCONATE 2 % 1 PACK (2 CLOTHS) TOP SCH (03:42)
[2017-02-03 04:10] VITALS: BP 133/69; PULSE 70; RESP 18; TEMP 98; O2SAT 96
[2017-02-03] MEDS: INSULIN ASPART SUPPLEMENTAL SCALE SQ SCH ×2 (06:16→11:00)
[2017-02-03] MEDS: HEPARIN SODIUM - SQ 10,000 UNITS/ML VIAL SQ SCH ×2 (06:16→13:07)
[2017-02-03 08:00] VITALS: BP 124/69; PULSE 63; RESP 17; TEMP 95.5; O2SAT 96
[2017-02-03] MEDS: CLOPIDOGREL 75 MG TAB PO SCH (08:50)
[2017-02-03] MEDS: AMOXICILLIN/CLAVULANATE K 500 MG TAB PO SCH (08:50)
[2017-02-03] MEDS: glipiZIDE 10 MG TAB PO SCH (08:50)
[2017-02-03] MEDS: PRAVASTATIN SOD 80 MG TAB PO SCH (08:50)
[2017-02-03] MEDS: VENLAFAXINE HCL XR 75 MG CAP PO SCH (08:50)
[2017-02-03] MEDS: FAMOTIDINE 20 MG TAB PO SCH (08:51)
[2017-02-03] MEDS: METOPROLOL TARTRATE 25 MG TAB PO SCH (08:51)
[2017-02-03] MEDS: ASPIRIN 81 MG CHEW TAB CHEW SCH (08:51)
[2017-02-03] MEDS: BUDESONIDE-FORMOTEROL 160/4.5 MCG INHALER INH SCH (08:52)
[2017-02-03] MEDS: SODIUM CHLORIDE 0.9% FLUSH 10 ML FLUSH SCH (08:56)
[2017-02-03] MEDS: DOCUSATE SODIUM 50 MG/SENNA 8.6 MG TAB PO SCH (09:00)
[2017-02-03 09:37] LABS: BICARBONATE 37.7 MEQ/L (21.0-32.0); POTASSIUM 3.4 MEQ/L (3.5-5.1)
--- NOTE | 2017-02-03 11:10 | HHI.PR ---
Subjective Subjective Remarks sitting up in chair awakes to voice, oriented x 2 denies cp, sob no fever no acute changes overnight ready to go Review of Systems Constitutional Constitutional Remarks 12 point ros completed, negative except as noted above, unreliable Vitals/Results Vital Signs Vital Signs Date Time Temp Pulse Resp B/P (MAP) Pulse Ox O2 Delivery O2 Flow Rate FiO2 02/03/17 08:00 95.5 63 17 124/69 (87) 96 02/03/17 04:10 98.0 70 18 133/69 (90) 96 02/03/17 03:15 Nasal Cannula 4.00 02/03/17 00:16 97.5 68 19 162/73 (102) 96 02/02/17 23:00 Nasal Cannula 4.00 02/02/17 21:08 87 02/02/17 20:15 97.9 72 19 130/62 (84) 98 02/02/17 13:15 96 Nasal Cannula 4.00 02/02/17 12:00 97.0 56 17 142/59 (86) 94 02/02/17 12:00 56 02/02/17 12:00 94 Nasal Cannula 4.00 CBC/BMP: 02/02/17 1435 02/03/17 0753 Lab Results Laboratory Tests Test 02/02/17 14:35 02/03/17 07:53 White Blood Count 10.4 TH/MM3 Red Blood Count 5.27 MIL/MM3 Hemoglobin 13.7 GM/DL Hematocrit 43.4 % Mean Corpuscular Volume 82.2 FL Mean Corpuscular Hemoglobin 25.9 PG Mean Corpuscular Hemoglobin Concent 31.5 % Red Cell Distribution Width 18.8 % Platelet Count 168 TH/MM3 Mean Platelet Volume 8.2 FL Blood Urea Nitrogen 55 MG/DL 45 MG/DL Creatinine 1.44 MG/DL 1.38 MG/DL Random Glucose 199 MG/DL 156 MG/DL Calcium Level 8.2 MG/DL 8.9 MG/DL Magnesium Level 1.9 MG/DL Sodium Level 138 MEQ/L 137 MEQ/L Potassium Level 3.4 MEQ/L 3.4 MEQ/L Chloride Level 94 MEQ/L 93 MEQ/L Carbon Dioxide Level 35.6 MEQ/L 37.7 MEQ/L Anion Gap 8 MEQ/L 6 MEQ/L Estimat Glomerular Filtration Rate 35 ML/MIN 37 ML/MIN B-Type Natriuretic Peptide 47 PG/ML 46 PG/ML Physical Exam General General Appearance: Well Developed, Well Nourished, No Acute Distress, Comfortable, Obese Eyes Eye Exam: Pupils Equal, Pupils Reactive, Sclera [place] & Nose Ears & Nose Exam: Nasal Mucosa [place] Throat Throat Exam: Oral Mucosa [place] & Moist Neck Neck Exam: Neck Supple, Trachea Midline Pulmonary Resp Exam: Decreased Bases, Diminished Breath Sounds, Poor Inspiratory Effort Cardiology CV Exam: Irregular Gastrointestinal/Abdomen GI Exam: Soft, Non-Tender, Bowel Sounds Present, Non-Distended Musculoskeletal MS Exam: Joints Intact Integumentary Skin Exam: Warm, Dry Extremeties Extremities Exam: No Edema, Moderate Edema Neurologic Neuro Exam: Alert, Awake, Speech Clear, Moving All Extremities, No Focal Deficits Psychiatric Psych Exam: Appropriate Responses VTE Prophylaxis VTE Prophylaxis Meds: Heparin PUD Prophylasis PUD Remarks PEPCID Assessment/Plan Problem List: (1) Acute respiratory failure ICD Codes: J96.00 - Acute respiratory failure, unspecified whether with hypoxia or hypercapnia Status: Resolved (2) Acute exacerbation of chronic obstructive pulmonary disease (COPD) ICD Codes: J44.1 - Chronic obstructive pulmonary disease with (acute) exacerbation Status: Resolved (3) Encephalopathy ICD Codes: G93.40 - Encephalopathy, unspecified Status: Resolved (4) Hypertension ICD Codes: I10 - Essential (primary) hypertension Status: Chronic (5) Chronic diastolic CHF (congestive heart failure) ICD Codes: I50.32 - Chronic diastolic (congestive) heart failure Status: Chronic (6) Hyperlipidemia ICD Codes: E78.5 - Hyperlipidemia, unspecified Status: Chronic (7) Atrial fibrillation ICD Codes: I48.91 - Atrial fibrillation Status: Chronic (8) Diabetes mellitus ICD Codes: E11.9 - Diabetes mellitus Status: Chronic (9) Renal insufficiency ICD Codes: N28.9 - Disorder of kidney and ureter, unspecified Status: Acute (10) Obesity ICD Codes: E66.9 - Obesity, unspecified Status: Chronic (11) GERD (gastroesophageal reflux disease) ICD Codes: K21.9 - Gastro-esophageal reflux disease without esophagitis Status: Chronic Assessment/Plan s/p resp. failure, COPD improving continue supplemental oxygen, duonebs, PO abx off steroids now continue speech therapy appreciate pulm input repeat CXR 02/01, improving UTI-Positive Klebsiella Continue by mouth antibiotics Cordoba catheter has been discontinued Chronic diastolic CHF, Global hypoxia, non-STEMI Continue with medical management Appreciate cardiology input Depression Effexor, medical management CAD, history of paroxysmal atrial fibrillation Sinus bradycardia on the monitor Continue with medical management Decreased Lopressor to 25 mg by mouth twice a day Hypertension Blood pressure stable Continue with medical managed Hyperlipidemia Continue with medical management, by mouth stat Diabetes mellitus Continue with Accu-Cheks before meals and at bedtime, continue by mouth meds Januvia and glipizide Acute renal injury Diuretics have been stopped Continue with cautious hydration Avoid nephrotoxic agents renal function better. Continue with Pepcid for GI prophylaxis Heparin and SCDs for DVT prophylaxis Physical therapy for evaluation and treatment Okay to transfer out of ICU Case management for discharge planning, will be going back to rehabilitation facility Stable, no resp. distress, afebrile Discharge to SNF today f/u pcp, card diet-heart healthy activity-as tolerated Discussed with nurse, Discussed with patient Discussed with Dr. Edmonds This patient was seen by myself and Dr. Edmonds, this note is written on his behalf Discharge Minutes: 45 Problem Qualifiers (1) Acute respiratory failure: Qualified Codes: J96.01 - Acute respiratory failure with hypoxia; J96.02 - Acute respiratory failure with hypercapnia (2) Hypertension: Qualified Codes: I10 - Essential (primary) hypertension (3) Hyperlipidemia: Qualified Codes: E78.5 - Hyperlipidemia, unspecified (4) Diabetes mellitus: (5) Obesity: (6) GERD (gastroesophageal reflux disease): Qualified Codes: K21.9 - Gastro-esophageal reflux disease without esophagitis Simran Santoro Feb 03, 2017 11:10
[2017-02-03] MEDS ORDERED: AUGM500T7 PO (11:13)
--- NOTE | 2017-02-03 11:13 | HHI.DCPOC ---
Discharge Care Plan Diagnosis: (1) COPD exacerbation (2) NSTEMI (non-ST elevated myocardial infarction) (3) Hypoxia (4) Respiratory failure Your Health Problems Are: Chest Pain Cough Shortness of Breath Goals to Promote Your Health * To prevent worsening of your condition and complications * To maintain your health at the optimal level Directions to Meet Your Goals Take your medications as prescribed Follow your dietary instruction Follow activity as directed Keep your appointments as scheduled Take your immunizations and boosters as scheduled If your symptoms worsen call your PCP, if no PCP go to Urgent Care Center or Emergency Room Smoking is Dangerous to Your Health. Avoid second hand smoke Call the 24-hour hour crisis hotline for domestic abuse at Simran Santoro Feb 03, 2017 11:13
[2017-02-03] MEDS ORDERED: POTASSIUM CHLORIDE 25 MEQ EFFERVESCENT TAB PO ONE (11:15)
[2017-02-03 12:08] VITALS: BP 115/57; PULSE 69; RESP 18; TEMP 96; O2SAT 95
--- NOTE | 2017-02-03 16:02 | HHI.DS ---
Discharge Summary Admission Date Jan 26, 2017 at 19:03 Discharge Date: Feb 03, 2017 Admitting Diagnosis respiratory distress, respiratory acidosis, acute COPD exacerbation (1) COPD exacerbation ICD Codes: J44.1 - Chronic obstructive pulmonary disease with (acute) exacerbation Status: Acute (2) Respiratory acidosis ICD Codes: E87.2 - Acidosis Status: Acute (3) Respiratory distress ICD Codes: R06.00 - Dyspnea, unspecified Status: Acute (4) Respiratory failure ICD Codes: J96.90 - Respiratory failure, unspecified, unspecified whether with hypoxia or hypercapnia Status: Acute (5) Hypoxia ICD Codes: R09.02 - Hypoxemia Status: Acute (6) NSTEMI (non-ST elevated myocardial infarction) ICD Codes: I21.4 - Non-ST elevation (NSTEMI) myocardial infarction (7) Diastolic CHF ICD Codes: I50.30 - Unspecified diastolic (congestive) heart failure Status: Acute (8) Diabetes 1.5, managed as type 2 ICD Codes: E13.9 - Other specified diabetes mellitus without complications Status: Acute (9) Hyperlipidemia ICD Codes: E78.5 - Hyperlipidemia, unspecified Status: Chronic (10) Hypertension ICD Codes: I10 - Essential (primary) hypertension Status: Chronic (11) Renal insufficiency ICD Codes: N28.9 - Disorder of kidney and ureter, unspecified Status: Acute (12) UTI (urinary tract infection) ICD Codes: N39.0 - Urinary tract infection, site not specified Status: Acute CBC/BMP: 02/02/17 1435 02/03/17 0753 Significant Findings Laboratory Tests Test 02/01/17 05:48 02/02/17 14:35 02/03/17 07:53 Blood Urea Nitrogen 68 MG/DL (7-18) 55 MG/DL (7-18) 45 MG/DL (7-18) Creatinine 2.06 MG/DL (0.50-1.00) 1.44 MG/DL (0.50-1.00) 1.38 MG/DL (0.50-1.00) Random Glucose 196 MG/DL (74-106) 199 MG/DL (74-106) 156 MG/DL (74-106) Chloride Level 95 MEQ/L (98-107) 94 MEQ/L (98-107) 93 MEQ/L (98-107) Carbon Dioxide Level 37.4 MEQ/L (21.0-32.0) 35.6 MEQ/L (21.0-32.0) 37.7 MEQ/L (21.0-32.0) Estimat Glomerular Filtration Rate 23 ML/MIN (>89) 35 ML/MIN (>89) 37 ML/MIN (>89) Mean Corpuscular Hemoglobin 25.9 PG (27.0-34.0) Mean Corpuscular Hemoglobin Concent 31.5 % (32.0-36.0) Red Cell Distribution Width 18.8 % (11.6-17.2) Calcium Level 8.2 MG/DL (8.5-10.1) Potassium Level 3.4 MEQ/L (3.5-5.1) 3.4 MEQ/L (3.5-5.1) Imaging Last Impressions Chest X-Ray 02/01/17 0000 Signed Impressions: Service Date/Time: , February 01, 2017 20:20 - CONCLUSION: Left lower lobe consolidation or atelectasis which appears to be improving when compared to the prior exam. Stephan Langston MD Hospital Course 76-year-old female presents being brought by EMS with history of respiratory distress. Patient is a [facility] resident with history of COPD and CHF. When EMS arrived patient was saturating 75% on room air. She normally requires 2 L of oxygen via nasal cannula. She appeared tired and lethargic. They could hear wheeze and started her on albuterol 2. After putting her on nonrebreather oxygen saturation went up to 93%. In the emergency department she was placed on the BiPAP machine with improvement of her symptoms and ABG. She was admitted to ICU as a COPD exacerbation. Critical care initially admitted pt. s/p resp. failure, COPD Initially on BiPAP, titrated to nasal cannula Put on IV antibiotics, DuoNeb's and IV steroids. A speech therapy consult to Pulmonology was consulted Patient improved slowly, she remained in the intensive care unit until stable. Repeat x-ray was done on 02/01/2017 that showed improvement She was titrated to by mouth steroids Critical care signed off the case. Patient was stable to transfer out of ICU. Patient was also found positive for UTI-Positive Klebsiella Continued by mouth antibiotics Cordoba catheter was discontinued, voiding without difficulty Cardiology was also consulted for Chronic diastolic CHF and Global hypoxia, non- STEMI Continued with medical management Appreciated cardiology input Patient stabilizes, no chest pain. No shortness of breath. For hx of Depression-continued on Effexor, medical management CAD, history of paroxysmal atrial fibrillation Sinus bradycardia on the monitor Continued with medical management Decreased Lopressor to 25 mg by mouth twice a day due to bradycardia. Hypertension Blood pressure stable Continued with medical managed Hyperlipidemia Continue with medical management, by mouth stat Diabetes mellitus Continued with Accu-Cheks before meals and at bedtime, continued by mouth meds Januvia and glipizide Acute renal injury, given IV fluids. Diuretics have been stopped Continued with cautious hydration Avoided nephrotoxic agents renal function improved Continue with Pepcid for GI prophylaxis Heparin and SCDs for DVT prophylaxis Physical therapy for evaluation and treatment Case management for discharge planning, will be going back to rehabilitation facility Stable, no resp. distress, afebrile Tolerating diet well Was awake, alert and oriented x 2-3 Patient was getting out of bed to the chair with assistance Discharged to SNF in stable condition. f/u pcp, card diet-heart healthy activity-as tolerated Pt Condition on Discharge: Stable Discharge Disposition: Discharge to SNF Discharge Instructions DIET: Follow Instructions for: Heart Healthy Diet Speech Therapy-Diet Recommends: Pureed, [place] Thickened Liquids Activities you can perform: Weight Bearing as [place] Follow up Referrals: Cardiology PCP Follow-up New Medications: Amoxicillin-Clavulanate (Augmentin) 500-125 mg Tab 500 MG PO Q12HR for Infection for 5 Days, #10 TAB Continued Medications: Amlodipine (Norvasc) 10 Mg Tab 10 MG PO DAILY for Blood Pressure Management, #30 TAB 0 Refills Aspirin (Aspirin) 81 Mg Chew 81 MG CHEW DAILY, TAB 0 Refills Budesonide-Formoterol Inh (Symbicort Inh) 160-4.5 Mcg/Act Aero 1 PUFF INH Q12HR for wheezing, #1 INHALER Clopidogrel (Plavix) 75 Mg Tab 75 MG PO DAILY for Blood Clot Prevention, #30 TAB 0 Refills Cyanocobalamin (B12) 1,000 Mcg Tab Furosemide (Lasix) 40 Mg Tab 40 MG PO DAILY, #30 TAB 0 Refills Glipizide (Glipizide) 10 Mg Tab 10 MG PO DAILY for Blood Sugar Management, #30 TAB 0 Refills Take 30 minutes before a meal Insulin Lispro (Human) Inj (Humalog Inj) 1,000 Unit/10 Ml Vial 2-12 UNITS SQ ACHS for Blood Sugar Management, #1 VIAL 0 Refills Max dose at bedtime:( )units; sugars < 70,(0)units; sugars 150-199,(2)units; sugars 200-249,(4)units; sugars 250-299,(7)units; sugars 300-349,(10)units; sugars more than 349,(12)units. Ipratropium-Albuterol Neb (Duoneb) 0.5-2.5 Mg/3 Ml Neb 1 NEBULE INH Q6HR NEB for Breathing Treatment, #120 NEBULE 0 Refills Linagliptin (Tradjenta) 5 Mg Tab 5 MG PO DAILY for Blood Sugar Management, #30 TAB 0 Refills Metoprolol Tartrate (Metoprolol Tartrate) 50 Mg Tab 50 MG PO BID, #60 TAB 0 Refills Potassium Chloride ER (Potassium Chloride ER) 20 Meq Tab 20 MEQ PO Q6HR for Electrolyte Replacement, #60 TAB 0 Refills Ranitidine (Zantac) 150 Mg Tab 75 MG PO DAILY for Reduce Stomach Acid, #30 TAB 0 Refills Simvastatin (Simvastatin) 80 Mg Tab 80 MG PO DAILY for Cholesterol Management, #30 TAB 0 Refills Sitagliptin (Januvia) 100 Mg Tab 100 MG PO DAILY for Blood Sugar Management, #30 TAB 0 Refills Venlafaxine (Effexor) 75 Mg Tab 75 MG PO DAILY, #30 TAB 0 Refills [O2] () 2 LITER Discontinued Medications: Metolazone (Metolazone) 5 Mg Tab 5 MG PO DAILY, #30 TAB 0 Refills Prednisone (Prednisone) 10 Mg Tab 10 MG PO DAILY for wheezing, #5 TAB Simran Santoro Feb 03, 2017 16:02
== END 2017-02-03 16:27 | DRG 190 ==
LOC: NEPE 17:21 → NEDA 19:03 → HIMN 21:25 → N06B 02-01 23:30
PROVIDERS: ADMIT Specialist; ATTEND Specialist
PROC: 5A09457 Assistance with Respiratory Ventilation, 24-96 Consecutive Hours, Continuous Positive Airway Pressure (ICD-10-PCS; principal; 2017-01-26)
DX: J44.1 Chronic obstructive pulmonary disease with (acute) exacerbation (principal); J96.01 Acute respiratory failure with hypoxia; I21.4 Non-ST elevation (NSTEMI) myocardial infarction; G93.40 Encephalopathy, unspecified; I50.32 Chronic diastolic (congestive) heart failure; Z68.41 Body mass index [BMI] 40.0-44.9, adult; N39.0 Urinary tract infection, site not specified; N17.9 Acute kidney failure, unspecified; I11.0 Hypertensive heart disease with heart failure; I48.0 Paroxysmal atrial fibrillation; I25.10 Atherosclerotic heart disease of native coronary artery without angina pectoris; K21.9 Gastro-esophageal reflux disease without esophagitis; E66.01 Morbid (severe) obesity due to excess calories; E78.5 Hyperlipidemia, unspecified; G47.00 Insomnia, unspecified; E87.6 Hypokalemia; B96.1 Klebsiella pneumoniae [K. pneumoniae] as the cause of diseases classified elsewhere; F32.9 Major depressive disorder, single episode, unspecified; E11.65 Type 2 diabetes mellitus with hyperglycemia; Z79.4 Long term (current) use of insulin; Z79.82 Long term (current) use of aspirin; Z86.73 Personal history of transient ischemic attack (TIA), and cerebral infarction without residual deficits; Z79.02 Long term (current) use of antithrombotics/antiplatelets; Z91.19 Patient's noncompliance with other medical treatment and regimen
CPT/HCPCS: 36600; 71010; 71020; 76937; 80048; 80053; 81001; 82550; 82552; 82805; 82948; 83605; 83735; 83880; 84100; 84132; 84484; 85025; 85027; 85610; 87040; 87077; 87086; 87186; 87641; 93005; 94002; 94003; 94640; 94664; 96374; J0360; J0456; J0696; J1644; J1815; J1940; J2543; J2920; J3480; J7030; J7050

== ENCOUNTER 2017-02-23 03:12 | Inpatient (IN) | payer MEDICARE, MEDICAID ==
[2017-02-23] VITALS (26 sets, daily range): BP systolic 65–143; BP diastolic 43–86; PULSE 65–98; RESP 18–22; TEMP 97.9–100.2; O2SAT 93–100
[~2017-02-23] VITALS: Ht 165.1 cm; Wt 116.0 kg
[~2017-02-23 03:12] MED LIST changes: +AUGM500T7 PO; -AZIT250T3 PO; +HUMALOG SQ; +IPRASOL INH; +METO50TA PO; -METO5TAB3 PO; -MICRO K PO; +POTA-163 PO; -PRED10 PO; +TRAD5TAB PO
[2017-02-23] MEDS ORDERED: DOXY100C PO (03:27)
[2017-02-23] MEDS ORDERED: ATOR40TA16 PO (03:27)
--- NOTE | 2017-02-23 03:27 | PD ---
HPI Chief Complaint: Respiratory Distress Time Seen by Provider: 03:19 Travel History International Travel<30 days: No Contact w/Intl Traveler<30days: No Traveled to known affect area: No History of Present Illness HPI The patient is a 76-year-old female who presents to the emergency department via EMS from a assisted and [place], [place], for shortness of breath. According to EMS the patient awakened earlier tonight he complained of shortness of breath. The patient received one DuoNeb at the assisted and when nursing staff reevaluated the patient one hour later they noted that she was unresponsive with elevated respiratory rate. EMS states when they arrived the patient would withdraw the pain, was nonverbal, and breathing approximately 28-30 times per minute with an O2 saturation of 60% on 4 L. EMS attempted to intubate in the field and administered Ativan 4 mg intravenously and etomidate 20 mg intravenously, however, were unsuccessful and intubation. Therefore, the patient arrived with bag valve ventilation and an O2 saturation of 90%. No further information is obtainable from the patient. The patient apparently was recently in the hospital for respiratory distress and possible pneumonia. PFSH Past Medical History Hx Anticoagulant Therapy: Yes (PLAVIX AND BABY ASA) Asthma: Yes Autoimmune Disease: No Blood Disorders: No Anxiety: Yes Depression: Yes Heart Rhythm Problems: No Cancer: No Cardiovascular Problems: Yes (HTN, CAD, CHOL) High Cholesterol: Yes Chest Pain: No Congestive Heart Failure: Yes COPD: Yes Cerebrovascular Accident: Yes (CVA) Coronary Artery Disease: Yes Diabetes: Yes Patient Takes Glucophage: No Diminished Hearing: No Endocrine: Yes Gastrointestinal Disorders: No GERD: Yes Genitourinary: Yes Hypertension: Yes Immune Disorder: No Implanted Vascular Access Dvce: Yes Musculoskeletal: No Neurologic: Yes (CVA) Psychiatric: Yes Reproductive: No Respiratory: Yes (RESPIRATORY FAILURE, ASTHMA, COPD) Sleep Apnea: No Thyroid Disease: No Triglycerides - High: Yes Past Surgical History Abdominal Surgery: No AICD: No Arteriovenous Shunt: No Cardiac Surgery: No Ear Surgery: No Endocrine Surgery: No Eye Surgery: Yes (CATARACTS BILATERAL ) Genitourinary Surgery: No Gynecologic Surgery: No Hysterectomy: No Insulin Pump: No Joint Replacement: No Neurologic Surgery: No Oral Surgery: Yes (TEETH EXTRACTIONS) Pacemaker: No Thoracic Surgery: No Other Surgery: Yes Social History Alcohol Use: Yes (ONE DRINK PER MONTH) Tobacco Use: No Substance Use: No Allergies-Medications (Allergen,Severity, Reaction): Coded Allergies: No Known Allergies (Verified , 02/23/17) Reported Meds & Prescriptions Reported Meds & Active Scripts Active Symbicort Inh (Budesonide/Formoterol Fumarate) 160-4.5 Mcg/Act Aero 1 Puff INH Q12HR Reported Doxycycline Hyclate 100 Mg Cap 100 Mg PO BID Atorvastatin (Atorvastatin Calcium) 40 Mg Tab 40 Mg PO HS Potassium Chloride ER (Potassium Chloride) 20 Meq Tab 20 Meq PO Q6HR Humalog Inj (Insulin Human Lispro) 1,000 Unit/10 Ml Vial 2-12 Units SQ ACHS Max dose at bedtime:( )units; sugars < 70,(0)units; sugars 150-199,(2)units; sugars 200-249,(4)units; sugars 250-299,(7)units; sugars 300-349,(10)units; sugars more than 349,(12)units. Duoneb (Ipratropium-Albuterol Neb) 0.5-2.5 Mg/3 Ml Neb 1 Nebule INH Q6HR NEB Metoprolol Tartrate 50 Mg Tab 50 Mg PO BID Tradjenta (Linagliptin) 5 Mg Tab 5 Mg PO DAILY [O2] 2 Liter Plavix (Clopidogrel Bisulfate) 75 Mg Tab 75 Mg PO DAILY B12 (Cyanocobalamin) 1,000 Mcg Tab Lasix (Furosemide) 40 Mg Tab 40 Mg PO DAILY Januvia (Sitagliptin Phosphate) 100 Mg Tab 100 Mg PO DAILY Simvastatin 80 Mg Tab 80 Mg PO DAILY Aspirin 81 Mg Chew 81 Mg CHEW DAILY Effexor (Venlafaxine HCl) 75 Mg Tab 75 Mg PO DAILY Glipizide 10 Mg Tab 10 Mg PO DAILY Take 30 minutes before a meal Zantac (Ranitidine HCl) 150 Mg Tab 75 Mg PO DAILY Norvasc (Amlodipine Besylate) 10 Mg Tab 10 Mg PO DAILY Review of Systems ROS Limitations: Clinical Condition Except as stated in HPI: all other systems reviewed are Neg Respiratory: Positive: Shortness of Breath Physical Exam Exam Limitations: Clinical Condition Narrative GENERAL: 76-year-old female who arrives with bag valve ventilation. Nonverbal. SKIN: Focused skin assessment warm/dry. HEAD: Atraumatic. Normocephalic. EYES: No injection or drainage. ENT: No nasal bleeding or discharge. Mucous membranes pink and moist. NECK: Trachea midline. No JVD. CARDIOVASCULAR: Regular, tachycardic with a heart rate of 110. RESPIRATORY: Ventilation via bag valve mask. Coarse breath sounds bilateral with prolonged expiratory phase. GASTROINTESTINAL: Abdomen soft, obese. Small reducible umbilical hernia. Ecchymosis noted of the anterior aspect of the abdomen, most likely from injections. MUSCULOSKELETAL: Bilateral lower extremity pitting edema from the knees inferiorly. NEUROLOGICAL: Nonverbal, eyes closed, not withdrawing to pain. PSYCHIATRIC: Unable to assess. Data Data Last Documented VS Vital Signs Date Time Temp Pulse Resp B/P (MAP) Pulse Ox O2 Delivery O2 Flow Rate FiO2 02/23/17 04:02 100 02/23/17 03:50 97 02/23/17 03:40 98.6 81 20 123/59 (80) 02/23/17 03:16 Ventilator Orders Orders Complete Blood Count With Diff (02/23/17 03:19) Comprehensive Metabolic Panel (02/23/17 03:19) B-Type Natriuretic Peptide (02/23/17 03:19) Act Partial Throm Time (Ptt) (02/23/17 03:19) Prothrombin Time / Inr (Pt) (02/23/17 03:19) Magnesium (Mg) (02/23/17 03:19) Ckmb (Isoenzyme) Profile (02/23/17 03:19) Troponin I (02/23/17 03:19) Arterial Blood Gas (Abg) (02/23/17 03:19) Urinalysis - C+S If Indicated (02/23/17 03:19) Blood Culture (02/23/17 03:19) Iv Access Insert/Monitor (02/23/17 03:19) Electrocardiogram (02/23/17 03:19) Ecg Monitoring (02/23/17 03:19) Oximetry (02/23/17 03:19) Oxygen Administration (02/23/17 03:19) Chest, Single Ap (02/23/17 03:19) Sodium Chloride 0.9% Flush (Ns Flush) (02/23/17 03:30) Methylprednisolone So Succ Inj (Solumedr (02/23/17 03:30) Lactic Acid (02/23/17 03:19) Cefepime Inj (Maxipime Inj) (02/23/17 03:30) Azithromycin Inj (Zithromax Inj) (02/23/17 03:30) Sodium Chlor 0.9% 1000 Ml Inj (Ns 1000 M (02/23/17 03:30) Midazolam 100 Mg/100 Ml Inj (Versed Inj) (02/23/17 03:30) Neurological Rass Scale Q30MX2,Q2HX4,Q4H (02/23/17 03:28) Neurological Rass Scale Q30MX2,Q2HX4,Q4H (02/23/17 03:28) Fentanyl Drip (Fentanyl Drip) (02/23/17 03:30) Etomidate Inj (Amidate Inj) (02/23/17 03:45) Succinylcholine Inj (Quelicin Inj) (02/23/17 03:45) [place]-Gastric Tube Insert/Mon (02/23/17 03:40) Restraints Non-Violent ABEL.Q3H (02/23/17 03:40) Urinary Catheter Insert/Apply (02/23/17 03:40) Urine Culture (02/23/17 03:35) Cbc No Diff, Includes Plts (02/24/17 05:00) Cbc No Diff, Includes Plts (02/25/17 05:00) Cbc No Diff, Includes Plts (02/26/17 05:00) Cbc No Diff, Includes Plts (02/27/17 05:00) Cbc No Diff, Includes Plts (02/28/17 05:00) Cbc No Diff, Includes Plts (03/01/17 05:00) Cbc No Diff, Includes Plts (03/02/17 05:00) Basic Metabolic Panel (Bmp) (02/24/17 05:00) Basic Metabolic Panel (Bmp) (02/25/17 05:00) Basic Metabolic Panel (Bmp) (02/26/17 05:00) Basic Metabolic Panel (Bmp) (02/27/17 05:00) Basic Metabolic Panel (Bmp) (02/28/17 05:00) Basic Metabolic Panel (Bmp) (03/01/17 05:00) Basic Metabolic Panel (Bmp) (03/02/17 05:00) Restraints Non-Violent ABEL.Q3H (02/23/17 04:01) Fentanyl Drip (Fentanyl Drip) (02/23/17 04:15) Neurological Rass Scale Q30MX2,Q2HX4,Q4H (02/23/17 04:01) Neurological Rass Scale ABEL.Q2H (02/23/17 04:01) Propofol 1000 Mg/100 Ml Inj (Diprivan 10 (02/23/17 04:15) RASS (02/23/17 04:01) ^ Infusion (02/23/17 04:01) Magnesium Oxide (Mag-Ox) (02/23/17 04:15) Magnesium Sulfate Inj (Magnesium Sulfate (02/23/17 04:15) Magnesium Sulfate Inj (Magnesium Sulfate (02/23/17 04:15) Potassium Chlor 20 Meq Premix (Kcl 20 Me (02/23/17 04:15) Potassium Chlor 20 Meq Premix (Kcl 20 Me (02/23/17 04:15) Potassium Chlor 40 Meq Premix (Kcl 40 Me (02/23/17 04:15) Potassium Chlor 40 Meq Premix (Kcl 40 Me (02/23/17 04:15) Potassium Phosphate (K-Phos) (02/23/17 04:15) Potassium Phosphate (K-Phos) (02/23/17 04:15) Potassium Phosphate Inj (Potassium Phosp (02/23/17 04:15) Sodium Phosphate Inj (Sodium Phosphate I (02/23/17 04:15) ^ Medication Admin Instruction (02/23/17 04:01) Notify Dr: Other (02/23/17 04:01) Chlorhexidine 0.12% Liq (Peridex 0.12% L (02/23/17 08:00) Resp Ventilation- Volume (02/23/17 ) Ventilator Weaning Readiness ABEL.DAILY@0800 (02/23/17 04:01) Elevate Head Of Bed (02/23/17 04:01) Inpatient Certification (02/23/17 04:01) Bedside Glucose ABEL.Q6H (02/23/17 04:01) Blood Glucose Goal (Criteria) (02/23/17 04:01) Hypoglycemia 51 - 69 Mg/Dl (02/23/17 04:01) Hypoglycemia 50 Mg/Dl Or < (02/23/17 04:01) Notify Dr: Other (02/23/17 04:01) Dextrose 50% In Tammy (Vial) Inj (D50w (Vi (02/23/17 04:15) Insulin Human Reg Supp Scale (Novolin R (02/23/17 06:00) Diet Tube Feed Only (02/23/17 Breakfast) Dietary (Dietitian) Consult (02/23/17 04:01) Tube Feeding 08,20 (02/23/17 04:01) Blood Culture (02/23/17 04:01) Sputum Culture And Gram Stain (02/23/17 04:01) Urinalysis - C+S If Indicated (02/23/17 04:01) Specimen To Be Collected PRN (02/23/17 04:01) Albuterol-Ipratropium Neb (Duoneb Neb) (02/23/17 10:00) Albuterol-Ipratropium Neb (Duoneb Neb) (02/23/17 04:15) Chest, Single Ap (02/24/17 06:00) Urinary Catheter Management ABEL.Q1H (02/23/17 04:01) Tube Feeding (02/23/17 04:01) Code Status (02/23/17 04:01) Vital Signs (Adult) ABEL.Q1H (02/23/17 04:01) Activity Bed Rest (02/23/17 04:01) Elevate Head Of Bed (02/23/17 04:01) Neuro Checks . ORDERED (02/23/17 04:01) Sodium Chlor 0.9% 1000 Ml Inj (Ns 1000 M (02/23/17 04:01) Acetaminophen (Tylenol) (02/23/17 04:15) Famotidine Inj (Pepcid Inj) (02/23/17 09:00) Ondansetron Inj (Zofran Inj) (02/23/17 04:15) Heparin Inj (Heparin Inj) (02/23/17 06:00) Scd Bilateral/Knee High ABEL.BID (02/23/17 04:01) ^ Initiate Protocol (02/23/17 04:01) Instruction (02/23/17 04:01) [facility] Nursing Information (02/23/17 04:15) Chlorhexidine 2% Cloth (Chlorhexidine 2% (02/24/17 04:00) Chlorhexidine 2% Cloth (Chlorhexidine 2% (02/23/17 04:15) Mrsa Pcr Surveillance (02/23/17 04:01) Docusate Sodium-Senna (Ynes-Colace) (02/23/17 09:00) Vancomycin Consult Pharmacy (Vancomycin (02/23/17 04:15) Cefepime Inj (Maxipime Inj) (02/23/17 16:00) Metronidazole 500 Mg Inj (Flagyl 500 Mg (02/23/17 04:00) Ct Brain W/O Iv Contrast(Rout) (02/23/17 ) Admit Order (Ed Use Only) (02/23/17 04:09) Labs Laboratory Tests Test 02/23/17 03:20 02/23/17 03:35 02/23/17 04:06 Prothrombin Time 10.9 SEC Prothromb Time International Ratio 1.0 RATIO Activated Partial Thromboplast Time 25.9 SEC Blood Urea Nitrogen 18 MG/DL Creatinine 1.54 MG/DL Random Glucose 162 MG/DL Total Protein 7.1 GM/DL Albumin 2.7 GM/DL Calcium Level 8.4 MG/DL Magnesium Level 1.8 MG/DL Alkaline Phosphatase 116 U/L Aspartate Amino Transf (AST/SGOT) 20 U/L Alanine Aminotransferase (ALT/SGPT) 17 U/L Total Bilirubin 0.3 MG/DL Sodium Level 139 MEQ/L Potassium Level 5.3 MEQ/L Chloride Level 101 MEQ/L Carbon Dioxide Level 37.1 MEQ/L Anion Gap 1 MEQ/L Estimat Glomerular Filtration Rate 33 ML/MIN Lactic Acid Level 0.7 mmol/L Total Creatine Kinase 89 U/L Troponin I 0.21 NG/ML Urine Color YELLOW Urine Turbidity HAZY Urine pH 6.0 Urine Specific [place] 1.013 Urine Protein 300 mg/dL Urine Glucose (UA) TRACE mg/dL Urine Ketones NEG mg/dL Urine Occult Blood SMALL Urine Nitrite NEG Urine Bilirubin NEG Urine Urobilinogen LESS THAN 2.0 MG/DL Urine Leukocyte Esterase NEG Urine RBC 2 /hpf Urine WBC 9 /hpf Urine Squamous Epithelial Cells 1 /hpf Urine Transitional Epithelial Cells <1 /hpf Urine Amorphous Sediment RARE Urine Bacteria MOD /hpf Urine Hyaline Casts 5 /lpf Urine Granular Casts 9 /lpf Urine Mucus FEW /lpf Microscopic Urinalysis Comment CULTURE INDICATED White Blood Count 9.4 TH/MM3 Red Blood Count 3.85 MIL/MM3 Hemoglobin 10.4 GM/DL Hematocrit 32.7 % Mean Corpuscular Volume 84.9 FL Mean Corpuscular Hemoglobin 27.0 PG Mean Corpuscular Hemoglobin Concent 31.7 % Red Cell Distribution Width 19.3 % Platelet Count 202 TH/MM3 Mean Platelet Volume 7.5 FL Neutrophils (%) (Auto) 91.2 % Lymphocytes (%) (Auto) 3.0 % Monocytes (%) (Auto) 5.5 % Eosinophils (%) (Auto) 0.0 % Basophils (%) (Auto) 0.3 % Neutrophils # (Auto) 8.6 TH/MM3 Lymphocytes # (Auto) 0.3 TH/MM3 Monocytes # (Auto) 0.5 TH/MM3 Eosinophils # (Auto) 0.0 TH/MM3 Basophils # (Auto) 0.0 TH/MM3 CBC Comment DIFF FINAL Differential Comment MDM Medical Decision Making Medical Screen Exam Complete: Yes Emergency Medical Condition: Yes Medical Record Reviewed: Yes Interpretation(s) EKG reveals normal sinus rhythm with a rate 83. Left axis deviation. Laboratory Tests Test 02/23/17 03:20 02/23/17 03:35 02/23/17 04:06 Prothrombin Time 10.9 SEC Prothromb Time International Ratio 1.0 RATIO Activated Partial Thromboplast Time 25.9 SEC Blood Urea Nitrogen 18 MG/DL Creatinine 1.54 MG/DL Random Glucose 162 MG/DL Total Protein 7.1 GM/DL Albumin 2.7 GM/DL Calcium Level 8.4 MG/DL Magnesium Level 1.8 MG/DL Alkaline Phosphatase 116 U/L Aspartate Amino Transf (AST/SGOT) 20 U/L Alanine Aminotransferase (ALT/SGPT) 17 U/L Total Bilirubin 0.3 MG/DL Sodium Level 139 MEQ/L Potassium Level 5.3 MEQ/L Chloride Level 101 MEQ/L Carbon Dioxide Level 37.1 MEQ/L Anion Gap 1 MEQ/L Estimat Glomerular Filtration Rate 33 ML/MIN Lactic Acid Level 0.7 mmol/L Total Creatine Kinase 89 U/L Troponin I 0.21 NG/ML Urine Color YELLOW Urine Turbidity HAZY Urine pH 6.0 Urine Specific [place] 1.013 Urine Protein 300 mg/dL Urine Glucose (UA) TRACE mg/dL Urine Ketones NEG mg/dL Urine Occult Blood SMALL Urine Nitrite NEG Urine Bilirubin NEG Urine Urobilinogen LESS THAN 2.0 MG/DL Urine Leukocyte Esterase NEG Urine RBC 2 /hpf Urine WBC 9 /hpf Urine Squamous Epithelial Cells 1 /hpf Urine Transitional Epithelial Cells <1 /hpf Urine Amorphous Sediment RARE Urine Bacteria MOD /hpf Urine Hyaline Casts 5 /lpf Urine Granular Casts 9 /lpf Urine Mucus FEW /lpf Microscopic Urinalysis Comment CULTURE INDICATED White Blood Count 9.4 TH/MM3 Red Blood Count 3.85 MIL/MM3 Hemoglobin 10.4 GM/DL Hematocrit 32.7 % Mean Corpuscular Volume 84.9 FL Mean Corpuscular Hemoglobin 27.0 PG Mean Corpuscular Hemoglobin Concent 31.7 % Red Cell Distribution Width 19.3 % Platelet Count 202 TH/MM3 Mean Platelet Volume 7.5 FL Neutrophils (%) (Auto) 91.2 % Lymphocytes (%) (Auto) 3.0 % Monocytes (%) (Auto) 5.5 % Eosinophils (%) (Auto) 0.0 % Basophils (%) (Auto) 0.3 % Neutrophils # (Auto) 8.6 TH/MM3 Lymphocytes # (Auto) 0.3 TH/MM3 Monocytes # (Auto) 0.5 TH/MM3 Eosinophils # (Auto) 0.0 TH/MM3 Basophils # (Auto) 0.0 TH/MM3 CBC Comment DIFF FINAL Differential Comment Chest x-ray reveals cardiomegaly. Right lobe pneumonia. Differential Diagnosis Differential diagnoses includes respiratory distress, pulmonary embolism, congestive heart failure, pulmonary edema, pneumonia, COPD exacerbation, hypoxia , pleural effusion. Narrative Course IV was established, labs were drawn and sent, and the patient was placed on cardiac telemetry monitoring and continuous pulse oximetry monitoring. The patient was intubated using rapid sequence intubation with succinylcholine and etomidate for and O2 saturation was 90% via bag valve ventilation. Postintubation chest x-ray was obtained. Blood cultures and lactic gas were sent to lab and the patient was treated with cefepime 2 g intravenously and Zithromax 500 mg intravenously. The patient also received Solu-Medrol 125 mg intravenously. The patient was administered 1 L of IV fluids, creatinine was noted to be elevated at 1.54 and potassium is elevated at 5.3, therefore, the patient was administered a second liter of IV fluids. The patient's troponin was elevated 0.21, therefore, the patient was administered aspirin 300 mg suppository. The patient dropped her blood pressure with a systolic into the 60s and 70s, she received 2 L of IV fluids, however, her map ferry between 55 and 65. Therefore, an arterial line was placed in the left radial artery and a central line was placed in right internal jugular vein. Post procedure x-ray was obtained. The patient then went to the intensive care unit. Critical Care Narrative Aggregate critical care time was 45 minutes. Time to perform other separately billable procedures was not included in the critical care time. My time did not include minutes spent treating any other patients simultaneously or on activities that did not directly contribute to the patient's treatment. The services I provided to this patient were to treat and/or prevent clinically significant deterioration that could result in: Anoxia, hypoxia, aspiration, septic shock, . I provided critical care services requiring my management, as noted below: Chart data review, documentation time, medication orders and management, vital sign assessments/reviewing monitor data, ordering and reviewing lab tests, ordering and interpreting/reviewing x-rays and diagnostic studies, care of the patient and discussion of the patient with the admitting physicians. Procedures Procedure Narrative INTUBATION: The patient was put in optimal position for the procedure. Rapid sequence intubation was initiated by me using 20 milligrams of etomidate IV and 100 milligrams of succinylcholine IV. The patient was intubated with a 7-5 cuffed endotracheal tube. Tube placement was confirmed by visualization of the tube and balloon passing through the cords, capnometry and subsequent chest x- ray. Breath sounds were equal and well aerated bilaterally postintubation. No breath sounds over stomach. Patient tolerated procedure well. CENTRAL VENOUS LINE: The site was prepped with Betadine and sterilely draped. It was infiltrated with 1% lidocaine plain. The deep vein was cannulated using normal Seldinger technique under ultrasound guidance using a linear probe. A central line was placed in the right internal jugular site and secured with simple interrupted suture. The site was sterilely dressed. The patient tolerated the procedure well. An arterial line was placed in the left radial artery using a Seldinger technique under ultrasound guidance using a linear probe. There was good blood return with pulsatile quality, the patient tolerated the procedure without difficulty and there was no obvious complication. Physician Communication Physician Communication The on-call bus van driver was paged for admission. I discussed the patient with Dr. Marley who agrees with admission. Diagnosis Primary Impression: Respiratory distress Additional Impressions: Pneumonia Qualified Codes: J18.9 - Pneumonia, unspecified organism Hypoxia Admitting Information Admitting Physician Requests: Admit Condition: Stable Luis Murphy MD Feb 23, 2017 03:27
[2017-02-23] MEDS ORDERED: SODIUM CHLOR 0.9% 1000 ML INJ 1,000 ML IV ONE ×2 (03:30→04:15)
[2017-02-23] MEDS ORDERED: fentaNYL DRIP 250 ML IV PRN (03:30)
[2017-02-23] MEDS ORDERED: AZITHROMYCIN INJ 500 MG in SODIUM CHLOR 0.9% 250 ML INJ 250 ML IV ONE (03:30)
[2017-02-23] MEDS ORDERED: SODIUM CHLORIDE 0.9% FLUSH 10 ML FLUSH IVF PRN (03:30)
[2017-02-23] MEDS ORDERED: CEFEPIME INJ 2,000 MG in SODIUM CHLORIDE 0.9% INJ 100 ML IV ONE (03:30)
[2017-02-23] MEDS ORDERED: methylPREDNISolone SOD SUCC 125 MG/2 ML VIAL IV PUSH ONE (03:30)
[2017-02-23] MEDS: MIDAZOLAM 100 MG/100 ML INJ 100 ML IV PRN ×2 (03:37→07:46)
[2017-02-23] MEDS ORDERED: ETOMIDATE 20 MG/10 ML VIAL IV PUSH ONE (03:45)
[2017-02-23] MEDS ORDERED: SUCCINYLCHOLINE CHLORIDE 100 MG/5 ML SYRINGE IV PUSH ONE (03:45)
[2017-02-23 03:57] LABS: BACTERIA, URINE MOD /hpf; BLOOD, URINE SMALL (NEG); COMMENT (UR) CULTURE INDICATED; CULTURE IF INDICATED CULTURE INDICATED; GLUCOSE,URINE TRACE mg/dL (NEG); GRANULAR CAST, URINE 9 /lpf; HYALINE CAST, URINE 5 /lpf (RARE); KETONE, URINE NEG (NEG); MUCUS URINE FEW /lpf (OCC); NITRITE,URINE NEG (NEG); SQUAMOUS EPITHELIAL CELL URINE 1 /hpf (0-5); TRANSITIONAL EPI CELLS, URINE <1 /hpf; URINE COLOR YELLOW (YELLW/STRAW)
[2017-02-23 03:58] LABS: APTT (PATIENT) 25.9 SEC (24.3-30.1); PROTHROMBIN TIME - PATIENT 10.9 SEC (9.8-11.6)
[2017-02-23 03:59] LABS: ALKALINE PHOSPHATASE 116 U/L (45-117); TOTAL BILIRUBIN ADULT 0.3 MG/DL (0.2-1.0)
[2017-02-23 04:07] LABS: ALT (GPT) 17 U/L (10-53); ANION GAP 1 MEQ/L (5-15); AST (GOT) 20 U/L (15-37); BICARBONATE 37.1 MEQ/L (21.0-32.0); BLOOD UREA NITROGEN 18 MG/DL (7-18); CHLORIDE 101 MEQ/L (98-107); CREATINE KINASE 89 U/L (26-192); GLOMERULAR FILTRATION RATE 33 ML/MIN (>89); MAGNESIUM 1.8 MG/DL (1.5-2.5); POTASSIUM 5.3 MEQ/L (3.5-5.1); SODIUM (NA) 139 MEQ/L (136-145)
[2017-02-23] MEDS ORDERED: SODIUM PHOSPHATE INJ 30 MMOL in SODIUM CHLOR 0.9% 250 ML INJ 240 ML IV PRN (04:15)
[2017-02-23] MEDS ORDERED: POTASSIUM PHOSPHATE MONOBASIC 500 MG TAB PO/TUBE PRN (04:15)
[2017-02-23] MEDS ORDERED: MAGNESIUM OXIDE 400 MG TAB PO PRN (04:15)
[2017-02-23] MEDS ORDERED: DEXTROSE 50% IN WATER 50 ML VIAL(D50) IV PUSH PRN (04:15)
[2017-02-23] MEDS ORDERED: ONDANSETRON HCL 4 MG/2 ML VIAL IV PUSH PRN (04:15)
[2017-02-23] MEDS ORDERED: MISCELLANEOUS NURSING INFORMATION XX SCH (04:15)
[2017-02-23] MEDS ORDERED: ASPIRIN 300 MG SUPP RECTAL ONE (04:15)
[2017-02-23] MEDS ORDERED: POTASSIUM CHLOR 20 MEQ PREMIX 100 ML IV PRN ×2 (04:15)
[2017-02-23] MEDS ORDERED: RESP: ALBUTEROL 2.5 MG/IPRATROPIUM 0.5 MG NEB (PRN) INH (04:15)
[2017-02-23] MEDS ORDERED: PROPOFOL 1000 MG/100 ML INJ 100 ML IV SCH (04:15)
[2017-02-23] MEDS ORDERED: POTASSIUM CHLOR 40 MEQ PREMIX 100 ML IV PRN ×2 (04:15)
[2017-02-23] MEDS ORDERED: MAGNESIUM SULFATE INJ 4 GM in SODIUM CHLORIDE 0.9% INJ 92 ML IV PRN (04:15)
[2017-02-23] MEDS ORDERED: POTASSIUM PHOSPHATE MONOBASIC 500 MG TAB PO PRN (04:15)
[2017-02-23] MEDS ORDERED: MAGNESIUM SULFATE INJ 2 GM in SODIUM CHLORIDE 0.9% INJ 96 ML IV PRN (04:15)
[2017-02-23] MEDS ORDERED: CHLORHEXIDINE GLUCONATE 2 % 1 PACK (2 CLOTHS) TOP PRN (04:15)
[2017-02-23] MEDS ORDERED: ACETAMINOPHEN 325 MG TAB PO PRN (04:15)
[2017-02-23] MEDS ORDERED: POTASSIUM PHOSPHATE INJ 30 MMOL in SODIUM CHLOR 0.9% 250 ML INJ 250 ML IV PRN (04:15)
[2017-02-23] MEDS ORDERED: Vancomycin Consult Pharmacy 1 EA OTHER SCH (04:15)
[2017-02-23 04:21] LABS: AUTOMATED NEUTROPHIL # 8.6 TH/MM3 (1.8-7.7); BASOPHIL % 0.3 % (0.0-2.0); HEMATOCRIT 32.7 % (35.0-46.0); HEMO FLAGS DIFF FINAL; LYMPHOCYTE # 0.3 TH/MM3 (1.0-4.8); MEAN CELL VOLUME 84.9 FL (80.0-100.0); MEAN CORPUSCULAR HGB CONC 31.7 % (32.0-36.0); MONO % 5.5 % (0.0-8.0); NEUT % 91.2 % (16.0-70.0); PLATELET COUNT 202 TH/MM3 (150-450); RED BLOOD COUNT 3.85 MIL/MM3 (4.00-5.30); RED CELL DISTRIBUTION WIDTH 19.3 % (11.6-17.2); WHITE BLOOD COUNT 9.4 TH/MM3 (4.0-11.0)
[2017-02-23] MEDS ORDERED: VECURONIUM BROMIDE 10 MG VIAL ONE (04:26)
[2017-02-23] MEDS: SODIUM CHLOR 0.9% 1000 ML INJ 1,000 ML IV SCH ×2 (05:04→16:57)
[2017-02-23] MEDS: metroNIDAZOLE 500 MG INJ 100 ML IV SCH ×4 (05:04→20:49)
--- NOTE | 2017-02-23 05:07 | RADRPT ---
EXAM DATE/TIME: 02/23/2017 03:28 [facility] COMPARISON: CHEST SINGLE AP, January 30, 2017, 3:30. INDICATIONS : Shortness of breath. Post intubation. MEDICAL HISTORY : Hypertension. Cardiovascular disease. Renal failure, chronic. SURGICAL HISTORY : None. ENCOUNTER: Initial ACUITY: 1 day PAIN SCORE: 0/10 LOCATION: chest FINDINGS: Endotracheal tube tip is at the level of the howard. Gastric tube traverses the [id number]. Pers istent lower consolidation left mid and lower lung with complete loss of the lung elevation left mary diaphragm. There is no consolidation in the lateral right upper lobe. CONCLUSION: ET tube is at the level of the howard and needs to be withdrawn at least 2.5 cm. Ethan Caceres MD on February 23, 2017 at 5:04 Board Certified Radiologist. This report was verified electronically.
[2017-02-23 05:12] LABS: BLOOD GAS CARBOXYHEMOGLOBIN 2.1 % (0-4); BLOOD GAS HCO3 29 mmol/L (22-26); BLOOD GAS METHEMOGLOBIN 0.4 % (0-2); BLOOD GAS O2 HGB SATURATION 93 % (90-100); BLOOD GAS OXYGEN CONTENT 13.2 Vol % (12.0-20.0); BLOOD GAS PCO2 42 mmHg (38-42); BLOOD GAS PO2 66 mmHG (61-120); CRITICAL VALUE NO; OXYGEN DEVICE VENTILATOR; TEMP CORR TO 98.6
[2017-02-23 05:13] LABS: DRAW SITE ART LINE; FIO2 100 %; NUMBER OF ARTERIAL PUNCTURES 0; STAT YES
[2017-02-23] MEDS ORDERED: VECURONIUM BROMIDE 10 MG VIAL IV PUSH ONE (05:15)
[2017-02-23] MEDS ORDERED: VANCOMYCIN 1,500 MG/NS 500 ML IV ONE ×2 (06:00)
--- NOTE | 2017-02-23 06:12 | HHI.HP ---
HPI Service Critical Care Medicine Primary Care Physician Ryan Agudelo MD Admission Diagnosis respiratory distress, pneumonia, hypoxia Diagnosis: Chief Complaint: hypoxia Travel History International Travel<30 Days: No Contact w/Intl Traveler <30 Da: No Traveled to Known Affected Are: No History of Present Illness This is a 76yF who presented from a SNF for shortness of breath x a few hours. She was found unresponsive at her SNF with respiratory distress and spo2 60% on 4L o2 by [place]. EMS attempted intubation in the field and were unsuccessful. She was successfully intubated in the emergency department. She had a normal wbc, but a CXR with new infiltrates, elevated Cr, slightly elevated troponin. She is intubated, unresponsive, and unable to provide any additional information. Review of Systems ROS Limitations: Clinical Condition, Intubated, Altered Mental Status, Unresponsive Past Family Social History Allergies: Coded Allergies: No Known Allergies (Verified , 02/23/17) Past Medical History Plavix, ASA use. Asthma Anxiety Depression HTN CAD Hypercholesterolemia CHF, unknown type COPD CVA DM GERD Past Surgical History Bilateral Cataract surgeries, Teeth extractions Reported Medications Symbicort Inh (Budesonide/Formoterol Fumarate) 160-4.5 Mcg/Act Aero 1 Puff INH Q12HR Doxycycline Hyclate 100 Mg Cap 100 Mg PO BID Atorvastatin (Atorvastatin Calcium) 40 Mg Tab 40 Mg PO HS Potassium Chloride ER (Potassium Chloride) 20 Meq Tab 20 Meq PO Q6HR Humalog Inj (Insulin Human Lispro) 1,000 Unit/10 Ml Vial 2-12 Units SQ ACHS Max dose at bedtime:( )units; sugars < 70,(0)units; sugars 150-199,(2)units; sugars 200-249,(4)units; sugars 250-299,(7)units; sugars 300-349,(10)units; sugars more than 349,(12)units. Duoneb (Ipratropium-Albuterol Neb) 0.5-2.5 Mg/3 Ml Neb 1 Nebule INH Q6HR NEB Metoprolol Tartrate 50 Mg Tab 50 Mg PO BID Tradjenta (Linagliptin) 5 Mg Tab 5 Mg PO DAILY [O2] 2 Liter Plavix (Clopidogrel Bisulfate) 75 Mg Tab 75 Mg PO DAILY B12 (Cyanocobalamin) 1,000 Mcg Tab Lasix (Furosemide) 40 Mg Tab 40 Mg PO DAILY Januvia (Sitagliptin Phosphate) 100 Mg Tab 100 Mg PO DAILY Simvastatin 80 Mg Tab 80 Mg PO DAILY Aspirin 81 Mg Chew 81 Mg CHEW DAILY Effexor (Venlafaxine HCl) 75 Mg Tab 75 Mg PO DAILY Glipizide 10 Mg Tab 10 Mg PO DAILY Take 30 minutes before a meal Zantac (Ranitidine HCl) 150 Mg Tab 75 Mg PO DAILY Norvasc (Amlodipine Besylate) 10 Mg Tab 10 Mg PO DAILY Active Ordered Medications See MAR Family History unobtainable secondary to the clinical condition of the patient Social History + etoh (1 drink/month), - tob, - doa. Physical Exam Vital Signs Vital Signs Date Time Temp Pulse Resp B/P (MAP) Pulse Ox O2 Delivery O2 Flow Rate FiO2 02/23/17 05:30 100 100 02/23/17 05:14 02/23/17 04:43 100.0 81 20 98 Ventilator 94/51 (65) 02/23/17 04:32 104/55 (71) 02/23/17 04:30 100.2 71 20 86/50 (62) 96 Ventilator 100 02/23/17 04:25 100.2 71 20 78/52 (61) 96 Ventilator 100 02/23/17 04:23 72 20 70/46 (54) 98 Ventilator 100 02/23/17 04:16 75 22 65/43 (50) 97 Ventilator 02/23/17 04:02 100 02/23/17 03:50 97 100 02/23/17 03:40 98.6 81 20 123/59 (80) 95 100 02/23/17 03:20 98 100 02/23/17 03:16 99 Ventilator 100 02/23/17 03:16 100 02/23/17 03:16 99 Ventilator 100 02/23/17 03:13 98 18 127/60 (82) 94 Physical Exam GENERAL: Morbidly obese female, lying in bed, respiratory distress, intubated, sedated HEENT: Normocephalic. Atraumatic. Pupils equal, round, reactive, conjugate. Mucous membranes are moist NECK: Trachea is midline. JVD unable to be obtained secondary to morbid obesity. Right IJ triple lumen catheter site clean dry and intact CHEST: Equal chest rise. On full mechanical support. FiO2 100%. CARDIOVASCULAR: Normal rate, regular rhythm. Sinus by telemetry ABDOMEN: Soft, nontender, nondistended. No guarding. MUSCULOSKELETAL: Pulses 2+. No peripheral edema. NEUROLOGICAL: RASS -4. sedated, intubated. Laboratory Laboratory Tests Test 02/23/17 03:20 02/23/17 03:35 02/23/17 04:06 02/23/17 05:00 Prothrombin Time 10.9 Prothromb Time International Ratio 1.0 Activated Partial Thromboplast Time 25.9 Blood Urea Nitrogen 18 Creatinine 1.54 Random Glucose 162 Total Protein 7.1 Albumin 2.7 Calcium Level 8.4 Magnesium Level 1.8 Alkaline Phosphatase 116 Aspartate Amino Transf (AST/SGOT) 20 Alanine Aminotransferase (ALT/SGPT) 17 Total Bilirubin 0.3 Sodium Level 139 Potassium Level 5.3 Chloride Level 101 Carbon Dioxide Level 37.1 Anion Gap 1 Estimat Glomerular Filtration Rate 33 Lactic Acid Level 0.7 Total Creatine Kinase 89 Troponin I 0.21 B-Type Natriuretic Peptide 244 Urine Color YELLOW Urine Turbidity HAZY Urine pH 6.0 Urine Specific [place] 1.013 Urine Protein 300 Urine Glucose (UA) TRACE Urine Ketones NEG Urine Occult Blood SMALL Urine Nitrite NEG Urine Bilirubin NEG Urine Urobilinogen LESS THAN 2.0 Urine Leukocyte Esterase NEG Urine RBC 2 Urine WBC 9 Urine Squamous Epithelial Cells 1 Urine Transitional Epithelial Cells <1 Urine Amorphous Sediment RARE Urine Bacteria MOD Urine Hyaline Casts 5 Urine Granular Casts 9 Urine Mucus FEW Microscopic Urinalysis Comment CULTURE INDICATED White Blood Count 9.4 Red Blood Count 3.85 Hemoglobin 10.4 Hematocrit 32.7 Mean Corpuscular Volume 84.9 Mean Corpuscular Hemoglobin 27.0 Mean Corpuscular Hemoglobin Concent 31.7 Red Cell Distribution Width 19.3 Platelet Count 202 Mean Platelet Volume 7.5 Neutrophils (%) (Auto) 91.2 Lymphocytes (%) (Auto) 3.0 Monocytes (%) (Auto) 5.5 Eosinophils (%) (Auto) 0.0 Basophils (%) (Auto) 0.3 Neutrophils # (Auto) 8.6 Lymphocytes # (Auto) 0.3 Monocytes # (Auto) 0.5 Eosinophils # (Auto) 0.0 Basophils # (Auto) 0.0 CBC Comment DIFF FINAL Differential Comment Blood Gas Puncture Site ART LINE Blood Gas Patient Temperature 98.6 Blood Gas HCO3 29 Blood Gas Base Excess 5.0 Blood Gas Oxygen Saturation 93 Arterial Blood pH 7.45 Arterial Blood Partial Pressure CO2 42 Arterial Blood Partial Pressure O2 66 Arterial Blood Oxygen Content 13.2 Arterial Blood Carboxyhemoglobin 2.1 Arterial Blood Methemoglobin 0.4 Blood Gas Hemoglobin 10.0 Oxygen Delivery Device VENTILATOR Blood Gas Ventilator Setting Blood Gas Inspired Oxygen 100 Date/Time Source Procedure Growth Status 02/23/17 03:25 Blood Peripheral Aerobic Blood Culture Pending Received 02/23/17 03:25 Blood Peripheral Anaerobic Blood Culture Pending Received 02/23/17 03:35 Urine Clean Catch Urine Culture Pending Received Result Diagram: 02/23/17 0406 02/23/17 0320 Imaging Last Impressions Chest X-Ray 02/23/17318 Signed Impressions: Service Date/Time: Thursday, February 23, 2017 03:28 - CONCLUSION: ET tube is at the level of the howard and needs to be withdrawn at least 2.5 cm. MD Jan Singh VTE Risk Assessment Jan VTE Risk Assessment: Mod/High Risk (score >= 2) Caprini Risk Assessment Model Point Value = 1 Point Value = 2 Point Value = 3 Point Value = 5 Age 41-60 Minor surgery BMI > 25 kg/m2 Swollen legs Varicose veins or History of unexplained or recurrent spontaneous Oral contraceptives or hormone replacement Sepsis (< 1 month) Serious lung disease, including pneumonia (< 1 month) Abnormal pulmonary function Acute myocardial infarction Congestive heart failure (< 1 month) History of inflammatory bowel disease Medical patient at bed rest Age 61-74 Arthroscopic surgery Major open surgery (> 45 min) Laparoscopic surgery (> 45 min) Malignancy Confined to bed (> 72 hours) Immobilizing plaster cast Central venous access Age >= 75 History of VTE Family history of VTE Factor V Leiden Prothrombin [id number] Lupus anticoagulant Anticardiolipin antibodies Elevated serum homocysteine Heparin-induced thrombocytopenia Other congenital or acquired thrombophilia Stroke (< 1 month) Elective arthroplasty Hip, pelvis, or leg fracture Acute spinal cord injury (< 1 month) Prophylaxis Regimen Total Risk Factor Score Risk Level Prophylaxis Regimen 0-1 Low Early ambulation 2 Moderate Order ONE of the following: *Sequential Compression Device (SCD) *Heparin 5000 units SQ BID 3-4 Higher Order ONE of the following medications: *Heparin 5000 units SQ TID *Enoxaparin/Lovenox 40 mg SQ daily (WT < 150 kg, CrCl > 30 mL/min) *Enoxaparin/Lovenox 30 mg SQ daily (WT < 150 kg, CrCl > 10-29 mL/min) *Enoxaparin/Lovenox 30 mg SQ BID (WT < 150 kg, CrCl > 30 mL/min) AND/OR *Sequential Compression Device (SCD) 5 or more Highest Order ONE of the following medications: *Heparin 5000 units SQ TID (Preferred with Epidurals) *Enoxaparin/Lovenox 40 mg SQ daily (WT < 150 kg, CrCl > 30 mL/min) *Enoxaparin/Lovenox 30 mg SQ daily (WT < 150 kg, CrCl > 10-29 mL/min) *Enoxaparin/Lovenox 30 mg SQ BID (WT < 150 kg, CrCl > 30 mL/min) AND *Sequential Compression Device (SCD) Assessment and Plan Assessment and Plan Assessment: 76yF with COPD and recent hospitalization who presents with recurrent Healthcare Associated Pneumonia and Acute hypoxic respiratory failure. Very critically ill. Given her multiple comorbidities and her recent hospitalization, she has a very guarded prognosis at best. Plan by systems: Neurologic: Metabolic encephalopathy - Frequent neuro checks - Propofol, fentanyl for goal RASS -2 Respiratory: Acute hypoxic respiratory failure Healthcare associated pneumonia COPD - Antibiotics as described below - Vent bundle - Nebs - Head of bed at 30 - No SBT today given acute hypoxemia - Wean FiO2 for goal SPO2 greater than 90% - ABG Cardiovascular: Elevated Troponin/Type II NSTEMI/Demand Ischemia Severe Sepsis - trend troponins until downtrending. no clinical history to suspect ACS. - gentle ivf. Renal: Acute kidney injury -- Strict I/Os - [place] for accurate I's and O's FEN/GI: Hyperkalemia Morbid obesity - ICU electrolyte protocol - Trend serum potassium - Start tube feeds with Jevity, nutrition consult for goal - Normal saline for maintenance fluids - Daily BMP Heme/ID: Healthcare associated pneumonia Severe sepsis Anemia, likely secondary to chronic disease - Vancomycin with pharmacy dosing - Cefepime 2 g IV every 8 hours - Flagyl 500 mg IV every 6 hours - Panculture with blood, sputum, urine - Does not need transfusion triggers at this time - Follow up daily CBC Endocrine: Hyperglycemia of critical illness -- SSI, medium scale, every 6 Prophylaxis: GI Prophylaxis Pepcid DVT Prophylaxis -- SCDs Subcutaneous heparin Lines: 02/23 right IJ triple-lumen catheter 02/23 radial arterial line [place] Dispo: Admitted to the ICU. Remains critically ill This patient remains critically ill with one or more organ systems which are or may become a threat to life. I have spent in excess of 40 minutes discontinuously in the care and management of this patient. This time is exclusive of procedures, and includes, but is not limited to, evaluation of the patient, review of the medical record, discussions with family, consultants, nursing staff, or respiratory therapy, and documentation in the medical record. John Marley MD Feb 23, 2017 06:12
[2017-02-23] MEDS: HEPARIN SODIUM - SQ 10,000 UNITS/ML VIAL SQ SCH ×3 (06:33→20:48)
--- NOTE | 2017-02-23 07:01 | RADRPT ---
EXAM DATE/TIME: 02/23/2017 05:22 [facility] COMPARISON: CT BRAIN W/O CONTRAST, July 09, 2015, 12:38. INDICATIONS : Altered mental status. RADIATION DOSE: 56.35 CTDIvol (mGy) MEDICAL HISTORY : Stroke. Hypertension. Diabetes mellitus type 2. SURGICAL HISTORY : None. ENCOUNTER: Initial ACUITY: 1 day PAIN SCALE: Non-responsive LOCATION: cranial TECHNIQUE: Multiple contiguous axial images were obtained of the head. Using automated exposure control and adj ustment of the mA and/or kV according to patient size, radiation dose was kept as low as reasonably a chievable to obtain optimal diagnostic quality images. DICOM format image data is available electro nically for review and comparison. FINDINGS: CEREBRUM: The ventricles are normal for age. No evidence of midline shift, mass lesion, hemorrhage or acute in farction. No extra-axial fluid collections are seen. There are stable bilateral old lacunar infarcts . There is chronic white matter changes bilaterally which is stable. There is bilateral cortical atro phy which is stable. POSTERIOR FOSSA: The cerebellum and brainstem are intact. The 4th ventricle is midline. The cerebellopontine angle i s unremarkable. EXTRACRANIAL: The visualized portion of the orbits is intact. There is a fracture of bowel in the left nasal bone. SKULL: The calvaria is intact. No evidence of skull fracture. There is hyperostosis frontalis interna. This is stable compared to the prior exam. CONCLUSION: No acute findings. Old lacunar infarcts, atrophy, and nasal bone fracture, stable. Ethan Caceres MD on February 23, 2017 at 6:57
[2017-02-23] MEDS: INSULIN NovoLIN REGULAR SUPPLEMENTAL SCALE SQ SCH ×3 (07:15→18:09)
--- NOTE | 2017-02-23 07:28 | RADRPT ---
EXAM DATE/TIME: 02/23/2017 05:09 [facility] COMPARISON: CHEST SINGLE AP, February 23, 2017, 3:28. INDICATIONS : Central line placement. MEDICAL HISTORY : Non-responsive. SURGICAL HISTORY : Non-responsive. ENCOUNTER: Subsequent ACUITY: 1 day PAIN SCORE: Non-responsive. LOCATION: chest FINDINGS: The ET tube tip is at the level of the howard and directs towards the right main bronchus. Interval placement of right internal jugular catheter with tip projected in the right atrium. No evidence of pneumothorax. Persistent patchy consolidation in the lateral right midlung and persistent consolidat ion in the left lower lung with loss of delineation of the left hemidiaphragm. Gastric tube tip and side-port project within the stomach. CONCLUSION: 1. Right IJ catheter tip in right atrium. No evidence of pneumothorax. 2. ET tube tip remains at the howard and needs to be withdrawn 2.5 cm. 3. Persisting consolidation left lower lung and patchy consolidative infiltrates in the lateral right midlung. Ethan Caceres MD on February 23, 2017 at 7:25 Board Certified Radiologist. This report was verified electronically.
[2017-02-23] MEDS: fentaNYL DRIP 250 ML IV SCH (07:47)
[2017-02-23] MEDS: RESP: ALBUTEROL 2.5 MG/IPRATROPIUM 0.5 MG NEB (SCH) INH ×2 (08:00→13:19)
[2017-02-23] MEDS: DOCUSATE SODIUM 50 MG/SENNA 8.6 MG TAB PO SCH ×2 (08:42→20:49)
[2017-02-23] MEDS: FAMOTIDINE 20 MG/2 ML VIAL IV PUSH SCH ×2 (08:43→20:48)
[2017-02-23] MEDS: CHLORHEXIDINE 0.12% (ORAL KIT) 15 ML CUP MT SCH ×2 (08:43→20:48)
[2017-02-23] MEDS ORDERED: VANCOMYCIN 1,000 MG/NS 250 ML IV ONE ×2 (12:00)
[2017-02-23] MEDS: CEFEPIME INJ 2,000 MG in SODIUM CHLORIDE 0.9% INJ 100 ML IV SCH (14:43)
--- NOTE | 2017-02-23 16:21 | PD.CONS ---
Consult Service Palliative Care Consult Requested By Dr. Aquino Primary Care Physician Ryan Agudelo MD Reason for Consultation a. To assist with evaluation and management of symptoms including: dyspnea, dysphagia b. To assist medical decision maker(s) with: better understanding of current medical conditions; weighing benefits/burdens of medical treatment options; making medical treatment decisions. (Saray Gaxiola) HPI History of Present Illness This 76-year-old female was admitted via the ED around 3 AM 02/23/17. She presented from [facility], via EMS for shortness of breath. According to EMS patient earlier that night complained of shortness of breath she received DuoNeb there and when nursing staff reevaluated one hour later they noted she was unresponsive with elevated respiratory rate. At EMS arrival they reported patient was nonverbal withdrawing to pain and breathing 2830 times per minute with O2 sats 60% on 4 L. To intubate in the field however were unsuccessful, patient has had bad valve ventilation and root with O2 sats 90%. Patient apparently with recent hospitalization for pneumonia. * EKG notes sinus rhythm rate 80s. Patient was intubated in the ED. Blood cultures obtained. Initiated on cefepime, Zithromax. Also given IV Solu-Medrol , started on IV fluids. Hyperkalemia potassium 5.3, creatinine 1.54. Troponin 0.21--received aspirin as suppository. Patient became hypotensive, she received additional IV fluids during ED course, arterial line and central line were placed. She was admitted to ICU for further evaluation and management. * CXR notable for new infiltrates. Sedated with propofol, fentanyl on mechanical vent. Serial troponins pending. Tube feeding started. Vancomycin added. Now on cefepime, Flagyl, Vanco. Dual visit with Luis Fernando CENTENO. Of note patient with a few recent hospitalizations: 01/26- 02/03 for respiratory distress, pneumonia--requiring BiPAP and high flow O2 during this course. ST following notes moderate oropharyngeal dysphagia patient was on pure with nectar thick diet. Discharge back to nursing facility. 12/17- 12/25 hypokalemia, COPD Function/Cognitive Trajectory Patient most recently in and out of hospital and rehabilitation setting, apparently lived at home prior to that on home O2, with a caregiver. During December hospitalization it was felt the patient should not return home with caregiver due to increased care needs. (Saray Gaxiola) Review of Systems ROS Limitations: Clinical Condition, Intubated (intubated, sedated and unable to provide) Respiratory: COMPLAINS OF: Shortness of breath (respiratory distress per nursing facility) (Saray Gaxiola) Past Family Social History Coded Allergies: No Known Allergies (Verified , 02/23/17) Past Medical History Asthma Anxiety Depression Hypertension CAD Hypercholesterolemia CHF COPD CVA Diabetes GERD . Past Surgical History Bilateral cataract surgery 2004, 2006 Teeth extractions . Reported Medications Symbicort Inh (Budesonide/Formoterol Fumarate) 160-4.5 Mcg/Act Aero 1 Puff INH Q12HR Doxycycline Hyclate 100 Mg Cap 100 Mg PO BID Atorvastatin (Atorvastatin Calcium) 40 Mg Tab 40 Mg PO HS Potassium Chloride ER (Potassium Chloride) 20 Meq Tab 20 Meq PO Q6HR Humalog Inj (Insulin Human Lispro) 1,000 Unit/10 Ml Vial 2-12 Units SQ ACHS Max dose at bedtime:( )units; sugars < 70,(0)units; sugars 150-199,(2)units; sugars 200-249,(4)units; sugars 250-299,(7)units; sugars 300-349,(10)units; sugars more than 349,(12)units. Duoneb (Ipratropium-Albuterol Neb) 0.5-2.5 Mg/3 Ml Neb 1 Nebule INH Q6HR NEB Metoprolol Tartrate 50 Mg Tab 50 Mg PO BID Tradjenta (Linagliptin) 5 Mg Tab 5 Mg PO DAILY [O2] 2 Liter Plavix (Clopidogrel Bisulfate) 75 Mg Tab 75 Mg PO DAILY B12 (Cyanocobalamin) 1,000 Mcg Tab Lasix (Furosemide) 40 Mg Tab 40 Mg PO DAILY Januvia (Sitagliptin Phosphate) 100 Mg Tab 100 Mg PO DAILY Simvastatin 80 Mg Tab 80 Mg PO DAILY Aspirin 81 Mg Chew 81 Mg CHEW DAILY Effexor (Venlafaxine HCl) 75 Mg Tab 75 Mg PO DAILY Glipizide 10 Mg Tab 10 Mg PO DAILY Take 30 minutes before a meal Zantac (Ranitidine HCl) 150 Mg Tab 75 Mg PO DAILY Norvasc (Amlodipine Besylate) 10 Mg Tab 10 Mg PO DAILY . Current Medications Medications (Trade) Dose Ordered Sig/Jovon Route Start Time Stop Time Status Last Admin (NS Flush) 2 ml UNSCH PRN IVF 02/23/17 03:30 Midazolam HCl 100 ml @ 2 mls/hr TITRATE PRN IV 02/23/17 03:30 02/23/17 07:46 (Mag-Ox) 800 mg UNSCH PRN PO 02/23/17 04:15 Magnesium Sulfate 4 gm/Sodium Chloride 100 ml @ 50 mls/hr UNSCH PRN IV 02/23/17 04:15 Magnesium Sulfate 2 gm/Sodium Chloride 100 ml @ 50 mls/hr UNSCH PRN IV 02/23/17 04:15 Potassium Chloride 100 ml @ 50 mls/hr Q2H PRN IV 02/23/17 04:15 Potassium Chloride 100 ml @ 50 mls/hr Q2H PRN IV 02/23/17 04:15 Potassium Chloride 100 ml @ 50 mls/hr Q2H PRN IV 02/23/17 04:15 Potassium Chloride 100 ml @ 25 mls/hr UNSCH PRN IV 02/23/17 04:15 (K-Phos) 2,000 mg Q4H PRN PO 02/23/17 04:15 (K-Phos) 2,000 mg UNSCH PRN PO/TUBE 02/23/17 04:15 Potassium Phosphate 30 mmol/ Sodium Chloride 260 ml @ 42 mls/hr UNSCH PRN IV 02/23/17 04:15 Sodium Phosphate 30 mmol/Sodium Chloride 250 ml @ 42 mls/hr UNSCH PRN IV 02/23/17 04:15 (Peridex 0.12% Liq) 15 ml BID@08,20 MT 02/23/17 08:00 02/23/17 08:43 (D50w (Vial) Inj) 25 ml UNSCH PRN IV PUSH 02/23/17 04:15 (NovoLIN R SUPPLEMENTAL SCALE) 1 Q6HR SQ 02/23/17 06:00 (Duoneb Neb) 1 ampule Q6HR NEB INH 02/23/17 10:00 02/23/17 13:19 (Duoneb Neb) 1 ampule Q2HR NEB PRN INH 02/23/17 04:15 Sodium Chloride 1,000 ml @ 84 mls/hr [id number] IV 02/23/17 04:01 02/23/17 05:04 (Tylenol) 650 mg Q6H PRN PO 02/23/17 04:15 (Pepcid Inj) 10 mg Q12HR IV PUSH 02/23/17 09:00 02/23/17 08:43 (Zofran Inj) 4 mg Q6H PRN IV PUSH 02/23/17 04:15 (Heparin Inj) 5,000 units Q8HR SQ 02/23/17 06:00 02/23/17 14:43 Miscellaneous Information 1 Q361D XX 02/23/17 04:15 (Chlorhexidine 2% Cloth) 3 pack Taper DAILY@04 TOP 02/24/17 04:00 02/20/18 03:59 (Chlorhexidine 2% Cloth) 3 pack UNSCH PRN TOP 02/23/17 04:15 (Ynes-Colace) 1 tab BID PO 02/23/17 09:00 02/23/17 08:42 Pharmacy Profile Note 0 ml @ 0 mls/hr UNSCH OTHER 02/23/17 04:15 Cefepime HCl 2000 mg/Sodium Chloride 100 ml @ 200 mls/hr Q12H IV 02/23/17 16:00 02/23/17 14:43 Metronidazole 100 ml @ 100 mls/hr Q6H IV 02/23/17 04:00 02/23/17 08:43 Fentanyl Citrate 250 ml @ 2.5 mls/hr TITRATE IV 02/23/17 15:45 Propofol 100 ml @ 3.438 mls/ hr TITRATE IV 02/23/17 15:45 Family History No family history of early coronary artery disease or malignancy . Substance Use Tobacco: None Alcohol: Formerly drink 1-2 drinks per month Prescription med abuse: None Illicits: None . Psychosocial History Most recently in and out of nursing facility and hospital past few months, prior to that lived at home. Supported by brother who lives out of state, and a local nurse liaison who assists with care needs. Spiritual/Cultural Factors Voodoo (Saray Gaxiola) Ethical and Legal Issues Patient does have a power of civil attorney form dated November 2003 however this does not include medical decision making. This document names brother Ori as power of civil attorney. (Saray Gaxiola) Physical Exam Vital Signs Date Time Temp Pulse Resp B/P (MAP) Pulse Ox O2 Delivery O2 Flow Rate FiO2 02/23/17 15:03 94 65 02/23/17 14:00 67 02/23/17 12:51 99 65 02/23/17 12:00 80 02/23/17 12:00 65 02/23/17 12:00 97.9 65 22 136/63 (87) 100 133/54 (80) 02/23/17 10:00 66 02/23/17 08:01 95 90 02/23/17 08:00 90 02/23/17 08:00 72 02/23/17 08:00 98.9 67 22 137/63 (87) 96 132/86 (101) 02/23/17 06:00 72 02/23/17 05:57 96 100 02/23/17 05:30 100 100 02/23/17 05:14 02/23/17 04:43 100.0 81 20 98 Ventilator 94/51 (65) 02/23/17 04:32 104/55 (71) 02/23/17 04:30 100.2 71 20 86/50 (62) 96 Ventilator 100 02/23/17 04:25 100.2 71 20 78/52 (61) 96 Ventilator 100 02/23/17 04:23 72 20 70/46 (54) 98 Ventilator 100 02/23/17 04:16 75 22 65/43 (50) 97 Ventilator 02/23/17 04:02 100 02/23/17 03:50 97 100 02/23/17 03:40 98.6 81 20 123/59 (80) 95 100 02/23/17 03:20 98 100 02/23/17 03:16 99 Ventilator 100 02/23/17 03:16 100 02/23/17 03:16 99 Ventilator 100 02/23/17 03:13 98 18 127/60 (82) 94 02/23/17 02/24/17 19:00 07:00 Intake Total 376.2 ml Balance 376.2 ml IV Total 376.2 ml (Saray Gaxiola) Exam CONSTITUTIONAL/GENERAL: This is an elderly female patient, adequately nourished patient, intubated, mechanically ventilated, sedated, in no apparent distress. TUBES/LINES/DRAINS:ETT, OGT, PIV x2, R Radial A-line, soft wrist restraints, sher catheter SKIN: No jaundice, rashes, or lesions. Ecchymoses on upper extremities. No wounds seen anteriorly. Skin temperature appropriate. Not diaphoretic. HEAD: Atraumatic. Normocephalic. EYES: Pupils equal and round and reactive. No scleral icterus. No injection or drainage. Fundi not examined. ENT: Unable to assess secondary to clinical condition.Nose without bleeding or purulent drainage. NECK: Trachea midline. Supple. CARDIOVASCULAR: Regular rate and rhythm without murmurs, gallops, or rubs. No JVD. Peripheral pulses symmetric. RESPIRATORY/CHEST: Symmetric, mechanically ventilated. Course air exchange, breath sounds diminished bilaterally. GENITOURINARY: Sher catheter in place. MUSCULOSKELETAL: Extremities without clubbing or cyanosis. Edema +1 BLE. No mottling or clubbing. NEUROLOGICAL: Sedated. Patient withdraws to noxious stimuli. Exam limited, per RN patient becomes agitated with stimulation. PSYCHIATRIC: Unable to assess secondary to clinical condition. . (Rama Edwards) Diagnostic Tests Laboratory Laboratory Tests Test 02/23/17 03:20 02/23/17 03:35 02/23/17 04:06 02/23/17 05:00 Prothrombin Time 10.9 SEC (9.8-11.6) Prothromb Time International Ratio 1.0 RATIO Activated Partial Thromboplast Time 25.9 SEC (24.3-30.1) Blood Urea Nitrogen 18 MG/DL (7-18) Creatinine 1.54 MG/DL (0.50-1.00) Random Glucose 162 MG/DL (74-106) Total Protein 7.1 GM/DL (6.4-8.2) Albumin 2.7 GM/DL (3.4-5.0) Calcium Level 8.4 MG/DL (8.5-10.1) Magnesium Level 1.8 MG/DL (1.5-2.5) Alkaline Phosphatase 116 U/L (45-117) Aspartate Amino Transf (AST/SGOT) 20 U/L (15-37) Alanine Aminotransferase (ALT/SGPT) 17 U/L (10-53) Total Bilirubin 0.3 MG/DL (0.2-1.0) Sodium Level 139 MEQ/L (136-145) Potassium Level 5.3 MEQ/L (3.5-5.1) Chloride Level 101 MEQ/L (98-107) Carbon Dioxide Level 37.1 MEQ/L (21.0-32.0) Anion Gap 1 MEQ/L (5-15) Estimat Glomerular Filtration Rate 33 ML/MIN (>89) Lactic Acid Level 0.7 mmol/L (0.4-2.0) Total Creatine Kinase 89 U/L (26-192) Troponin I 0.21 NG/ML (0.02-0.05) B-Type Natriuretic Peptide 244 PG/ML (0-100) Urine Color YELLOW (YELLW/STRAW) Urine Turbidity HAZY (CLEAR) Urine pH 6.0 (5.0-8.5) Urine Specific [place] 1.013 (1.002-1.035) Urine Protein 300 mg/dL (NEG-TRACE) Urine Glucose (UA) TRACE mg/dL (NEG) Urine Ketones NEG mg/dL (NEG) Urine Occult Blood SMALL (NEG) Urine Nitrite NEG (NEG) Urine Bilirubin NEG (NEG) Urine Urobilinogen LESS THAN 2.0 MG/DL (LESS Urine Leukocyte Esterase NEG (NEG) Urine RBC 2 /hpf (0-3) Urine WBC 9 /hpf (0-5) Urine Squamous Epithelial Cells 1 /hpf (0-5) Urine Transitional Epithelial Cells <1 /hpf (NONE) Urine Amorphous Sediment RARE Urine Bacteria MOD /hpf (NONE) Urine Hyaline Casts 5 /lpf (RARE) Urine Granular Casts 9 /lpf (NONE) Urine Mucus FEW /lpf (OCC) Microscopic Urinalysis Comment CULTURE INDICATED White Blood Count 9.4 TH/MM3 (4.0-11.0) Red Blood Count 3.85 MIL/MM3 (4.00-5.30) Hemoglobin 10.4 GM/DL (11.6-15.3) Hematocrit 32.7 % (35.0-46.0) Mean Corpuscular Volume 84.9 FL (80.0-100.0) Mean Corpuscular Hemoglobin 27.0 PG (27.0-34.0) Mean Corpuscular Hemoglobin Concent 31.7 % (32.0-36.0) Red Cell Distribution Width 19.3 % (11.6-17.2) Platelet Count 202 TH/MM3 (150-450) Mean Platelet Volume 7.5 FL (7.0-11.0) Neutrophils (%) (Auto) 91.2 % (16.0-70.0) Lymphocytes (%) (Auto) 3.0 % (9.0-44.0) Monocytes (%) (Auto) 5.5 % (0.0-8.0) Eosinophils (%) (Auto) 0.0 % (0.0-4.0) Basophils (%) (Auto) 0.3 % (0.0-2.0) Neutrophils # (Auto) 8.6 TH/MM3 (1.8-7.7) Lymphocytes # (Auto) 0.3 TH/MM3 (1.0-4.8) Monocytes # (Auto) 0.5 TH/MM3 (0-0.9) Eosinophils # (Auto) 0.0 TH/MM3 (0-0.4) Basophils # (Auto) 0.0 TH/MM3 (0-0.2) CBC Comment DIFF FINAL Differential Comment Blood Gas Puncture Site ART LINE Blood Gas Patient Temperature 98.6 Blood Gas HCO3 29 mmol/L (22-26) Blood Gas Base Excess 5.0 mmol/L (-2-2) Blood Gas Oxygen Saturation 93 % (90-100) Arterial Blood pH 7.45 (7.380-7.420) Arterial Blood Partial Pressure CO2 42 mmHg (38-42) Arterial Blood Partial Pressure O2 66 mmHG (61-120) Arterial Blood Oxygen Content 13.2 Vol % (12.0-20.0) Arterial Blood Carboxyhemoglobin 2.1 % (0-4) Arterial Blood Methemoglobin 0.4 % (0-2) Blood Gas Hemoglobin 10.0 G/DL (12.0-16.0) Oxygen Delivery Device VENTILATOR Blood Gas Ventilator Setting Blood Gas Inspired Oxygen 100 % Test 02/23/17 06:00 02/23/17 10:00 02/23/17 14:53 Nasal Screen MRSA (PCR) MRSA NOT DETECTED (NOT Troponin I 0.65 NG/ML (0.02-0.05) 0.59 NG/ML (0.02-0.05) (Saray Gaxiola) Result Diagram: 02/23/17 0406 02/23/17 0320 Microbiology Microbiology Date/Time Source Procedure Growth Status 02/23/17 03:25 Blood Peripheral Aerobic Blood Culture Pending Received 02/23/17 03:25 Blood Peripheral Anaerobic Blood Culture Pending Received 02/23/17 03:20 Blood Peripheral Aerobic Blood Culture Pending Received 02/23/17 03:20 Blood Peripheral Anaerobic Blood Culture Pending Received 02/23/17 08:00 Sputum Endotracheal Gram Stain Pending Received 02/23/17 08:00 Sputum Endotracheal Sputum Culture Pending Received 02/23/17 03:35 Urine Clean Catch Urine Culture Pending Received Procedures 02/23 central line right IJ, arterial line (Saray Gaxiola) Patient/Family Conference Family Conference Location: Telephone Issues Discussed: Attempted to reach brother Ori 2x, voicemail left. Brief phone discussion w "nurse liaison" Radha who is entrusted by [employer] to follow her health locally. Discussion included: * Palliative care role, purpose, approach * Brief review of patient's recent hospitalizations, Radha verbalizes that the patient during the last admission struggled with weighing DNR and intubation status that she ultimately elected no intubation and even refused BiPAP though she did not formally leave with a community DNR * Review of general conditions and prognosis, in consideration of frequent recent hospitalizations * Patients goals of care as best understood from advance directives and/or conversations and/or values--see above * Likely scenarios comparing ongoing aggressive care with a transition to comfort measures only-review option of giving a few more days of medical treatment now the patient is on ventilator, with the possibility of withdrawal of artificial measures and transition to comfort focus if patient not improving , and that would be consistent with her wishes review of hospice role and services. * Questions answered to the best of my ability * Palliative care contact information provided Radha indicates patient brother Ori will be in town this weekend and wishes to discuss further possibilities of medical extubation versus withdrawal and transition to comfort focus as they indicate the patient did not really want to be intubated in the first place, and last admission she refused BiPAP and ultimately elected no intubation. (Saray Gaxiola) Assessment and Plan Disease Oriented Problem List: (1) Healthcare-associated pneumonia (2) Elevated troponin level (3) History of COPD (4) COPD exacerbation (5) Acute respiratory failure (6) Hyperlipidemia (7) Hypertension (8) Chronic diastolic CHF (congestive heart failure) (9) GERD (gastroesophageal reflux disease) (10) Obesity (11) Renal insufficiency (12) Altered mental status (13) Diabetes mellitus Symptom Scale: (1) Dyspnea (2) Dysphagia (3) Malnutrition Pertinent Non-Medical Issues Psychosocial:Most recently in and out of nursing facility and hospital past few months, prior to that lived at home. Supported by brother who lives out of state, and a local nurse liaison who assists with care needs. Spiritual: Voodoo Legal:Patient is currently not capacitated were able to make her decisions. She does have a DURABLE POWER OF SENIOR SECURITY ENGINEER which remains her brother however this does not include healthcare decision-making. Patient is apparently not , no other family members so her [place] statutes this brother would be the appropriate legal proxy. Ethical issues impacting care: Important Contacts [facility] [phone] /[phone] Friend/caregiver Radha Rowland [phone] . Prognosis This patient of advanced age has had several recent hospitalizations this is her third hospitalization in 3 months, she has underlying chronic medical conditions, as well as recurrent pneumonia. Recently with significant dysphagia per ST evaluation during last hospital course. Possible ongoing aspiration. Currently critically ill on mechanical vent, high risk for further complications/setbacks. . Code Status: Full Code Plan * Legal decision maker: Patient is currently not capacitated were able to make her decisions. She does have a DURABLE POWER OF SENIOR SECURITY ENGINEER which remains her brother however this does not include healthcare decision-making. Patient is apparently not , no other family members so her [place] statutes this brother would be the appropriate legal proxy. * Goals: Radha indicates patient brother Ori will be in town this weekend and wishes to discuss further possibilities of medical extubation versus withdrawal and transition to comfort focus as they indicate the patient did not really want to be intubated in the first place, and last admission she refused BiPAP and ultimately elected no intubation. *They would likely want to transition to comfort focus in the coming days. * CODE STATUS: Full code, pending further discussions with patient brother SYMPTOMS: --Dyspnea-respiratory distress in nursing facility, emergently intubated, now breathing comfortably on mechanical vent --Dysphagia-recent ST evaluations during last hospitalization indicated dysphagia, patient required modified diet with thickened liquids, pured foods. ? Possible ongoing aspiration. No intubated on mechanical vent. --Malnutrition-recent diagnosis dysphagia, albumin 2.7. Tube feeding has been begun this admission. Possible may patient may require long-term feeding assistance via feeding tube. * Palliative care will continue to follow during hospital course as condition evolves, to assist patient/decision-maker with understanding of medical conditions, weighing benefits/burdens of treatment options, for clarification of goals of treatment. Additionally will assist with any symptoms of palliative concern (Saray Gaxiola) Time Spent Total Floor Time (mins): 45 (Saray Gaxiola) Thank you for the opportunity to participate in the care of Ms. Michaels. (Saray Gaxiola) Attestation To help prompt me to consider important information that might be impacting today's encounter and assessment, information from prior notes written by myself or my colleagues may have been "brought forward" into today's note. My signature on this note, however, is an attestation that I personally performed the exam, history, and/or decision-making noted today, and, unless otherwise indicated, the interactions with patient, family, and staff as well as the review of records all occurred today. I also attest that the listed assessment and stated plan reflect my best clinical judgment today based on the combination of historical information, prior notes, and today's exam/ interactions. When time spent is documented, it refers only to time spent today by the signer, or if indicated, combined time spent today by collaborating physician/nurse practitioner. (Saray Gaxiola) Saray Gaxiola Feb 23, 2017 16:21 Rama Edwards Feb 23, 2017 16:36
--- NOTE | 2017-02-23 16:33 | EKG ---
Date Performed: 02/23/2017 Time Performed: 03:24:23 PTAGE: 76 years EKG: Sinus rhythm MARKED LEFT AXIS DEVIATION ABNORMAL ECG Since PREVIOUS TRACING , no significant change noted PREVIOUS TRACIN01/26/2017 18.22 DOCTOR: Katie Parker Interpretating Date/Time 02/23/2017 16:32:48
--- NOTE | 2017-02-23 19:23 | MB ---
cc: ELISSA WILSON DR, DATE OF CONSULTATION: 02/23/2017 REASON FOR CONSULTATION: COPD and respiratory failure. HISTORY OF PRESENT ILLNESS This is a 76-year-old white female who has had a longstanding history of severe COPD on home oxygen living at a [facility], apparently was getting progressively short of breath over a period of several hours. This patient later was found unresponsive and was brought by [facility] and had to be intubated in the emergency room. The patient was hypercapnic, hypoxic and a chest x-ray that was done upon admission showed bilateral pulmonary infiltrates and she also had an elevated troponin. Following intubation, her oxygenation did improve however she is still on 60% FIO2 and PEEP of 10. The patient is not responsive but assisting the ventilator. PAST HISTORY Past history has included - 1. Recurrent bouts of respiratory failure. 2. History of pulmonary edema. 3. History of asthma with chronic bronchitis. 4. History of pneumonia on several occasions as well as aspiration. 5. History of hypertension. 6. History of coronary artery disease. 7. Depression and anxiety. 8. Diabetes mellitus. 9. History for strokes. 10. History for gastroesophageal reflux. 11. Mild dementia. SURGERIES The patient had cataract repair. HABITS The patient was a smoker in the remote past. No significant alcohol use. MEDICATIONS Medication list include - 1. DuoNeb nebs q.i.d. 2. Tradjenta 5 mg daily. 3. Metoprolol 50 mg b.i.d. 4. Vitamin B12 1000 mcg a day. 5. Januvia 100 mg a day. 6. Aspirin 81 mg a day. 7. Effexor 75 mg a day. 8. Glipizide 10 mg a day. 9. Zantac 150 mg b.i.d. 10. Norvasc 10 mg a day. REVIEW OF SYSTEMS The patient is intubated, unresponsive. PHYSICAL EXAMINATION GENERAL: This moderately obese, elderly, white female is intubated and poorly responsive. VITAL SIGNS: Blood pressure is 130/60, pulse is 90, respirations 22, temperature 98.2. HEAD, EYES, EARS, NOSE AND THROAT: Head normocephalic. Pupils reactive. Sclerae are clear. Throat - clear secretions. Ears and nose - no inflammation. NECK: Supple. No lymphadenopathy. There is mild venous distension while laying flat. Trachea midline. CHEST: Distant breath sounds with coarse wheezes bilaterally with occasional crackles in the right lung field. HEART: The heart sounds are regular. S1 and S2. No murmur. No S3 gallop. ABDOMEN: The abdomen is soft and obese without masses. No organomegaly. The bowel sounds are active. EXTREMITIES: Edema 1+ with decreased peripheral pulses. The patient does not move her extremities and is sedated. RECTAL: Exam is deferred. SKIN: No lesions. IMPRESSION 1. Acute on chronic respiratory failure. 2. COPD with emphysema and chronic bronchitis. 3. CHF. 4. Probable aspiration pneumonia. 5. Diabetes mellitus type 2. 6. Hypertension. PLAN The patient has been placed on antibiotic coverage including vancomycin and cefepime and Flagyl. We will continue with the same. Nebulized DuoNeb solution added q.6 hours and Solu-Medrol 40 mg IV q.8 hours. A followup chest x-ray will be done. The ventilator will be weaned as tolerated and FIO2 weaned to 40%. The patient will be kept sedated while on ventilator support. If she is clinically stable over the next 24-48 hours, attempts will be made to wean her to C-PAP and extubated. I discussed her clinical condition with her son yesterday and it was decided that she would be a candidate for Hospice care due to her generally deteriorating clinical status with a poor prognosis and he was in agreement. We will start her on tube feedings as well. I will follow the case with you Dr. Aquino, thank you for this consultation. MD JC Laughlin/DIVINE /5:49 PM /6:49 PM
[2017-02-23] MEDS: RESP: ALBUTEROL 2.5 MG/IPRATROPIUM 0.5 MG NEB (SCH) NEB (19:44)
[2017-02-23] MEDS: methylPREDNISolone SOD SUCC 40 MG/1 ML VIAL IV SCH (20:47)
[2017-02-23] MEDS: PROPOFOL 1000 MG/100 ML INJ 100 ML IV SCH (22:25)
[2017-02-24] VITALS (19 sets, daily range): BP systolic 113–140; BP diastolic 51–67; PULSE 46–85; RESP 22; TEMP 97–98.9; O2SAT 90–97
[2017-02-24] MEDS: INSULIN NovoLIN REGULAR SUPPLEMENTAL SCALE SQ SCH ×4 (00:09→17:16)
[2017-02-24] MEDS: methylPREDNISolone SOD SUCC 40 MG/1 ML VIAL IV SCH ×3 (03:05→22:15)
[2017-02-24] MEDS: CEFEPIME INJ 2,000 MG in SODIUM CHLORIDE 0.9% INJ 100 ML IV SCH ×2 (03:05→14:15)
[2017-02-24] MEDS: CHLORHEXIDINE GLUCONATE 2 % 1 PACK (2 CLOTHS) TOP SCH (04:00)
[2017-02-24] MEDS: metroNIDAZOLE 500 MG INJ 100 ML IV SCH ×4 (04:02→21:27)
[2017-02-24] MEDS: fentaNYL DRIP 250 ML IV SCH ×2 (05:12→22:12)
[2017-02-24 05:22] LABS: HEMATOCRIT 30.4 % (35.0-46.0); MEAN CELL VOLUME 83.3 FL (80.0-100.0); MEAN CORPUSCULAR HEMOGLOBIN 26.7 PG (27.0-34.0); PLATELET COUNT 209 TH/MM3 (150-450); RED BLOOD COUNT 3.64 MIL/MM3 (4.00-5.30); RED CELL DISTRIBUTION WIDTH 19.5 % (11.6-17.2); WHITE BLOOD COUNT 10.6 TH/MM3 (4.0-11.0)
[2017-02-24 05:31] LABS: REVIEW FLAG FINAL
[2017-02-24 05:50] LABS: BICARBONATE 26.9 MEQ/L (21.0-32.0); POTASSIUM 4.2 MEQ/L (3.5-5.1)
--- NOTE | 2017-02-24 06:23 | RADRPT ---
EXAM DATE/TIME: 02/24/2017 05:05 [place] COMPARISON: CHEST SINGLE AP, February 23, 2017, 5:09. INDICATIONS : Shortness of breath, possible pulmonary disease. MEDICAL HISTORY : None. SURGICAL HISTORY : None. ENCOUNTER: Subsequent ACUITY: 2 days PAIN SCORE: Non-responsive. LOCATION: Bilateral chest FINDINGS: ET tube tip 2.1 cm above the howard. Gastric tube tip within the stomach. Right IJ catheter tip at the cavoatrial junction. Persisting consolidation left mid and lower lung with loss of delineation o f the entire left hemidiaphragm. Previously noted infiltrate in the lateral right upper lung has res olved. CONCLUSION: Persistent left mid and lower lung consolidation. Ethan Caceres MD on February 24, 2017 at 6:21 Board Certified Radiologist. This report was verified electronically.
[2017-02-24] MEDS: HEPARIN SODIUM - SQ 10,000 UNITS/ML VIAL SQ SCH ×3 (06:34→21:26)
[2017-02-24] MEDS: PROPOFOL 1000 MG/100 ML INJ 100 ML IV SCH ×3 (06:35→21:26)
[2017-02-24] MEDS: RESP: ALBUTEROL 2.5 MG/IPRATROPIUM 0.5 MG NEB (SCH) NEB ×4 (07:31→20:43)
[2017-02-24] MEDS ORDERED: FUROSEMIDE 20 MG/2 ML VIAL IV PUSH SCH (09:00)
[2017-02-24] MEDS: CHLORHEXIDINE 0.12% (ORAL KIT) 15 ML CUP MT SCH ×2 (09:42→21:27)
[2017-02-24] MEDS: FAMOTIDINE 20 MG/2 ML VIAL IV PUSH SCH ×2 (09:43→21:26)
[2017-02-24] MEDS: DOCUSATE SODIUM 50 MG/SENNA 8.6 MG TAB PO SCH ×2 (09:43→21:00)
[2017-02-24] MEDS ORDERED: VANCOMYCIN INJ 2,250 MG in SODIUM CHLORID 0.9% 500 ML INJ 500 ML IV ONE (15:00)
--- NOTE | 2017-02-24 16:34 | HHI.CCPN ---
Subjective Remarks/Hospital Course This is a 76yF who presented from a SNF for shortness of breath x a few hours. She was found unresponsive at her SNF with respiratory distress and spo2 60% on 4L o2 by [place]. EMS attempted intubation in the field and were unsuccessful. She was successfully intubated in the emergency department. She had a normal wbc, but a CXR with new infiltrates, elevated Cr, slightly elevated troponin. She is intubated, unresponsive, and unable to provide any additional information. Subjective: 02/24: The patient continues to have high O2 requirements, no improvement in chest x-ray. Family at bedside , brother Ori Michaels. Extensive discussion with family regarding patient's current medical status, and respiratory compromise has been long-standing. Mr Michaels stated that the patient, would not desire long-term mechanical ventilation and requested not to have tracheostomy. Mr. Michaels stated that alternate CODE STATUS be initiated. Discussion regarding comfort care/withdrawal, and Hospice performed at his request. Mr. Michaels stated that he would like to meet with palliative care on Sunday, 02/26 to define goals of care. Objective Vital Signs Date Time Temp Pulse Resp B/P (MAP) Pulse Ox O2 Delivery O2 Flow Rate FiO2 02/24/17 16:09 93 65 02/24/17 16:00 46 02/24/17 04:00 98.9 22 113/59 (77) 116/51 (72) 02/23/17 04:43 Ventilator Intake and Output 02/24/17 02/24/17 02/24/17 07:59 15:59 23:59 Intake Total 1904.7 ml Output Total 185 ml Balance 1719.7 ml Result Diagram: 02/24/17 0410 02/24/17 041 Imaging Last Impressions Chest X-Ray 02/23/17318 Signed Impressions: Service Date/Time: Thursday, February 23, 2017 03:28 - CONCLUSION: ET tube is at the level of the howard and needs to be withdrawn at least 2.5 cm. Ethan Caceres MD Objective Remarks GENERAL: Morbidly obese female, lying in bed, intubated, sedated HEENT: Normocephalic. Atraumatic. Pupils equal, round, reactive, conjugate. Mucous membranes are moist NECK: Trachea is midline. JVD unable to be obtained secondary to morbid obesity. Right IJ triple lumen catheter site clean dry and intact CHEST: Equal chest rise. On full mechanical support. FiO2 65% CARDIOVASCULAR: Normal rate, regular rhythm. Sinus by telemetry ABDOMEN: Soft, nontender, nondistended. No guarding. MUSCULOSKELETAL: Pulses 2+. No peripheral edema. NEUROLOGICAL: RASS -4. sedated, intubated. A/P Assessment and Plan Assessment: 76yF with COPD and recent hospitalization who presents with recurrent Healthcare Associated Pneumonia and Acute hypoxic respiratory failure. Very critically ill. Given her multiple comorbidities and her recent hospitalization, she has a very guarded prognosis at best. Plan by systems: Neurologic: Metabolic encephalopathy - Frequent neuro checks - Propofol, fentanyl for goal RASS -2 Respiratory: Acute hypoxic respiratory failure Healthcare associated pneumonia COPD - Antibiotics as described below - Vent bundle - Nebs - Head of bed at 30 - No SBT today given acute hypoxemia - Wean FiO2 for goal SPO2 greater than 90% Cardiovascular: Elevated Troponin/Type II NSTEMI/Demand Ischemia Severe Sepsis - trend troponins until downtrending. no clinical history to suspect ACS. - gentle hydration Renal: Acute kidney injury -- Strict I/Os - [place] for accurate I's and O's FEN/GI: Hyperkalemia Morbid obesity - ICU electrolyte protocol - Trend serum potassium - Tube feeds with Jevity, nutrition consult for goal - NS 42 cc/hr - Daily BMP Heme/ID: Healthcare associated pneumonia Severe sepsis Anemia, likely secondary to chronic disease - Vancomycin with pharmacy dosing - Cefepime 2 g IV every 8 hours - Flagyl 500 mg IV every 6 hours - Panculture with blood, sputum -Urine culture -Yeast - Does not need transfusion triggers at this time - Follow up daily CBC Endocrine: Hyperglycemia of critical illness -- SSI, medium scale, every 6 Prophylaxis: GI Prophylaxis Pepcid DVT Prophylaxis -- SCDs Subcutaneous heparin Lines: 02/23 right IJ triple-lumen catheter 02/23 radial arterial line [place] Dispo: Admitted to the ICU. Remains critically ill This patient remains critically ill with one or more organ systems which are or may become a threat to life. I have spent in excess of 50 minutes discontinuously in the care and management of this patient. This time is exclusive of procedures, and includes, but is not limited to, evaluation of the patient, review of the medical record, discussions with family, consultants, nursing staff, or respiratory therapy, and documentation in the medical record. 9/23: Family meeting convened today with brother Ori Michaels, contact information [phone]. Extensive discussion regarding goals of care. He expressed that the patient would not want a tracheostomy nor a PEG feeding tube , and is considering comfort care measures at this time. He is requested that the patient be placed on alternate CODE STATUS, discussion also in the presence of RAMP AND CARGO SUPERVISOR (Mariam). The CODE STATUS has been changed to intubation only. Vasopressor use, no CPR medication, no electrical treatment. He has requested to me with palliative care team Sunday morning, Ms. Saray Gaxiola or palliative team jewelry sales representative, prior to returning home to [facility], clarification of goals and decision making. All questions answered Physician Kristi Herron MD Feb 24, 2017 16:34
[2017-02-24] MEDS ORDERED: FLUCONAZOLE 200 MG PREMIX BAG 100 ML IV ONE (17:00)
[2017-02-24] MEDS: SODIUM CHLOR 0.9% 1000 ML INJ 1,000 ML IV SCH (18:44)
[2017-02-25] VITALS: BP 119/61; PULSE 56; RESP 22; O2SAT 90
[2017-02-25] MEDS: INSULIN NovoLIN REGULAR SUPPLEMENTAL SCALE SQ SCH (00:20)
[2017-02-25 02:00] VITALS: PULSE 61
[2017-02-25] MEDS: metroNIDAZOLE 500 MG INJ 100 ML IV SCH (03:14)
[2017-02-25] MEDS: SODIUM CHLOR 0.9% 1000 ML INJ 1,000 ML IV SCH (03:14)
[2017-02-25] MEDS: fentaNYL DRIP 250 ML IV SCH (03:15)
[2017-02-25 03:33] VITALS: O2SAT 93
[2017-02-25] MEDS: RESP: ALBUTEROL 2.5 MG/IPRATROPIUM 0.5 MG NEB (SCH) NEB (03:33)
[2017-02-25] MEDS: PROPOFOL 1000 MG/100 ML INJ 100 ML IV SCH (03:47)
[2017-02-25 04:00] VITALS: BP 133/63; PULSE 61; RESP 22; O2SAT 93
[2017-02-25] MEDS: CHLORHEXIDINE GLUCONATE 2 % 1 PACK (2 CLOTHS) TOP SCH (04:00)
[2017-02-25] MEDS: CEFEPIME INJ 2,000 MG in SODIUM CHLORIDE 0.9% INJ 100 ML IV SCH (04:00)
[2017-02-25] MEDS: HEPARIN SODIUM - SQ 10,000 UNITS/ML VIAL SQ SCH (04:40)
[2017-02-25] MEDS: methylPREDNISolone SOD SUCC 40 MG/1 ML VIAL IV SCH (04:40)
[2017-02-25 05:35] LABS: HEMATOCRIT 31.2 % (35.0-46.0); MEAN CELL VOLUME 82.9 FL (80.0-100.0); MEAN CORPUSCULAR HGB CONC 32.6 % (32.0-36.0); PLATELET COUNT 229 TH/MM3 (150-450); RED BLOOD COUNT 3.76 MIL/MM3 (4.00-5.30); RED CELL DISTRIBUTION WIDTH 19.5 % (11.6-17.2); REVIEW FLAG FINAL; WHITE BLOOD COUNT 8.2 TH/MM3 (4.0-11.0)
[2017-02-25 05:43] LABS: BICARBONATE 25.9 MEQ/L (21.0-32.0); POTASSIUM 4.1 MEQ/L (3.5-5.1)
[2017-02-25 06:00] VITALS: PULSE 58
[2017-02-25] MEDS ORDERED: LORazepam 2 MG/ML VIAL IV PUSH ONE ×2 (06:30→07:00)
[2017-02-25] MEDS ORDERED: HYOSCYAMINE 0.5 MG/ML AMP IV PUSH ONE (06:30)
[2017-02-25] MEDS ORDERED: MORPHINE SULFATE 8 MG/ML INJ IV PUSH ONE (06:30)
--- NOTE | 2017-02-25 06:42 | HHI.CCPN ---
Subjective Remarks/Hospital Course This is a 76yF who presented from a SNF for shortness of breath x a few hours. She was found unresponsive at her SNF with respiratory distress and spo2 60% on 4L o2 by [place]. EMS attempted intubation in the field and were unsuccessful. She was successfully intubated in the emergency department. She had a normal wbc, but a CXR with new infiltrates, elevated Cr, slightly elevated troponin. She is intubated, unresponsive, and unable to provide any additional information. Subjective: 02/24: The patient continues to have high O2 requirements, no improvement in chest x-ray. Family at bedside , brother Ori Michaels. Extensive discussion with family regarding patient's current medical status, and respiratory compromise has been long-standing. Mr Michaels stated that the patient, would not desire long-term mechanical ventilation and requested not to have tracheostomy. Mr. Michaels stated that alternate CODE STATUS be initiated. Discussion regarding comfort care/withdrawal, and Hospice performed at his request. Mr. Michaels stated that he would like to meet with palliative care on Sunday, 02/26 to define goals of care. 02/25: Altered floor at 605, the patient self extubated 100% BVM was being provided with plans for emergent reintubation. I telephone Mr. Ori Michaels, informed him of the situation, he requested immediate comfort care/withdrawal be initiated at this time. He requested that the patient not be reintubated at this time. This was confirmed with Willie Geiger RN. Comfort care measures instituted as requested. Family enroute to hospital. Objective Vital Signs Date Time Temp Pulse Resp B/P (MAP) Pulse Ox O2 Delivery O2 Flow Rate FiO2 02/25/17 04:00 70 02/25/17 04:00 98.2 61 22 133/63 (86) 93 02/23/17 04:43 Ventilator Intake and Output 02/25/17 02/25/17 02/26/17 08:00 16:00 00:00 Intake Total 550 ml Balance 550 ml Result Diagram: 02/25/17 0454 02/25/17 0454 Imaging Last Impressions Chest X-Ray 02/23/17 7302 Signed Impressions: Service Date/Time: Thursday, February 23, 2017 03:28 - CONCLUSION: ET tube is at the level of the howard and needs to be withdrawn at least 2.5 cm. Ethan Caceres MD Objective Remarks GENERAL: Morbidly obese female, lying in bed, intubated, sedated HEENT: Normocephalic. Atraumatic. Pupils equal, round, reactive, conjugate. Mucous membranes are moist NECK: Trachea is midline. JVD unable to be obtained secondary to morbid obesity. Right IJ triple lumen catheter site clean dry and intact CHEST: Equal chest rise. CARDIOVASCULAR: Normal rate, regular rhythm. Sinus by telemetry ABDOMEN: Soft, nontender, nondistended. No guarding. MUSCULOSKELETAL: Pulses 2+. No peripheral edema. NEUROLOGICAL: RASS -4. sedated, intubated. Procedures 604 self extubation A/P Assessment and Plan Assessment: 76yF with COPD and recent hospitalization who presents with recurrent Healthcare Associated Pneumonia and Acute hypoxic respiratory failure. Very critically ill. Given her multiple comorbidities and her recent hospitalization, she has a very guarded prognosis at best. Plan by systems: Neurologic: Metabolic encephalopathy - Frequent neuro checks - Propofol, fentanyl for goal RASS -2 Respiratory: Acute hypoxic respiratory failure Healthcare associated pneumonia COPD - Antibiotics as described below - Vent bundle - Nebs - Head of bed at 30 - No SBT today given acute hypoxemia - Wean FiO2 for goal SPO2 greater than 90% Cardiovascular: Elevated Troponin/Type II NSTEMI/Demand Ischemia Severe Sepsis - trend troponins until downtrending. no clinical history to suspect ACS. - gentle hydration Renal: Acute kidney injury -- Strict I/Os - [place] for accurate I's and O's FEN/GI: Hyperkalemia Morbid obesity - ICU electrolyte protocol - Trend serum potassium - Tube feeds discontinued - NS 42 cc/hr - Daily BMP Heme/ID: Healthcare associated pneumonia Severe sepsis Anemia, likely secondary to chronic disease - Vancomycin with pharmacy dosing - Cefepime 2 g IV every 8 hours - Flagyl 500 mg IV every 6 hours - Panculture with blood, sputum -Urine culture -Yeast - Does not need transfusion triggers at this time - Follow up daily CBC Endocrine: Hyperglycemia of critical illness -- SSI, medium scale, every 6 Prophylaxis: GI Prophylaxis Pepcid DVT Prophylaxis -- SCDs Subcutaneous heparin Lines: 02/23 right IJ triple-lumen catheter 02/23 radial arterial line [place] Dispo: Admitted to the ICU. Remains critically ill This patient remains critically ill with one or more organ systems which are or may become a threat to life. I have spent in excess of 50 minutes discontinuously in the care and management of this patient. This time is exclusive of procedures, and includes, but is not limited to, evaluation of the patient, review of the medical record, discussions with family, consultants, nursing staff, or respiratory therapy, and documentation in the medical record. 02/24: Family meeting convened today with brother Ori Michaels, contact information [phone]. Extensive discussion regarding goals of care. He expressed that the patient would not want a tracheostomy nor a PEG feeding tube , and is considering comfort care measures at this time. He is requested that the patient be placed on alternate CODE STATUS, discussion also in the presence of AIRCRAFT SYSTEMS TECHNICIAN (Mariam). The CODE STATUS has been changed to intubation only. Vasopressor use, no CPR medication, no electrical treatment. He has requested to me with palliative care team Sunday morning, Ms. Saray Gaxiola or palliative team retail representative, prior to returning home to [facility], clarification of goals and decision making. All questions answered. 02/25: 0605 the patient self extubated. Immediately discussion with family Ori Michaels, he requested no reintubation at this time. He requested comfort care measures ventilator withdrawal. He enroute to the hospital. Patient's CODE STATUS changed to DNR. All questions answered, telephone conversation reconfirmed with Willie Geiger RN caring for patient. Ventilator/ Comfort Care measures instituted per protocol. Physician Kristi Herron MD Feb 25, 2017 06:42
[2017-02-25] MEDS ORDERED: ACETAMINOPHEN 325 MG TAB PO PRN ×2 (06:45)
[2017-02-25] MEDS ORDERED: MORPHINE SULFATE 8 MG/ML INJ IV PUSH PRN (07:00)
[2017-02-25] MEDS ORDERED: BISACODYL 10 MG SUPP RECTAL PRN (07:00)
[2017-02-25] MEDS ORDERED: FUROSEMIDE 20 MG/2 ML VIAL IV PUSH PRN (07:00)
[2017-02-25] MEDS ORDERED: LORazepam 2 MG/ML VIAL IV PUSH PRN ×3 (07:00)
[2017-02-25] MEDS ORDERED: MORPHINE SULFATE 4 MG/ML INJ IV PUSH ONE (07:00)
[2017-02-25] MEDS ORDERED: ACETAMINOPHEN 650 MG SUPP RECTAL PRN (07:00)
[2017-02-25] MEDS ORDERED: MORPHINE SULFATE 4 MG/ML INJ IV PUSH PRN (07:00)
[2017-02-25] MEDS ORDERED: HYOSCYAMINE 0.5 MG/ML AMP IV PUSH PRN (07:00)
--- NOTE | 2017-02-25 07:46 | HHI.DS ---
Summary Note Date of : Feb 25, 2017 Time Of : 06:54 Admission Date Feb 23, 2017 at 04:10 Admitting Diagnosis respiratory distress, pneumonia, hypoxia Diagnosis at Time of : Procedures 604 self extubation Brief History This is a 76yF who presented from a SNF for shortness of breath x a few hours. She was found unresponsive at her SNF with respiratory distress and spo2 60% on 4L o2 by [place]. EMS attempted intubation in the field and were unsuccessful. She was successfully intubated in the emergency department. She had a normal wbc, but a CXR with new infiltrates, elevated Cr, slightly elevated troponin. She is intubated, unresponsive, and unable to provide any additional information. CBC/BMP: 02/25/17 0454 02/25/17 0454 Significant Findings Laboratory Tests Test 02/23/17 03:20 02/23/17 03:35 02/23/17 04:06 02/23/17 05:00 Creatinine 1.54 MG/DL (0.50-1.00) Random Glucose 162 MG/DL (74-106) Albumin 2.7 GM/DL (3.4-5.0) Calcium Level 8.4 MG/DL (8.5-10.1) Potassium Level 5.3 MEQ/L (3.5-5.1) Carbon Dioxide Level 37.1 MEQ/L (21.0-32.0) Anion Gap 1 MEQ/L (5-15) Estimat Glomerular Filtration Rate 33 ML/MIN (>89) Troponin I 0.21 NG/ML (0.02-0.05) B-Type Natriuretic Peptide 244 PG/ML (0-100) Urine Turbidity HAZY (CLEAR) Urine Protein 300 mg/dL (NEG-TRACE) Urine Occult Blood SMALL (NEG) Urine WBC 9 /hpf (0-5) Urine Bacteria MOD /hpf (NONE) Urine Mucus FEW /lpf (OCC) Red Blood Count 3.85 MIL/MM3 (4.00-5.30) Hemoglobin 10.4 GM/DL (11.6-15.3) Hematocrit 32.7 % (35.0-46.0) Mean Corpuscular Hemoglobin Concent 31.7 % (32.0-36.0) Red Cell Distribution Width 19.3 % (11.6-17.2) Neutrophils (%) (Auto) 91.2 % (16.0-70.0) Lymphocytes (%) (Auto) 3.0 % (9.0-44.0) Neutrophils # (Auto) 8.6 TH/MM3 (1.8-7.7) Lymphocytes # (Auto) 0.3 TH/MM3 (1.0-4.8) Blood Gas HCO3 29 mmol/L (22-26) Blood Gas Base Excess 5.0 mmol/L (-2-2) Arterial Blood pH 7.45 (7.380-7.420) Blood Gas Hemoglobin 10.0 G/DL (12.0-16.0) Test 02/23/17 06:00 02/23/17 10:00 02/23/17 14:53 02/23/17 21:00 Troponin I 0.65 NG/ML (0.02-0.05) 0.59 NG/ML (0.02-0.05) 0.52 NG/ML (0.02-0.05) Test 02/24/17 04:10 02/25/17 04:54 Red Blood Count 3.64 MIL/MM3 (4.00-5.30) 3.76 MIL/MM3 (4.00-5.30) Hemoglobin 9.7 GM/DL (11.6-15.3) 10.2 GM/DL (11.6-15.3) Hematocrit 30.4 % (35.0-46.0) 31.2 % (35.0-46.0) Mean Corpuscular Hemoglobin 26.7 PG (27.0-34.0) Red Cell Distribution Width 19.5 % (11.6-17.2) 19.5 % (11.6-17.2) Blood Urea Nitrogen 33 MG/DL (7-18) 47 MG/DL (7-18) Creatinine 1.64 MG/DL (0.50-1.00) 1.69 MG/DL (0.50-1.00) Random Glucose 237 MG/DL (74-106) 246 MG/DL (74-106) Calcium Level 8.2 MG/DL (8.5-10.1) 8.3 MG/DL (8.5-10.1) Estimat Glomerular Filtration Rate 31 ML/MIN (>89) 30 ML/MIN (>89) Imaging Last Impressions Chest X-Ray 02/23/17 0319 Signed Impressions: Service Date/Time: Thursday, February 23, 2017 03:28 - CONCLUSION: ET tube is at the level of the howard and needs to be withdrawn at least 2.5 cm. Ethan Caceres MD Hospital Course 02/24: The patient continues to have high O2 requirements, no improvement in chest x-ray. Family at bedside , brother Ori Michaels. Extensive discussion with family regarding patient's current medical status, and respiratory compromise has been long-standing. Mr Michaels stated that the patient, would not desire long-term mechanical ventilation and requested not to have tracheostomy. Mr. Michaels stated that alternate CODE STATUS be initiated. Discussion regarding comfort care/withdrawal, and Hospice performed at his request. Mr. Michaels stated that he would like to meet with palliative care on Sunday, 02/26 to define goals of care. 02/25: Altered floor at 605, the patient self extubated 100% BVM was being provided with plans for emergent reintubation. I telephone Mr. Ori Michaels, informed him of the situation, he requested immediate comfort care/withdrawal be initiated at this time. He requested that the patient not be reintubated at this time. This was confirmed with Willie Geiger RN. Comfort care measures instituted as requested. Family enroute to hospital. Time of - 0654 Kristi Aquino MD Feb 25, 2017 07:46
[2017-02-25] MEDS ORDERED: MORPHINE SULFATE 4 MG/ML INJ IV PUSH SCH (08:00)
[2017-02-25] MEDS ORDERED: LORazepam 2 MG/ML VIAL IV PUSH SCH (08:00)
[2017-02-25] MEDS ORDERED: FLUCONAZOLE 100 MG PREMIX BAG 50 ML IV SCH (17:00)
[2017-02-26 08:49] LABS: BLOOD GAS BASE EXCESS 0.5 mmol/L (-2-2); BLOOD GAS CARBOXYHEMOGLOBIN 1.7 % (0-4); BLOOD GAS HCO3 23 mmol/L (22-26); BLOOD GAS METHEMOGLOBIN 1.2 % (0-2); BLOOD GAS O2 HGB SATURATION 92 % (90-100); BLOOD GAS OXYGEN CONTENT 13.3 Vol % (12.0-20.0); BLOOD GAS PCO2 29 mmHg (38-42); BLOOD GAS PO2 69 mmHg (61-120); BLOOD GAS TOTAL HGB 10.3 G/DL (12.0-16.0); CRITICAL VALUE YES; TEMP CORR TO 98.6
[2017-02-26 08:50] LABS: STAT YES
== END 2017-02-25 06:54 | disposition expired | DRG 871 ==
LOC: NEPE 03:12 → NEDA 04:10 → HIMN 05:47
PROVIDERS: ADMIT Internal Medicine Critical Care Medicine; ATTEND Internal Medicine Critical Care Medicine
PROC: 5A1945Z Respiratory Ventilation, 24-96 Consecutive Hours (ICD-10-PCS; principal; 2017-02-23)
PROC: 03HY32Z Insertion of Monitoring Device into Upper Artery, Percutaneous Approach (ICD-10-PCS; 2017-02-23)
PROC: 0BH17EZ Insertion of Endotracheal Airway into Trachea, Via Natural or Artificial Opening (ICD-10-PCS; 2017-02-23)
PROC: 0T9B70Z Drainage of Bladder with Drainage Device, Via Natural or Artificial Opening (ICD-10-PCS; 2017-02-23)
PROC: 05HM33Z Insertion of Infusion Device into Right Internal Jugular Vein, Percutaneous Approach (ICD-10-PCS; 2017-02-23)
PROC: 4A133B1 Monitoring of Arterial Pressure, Peripheral, Percutaneous Approach (ICD-10-PCS; 2017-02-23)
PROC: 4A133J1 Monitoring of Arterial Pulse, Peripheral, Percutaneous Approach (ICD-10-PCS; 2017-02-23)
DX: A41.9 Sepsis, unspecified organism (principal); J69.0 Pneumonitis due to inhalation of food and vomit; J96.21 Acute and chronic respiratory failure with hypoxia; I21.4 Non-ST elevation (NSTEMI) myocardial infarction; G93.41 Metabolic encephalopathy; N17.9 Acute kidney failure, unspecified; R13.12 Dysphagia, oropharyngeal phase; I50.32 Chronic diastolic (congestive) heart failure; J44.1 Chronic obstructive pulmonary disease with (acute) exacerbation; E46 Unspecified protein-calorie malnutrition; I11.0 Hypertensive heart disease with heart failure; R65.20 Severe sepsis without septic shock; E11.65 Type 2 diabetes mellitus with hyperglycemia; F32.9 Major depressive disorder, single episode, unspecified; F41.9 Anxiety disorder, unspecified; E78.00 Pure hypercholesterolemia, unspecified; I25.10 Atherosclerotic heart disease of native coronary artery without angina pectoris; K21.9 Gastro-esophageal reflux disease without esophagitis; E66.01 Morbid (severe) obesity due to excess calories; Y95 Nosocomial condition; E87.5 Hyperkalemia; D63.8 Anemia in other chronic diseases classified elsewhere; Z87.01 Personal history of pneumonia (recurrent); F03.90 Unspecified dementia, unspecified severity, without behavioral disturbance, psychotic disturbance, mood disturbance, and anxiety; Z51.5 Encounter for palliative care; Z99.81 Dependence on supplemental oxygen; Z86.73 Personal history of transient ischemic attack (TIA), and cerebral infarction without residual deficits; Z79.82 Long term (current) use of aspirin; Z87.891 Personal history of nicotine dependence
CPT/HCPCS: 31500; 36556; 36620; 51702; 70450; 71010; 80048; 80053; 80202; 81001; 82550; 82805; 82948; 83605; 83735; 83880; 84484; 85025; 85027; 85610; 85730; 87040; 87070; 87086; 87205; 87641; 93005; 94002; 94003; 94640; 94664; 96365; 96368; 96375; J0330; J0456; J0692; J1450; J1644; J1940; J1980; J2060; J2250; J2270; J2920; J2930; J3010; J3370; J7030; J7040; J7050